=== PATIENT | female | born 1965 | race Caucasian/White ===

== ENCOUNTER 2017-01-07 07:25 | Emergency (ER) | payer MEDICAID ==
[2017-01-07] MEDS ORDERED: 0.9 % SODIUM CHLORIDE 1,000 ML BAG IV ONE (08:12)
[2017-01-07] MEDS ORDERED: ONDANSETRON HCL IV 4 MG/2 ML VIAL IV ONE (08:12)
[2017-01-07] MEDS ORDERED: HYDROMORPHONE HCL 1 MG/ML CPJ IM ONE (08:12)
--- NOTE | 2017-01-07 08:32 | Emergency Department Record ---
History of Present Illness - General Chief Complaint: Abdominal Pain Stated Complaint: LOWER RIGHT ABD PAIN Time Seen by Provider: 01/07/17 08:12 Source: Patient Mode of Arrival: Ambulatory Limitations: No limitations - History of Present Illness Initial Comments: pt is having rlq pain that is different then what she usually has w her crohns. no nvcd. pain is constant. no distention. MD Complaint: Abdominal pain Onset/Timin -: Hour(s) Location: RLQ Radiation: Suprapubic Migration to: No migration Severity: Moderate Quality: Sharp, Stabbing Consistency: Constant, Intermittent Improves With: Nothing Worsens With: Movement Associated Symptoms: Denies other symptoms - Related Data Patient : No Hx Age of Menopause: 47 Home Medications Medication Instructions Recorded Confirmed Last Taken Zolpidem Tartrate [Ambien] 10 mg PO QHS 09/18/15 01/07/17 11/05/16 22:00 Vedolizumab [Entyvio] 300 mg IV ASDIR 07/05/16 01/07/17 10/17/16 Allergies Allergy/AdvReac Type Severity Reaction Status Date / Time promethazine HCl Allergy Mild ITCHING Verified 01/07/17 07:43 [From Phenergan] adalimumab [From HUMIRA] Allergy Unknown MIGRAINES Verified 01/07/17 07:43 aspirin [ASPIRIN] Allergy Unknown NAUSEA AND Verified 01/07/17 07:43 VOMITING azathioprine [From IMURAN] Allergy Unknown VOMITING Verified 01/07/17 07:43 azathioprine sodium Allergy Unknown VOMITING Verified 01/07/17 07:43 [From IMURAN] chlordiazepoxide HCl Allergy Unknown RASH Verified 01/07/17 07:43 [From LIBRIUM] citalopram hydrobromide Allergy Unknown HYPERSENSIT Verified 01/07/17 07:43 [From CELEXA] IVITY clidinium [CLIDINIUM] Allergy Unknown RASH Verified 01/07/17 07:43 codeine Allergy Unknown ITCHING Verified 01/07/17 07:43 eicosapentaenoic acid Allergy Unknown RASH Verified 01/07/17 07:43 [From OMEGA 3] hydrocodone bitartrate Allergy Unknown ITCHING Verified 01/07/17 07:43 [From VICODIN] hydromorphone HCl Allergy Unknown ITCHING Verified 01/07/17 07:43 infliximab Allergy Unknown VOMITING Verified 01/07/17 07:43 metoclopramide Allergy Unknown ALTERED Verified 01/07/17 07:43 [METOCLOPRAMIDE] MENTAL STATUS morphine [MORPHINE] Allergy Unknown ITCHING Verified 01/07/17 07:43 omega-3 fatty acids Allergy Unknown RASH Verified 01/07/17 07:43 [From OMEGA 3] oxycodone HCl [From PERCOCET] Allergy Unknown ITCHING Verified 01/07/17 07:43 paroxetine HCl [From PAXIL] Allergy Unknown RASH Verified 01/07/17 07:43 varenicline tartrate Allergy Unknown ALTERED Verified 01/07/17 07:43 [From CHANTIX] MENTAL STATUS Travel Screening - Travel/Exposure Within Last 30 Days Have you traveled within the last 30 days?: No - Travel/Exposure Within Last Year Have you traveled outside the [place] in the last year?: No - Additonal Travel Details Have you been exposed to anyone with a communicable illness?: No - Travel Symptoms Symptom Screening: None Review of Systems Reviewed: No additional complaints except as noted below Constitutional: Reports: As per HPI. Denies: Chills, Fever, Malaise, Night sweats, Weakness, Weight change Eyes: Reports: As per HPI. Denies: Eye discharge, Eye pain, Photophobia, Vision change ENT: Reports: As per HPI. Denies: Congestion, Dental pain, Ear pain, Epistaxis , Hearing loss, Throat pain Respiratory: Reports: As per HPI. Denies: Cough, Dyspnea, Hemoptysis, Stridor, Wheezes Cardiovascular: Reports: As per HPI. Denies: Arrhythmia, Chest pain, Dyspnea on exertion, Edema, Murmurs, Orthopnea, Palpitations, Paroxysmal nocturnal dyspnea, Rheumatic Fever, Syncope Endocrine: Reports: As per HPI. Denies: Fatigue, Heat or cold intolerance, Polydipsia, Polyuria Gastrointestinal: Reports: As per HPI. Denies: Abdominal pain, Constipation, Diarrhea, Hematemesis, Hematochezia, Melena, Nausea, Vomiting Genitourinary: Reports: As per HPI. Denies: Abnormal menses, Discharge, Dyspareunia, Dysuria, Frequency, Hematuria, Incontinence, Retention, Urgency Musculoskeletal: Reports: As per HPI. Denies: Arthralgia, Back pain, Gout, Joint swelling, Myalgia, Neck pain Skin: Reports: As per HPI. Denies: Bruising, Change in color, Change in hair/ nails, Lesions, Pruritus, Rash Neurological: Reports: As per HPI. Denies: Abnormal gait, Confusion, Headache, Numbness, Paresthesias, Seizure, Tingling, Tremors, Vertigo, Weakness Psychiatric: Reports: As per HPI. Denies: Anxiety, Auditory hallucinations, Depression, Homicidal thoughts, Suicidal thoughts, Visual hallucinations Hematological/Lymphatic: Reports: As per HPI. 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 Greyson Haddad ) Hx Reflux: Yes Hx Irritable Bowel: Yes Hx Nausea/Vomiting: Yes Hx Obstructive Bowel: Yes (Admitted for Crohns, ileus and possible partial bowel obstruction) Comment:: crohns colitis - Hx Genitourinary Disorders: No Comment:: going through menopause - ENDOCRINE Hx Endocrine Disorders: No - MUSCULOSKELETAL Hx Musculoskeletal Disorders: Yes Hx Arthritis: Yes Comment:: rds in right ankle - PSYCH Hx Psych Problems: Yes Hx Anxiety: Yes Hx Depression: Yes - HEMATOLOGY/ONCOLOGY Hx Hematology/Oncology Disorders: No Family Medical History Any Significant Family History?: Yes Hx Alcohol Use: Father, Brother/Sister Hx Cancer: Brother/Sister *Cancer Comment: lung cancer Hx Diabetes: Grandparents *Diabetes Comment: grandmother Hx Heart Disease: Grandparents *Heart Comment: grandfather Hx Resp Disorders: Children *Resp Comment: daughter has asthma Hx Stroke: Mother *Stroke Comment: Mother had history of TIA x 1 Physical Exam - General General Appearance: Alert, Oriented x3, Cooperative, No acute distress, Mild distress - Head Head exam: Normal inspection - Eye Eye exam: Normal appearance, PERRL, EOMI Pupils: Normal accommodation - ENT ENT exam: Normal exam, Mucous membranes moist, Normal external ear exam, Normal orophraynx, TM's normal bilaterally Ear exam: Normal external inspection. negative: External canal tenderness Nasal Exam: Normal inspection. negative: Discharge, Sinus tenderness Mouth exam: Normal external inspection, Tongue normal Teeth exam: Normal inspection. negative: Dental caries Throat exam: Normal inspection. negative: Tonsillar erythema, Tonsillar exudate - Neck Neck exam: Normal inspection, Full ROM. negative: Tenderness - Respiratory Respiratory exam: Normal lung sounds bilaterally. negative: Respiratory distress - Cardiovascular Cardiovascular Exam: Normal rhythm, Normal heart sounds, Tachycardia - GI/Abdominal GI/Abdominal exam: Soft, Normal bowel sounds, Tenderness - Rectal Rectal exam: Deferred - exam: Deferred - Extremities Extremities exam: Normal inspection, Full ROM, Normal capillary refill. negative: Tenderness - Back Back exam: Reports: Normal inspection, Full ROM. Denies: Muscle spasm, Rash noted, Tenderness - Neurological Neurological exam: Alert, CN II-XII intact, Normal gait, Oriented X3 - Psychiatric Psychiatric exam: Normal affect, Normal mood - Skin Skin exam: Dry, Intact, Normal color, Warm Course Vital Signs 01/07/17 07:32 Temperature 97.7 F Pulse Rate 108 H Respiratory 20 Rate Blood Pressure 117/93 Pulse Ox 98 - Reevaluation(s) Reevaluation #1: 01/07/17 12:43 pt feels better. pain is gone. ct is always abnormal but is unchanged from september Medical Decision Making - Lab Data Result diagrams: 01/07/17 09:24 01/07/17 09:24 Disposition Disposition: Discharge Clinical Impression: Abdominal pain Qualifiers: Abdominal location: generalized Qualified Code(s): R10.84 - Generalized abdominal pain Disposition: Home, Self-Care Condition: (1) Good Instructions: Abdominal Pain (ED) Additional Instructions: follow up with family doctor and surgeon. return sooner if worse. Forms: Patient Portal Access
[2017-01-07 09:26] LABS: BASO % 0.4 % (0-6); EOS % 3.6 % (0-6); GRAN % 61.6 % (47-80); HEMATOCRIT 45.1 % (35.0-47.0); HEMOGLOBIN 14.4 gm/dl (11.6-16.0); LYMPH % 22.9 % (16-45); MEAN CELL VOLUME 84.1 fl (81-97); MEAN CORPUSCULAR HEMOGLOBIN 26.9 pg (27-33); MEAN CORPUSCULAR HGB CONC 31.9 g/dl (32-36); MONO % 11.5 % (0-9); PLATELET COUNT 439 K/uL (130-400); RED BLOOD COUNT 5.36 M/uL (3.80-5.40); RED CELL DISTRIBUTION WIDTH 15.1 % (11.5-14.5); WHITE BLOOD COUNT W/O DIFF 12.9 K/uL (4.2-12.2)
[2017-01-07 09:38] LABS: ALB/GLOB RATIO 1.4 (1.1-1.8); ALBUMIN 4.6 gm/dL (3.5-5.0); ALKALINE PHOSPHATASE 91 U/L (38-126); ALT/SGPT 20 U/L (9-52); ANION GAP 14.1 (7-16); AST/SGOT 27 U/L (14-36); BILIRUBIN,TOTAL 0.59 mg/dL (0.2-1.3); BLOOD UREA NITROGEN 6 mg/dL (7-17); CARBON DIOXIDE 25.9 mmol/L (22-30); CREATININE 0.5 mg/dL (0.52-1.04); EST GLOMERULAR FILTRATION RATE > 60 ml/min; GLUCOSE,RANDOM 76 mg/dL (70-110); LIPASE 95 U/L (23-300); TOTAL PROTEIN 7.8 gm/dL (6.3-8.2)
[2017-01-07] MEDS ORDERED: DIPHENHYDRAMINE HCL IV 50 MG/ML VIAL IVP ONE (10:07)
[2017-01-07 11:36] LABS: URINE APPEARANCE CLEAR; URINE BILIRUBIN NEGATIVE (NEGATIVE); URINE BLOOD NEGATIVE (NEGATIVE); URINE COLOR YELLOW; URINE GLUCOSE (UA) NEGATIVE (NEGATIVE); URINE KETONE NEGATIVE (NEGATIVE); URINE LEUKOCYTE ESTERASE NEGATIVE (NEGATIVE); URINE NITRITE NEGATIVE (NEGATIVE); URINE PROTEIN NEGATIVE (NEGATIVE); URINE UROBILINOGEN 0.2 E.U./dL (0.20 - 1.00)
== END 2017-01-07 13:20 | disposition home or self-care (01) ==
LOC: ER 07:25
DX: R10.84 Generalized abdominal pain (principal); K50.90 Crohn's disease, unspecified, without complications
CPT/HCPCS: 99284 ×2; 96374; 96372; 96375; 83690; 85025; 80053; 81003; 74176; J2405; J1170; J1200; J7030

== ENCOUNTER 2017-02-11 14:11 | Emergency (ER) | payer MEDICAID ==
[2017-02-11] MEDS ORDERED: ASPIRIN 81 MG CHEWABLE TABLET PO ONE (14:32)
[2017-02-11] MEDS ORDERED: ONDANSETRON HCL IV 4 MG/2 ML VIAL IVP ONE (14:38)
[2017-02-11] MEDS ORDERED: MORPHINE SULFATE 5 MG/ML PFS IVP ONE ×2 (14:38→15:48)
--- NOTE | 2017-02-11 14:38 | Emergency Department Record ---
History of Present Illness - General Chief Complaint: Chest Pain Stated Complaint: CHEST PAIN Time Seen by Provider: 02/11/17 14:31 Source: Patient Mode of Arrival: Ambulatory Limitations: No limitations - History of Present Illness Initial Comments: 51 yo female presents to ED with a CC of chest pain radiating from the left chest to her left scapular region associated with nausea symptoms. Patient denies previous heart or lung problems, and denies fevers, chills, or recent illness. MD Complaint: Chest pain Onset/Timin -: Minutes(s) Onset: Awoke with symptoms Pain Location: Left chest Pain Radiation: Back, Other Severity: Moderate Severity scale (1-10): 10 Consistency: Constant Improves With: Nothing Worsens With: Nothing Anginal Symptoms: Nausea - Related Data Home Medications Medication Instructions Recorded Confirmed Last Taken Zolpidem Tartrate [Ambien] 10 mg PO QHS 09/18/15 02/11/17 02/10/17 Vedolizumab [Entyvio] 300 mg IV ASDIR 07/05/16 02/11/17 10/17/16 Allergies Allergy/AdvReac Type Severity Reaction Status Date / Time promethazine HCl Allergy Mild ITCHING Unverified 02/06/17 12:51 [From Phenergan] adalimumab [From HUMIRA] Allergy Unknown MIGRAINES Unverified 02/06/17 12:51 aspirin [ASPIRIN] Allergy Unknown NAUSEA AND Unverified 02/06/17 12:51 VOMITING azathioprine [From IMURAN] Allergy Unknown VOMITING Unverified 02/06/17 12:51 azathioprine sodium Allergy Unknown VOMITING Unverified 02/06/17 12:51 [From IMURAN] chlordiazepoxide HCl Allergy Unknown RASH Unverified 02/06/17 12:51 [From LIBRIUM] citalopram hydrobromide Allergy Unknown HYPERSENSIT Unverified 02/06/17 12:51 [From CELEXA] IVITY clidinium [CLIDINIUM] Allergy Unknown RASH Unverified 02/06/17 12:51 codeine Allergy Unknown ITCHING Unverified 02/06/17 12:51 eicosapentaenoic acid Allergy Unknown RASH Unverified 02/06/17 12:51 [From OMEGA 3] hydrocodone bitartrate Allergy Unknown ITCHING Unverified 02/06/17 12:51 [From VICODIN] hydromorphone HCl Allergy Unknown ITCHING Unverified 02/06/17 12:51 infliximab Allergy Unknown VOMITING Unverified 02/06/17 12:51 metoclopramide Allergy Unknown ALTERED Unverified 02/06/17 12:51 [METOCLOPRAMIDE] MENTAL STATUS morphine [MORPHINE] Allergy Unknown ITCHING Unverified 02/06/17 12:51 omega-3 fatty acids Allergy Unknown RASH Unverified 02/06/17 12:51 [From OMEGA 3] oxycodone HCl [From PERCOCET] Allergy Unknown ITCHING Unverified 02/06/17 12:51 paroxetine HCl [From PAXIL] Allergy Unknown RASH Unverified 02/06/17 12:51 varenicline tartrate Allergy Unknown ALTERED Unverified 02/06/17 12:51 [From CHANTIX] MENTAL STATUS Travel Screening - Travel/Exposure Within Last 30 Days Have you traveled within the last 30 days?: No - Travel/Exposure Within Last Year Have you traveled outside the [place] in the last year?: No - Additonal Travel Details Have you been exposed to anyone with a communicable illness?: No - Travel Symptoms Symptom Screening: None Review of Systems Constitutional: Denies: Chills, Fever, Malaise, Night sweats Eyes: Denies: Eye discharge, Eye pain ENT: Denies: Congestion, Ear pain, Epistaxis Respiratory: Denies: Cough, Dyspnea Cardiovascular: Reports: Chest pain. Denies: Dyspnea on exertion Endocrine: Denies: Fatigue, Heat or cold intolerance Gastrointestinal: Denies: Abdominal pain, Nausea, Vomiting Genitourinary: Denies: Frequency, Hematuria, Incontinence, Retention Musculoskeletal: Denies: Arthralgia, Back pain, Gout, Joint swelling Skin: Denies: Bruising, Change in color Neurological: Denies: Abnormal gait, Confusion, Headache, Seizure Psychiatric: Denies: Anxiety Hematological/Lymphatic: Denies: Anemia, Blood Clots Past Medical History - SOCIAL HISTORY Smoking Status: Light tobacco smoker (<10/day) Alcohol Use: None Drug Use: None - RESPIRATORY Hx Respiratory Disorders: No - CARDIOVASCULAR Hx Cardio Disorders: No - NEURO Hx Neuro Disorders: Yes Hx Seizures: Yes (last seizure 12 years ago) Hx TIA: Yes (2009) - GI Hx GI Disorders: Yes Hx Abdominal Pain: Yes Hx Crohn's Disease: Yes (Diagnosed about 9 years ago; managed by Dr. Greyson Haddad ) Hx Reflux: Yes Hx Irritable Bowel: Yes Hx Nausea/Vomiting: Yes Hx Obstructive Bowel: Yes (Admitted for Crohns, ileus and possible partial bowel obstruction) Comment:: crohns colitis - Hx Genitourinary Disorders: No Comment:: going through menopause - ENDOCRINE Hx Endocrine Disorders: No - MUSCULOSKELETAL Hx Musculoskeletal Disorders: Yes Hx Arthritis: Yes Comment:: rds in right ankle - PSYCH Hx Psych Problems: Yes Hx Anxiety: Yes Hx Depression: Yes - HEMATOLOGY/ONCOLOGY Hx Hematology/Oncology Disorders: No Family Medical History Any Significant Family History?: No Hx Alcohol Use: Father, Brother/Sister Hx Cancer: Brother/Sister *Cancer Comment: lung cancer Hx Diabetes: Grandparents *Diabetes Comment: grandmother Hx Heart Disease: Grandparents *Heart Comment: grandfather Hx Resp Disorders: Children *Resp Comment: daughter has asthma Hx Stroke: Mother *Stroke Comment: Mother had history of TIA x 1 Physical Exam - General General Appearance: Alert, Oriented x3, Cooperative, Mild distress Limitations: No limitations - Head Head exam: Atraumatic, Normocephalic, Normal inspection Head exam detail: negative: Abrasion, Contusion, Moran's sign, General tenderness, Hematoma, Laceration - Eye Eye exam: Normal appearance. negative: Conjunctival injection, Periorbital swelling, Periorbital tenderness, Scleral icterus - ENT Ear exam: negative: Auricular hematoma, Auricular trauma Nasal Exam: negative: Active bleeding, Discharge, Dried blood, Foreign body Mouth exam: negative: Drooling, Laceration, Muffled voice, Tongue elevation - Neck Neck exam: Normal inspection. negative: Meningismus, Tenderness - Respiratory Respiratory exam: Normal lung sounds bilaterally. negative: Rales, Respiratory distress, Rhonchi, Stridor - Cardiovascular Cardiovascular Exam: Regular rate, Normal rhythm, Normal heart sounds - GI/Abdominal GI/Abdominal exam: Soft. negative: Rebound, Rigid, Tenderness - Rectal Rectal exam: Deferred - exam: Deferred - Extremities Extremities exam: Normal inspection. negative: Pedal edema, Tenderness - Back Back exam: Denies: CVA tenderness (R), CVA tenderness (L) - Neurological Neurological exam: Alert, Normal gait, Oriented X3 - Psychiatric Psychiatric exam: Normal affect, Normal mood - Skin Skin exam: Normal color. negative: Abrasion Type of lesion: negative: abrasion Course Vital Signs 02/11/17 14:12 Temperature 97.6 F Pulse Rate 85 Respiratory 20 Rate Blood Pressure 123/90 Pulse Ox 98 - Reevaluation(s) Reevaluation #1: 02/11/17 14:33 EKG: NSR 95 Normal axis, normal intervals ST depression V5, V6 New changes from 07/31/2016 Reevaluation #2: 02/11/17 15:14 Labs reviewed and are grossly unremarkable for an acute process. CXR: No acute process. patient was updated on all results as well as her new EKG changes, will initiate transfer for cardiology evaluation. Reevaluation #3: 02/11/17 15:39 Case was discussed with Dr. Reid, laborer demolition activated, Heparin bolus given and Nitro qttp ordered. Will initiate stat transfer. Medical Decision Making - Lab Data Result diagrams: 02/11/17 14:40 02/11/17 14:40 Disposition Disposition: Transfer Clinical Impression: ST elevation myocardial infarction (STEMI) Qualifiers: Involved coronary artery: unspecified coronary artery Qualified Code(s): I21.3 - ST elevation (STEMI) myocardial infarction of unspecified site Disposition: Acute Care Hospital Transfer Transfer To: [facility] Reason For Transfer: STEMI Accepting Physician: Jeanette Time Discussed w/Accepting Physician: 15:40 Condition: (2) Stable Forms: Patient Portal Access
[2017-02-11] MEDS ORDERED: DIPHENHYDRAMINE HCL IV 50 MG/ML VIAL IVP ONE (14:39)
[2017-02-11 14:49] LABS: BASO % 0.5 % (0-6); EOS % 5.8 % (0-6); GRAN % 53.5 % (47-80); HEMATOCRIT 45.5 % (35.0-47.0); HEMOGLOBIN 14.6 gm/dl (11.6-16.0); LYMPH % 31.3 % (16-45); MEAN CORPUSCULAR HEMOGLOBIN 26.6 pg (27-33); MEAN CORPUSCULAR HGB CONC 32.1 g/dl (32-36); MEAN PLATELET VOLUME 9.4 fl (7.4-10.4); MONO % 8.9 % (0-9); PLATELET COUNT 488 K/uL (130-400); RED BLOOD COUNT 5.48 M/uL (3.80-5.40); RED CELL DISTRIBUTION WIDTH 14.9 % (11.5-14.5); WHITE BLOOD COUNT W/O DIFF 12.8 K/uL (4.2-12.2)
[2017-02-11 14:59] LABS: ALB/GLOB RATIO 1.6 (1.1-1.8); ALBUMIN 4.7 gm/dL (3.5-5.0); ALKALINE PHOSPHATASE 100 U/L (38-126); ALT/SGPT 31 U/L (9-52); ANION GAP 9.9 (7-16); AST/SGOT 30 U/L (14-36); BILIRUBIN,TOTAL 0.41 mg/dL (0.2-1.3); BLOOD UREA NITROGEN 4 mg/dL (7-17); CARBON DIOXIDE 24.1 mmol/L (22-30); CREATININE 0.6 mg/dL (0.52-1.04); EST GLOMERULAR FILTRATION RATE > 60 ml/min; GLUCOSE,RANDOM 93 mg/dL (70-110); TOTAL PROTEIN 7.6 gm/dL (6.3-8.2)
[2017-02-11 15:11] LABS: CKMB 0.3 ug/L (0-6); TROPONIN I < 0.012 ng/mL (0.00-0.034)
[2017-02-11] MEDS ORDERED: HEPARIN SODIUM 1000 UNIT/1 ML 10ML VIAL IVP ONE (15:37)
[2017-02-11] MEDS ORDERED: NITROGLYCERIN/D5W 50 MG in DEXTROSE 5 % IN WATER 1 BAG IV SCH ×2 (15:45)
== END 2017-02-11 16:10 | disposition short-term general hospital (02) ==
LOC: ER 14:11
DX: I21.3 ST elevation (STEMI) myocardial infarction of unspecified site (principal); R11.0 Nausea; F17.210 Nicotine dependence, cigarettes, uncomplicated
CPT/HCPCS: 71020; 80053; 82553; 84484; 85025; 93005; 93010; 96365; 96375; 96376; 99285; J1200; J2405

== ENCOUNTER 2017-05-03 04:42 | Emergency (ER) | payer MEDICAID ==
--- NOTE | 2017-05-03 05:07 | Emergency Department Record ---
History of Present Illness - General Chief Complaint: Cough Stated Complaint: COUGH Time Seen by Provider: 05/03/17 04:54 Source: Patient Mode of Arrival: Ambulatory - History of Present Illness Initial Comments: The patient has had a nonproductive to clear cough which becomes so bad at night time that she is now having pain when coughing below her lower right ribs. She has been using nyquil and dayquil without much relief. She denies f,c , SOB, sore throat, nasal congestion or ear pain. MD Complaint: Cough Onset/Timin -: Days(s) - Related Data Home Medications Medication Instructions Recorded Confirmed Last Taken Vedolizumab [Entyvio] 300 mg IV ASDIR 07/05/16 05/03/17 10/17/16 Previous Rx's Medication Instructions Recorded Albuterol Sulfate [Proventil Hfa] 1 - 2 puff INH TID #1 inhaler 05/03/17 Codeine Phosphate/Guaifenesin 5 ml PO QHS #120 ml 05/03/17 [Guaifenesin-Codeine Syrup] Allergies Allergy/AdvReac Type Severity Reaction Status Date / Time promethazine HCl Allergy Mild ITCHING Unverified 04/02/17 14:12 [From Phenergan] adalimumab [From HUMIRA] Allergy Unknown MIGRAINES Unverified 04/02/17 14:12 aspirin [ASPIRIN] Allergy Unknown NAUSEA AND Unverified 04/02/17 14:12 VOMITING azathioprine [From IMURAN] Allergy Unknown VOMITING Unverified 04/02/17 14:12 azathioprine sodium Allergy Unknown VOMITING Unverified 04/02/17 14:12 [From IMURAN] chlordiazepoxide HCl Allergy Unknown RASH Unverified 04/02/17 14:12 [From LIBRIUM] citalopram hydrobromide Allergy Unknown HYPERSENSIT Unverified 04/02/17 14:12 [From CELEXA] IVITY clidinium [CLIDINIUM] Allergy Unknown RASH Unverified 04/02/17 14:12 codeine Allergy Unknown ITCHING Unverified 04/02/17 14:12 eicosapentaenoic acid Allergy Unknown RASH Unverified 04/02/17 14:12 [From OMEGA 3] hydrocodone bitartrate Allergy Unknown ITCHING Unverified 04/02/17 14:12 [From VICODIN] hydromorphone HCl Allergy Unknown ITCHING Unverified 04/02/17 14:12 infliximab Allergy Unknown VOMITING Unverified 04/02/17 14:12 metoclopramide Allergy Unknown ALTERED Unverified 04/02/17 14:12 [METOCLOPRAMIDE] MENTAL STATUS morphine [MORPHINE] Allergy Unknown ITCHING Unverified 04/02/17 14:12 omega-3 fatty acids Allergy Unknown RASH Unverified 04/02/17 14:12 [From OMEGA 3] oxycodone HCl [From PERCOCET] Allergy Unknown ITCHING Unverified 04/02/17 14:12 paroxetine HCl [From PAXIL] Allergy Unknown RASH Unverified 04/02/17 14:12 varenicline tartrate Allergy Unknown ALTERED Unverified 04/02/17 14:12 [From CHANTIX] MENTAL STATUS Travel Screening - Travel/Exposure Within Last 30 Days Have you traveled within the last 30 days?: No Review of Systems Reviewed: No additional complaints except as noted below Constitutional: Reports: As per HPI. Denies: Chills, Fever, Malaise, Night sweats, Weakness, Weight change Eyes: Reports: As per HPI. Denies: Eye discharge, Eye pain, Photophobia, Vision change ENT: Reports: As per HPI. Denies: Congestion, Dental pain, Ear pain, Epistaxis , Hearing loss, Throat pain Respiratory: Reports: As per HPI. Denies: Cough, Dyspnea, Hemoptysis, Stridor, Wheezes Cardiovascular: Reports: As per HPI. Denies: Arrhythmia, Chest pain, Dyspnea on exertion, Edema, Murmurs, Orthopnea, Palpitations, Paroxysmal nocturnal dyspnea, Rheumatic Fever, Syncope Endocrine: Reports: As per HPI. Denies: Fatigue, Heat or cold intolerance, Polydipsia, Polyuria Gastrointestinal: Reports: As per HPI. Denies: Abdominal pain, Constipation, Diarrhea, Hematemesis, Hematochezia, Melena, Nausea, Vomiting Genitourinary: Reports: As per HPI. Denies: Abnormal menses, Discharge, Dyspareunia, Dysuria, Frequency, Hematuria, Incontinence, Retention, Urgency Musculoskeletal: Reports: As per HPI. Denies: Arthralgia, Back pain, Gout, Joint swelling, Myalgia, Neck pain Skin: Reports: As per HPI. Denies: Bruising, Change in color, Change in hair/ nails, Lesions, Pruritus, Rash Neurological: Reports: As per HPI. Denies: Abnormal gait, Confusion, Headache, Numbness, Paresthesias, Seizure, Tingling, Tremors, Vertigo, Weakness Psychiatric: Reports: As per HPI. Denies: Anxiety, Auditory hallucinations, Depression, Homicidal thoughts, Suicidal thoughts, Visual hallucinations Hematological/Lymphatic: Reports: As per HPI. Denies: Anemia, Blood Clots, Easy bleeding, Easy bruising, Swollen glands Past Medical History - SOCIAL HISTORY Smoking Status: Light tobacco smoker (<10/day) Alcohol Use: None Drug Use: None - RESPIRATORY Hx Respiratory Disorders: No - CARDIOVASCULAR Hx Cardio Disorders: No - NEURO Hx Neuro Disorders: Yes Hx Seizures: Yes (last seizure 12 years ago) Hx TIA: Yes (2009) - GI Hx GI Disorders: Yes Hx Abdominal Pain: Yes Hx Crohn's Disease: Yes (Diagnosed about 9 years ago; managed by Dr. Greyson Haddad ) Hx Reflux: Yes Hx Irritable Bowel: Yes Hx Nausea/Vomiting: Yes Hx Obstructive Bowel: Yes (Admitted for Crohns, ileus and possible partial bowel obstruction) Comment:: crohns colitis - Hx Genitourinary Disorders: No Comment:: going through menopause - ENDOCRINE Hx Endocrine Disorders: No - MUSCULOSKELETAL Hx Musculoskeletal Disorders: Yes Hx Arthritis: Yes Comment:: rds in right ankle - PSYCH Hx Psych Problems: Yes Hx Anxiety: Yes Hx Depression: Yes - HEMATOLOGY/ONCOLOGY Hx Hematology/Oncology Disorders: No Family Medical History Any Significant Family History?: Yes Hx Alcohol Use: Father, Brother/Sister Hx Cancer: Brother/Sister *Cancer Comment: lung cancer Hx Diabetes: Grandparents *Diabetes Comment: grandmother Hx Heart Disease: Grandparents *Heart Comment: grandfather Hx Resp Disorders: Children *Resp Comment: daughter has asthma Hx Stroke: Mother *Stroke Comment: Mother had history of TIA x 1 Physical Exam - General General Appearance: Alert, Oriented x3, Cooperative, No acute distress, Moderate distress (when coughing she is painful over right lowest ribs/RUQ region) - Head Head exam: Normal inspection - Eye Eye exam: Normal appearance, PERRL Pupils: Normal accommodation - ENT ENT exam: Normal exam, Mucous membranes moist, Normal external ear exam, Normal orophraynx, TM's normal bilaterally Ear exam: Normal external inspection. negative: External canal tenderness Nasal Exam: Normal inspection. negative: Discharge, Sinus tenderness Mouth exam: Normal external inspection, Tongue normal Teeth exam: Normal inspection. negative: Dental caries Throat exam: Normal inspection. negative: Tonsillar erythema, Tonsillar exudate - Neck Neck exam: Normal inspection, Full ROM. negative: Lymphadenopathy, Tenderness - Respiratory Respiratory exam: Normal lung sounds bilaterally, Chest wall tenderness (tender on palpation over lowest right rib regions and onto abdominal wall of RUQ; abdomen otherwise soft, nontender and nondistended.), Other (when coughing her breathsounds are coarse with end expiratory wheeze). negative: Respiratory distress - Cardiovascular Cardiovascular Exam: Regular rate, Normal rhythm, Normal heart sounds - GI/Abdominal GI/Abdominal exam: Soft, Normal bowel sounds. negative: Tenderness - Rectal Rectal exam: Deferred - exam: Deferred - Extremities Extremities exam: Normal inspection, Full ROM, Normal capillary refill. negative: Calf tenderness, Pedal edema, Tenderness - Back Back exam: Reports: Normal inspection, Full ROM. Denies: Muscle spasm, Rash noted, Tenderness - Neurological Neurological exam: Alert, Normal gait, Oriented X3, Reflexes normal - Psychiatric Psychiatric exam: Normal affect, Normal mood - Skin Skin exam: Dry, Intact, Normal color, Warm Course Vital Signs 05/03/17 05/03/17 04:49 04:52 Temperature 97.5 F L Pulse Rate [ 102 H Pulse Ox Probe] Respiratory 24 Rate Blood Pressure 127/85 [Left Arm] Pulse Ox 97 - Reevaluation(s) Reevaluation #1: Patient states that she can take guaifenecin and codeine without allergy to it. 05/03/17 05:15 Reevaluation #2: Breathing easier after nebulizer. Ready for DC home. 05/03/17 05:28 Medical Decision Making - Management Options MDM Management: No Additional Work-up Planned Disposition Disposition: Discharge Clinical Impression: Bronchitis Abdominal muscle strain Qualifiers: Encounter type: initial encounter Qualified Code(s): S39.011A - Strain of muscle, fascia and tendon of abdomen, initial encounter Disposition: Home, Self-Care Condition: (1) Good Instructions: Cold Symptoms (ED), Acute Bronchitis (ED) Additional Instructions: Take Guaifenesin codeine syrup 1-2 tsp at night for cough suppression. During daytime use throat sprays, lozenges, frequent sips of water/ice chips Benadryl elixir 50 mg up to 4 times daily if needed. Bedside vaporizer. Splint abdomen/rib area with pillow when coughing. No lifting bending twisting. Albuterol inhaler two puffs 2-3 times daily if needed for coughing. Follow up with PCP Friday if not improving. Prescriptions: Codeine Phosphate/Guaifenesin [Guaifenesin-Codeine Syrup] 5 ml PO QHS #120 ml Albuterol Sulfate [Proventil Hfa] 1 - 2 puff INH TID #1 inhaler Forms: Patient Portal Access
[2017-05-03] MEDS ORDERED: ALBUTEROL SULFATE (0.083%) 2.5 MG/3 ML NEB INH ONE (05:10)
[2017-05-03] MEDS ORDERED: ACETAMINOPHEN W/ CODEINE 300MG/30MG TABLET PO ONE (05:16)
== END 2017-05-03 05:42 | disposition home or self-care (01) ==
LOC: ER 04:42
DX: S39.011A Strain of muscle, fascia and tendon of abdomen, initial encounter (principal); J20.9 Acute bronchitis, unspecified; X50.3XXA Overexertion from repetitive movements, initial encounter; F17.210 Nicotine dependence, cigarettes, uncomplicated
CPT/HCPCS: 94640; 99283; J7613

== ENCOUNTER 2017-07-02 09:18 | Emergency (ER) | payer MEDICAID ==
[2017-07-02] MEDS ORDERED: 0.9 % SODIUM CHLORIDE 1000ML 1,000 ML IV PRN (09:50)
[2017-07-02 11:33] LABS: BASO % 0.4 % (0-6); EOS % 4.9 % (0-6); HEMOGLOBIN 13.2 gm/dl (11.6-16.0); LYMPH % 30.7 % (16-45); MEAN CELL VOLUME 81.2 fl (81-97); MEAN CORPUSCULAR HEMOGLOBIN 25.5 pg (27-33); MEAN CORPUSCULAR HGB CONC 31.4 g/dl (32-36); MEAN PLATELET VOLUME 10.8 fl (7.4-10.4); PLATELET COUNT 235 K/uL (130-400); RED BLOOD COUNT 5.17 M/uL (3.80-5.40); RED CELL DISTRIBUTION WIDTH 17.1 % (11.5-14.5); WHITE BLOOD COUNT W/O DIFF 10.2 K/uL (4.2-12.2)
[2017-07-02 11:47] LABS: BLOOD UREA NITROGEN 6 mg/dL (7-17); CREATININE 0.6 mg/dL (0.52-1.04); EST GLOMERULAR FILTRATION RATE > 60 ml/min; GLUCOSE,RANDOM 88 mg/dL (70-110)
[2017-07-02 11:57] LABS: CKMB 0.3 ug/L (0-6)
[2017-07-02 11:59] LABS: TROPONIN I < 0.012 ng/mL (0.00-0.034)
[2017-07-02 12:03] LABS: PARTIAL THROMBOPLASTIN TIME 22.3 SECONDS (24.5-39.1)
[2017-07-02 12:04] LABS: D-DIMER 0.35 mg/L FEU (0-0.59)
[2017-07-02] MEDS: KETOROLAC 30 MG/ML VIAL IVP ONE (12:06)
[2017-07-02] MEDS: LORAZEPAM 2 MG/ML VIAL IV ONE (12:06)
--- NOTE | 2017-07-02 12:55 | Emergency Department Record ---
History of Present Illness - General Chief Complaint: Difficulty Breathing Stated Complaint: HURTS TO BREATH Time Seen by Provider: 07/02/17 09:45 Mode of Arrival: Ambulatory - History of Present Illness Initial Comments: left anterior chest wall pain and reproducible on palpation and lefting her arm and rotating her shoulders. No abdominal pain and no trauma. No diaphoresis. She is allergic to aspirin Onset/Timin -: Minutes(s) Severity: Moderate Severity scale (1-10): 10 Quality: Sharp, Stabbing Consistency: Constant Improves With: Nothing Worsens With: Inspiration Associated Symptoms: Denies other symptoms Treatments Prior to Arrival: None - Related Data Home Oxygen Therapy: No Home Medications Medication Instructions Recorded Confirmed Last Taken Vedolizumab [Entyvio] 300 mg IV ASDIR 07/05/16 07/02/17 06/11/17 Previous Rx's Medication Instructions Recorded Cyclobenzaprine HCl [Flexeril] 10 mg PO TID #30 tablet 07/02/17 Hydrocodone/Acetaminophen [[place] 1 each PO Q6HR #14 tablet 07/02/17 5-325 Tablet] Allergies Allergy/AdvReac Type Severity Reaction Status Date / Time promethazine HCl Allergy Mild ITCHING Verified 07/02/17 09:25 [From Phenergan] adalimumab [From HUMIRA] Allergy Unknown MIGRAINES Verified 07/02/17 09:25 aspirin [ASPIRIN] Allergy Unknown NAUSEA AND Verified 07/02/17 09:25 VOMITING azathioprine [From IMURAN] Allergy Unknown VOMITING Verified 07/02/17 09:25 azathioprine sodium Allergy Unknown VOMITING Verified 07/02/17 09:25 [From IMURAN] chlordiazepoxide HCl Allergy Unknown RASH Verified 07/02/17 09:25 [From LIBRIUM] citalopram hydrobromide Allergy Unknown HYPERSENSIT Verified 07/02/17 09:25 [From CELEXA] IVITY clidinium [CLIDINIUM] Allergy Unknown RASH Verified 07/02/17 09:25 codeine Allergy Unknown ITCHING Verified 07/02/17 09:25 eicosapentaenoic acid Allergy Unknown RASH Verified 07/02/17 09:25 [From OMEGA 3] hydrocodone bitartrate Allergy Unknown ITCHING Verified 07/02/17 09:25 [From VICODIN] hydromorphone HCl Allergy Unknown ITCHING Verified 07/02/17 09:25 infliximab Allergy Unknown VOMITING Verified 07/02/17 09:25 metoclopramide Allergy Unknown ALTERED Verified 07/02/17 09:25 [METOCLOPRAMIDE] MENTAL STATUS morphine [MORPHINE] Allergy Unknown ITCHING Verified 07/02/17 09:25 omega-3 fatty acids Allergy Unknown RASH Verified 07/02/17 09:25 [From OMEGA 3] oxycodone HCl [From PERCOCET] Allergy Unknown ITCHING Verified 07/02/17 09:25 paroxetine HCl [From PAXIL] Allergy Unknown RASH Verified 07/02/17 09:25 varenicline tartrate Allergy Unknown ALTERED Verified 07/02/17 09:25 [From CHANTIX] MENTAL STATUS Travel Screening - Travel/Exposure Within Last 30 Days Have you traveled within the last 30 days?: No - Travel/Exposure Within Last Year Have you traveled outside the [place] in the last year?: No - Additonal Travel Details Have you been exposed to anyone with a communicable illness?: No - Travel Symptoms Symptom Screening: None Review of Systems Reviewed: No additional complaints except as noted below Constitutional: Reports: As per HPI. Denies: Chills, Fever, Malaise, Night sweats, Weakness, Weight change Eyes: Reports: As per HPI. Denies: Eye discharge, Eye pain, Photophobia, Vision change ENT: Reports: As per HPI. Denies: Congestion, Dental pain, Ear pain, Epistaxis , Hearing loss, Throat pain Respiratory: Reports: As per HPI. Denies: Cough, Dyspnea, Hemoptysis, Stridor, Wheezes Cardiovascular: Reports: As per HPI, Chest pain. Denies: Arrhythmia, Dyspnea on exertion, Edema, Murmurs, Orthopnea, Palpitations, Paroxysmal nocturnal dyspnea, Rheumatic Fever, Syncope Endocrine: Reports: As per HPI. Denies: Fatigue, Heat or cold intolerance, Polydipsia, Polyuria Gastrointestinal: Reports: As per HPI. Denies: Abdominal pain, Constipation, Diarrhea, Hematemesis, Hematochezia, Melena, Nausea, Vomiting Genitourinary: Reports: As per HPI. Denies: Abnormal menses, Discharge, Dyspareunia, Dysuria, Frequency, Hematuria, Incontinence, Retention, Urgency Musculoskeletal: Reports: As per HPI. Denies: Arthralgia, Back pain, Gout, Joint swelling, Myalgia, Neck pain Skin: Reports: As per HPI. Denies: Bruising, Change in color, Change in hair/ nails, Lesions, Pruritus, Rash Neurological: Reports: As per HPI. Denies: Abnormal gait, Confusion, Headache, Numbness, Paresthesias, Seizure, Tingling, Tremors, Vertigo, Weakness Psychiatric: Reports: As per HPI. Denies: Anxiety, Auditory hallucinations, Depression, Homicidal thoughts, Suicidal thoughts, Visual hallucinations Hematological/Lymphatic: Reports: As per HPI. Denies: Anemia, Blood Clots, Easy bleeding, Easy bruising, Swollen glands Past Medical History - SOCIAL HISTORY Smoking Status: Light tobacco smoker (<10/day) Alcohol Use: None Drug Use: None - RESPIRATORY Hx Respiratory Disorders: No - CARDIOVASCULAR Hx Cardio Disorders: No - NEURO Hx Neuro Disorders: Yes Hx Seizures: Yes (last seizure 12 years ago) Hx TIA: Yes (2009) - GI Hx GI Disorders: Yes Hx Abdominal Pain: Yes Hx Crohn's Disease: Yes (Diagnosed about 9 years ago; managed by Dr. Greyson Haddad ) Hx Reflux: Yes Hx Irritable Bowel: Yes Hx Nausea/Vomiting: Yes Hx Obstructive Bowel: Yes (Admitted for Crohns, ileus and possible partial bowel obstruction) Comment:: crohns colitis - Hx Genitourinary Disorders: No Comment:: going through menopause - ENDOCRINE Hx Endocrine Disorders: No - MUSCULOSKELETAL Hx Musculoskeletal Disorders: Yes Hx Arthritis: Yes Comment:: rds in right ankle - PSYCH Hx Psych Problems: Yes Hx Anxiety: Yes Hx Depression: Yes - HEMATOLOGY/ONCOLOGY Hx Hematology/Oncology Disorders: No Family Medical History Any Significant Family History?: Yes Hx Alcohol Use: Father, Brother/Sister Hx Cancer: Brother/Sister *Cancer Comment: lung cancer Hx Diabetes: Grandparents *Diabetes Comment: grandmother Hx Heart Disease: Grandparents *Heart Comment: grandfather Hx Resp Disorders: Children *Resp Comment: daughter has asthma Hx Stroke: Mother *Stroke Comment: Mother had history of TIA x 1 Physical Exam - General General Appearance: Alert, Oriented x3, Cooperative, Mild distress - Head Head exam: Normal inspection - Eye Eye exam: Normal appearance, PERRL Pupils: Normal accommodation - ENT ENT exam: Normal exam, Mucous membranes moist, Normal external ear exam, Normal orophraynx, TM's normal bilaterally Ear exam: Normal external inspection. negative: External canal tenderness Nasal Exam: Normal inspection. negative: Discharge, Sinus tenderness Mouth exam: Normal external inspection, Tongue normal Teeth exam: Normal inspection. negative: Dental caries Throat exam: Normal inspection. negative: Tonsillar erythema, Tonsillar exudate - Neck Neck exam: Normal inspection, Full ROM. negative: Tenderness - Respiratory Respiratory exam: Normal lung sounds bilaterally. negative: Respiratory distress - Cardiovascular Cardiovascular Exam: Regular rate, Normal rhythm, Normal heart sounds, Other ( chest pain is reproducible on palpation and rotation of chest or movement of arm ) - GI/Abdominal GI/Abdominal exam: Soft, Normal bowel sounds. negative: Tenderness - Rectal Rectal exam: Deferred - exam: Deferred - Extremities Extremities exam: Normal inspection, Full ROM, Normal capillary refill. negative: Tenderness - Back Back exam: Reports: Normal inspection, Full ROM. Denies: Muscle spasm, Rash noted, Tenderness - Neurological Neurological exam: Alert, Normal gait, Oriented X3, Reflexes normal - Psychiatric Psychiatric exam: Normal affect, Normal mood - Skin Skin exam: Dry, Intact, Normal color, Warm Course Vital Signs 07/02/17 09:27 Temperature 97.9 F Pulse Rate 90 Respiratory 20 Rate Blood Pressure 126/73 Pulse Ox 98 Medical Decision Making - Data Complexity MDM Data: Labs Ordered and/or Reviewed, X-Ray Ordered and/or Reviewed (negative chest xray), EKG Ordered and/or Reviewed (No acute changes) - Lab Data Result diagrams: 07/02/17 10:45 07/02/17 10:45 Lab Results 07/02/17 07/02/17 07/02/17 Range/Units 10:45 10:45 11:58 WBC 10.2 (4.2-12.2) K/uL RBC 5.17 (3.80-5.40) M/uL Hgb 13.2 (11.6-16.0) gm/dl Hct 42.0 (35.0-47.0) % MCV 81.2 (81-97) fl MCH 25.5 L (27-33) pg MCHC 31.4 L (32-36) g/dl RDW 17.1 H (11.5-14.5) % Plt Count 235 (130-400) K/uL MPV 10.8 H (7.4-10.4) fl Gran % 55.0 (47-80) % Lymphocytes % 30.7 (16-45) % Monocytes % 9.0 (0-9) % Eosinophils % 4.9 (0-6) % Basophils % 0.4 (0-6) % APTT 22.30 L (24.5-39.1) SECONDS D-Dimer 0.35 (0-0.59) mg/L FEU Sodium 141 (136-145) mmol/L Potassium 4.3 (3.5-5.1) mmol/L Chloride 112 H (98-107) mmol/L Carbon Dioxide 20.0 L (22-30) mmol/L Anion Gap 9.0 (7-16) BUN 6 L (7-17) mg/dL Creatinine 0.6 (0.52-1.04) mg/dL Estimated GFR > 60 ml/min Random Glucose 88 (70-110) mg/dL Calcium 9.1 (8.5-10.1) mg/dL CK-MB (CK-2) 0.3 (0-6) ug/L Troponin I < 0.012 (0.00-0.034) ng/mL Disposition Clinical Impression: Acute chest wall pain, Costochondritis, acute Disposition: Home, Self-Care Condition: (1) Good Instructions: Costochondritis (ED) Additional Instructions: follow up with family in 2 days Prescriptions: Hydrocodone/Acetaminophen [[place] 5-325 Tablet] 1 each PO Q6HR #14 tablet Cyclobenzaprine HCl [Flexeril] 10 mg PO TID #30 tablet Forms: Patient Portal Access Time of Disposition: 13:01 Quality - Quality Measures Quality Measures: N/A - Blood Pressure Screening Does Patient Have Any of the Following: No Blood Pressure Classification: Pre-Hypertensive BP Reading Systolic Measurement: 126 Diastolic Measurement: 73 Screening for High Blood Pressure: < Pre-Hypertensive BP, F/U Documented > [ [id number]] Pre-Hypertensive Follow-up Interventions: Referral to alternative/primary care provider.
--- NOTE | 2017-07-04 08:12 | RADIOLOGY REPORT ---
EXAM: CHEST, TWO VIEWS HISTORY: SEVERE LEFT CHEST PAIN. TECHNIQUE: PA and lateral views of the chest were obtained. Comparison: Two view chest 02/11/17. FINDINGS: The heart size is normal. Mild torsion of the aorta. Mild apical pleural thickening bilaterally as before. No definite acute infiltrate is identified. No pleural effusion or pneumothorax evident. Mild thoracic curve to the right. IMPRESSION: MILD THORACIC CURVE TO THE RIGHT. NO DEFINITE ACUTE INFILTRATE IS SEEN. JOB NUMBER: [id number] MTDD
== END 2017-07-02 13:30 | disposition home or self-care (01) ==
LOC: ER 09:18
DX: M94.0 Chondrocostal junction syndrome [Tietze] (principal); R07.89 Other chest pain; R06.00 Dyspnea, unspecified; F17.210 Nicotine dependence, cigarettes, uncomplicated
CPT/HCPCS: 99284 ×2; 96374; 96375; 85025; 85730; 82553; 84484; 80048; 85379; 71020; 93005; 93010; J1885; J2060

== ENCOUNTER 2017-07-31 12:45 | Day surgery (SDC) | payer MEDICAID ==
[2017-07-31] MEDS ORDERED: PROPOFOL 10 MG/ML VIAL IV ONE (16:16)
[2017-07-31] MEDS ORDERED: LIDOCAINE 2% MDV (20MG/ML) 20ML VIAL IV ONE (16:16)
--- NOTE | 2017-08-06 09:50 | Operative Note ---
DATE OF SURGERY: 07/31/2017 OPERATION: ESOPHAGOGASTRODUODENOSCOPY with biopsy. PREOPERATIVE DIAGNOSIS: Dysphagia. POSTOPERATIVE DIAGNOSIS: Mild ring changes of the esophagus, rule out EOE. PROCEDURE: After informed consent was obtained from the patient, she was placed in the left lateral decubitus position in the endoscopy suite, sedated and monitored by the department of anesthesia. Once sedated, a well-lubricated [id number] gastroscope was placed in the posterior oropharynx and under direct visualization passed to the proximal esophagus. The endoscope was advanced through the proximal, mid, and distal esophagus. The distal esophagus and mid esophagus demonstrated some mild ring changes. No other abnormalities were noted. The gastric body, antrum, pylorus, duodenal bulb, and sweep were unremarkable. J-turn views of the proximal stomach were unremarkable. No masses were seen in the cardia or fundus region. The endoscope was then straightened. Random mid esophageal biopsies were obtained to rule out EOE. The remainder of the esophagus was unremarkable. RECOMMENDATIONS: The patient should resume her medications and diet. She should stop smoking. Further recommendations will be made once the tissue histology is available. If EOE is noted, she should be on a [id number] PPI and a repeat scope in 8 weeks. If the biopsies are negative for EOE, an esophagram with barium tablet would be reasonable. As always, thank you for allowing me to participate in the healthcare of your patients. CC: Dr. Tamiko DELONG
== END 2017-07-31 15:10 | disposition home or self-care (01) ==
LOC: HOP 12:45
PROVIDERS: ATTEND Internal Medicine Gastroenterology
DX: R13.10 Dysphagia, unspecified (principal); K20.9 Esophagitis, unspecified; K50.90 Crohn's disease, unspecified, without complications; K31.89 Other diseases of stomach and duodenum

== ENCOUNTER 2017-08-05 11:08 | Emergency (ER) | payer MEDICAID ==
--- NOTE | 2017-08-05 11:26 | Emergency Department Record ---
History of Present Illness - General Chief complaint: Dental Stated complaint: DENTAL PAIN Time Seen by Provider: 08/05/17 11:17 Source: Patient Mode of Arrival: Ambulatory Limitations: No limitations - History of Present Illness Initial comments: 51 yo female presents with jaw pain after dental extraction of 5 teeth The procedure was on Friday. She does not have any fever. She has mild swelling. No bleeding. No facial redness. No vomiting. [facility]. She was referred to the ED. No neck swelling. No chest pain. She has been taking [place] 5/325 one every 6 hours. MD complaint: Tooth pain Onset/Timin -: Days(s) Location: Tooth # Severity: Severe Severity scale (1-10): 10 Quality: Aching Consistency: Constant Improves with: None Worsens with: None Context-Epistaxis: Other - Related Data Home Medications Medication Instructions Recorded Confirmed Last Taken Ondansetron [Zofran Odt] 4 mg PO ASDIR 08/05/17 08/05/17 08/05/17 Previous Rx's Medication Instructions Recorded Hydrocodone/Acetaminophen [[place] 1 each PO Q6H #10 tablet 08/05/17 10-325 Tablet] Allergies Allergy/AdvReac Type Severity Reaction Status Date / Time promethazine HCl Allergy Mild ITCHING Verified 08/05/17 11:15 [From Phenergan] adalimumab [From HUMIRA] Allergy Unknown MIGRAINES Verified 08/05/17 11:15 aspirin [ASPIRIN] Allergy Unknown NAUSEA AND Verified 08/05/17 11:15 VOMITING azathioprine [From IMURAN] Allergy Unknown VOMITING Verified 08/05/17 11:15 azathioprine sodium Allergy Unknown VOMITING Verified 08/05/17 11:15 [From IMURAN] chlordiazepoxide HCl Allergy Unknown RASH Verified 08/05/17 11:15 [From LIBRIUM] citalopram hydrobromide Allergy Unknown HYPERSENSIT Verified 08/05/17 11:15 [From CELEXA] IVITY clidinium [CLIDINIUM] Allergy Unknown RASH Verified 08/05/17 11:15 codeine Allergy Unknown ITCHING Verified 08/05/17 11:15 eicosapentaenoic acid Allergy Unknown RASH Verified 08/05/17 11:15 [From OMEGA 3] hydrocodone bitartrate Allergy Unknown ITCHING Verified 08/05/17 11:15 [From VICODIN] hydromorphone HCl Allergy Unknown ITCHING Verified 08/05/17 11:15 infliximab Allergy Unknown VOMITING Verified 08/05/17 11:15 metoclopramide Allergy Unknown ALTERED Verified 08/05/17 11:15 [METOCLOPRAMIDE] MENTAL STATUS morphine [MORPHINE] Allergy Unknown ITCHING Verified 08/05/17 11:15 omega-3 fatty acids Allergy Unknown RASH Verified 08/05/17 11:15 [From OMEGA 3] oxycodone HCl [From PERCOCET] Allergy Unknown ITCHING Verified 08/05/17 11:15 paroxetine HCl [From PAXIL] Allergy Unknown RASH Verified 08/05/17 11:15 varenicline tartrate Allergy Unknown ALTERED Verified 08/05/17 11:15 [From CHANTIX] MENTAL STATUS Travel Screening - Travel/Exposure Within Last 30 Days Have you traveled within the last 30 days?: No Review of Systems Constitutional: Denies: Chills, Fever, Malaise, Weakness Eyes: Denies: Eye discharge ENT: Reports: As per HPI, Dental pain. Denies: Congestion, Throat pain Respiratory: Denies: Cough Cardiovascular: Denies: Chest pain, Palpitations, Syncope Endocrine: Denies: Fatigue, Polydipsia, Polyuria Gastrointestinal: Reports: Nausea. Denies: Abdominal pain, Diarrhea, Vomiting Genitourinary: Denies: Dysuria, Urgency Musculoskeletal: Denies: Arthralgia, Back pain, Joint swelling, Myalgia Skin: Denies: Bruising, Change in color, Rash Neurological: Denies: Headache, Numbness, Vertigo, Weakness Psychiatric: Denies: Anxiety Hematological/Lymphatic: Denies: Blood Clots, Easy bleeding, Easy bruising, Swollen glands Past Medical History - SOCIAL HISTORY Smoking Status: Light tobacco smoker (<10/day) Alcohol Use: None Drug Use: None - RESPIRATORY Hx Respiratory Disorders: No - CARDIOVASCULAR Hx Cardio Disorders: Yes Hx Abnormal EKG: Yes (r/t anxiety) Hx Chest Pain: Yes (r/t anxiety) - NEURO Hx Neuro Disorders: Yes Hx Seizures: Yes (last seizure 12 years ago) Hx TIA: Yes (2009) - GI Hx GI Disorders: Yes Hx Abdominal Pain: Yes Hx Crohn's Disease: Yes (Diagnosed about 9 years ago; managed by Dr. Greyson Haddad ) Hx Reflux: Yes Hx Irritable Bowel: Yes Hx Nausea/Vomiting: Yes Hx Obstructive Bowel: Yes (Admitted for Crohns, ileus and possible partial bowel obstruction) Comment:: crohns colitis - Hx Genitourinary Disorders: No Comment:: going through menopause - ENDOCRINE Hx Endocrine Disorders: No - MUSCULOSKELETAL Hx Musculoskeletal Disorders: Yes Hx Arthritis: Yes Comment:: rds in right ankle - PSYCH Hx Psych Problems: Yes Hx Anxiety: Yes Hx Depression: Yes - HEMATOLOGY/ONCOLOGY Hx Hematology/Oncology Disorders: No Family Medical History Any Significant Family History?: Yes Hx Alcohol Use: Father, Brother/Sister Hx Cancer: Brother/Sister *Cancer Comment: lung cancer Hx Diabetes: Grandparents *Diabetes Comment: grandmother Hx Heart Disease: Grandparents *Heart Comment: grandfather Hx Resp Disorders: Children *Resp Comment: daughter has asthma Hx Stroke: Mother *Stroke Comment: Mother had history of TIA x 1 Physical Exam - General General Appearance: Alert, Oriented x3, Cooperative, No acute distress Limitations: No limitations - Head Head exam: Atraumatic, Normocephalic - Eye Eye exam: Normal appearance, PERRL, Conjunctival injection Pupils: Normal accommodation - ENT ENT exam: Mucous membranes moist, Normal orophraynx. negative: Mucous membranes dry Ear exam: Normal external inspection Nasal Exam: Normal inspection Mouth exam: Normal external inspection. negative: Drooling, Laceration, Tongue normal Teeth exam: Dental tenderness #, Other (The patient has extraction sights on the left lower, right lower, and right upper. All sites are clean and without swelling, no bleeding or drainage). negative: Dental caries, Fractured tooth # , Gingival enlargement Throat exam: Normal inspection. negative: Tonsillar erythema - Neck Neck exam: Normal inspection, Full ROM. negative: Lymphadenopathy, Tenderness - Respiratory Respiratory exam: Normal lung sounds bilaterally. negative: Respiratory distress - Cardiovascular Cardiovascular Exam: Regular rate, Normal rhythm, Normal heart sounds Peripheral Pulses: 2+: Radial (R), Radial (L) - Rectal Rectal exam: Deferred - exam: Deferred - Extremities Extremities exam: Normal inspection - Back Back exam: Reports: Full ROM - Neurological Neurological exam: Alert, CN II-XII intact, Oriented X3 - Psychiatric Psychiatric exam: Normal affect, Normal mood - Skin Skin exam: Dry, Intact, Normal color, Warm. negative: Erythema Course Vital Signs 08/05/17 11:11 Temperature 98.5 F Pulse Rate 72 Respiratory 20 Rate Blood Pressure 141/92 Pulse Ox 96 - Reevaluation(s) Reevaluation #1: No signs of infection No significant swelling but she has local tenderness 08/05/17 11:30 Disposition Disposition: Discharge Clinical Impression: Pain, dental Disposition: Home, Self-Care Condition: (1) Good Instructions: Toothache (ED) Additional Instructions: Follow up with your dentist Return if fever, redness, pus or concerns Prescriptions: Hydrocodone/Acetaminophen [[place] 10-325 Tablet] 1 each PO Q6H #10 tablet Forms: Patient Portal Access Time of Disposition: 11:35 Quality - Quality Measures Quality Measures: N/A - Blood Pressure Screening Does Patient Have Any of the Following: No Blood Pressure Classification: Hypertensive Reading Systolic Measurement: 141 Diastolic Measurement: 92 Screening for High Blood Pressure: < Pre-Hypertensive BP, F/U Documented > [ G8950] Pre-Hypertensive Follow-up Interventions: Referral to alternative/primary care provider.
[2017-08-05] MEDS ORDERED: KETOROLAC 30 MG/ML VIAL IM ONE (11:27)
== END 2017-08-05 12:00 | disposition home or self-care (01) ==
LOC: ER 11:08
DX: K08.89 Other specified disorders of teeth and supporting structures (principal); K08.409 Partial loss of teeth, unspecified cause, unspecified class
CPT/HCPCS: 99283 ×2; 96372; J1885

== ENCOUNTER 2017-11-27 13:19 | Emergency (ER) | payer MEDICAID ==
--- NOTE | 2017-11-27 13:46 | Emergency Department Record ---
History of Present Illness - General Chief Complaint: Headache Migraine Stated Complaint: MIGRAINE Time Seen by Provider: 11/27/17 13:40 Source: Patient Mode of Arrival: Ambulatory Limitations: No limitations - History of Present Illness Initial Comments: The patient is here due to L sided NORMAN for 3 days. The pain onset was gradual and is an aching, throbbing pain that has slowly worsened. She denies any visual changes with it and no arm or leg numbness, weakness, or any tingling. She also denies any speech issues or swallowing issues. 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 MD Complaint: Headache Onset/Timin -: Days(s) Onset Description: Gradual Location: Left, Temporal Severity scale (1-10): 10 Quality: Full, Throbbing Consistency: Constant Improves With: Nothing Worsens With: Other Context: Recent URI Treatments Prior to Arrival: Other Treatment Prior to Arrival Comment:: Cold packs - Related Data Home Medications Medication Instructions Recorded Confirmed Last Taken Vedolizumab [Entyvio] 300 mg IV ASDIR 11/27/17 11/27/17 10/04/17 Allergies Allergy/AdvReac Type Severity Reaction Status Date / Time promethazine HCl Allergy Mild ITCHING Verified 11/27/17 13:26 [From Phenergan] adalimumab [From HUMIRA] Allergy Unknown MIGRAINES Verified 11/27/17 13:26 aspirin [ASPIRIN] Allergy Unknown NAUSEA AND Verified 11/27/17 13:26 VOMITING azathioprine [From IMURAN] Allergy Unknown VOMITING Verified 11/27/17 13:26 azathioprine sodium Allergy Unknown VOMITING Verified 11/27/17 13:26 [From IMURAN] chlordiazepoxide HCl Allergy Unknown RASH Verified 11/27/17 13:26 [From LIBRIUM] citalopram hydrobromide Allergy Unknown HYPERSENSIT Verified 11/27/17 13:26 [From CELEXA] IVITY clidinium [CLIDINIUM] Allergy Unknown RASH Verified 11/27/17 13:26 codeine Allergy Unknown ITCHING Verified 11/27/17 13:26 eicosapentaenoic acid Allergy Unknown RASH Verified 11/27/17 13:26 [From OMEGA 3] hydrocodone bitartrate Allergy Unknown ITCHING Verified 11/27/17 13:26 [From VICODIN] hydromorphone HCl Allergy Unknown ITCHING Verified 11/27/17 13:26 infliximab Allergy Unknown VOMITING Verified 11/27/17 13:26 metoclopramide Allergy Unknown ALTERED Verified 11/27/17 13:26 [METOCLOPRAMIDE] MENTAL STATUS morphine [MORPHINE] Allergy Unknown ITCHING Verified 11/27/17 13:26 omega-3 fatty acids Allergy Unknown RASH Verified 11/27/17 13:26 [From OMEGA 3] oxycodone HCl [From PERCOCET] Allergy Unknown ITCHING Verified 11/27/17 13:26 paroxetine HCl [From PAXIL] Allergy Unknown RASH Verified 11/27/17 13:26 varenicline tartrate Allergy Unknown ALTERED Verified 11/27/17 13:26 [From CHANTIX] MENTAL STATUS Travel Screening - Travel/Exposure Within Last 30 Days Have you traveled within the last 30 days?: No - Travel/Exposure Within Last Year Have you traveled outside the [place] in the last year?: No - Additonal Travel Details Have you been exposed to anyone with a communicable illness?: No - Travel Symptoms Symptom Screening: None Review of Systems Constitutional: Denies: Chills, Fever Eyes: Denies: Eye discharge ENT: Denies: Congestion Respiratory: Denies: Cough, Dyspnea Past Medical History - SOCIAL HISTORY Smoking Status: Light tobacco smoker (<10/day) Alcohol Use: None Drug Use: None - RESPIRATORY Hx Respiratory Disorders: No - CARDIOVASCULAR Hx Cardio Disorders: Yes Hx Abnormal EKG: Yes (r/t anxiety) Hx Chest Pain: Yes (r/t anxiety) - NEURO Hx Neuro Disorders: Yes Hx Seizures: Yes (last seizure 12 years ago) Hx TIA: Yes (2009) - GI Hx GI Disorders: Yes Hx Abdominal Pain: Yes Hx Crohn's Disease: Yes (Diagnosed about 9 years ago; managed by Dr. Greyson Haddad ) Hx Reflux: Yes Hx Irritable Bowel: Yes Hx Nausea/Vomiting: Yes Hx Obstructive Bowel: Yes (Admitted for Crohns, ileus and possible partial bowel obstruction) Comment:: crohns colitis - Hx Genitourinary Disorders: No Comment:: going through menopause - ENDOCRINE Hx Endocrine Disorders: No - MUSCULOSKELETAL Hx Musculoskeletal Disorders: Yes Hx Arthritis: Yes Comment:: rds in right ankle - PSYCH Hx Psych Problems: Yes Hx Anxiety: Yes Hx Depression: Yes - HEMATOLOGY/ONCOLOGY Hx Hematology/Oncology Disorders: No Family Medical History Any Significant Family History?: Yes Hx Alcohol Use: Father, Brother/Sister Hx Cancer: Brother/Sister *Cancer Comment: lung cancer Hx Diabetes: Grandparents *Diabetes Comment: grandmother Hx Heart Disease: Grandparents *Heart Comment: grandfather Hx Resp Disorders: Children *Resp Comment: daughter has asthma Hx Stroke: Mother *Stroke Comment: Mother had history of TIA x 1 Physical Exam - General General Appearance: Alert, Oriented x3, Cooperative, No acute distress - Head Head exam: Atraumatic, Normocephalic, Normal inspection - Eye Eye exam: Normal appearance, PERRL, EOMI, Other (The patient does appear to have an intermittent L eye droopy eyelid which resolves when she is asked to open the eye. There is no upper or lower facial weakness and no focal findings. ). negative: Conjunctival injection - ENT ENT exam: Normal exam, Normal orophraynx, TM's normal bilaterally Mouth exam: Tongue normal (and midline.) Throat exam: Normal inspection. negative: Tonsillar erythema, Tonsillar exudate - Neck Neck exam: Normal inspection, Full ROM. negative: Lymphadenopathy, Meningismus (The neck is very supple with no pain with ROM.), Tenderness - Respiratory Respiratory exam: Normal lung sounds bilaterally. negative: Respiratory distress - Cardiovascular Cardiovascular Exam: Regular rate, Normal rhythm, Normal heart sounds - GI/Abdominal GI/Abdominal exam: Soft, Normal bowel sounds. negative: Tenderness - Extremities Extremities exam: Normal inspection, Full ROM, Normal capillary refill. negative: Tenderness - Neurological Neurological exam: Alert, Normal gait, Oriented X3. negative: Abnormal gait, Motor sensory deficit Course Vital Signs 11/27/17 13:30 Temperature 98.3 F Pulse Rate 103 H Respiratory 20 Rate Blood Pressure 127/74 Pulse Ox 98 - Reevaluation(s) Reevaluation #1: The patient is doing much better at this time. Her NORMAN is resolving and now she is "starving". She would like to go home soon. 11/27/17 15:10 Reevaluation #2: The patient is doing much better at this time. Her NORMAN has resolved about 90% and she is up eating and smiling. On exam there is no facial drooping and no eyelid drooping. Her EOM's are intact and full. Her gait is normal and she would like to go home. She also was instructed to see her PCP to have the official CT report evaluated. 11/27/17 15:39 11/27/17 15:47 Medical Decision Making - Data Complexity MDM Data: Labs Ordered and/or Reviewed, X-Ray Ordered and/or Reviewed - Lab Data Result diagrams: 11/27/17 14:12 11/27/17 14:12 - Radiology Data Radiology results: Report reviewed (Head CT: No acute changes.) Disposition Disposition: Discharge Clinical Impression: Headache Qualifiers: Headache type: unspecified Headache chronicity pattern: acute headache Intractability: not intractable Qualified Code(s): R51 - Headache Disposition: Home, Self-Care Condition: (2) Stable Instructions: Acute Headache (ED) Additional Instructions: Please continue your home pain medicines. Please see your PCP next week if not better and return to the ER for any worsening symptoms. Please see your PCP and have the official CT report discussed with you. Forms: Patient Portal Access Time of Disposition: 15:36 Quality - Quality Measures Quality Measures: N/A - Blood Pressure Screening View Details: Yes Does Patient Have Any of the Following: No Blood Pressure Classification: Pre-Hypertensive BP Reading Systolic Measurement: 135 Diastolic Measurement: 86 Screening for High Blood Pressure: < Pre-Hypertensive BP, F/U Documented > [ G8950] Pre-Hypertensive Follow-up Interventions: Referral to alternative/primary care provider.
[2017-11-27] MEDS ORDERED: KETOROLAC 30 MG/ML VIAL IM ONE (13:52)
[2017-11-27 14:22] LABS: BASO % 0.4 % (0-6); EOS % 5.6 % (0-6); GRAN % 58.8 % (47-80); HEMATOCRIT 40.9 % (35.0-47.0); HEMOGLOBIN 12.7 gm/dl (11.6-16.0); LYMPH % 26.4 % (16-45); MEAN CORPUSCULAR HEMOGLOBIN 25.8 pg (27-33); MEAN CORPUSCULAR HGB CONC 31.1 g/dl (32-36); MONO % 8.8 % (0-9); PLATELET COUNT 489 K/uL (130-400); RED BLOOD COUNT 4.93 M/uL (3.80-5.40); RED CELL DISTRIBUTION WIDTH 15.7 % (11.5-14.5)
[2017-11-27 14:59] LABS: ERYTHROCYTE SEDIMENTATION RATE 14 mm/hr (0-30)
[2017-11-27 15:22] LABS: BLOOD UREA NITROGEN 7 mg/dL (6-20); CREATININE 0.5 mg/dL (0.5-0.9); EST GLOMERULAR FILTRATION RATE > 60 mL/min; TOTAL PROTEIN 7.4 g/dL (6.6-8.7)
[2017-11-27 15:24] LABS: GLUCOSE,RANDOM 85 mg/dL (74-109)
[2017-11-27 15:27] LABS: ALB/GLOB RATIO 1.2 (1.1-1.8); ALBUMIN 4.1 g/dL (4.0-5.0); ALKALINE PHOSPHATASE 111 U/L (35-104); ALT/SGPT 24 U/L (<33); AST/SGOT 19 U/L (10.0-35.0); C-REACTIVE PROTEIN 0.49 mg/dL (<0.5)
--- NOTE | 2017-11-28 09:22 | CT SCAN REPORT ---
EXAM: CT OF THE HEAD WITHOUT CONTRAST HISTORY: WORSENING LEFT SIDED HEADACHE WITH SORE THROAT AND LEFT EARACHE FOR THREE DAYS. TECHNIQUE: Routine noncontrast CT examination of the head was obtained. Comparison: None. FINDINGS: The subarachnoid spaces are borderline prominent, particularly in the frontal regions. The ventricles are not enlarged. Mild periventricular and subcortical white matter lucencies are scattered in each cerebral hemisphere. These are nonspecific, but are likely areas of chronic small vessel ischemia. No other area of abnormally increased or decreased attenuation is noted throughout the brain substance. No abnormal extraaxial fluid collection. No skull abnormality. There is minor mucosal thickening within the left sphenoid sinus. The paranasal sinuses and mastoid air cells are otherwise clear. IMPRESSION: 1. NO ACUTE MAJOR VESSEL INFARCT, INTRACRANIAL HEMORRHAGE,NOR MASS. 2. BORDERLINE BIFRONTAL ATROPHY. 3. MINOR WHITE MATTER LUCENCIES SCATTERED IN EACH CEREBRAL HEMISPHERE. THESE ARE NONSPECIFIC. THE MOST LIKELY ETIOLOGY IS CHRONIC SMALL VESSEL ISCHEMIA. OTHER POSSIBLE ETIOLOGIES INCLUDE; POST TRAUMATIC/INFLAMMATION GLIOSIS, THE SEQUELA OF MIGRAINE HEADACHES, THE SEQUELA OF VASCULITIS OR LESS LIKELY A DEMYELINATING PROCESS. 4. MINOR MUCOSAL THICKENING IN THE LEFT SPHENOID SINUS. JOB NUMBER: [id number] [facility]
== END 2017-11-27 15:43 | disposition home or self-care (01) ==
LOC: ER 13:19
DX: R51 Headache (principal); J02.9 Acute pharyngitis, unspecified; H92.02 Otalgia, left ear
CPT/HCPCS: 99283; 96372; 99284; 85025; 85651; 86140; 80053; 70450; J1885

== ENCOUNTER 2018-01-21 09:39 | Inpatient (IN) | payer MEDICAID ==
--- NOTE | 2018-01-21 10:23 | Emergency Department Record ---
History of Present Illness - General Chief Complaint: Abdominal Pain Stated Complaint: ABD PAIN Time Seen by Provider: 01/21/18 10:05 Source: Patient, RN notes reviewed Mode of Arrival: Ambulatory - History of Present Illness Initial Comments: patient presents to the ED with abdominal pain and diarrhea which started last night and no vomiting and she had flu 3 days ago B positive with body aches and chilles and cough and [facility] started on tamiflu and zofran because she was nauseated. PMH Crohn's disease. patient iis passing foamy diarrhea. Onset/Timin -: Days(s) Radiation: LUQ, RUQ, LLQ, RLQ Improves With: Nothing Worsens With: Eating Context: Sick contacts - Related Data Hx Age of Menopause: 47 Allergies Allergy/AdvReac Type Severity Reaction Status Date / Time promethazine HCl Allergy Mild ITCHING Verified 01/21/18 09:49 [From Phenergan] adalimumab [From HUMIRA] Allergy Unknown MIGRAINES Verified 01/21/18 09:49 aspirin [ASPIRIN] Allergy Unknown NAUSEA AND Verified 01/21/18 09:49 VOMITING azathioprine [From IMURAN] Allergy Unknown VOMITING Verified 01/21/18 09:49 azathioprine sodium Allergy Unknown VOMITING Verified 01/21/18 09:49 [From IMURAN] chlordiazepoxide HCl Allergy Unknown RASH Verified 01/21/18 09:49 [From LIBRIUM] citalopram hydrobromide Allergy Unknown HYPERSENSIT Verified 01/21/18 09:49 [From CELEXA] IVITY clidinium [CLIDINIUM] Allergy Unknown RASH Verified 01/21/18 09:49 codeine Allergy Unknown ITCHING Verified 01/21/18 09:49 eicosapentaenoic acid Allergy Unknown RASH Verified 01/21/18 09:49 [From OMEGA 3] hydrocodone bitartrate Allergy Unknown ITCHING Verified 01/21/18 09:49 [From VICODIN] hydromorphone HCl Allergy Unknown ITCHING Verified 01/21/18 09:49 infliximab Allergy Unknown VOMITING Verified 01/21/18 09:49 metoclopramide Allergy Unknown ALTERED Verified 01/21/18 09:49 [METOCLOPRAMIDE] MENTAL STATUS morphine [MORPHINE] Allergy Unknown ITCHING Verified 01/21/18 09:49 omega-3 fatty acids Allergy Unknown RASH Verified 01/21/18 09:49 [From OMEGA 3] oxycodone HCl [From PERCOCET] Allergy Unknown ITCHING Verified 01/21/18 09:49 paroxetine HCl [From PAXIL] Allergy Unknown RASH Verified 01/21/18 09:49 varenicline tartrate Allergy Unknown ALTERED Verified 01/21/18 09:49 [From CHANTIX] MENTAL STATUS Travel Screening - Travel/Exposure Within Last 30 Days Have you traveled within the last 30 days?: No - Travel/Exposure Within Last Year Have you traveled outside the [place] in the last year?: No - Additonal Travel Details Have you been exposed to anyone with a communicable illness?: No - Travel Symptoms Symptom Screening: None Review of Systems Reviewed: No additional complaints except as noted below Constitutional: Reports: As per HPI. Denies: Chills, Fever, Malaise, Night sweats, Weakness, Weight change Eyes: Reports: As per HPI. Denies: Eye discharge, Eye pain, Photophobia, Vision change ENT: Reports: As per HPI. Denies: Congestion, Dental pain, Ear pain, Epistaxis , Hearing loss, Throat pain Respiratory: Reports: As per HPI. Denies: Cough, Dyspnea, Hemoptysis, Stridor, Wheezes Cardiovascular: Reports: As per HPI. Denies: Arrhythmia, Chest pain, Dyspnea on exertion, Edema, Murmurs, Orthopnea, Palpitations, Paroxysmal nocturnal dyspnea, Rheumatic Fever, Syncope Endocrine: Reports: As per HPI. Denies: Fatigue, Heat or cold intolerance, Polydipsia, Polyuria Gastrointestinal: Reports: As per HPI, Abdominal pain, Diarrhea, Nausea. Denies : Constipation, Hematemesis, Hematochezia, Melena, Vomiting Genitourinary: Reports: As per HPI. Denies: Abnormal menses, Discharge, Dyspareunia, Dysuria, Frequency, Hematuria, Incontinence, Retention, Urgency Musculoskeletal: Reports: As per HPI. Denies: Arthralgia, Back pain, Gout, Joint swelling, Myalgia, Neck pain Skin: Reports: As per HPI. Denies: Bruising, Change in color, Change in hair/ nails, Lesions, Pruritus, Rash Neurological: Reports: As per HPI. Denies: Abnormal gait, Confusion, Headache, Numbness, Paresthesias, Seizure, Tingling, Tremors, Vertigo, Weakness Psychiatric: Reports: As per HPI. Denies: Anxiety, Auditory hallucinations, Depression, Homicidal thoughts, Suicidal thoughts, Visual hallucinations Hematological/Lymphatic: Reports: As per HPI. Denies: Anemia, Blood Clots, Easy bleeding, Easy bruising, Swollen glands Past Medical History - SOCIAL HISTORY Smoking Status: Light tobacco smoker (<10/day) Alcohol Use: None Drug Use: None - RESPIRATORY Hx Respiratory Disorders: No - CARDIOVASCULAR Hx Cardio Disorders: Yes Hx Abnormal EKG: Yes (r/t anxiety) Hx Chest Pain: Yes (r/t anxiety) - NEURO Hx Neuro Disorders: Yes Hx Seizures: Yes (last seizure 12 years ago) Hx TIA: Yes (2009) - GI Hx GI Disorders: Yes Hx Abdominal Pain: Yes Hx Crohn's Disease: Yes (Diagnosed about 9 years ago; managed by Dr. Greyson Haddad ) Hx Reflux: Yes Hx Irritable Bowel: Yes Hx Nausea/Vomiting: Yes Hx Obstructive Bowel: Yes (Admitted for Crohns, ileus and possible partial bowel obstruction) Comment:: crohns colitis - Hx Genitourinary Disorders: No Comment:: going through menopause - ENDOCRINE Hx Endocrine Disorders: No - MUSCULOSKELETAL Hx Musculoskeletal Disorders: Yes Hx Arthritis: Yes Comment:: rds in right ankle - PSYCH Hx Psych Problems: Yes Hx Anxiety: Yes Hx Depression: Yes - HEMATOLOGY/ONCOLOGY Hx Hematology/Oncology Disorders: No Family Medical History Any Significant Family History?: Yes Hx Alcohol Use: Father, Brother/Sister Hx Cancer: Brother/Sister *Cancer Comment: lung cancer Hx Diabetes: Grandparents *Diabetes Comment: grandmother Hx Heart Disease: Grandparents *Heart Comment: grandfather Hx Resp Disorders: Children *Resp Comment: daughter has asthma Hx Stroke: Mother *Stroke Comment: Mother had history of TIA x 1 Physical Exam - General General Appearance: Alert, Oriented x3, Cooperative, No acute distress - Head Head exam: Normal inspection - Eye Eye exam: Normal appearance, PERRL Pupils: Normal accommodation - ENT ENT exam: Normal exam, Mucous membranes moist, Normal external ear exam, Normal orophraynx, TM's normal bilaterally Ear exam: Normal external inspection. negative: External canal tenderness Nasal Exam: Normal inspection. negative: Discharge, Sinus tenderness Mouth exam: Normal external inspection, Tongue normal Teeth exam: Normal inspection. negative: Dental caries Throat exam: Normal inspection. negative: Tonsillar erythema, Tonsillar exudate - Neck Neck exam: Normal inspection, Full ROM. negative: Tenderness - Respiratory Respiratory exam: Normal lung sounds bilaterally. negative: Respiratory distress - Cardiovascular Cardiovascular Exam: Regular rate, Normal rhythm, Normal heart sounds - GI/Abdominal GI/Abdominal exam: Soft, Normal bowel sounds. negative: Tenderness - Rectal Rectal exam: Deferred - exam: Deferred - Extremities Extremities exam: Normal inspection, Full ROM, Normal capillary refill. negative: Tenderness - Back Back exam: Reports: Normal inspection, Full ROM. Denies: Muscle spasm, Rash noted, Tenderness - Neurological Neurological exam: Alert, Normal gait, Oriented X3, Reflexes normal - Psychiatric Psychiatric exam: Normal affect, Normal mood - Skin Skin exam: Dry, Intact, Normal color, Warm Course Vital Signs 01/21/18 09:42 Temperature 97.5 F L Pulse Rate 124 H Respiratory 18 Rate Blood Pressure 124/101 Pulse Ox 96 - Reevaluation(s) Reevaluation #1: possible adverse reaction to tamiflu 01/21/18 12:51 Reevaluation #2: discussed case with Aranza and will admit. 01/21/18 14:24 Medical Decision Making - Data Complexity MDM Data: Labs Ordered and/or Reviewed, X-Ray Ordered and/or Reviewed (CT of abd - illeus , no transition point, air fluid levels seen but less than previous) - Lab Data Result diagrams: 01/21/18 10:10 01/21/18 10:10 Disposition Clinical Impression: Crohn disease Qualifiers: Gastrointestinal tract location: unspecified location Digestive disease complication type: unspecified complication Qualified Code(s): K50.919 - Crohn' s disease, unspecified, with unspecified complications Abdominal pain Qualifiers: Abdominal location: periumbilical Qualified Code(s): R10.33 - Periumbilical pain Exacerbation of Crohn's disease Qualifiers: Digestive disease complication type: unspecified complication Qualified Code(s) : K50.919 - Crohn's disease, unspecified, with unspecified complications Decision to Admit: Admit from ER Condition: (2) Stable Forms: Patient Portal Access Time of Disposition: 14:42 Quality - Quality Measures Quality Measures: N/A - Blood Pressure Screening Does Patient Have Any of the Following: No Blood Pressure Classification: Hypertensive Reading Systolic Measurement: 124 Diastolic Measurement: 101 Screening for High Blood Pressure: < Pre-Hypertensive BP, F/U Documented > [ [id number]] Pre-Hypertensive Follow-up Interventions: Referral to alternative/primary care provider.
[2018-01-21] MEDS ORDERED: ONDANSETRON HCL IV 4 MG/2 ML VIAL IVP ONE ×2 (10:29→12:34)
[2018-01-21] MEDS ORDERED: DIPHENHYDRAMINE HCL IV 50 MG/ML VIAL IVP ONE ×2 (10:29→12:53)
[2018-01-21] MEDS ORDERED: METHYLPREDNISOLONE SOD 40MG/VIAL IVP ONE (10:29)
[2018-01-21] MEDS ORDERED: HYDROMORPHONE HCL 2 MG/ML VIAL IVP ONE ×3 (10:32→17:08)
[2018-01-21] MEDS: 0.9 % SODIUM CHLORIDE 1000ML 1,000 ML IV SCH ×2 (10:42→15:09)
[2018-01-21 10:57] LABS: HEMATOCRIT 44.4 % (35.0-47.0); HEMOGLOBIN 14.2 gm/dl (11.6-16.0); MEAN CELL VOLUME 82.4 fl (81-97); MEAN CORPUSCULAR HEMOGLOBIN 26.3 pg (27-33); MEAN PLATELET VOLUME 9.9 fl (7.4-10.4); PLATELET COUNT 457 K/uL (130-400); RED BLOOD COUNT 5.39 M/uL (3.80-5.40); RED CELL DISTRIBUTION WIDTH 15.5 % (11.5-14.5); WHITE BLOOD COUNT W/O DIFF 9.7 K/uL (4.2-12.2)
[2018-01-21 11:07] LABS: BLOOD UREA NITROGEN 7 mg/dL (6-20); CREATININE 0.6 mg/dL (0.5-0.9); EST GLOMERULAR FILTRATION RATE > 60 mL/min; TOTAL PROTEIN 7.2 g/dL (6.6-8.7)
[2018-01-21 11:09] LABS: PLATELET ESTIMATE NORMAL (NORMAL)
[2018-01-21 11:10] LABS: GLUCOSE,RANDOM 97 mg/dL (74-109)
[2018-01-21 11:12] LABS: ALBUMIN 4.4 g/dL (4.0-5.0); ALKALINE PHOSPHATASE 100 U/L (35-104); ALT/SGPT 28 U/L (<33); AST/SGOT 22 U/L (10.0-35.0); C-REACTIVE PROTEIN 0.57 mg/dL (<0.5); LIPASE 20 U/L (13-60)
[2018-01-21 11:17] LABS: BILIRUBIN,DIRECT < 0.2 mg/dL (0-0.3)
[2018-01-21] MEDS: HYDROMORPHONE HCL 2 MG/ML VIAL IV PRN ×2 (18:55→22:57)
[2018-01-21] MEDS: DIPHENHYDRAMINE HCL IV 50 MG/ML VIAL IVP PRN (20:12)
--- NOTE | 2018-01-21 21:11 | History & Physical ---
History of Present Illness - Date of Service Date of Service for History & Physical: 01/21/18 - History of Present Illness Admitting Diagnosis: ileus. exacerbation of crohn's disease. abdomen pain History of Present Illness: Mrs. Otero is a 52 year-old female who presented to the ED this afternoon with complaint of abdominal pain and diarrhea that started last night. She denies vomiting, she is experiencing foamy diarrhea. She was positive for influenza B 3 days ago in [facility] (symptoms of body aches, chills, cough) and started on tamiflu and zofran. Her history includes: Crohns disease (previous admissions for Crohns, ileus, and partial SBO), smoker, TIA in 2009, seizures ( last seizure 12 yrs ago), anxiety, depression, and currently going through menopause. In the ED, vital signs were: BP 124/101, HR 124, RR 18, T 97.5F, 96% on room air. CBC and CMP were performed. Abdominal xray was done and CT of abdomen showed ileus, no transition point, air fluid levels seen but less than previous scan. Pt. was admitted to inpatient for Crohns exacerbation (possibly caused by adverse reaction to Tamiflu) 01/21/18 1600: Pt. c/o abdominal pain and bloating. She states most of her flu symptoms have resolved, but she is still experiencing cough. Plan to continue IV fluids, NPO, dilaudid 1mg q4h prn pain, zofran 4mg IV prn nausea, solu- medrol 60mg IVP q8h. PCP: [facility] GI: Dr. Greyson Haddad Travel Screening - Travel/Exposure Within Last 30 Days Have you traveled within the last 30 days?: No - Travel/Exposure Within Last Year Have you traveled outside the [place] in the last year?: No - Additonal Travel Details Have you been exposed to anyone with a communicable illness?: Yes Exposure Details:: Influenza B dx 01/19 started Tamilflu - Travel Symptoms Symptom Screening: Fever (Subjective), Fever (GT 100.4) Review of Systems Constitutional: Reports: As per HPI. Denies: Chills, Fever, Malaise, Night sweats, Weakness, Weight change Eyes: Reports: As per HPI. Denies: Eye discharge, Eye pain, Photophobia, Vision change ENT: Reports: As per HPI. Denies: Congestion, Dental pain, Ear pain, Epistaxis , Hearing loss, Throat pain Respiratory: Reports: Cough. Denies: Dyspnea, Hemoptysis, Stridor, Wheezes Cardiovascular: Reports: As per HPI. Denies: Arrhythmia, Chest pain, Dyspnea on exertion, Edema, Murmurs, Orthopnea, Palpitations, Paroxysmal nocturnal dyspnea, Rheumatic Fever, Syncope Endocrine: Reports: Fatigue. Denies: Heat or cold intolerance, Polydipsia, Polyuria Gastrointestinal: Reports: As per HPI, Abdominal pain, Diarrhea, Nausea. Denies : Constipation, Hematemesis, Hematochezia, Melena, Vomiting Genitourinary: Reports: As per HPI. Denies: Abnormal menses, Discharge, Dyspareunia, Dysuria, Frequency, Hematuria, Incontinence, Retention, Urgency Musculoskeletal: Reports: As per HPI. Denies: Arthralgia, Back pain, Gout, Joint swelling, Myalgia, Neck pain Skin: Reports: As per HPI. Denies: Bruising, Change in color, Change in hair/ nails, Lesions, Pruritus, Rash Neurological: Reports: As per HPI. Denies: Abnormal gait, Confusion, Headache, Numbness, Paresthesias, Seizure, Tingling, Tremors, Vertigo, Weakness Psychiatric: Reports: As per HPI. Denies: Anxiety, Auditory hallucinations, Depression, Homicidal thoughts, Suicidal thoughts, Visual hallucinations Hematological/Lymphatic: Reports: As per HPI. Denies: Anemia, Blood Clots, Easy bleeding, Easy bruising, Swollen glands Past Medical History - SOCIAL HISTORY Smoking Status: Light tobacco smoker (<10/day) Alcohol Use: None Drug Use: None - RESPIRATORY Hx Respiratory Disorders: No - CARDIOVASCULAR Hx Cardio Disorders: Yes Hx Abnormal EKG: Yes (r/t anxiety) Hx Chest Pain: Yes (r/t anxiety) - NEURO Hx Neuro Disorders: Yes Hx Seizures: Yes (last seizure 12 years ago) Hx TIA: Yes (2009) - GI Hx GI Disorders: Yes Hx Abdominal Pain: Yes Hx Crohn's Disease: Yes (Diagnosed about 9 years ago; managed by Dr. Greyson Haddad ) Hx Reflux: Yes Hx Irritable Bowel: Yes Hx Nausea/Vomiting: Yes Hx Obstructive Bowel: Yes (Admitted for Crohns, ileus and possible partial bowel obstruction) Comment:: crohns colitis - Hx Genitourinary Disorders: No Comment:: going through menopause - ENDOCRINE Hx Endocrine Disorders: No - MUSCULOSKELETAL Hx Musculoskeletal Disorders: Yes Hx Arthritis: Yes Comment:: rds in right ankle - PSYCH Hx Psych Problems: Yes Hx Anxiety: Yes Hx Depression: Yes - HEMATOLOGY/ONCOLOGY Hx Hematology/Oncology Disorders: No Family Medical History Any Significant Family History?: Yes Hx Alcohol Use: Father, Brother/Sister Hx Cancer: Brother/Sister *Cancer Comment: lung cancer Hx Diabetes: Grandparents *Diabetes Comment: grandmother Hx Heart Disease: Grandparents *Heart Comment: grandfather Hx Resp Disorders: Children *Resp Comment: daughter has asthma Hx Stroke: Mother *Stroke Comment: Mother had history of TIA x 1 H&P Meds/Allergies - Allergies Allergies: Allergies Allergy/AdvReac Type Severity Reaction Status Date / Time promethazine HCl Allergy Mild ITCHING Verified 01/21/18 09:49 [From Phenergan] adalimumab [From HUMIRA] Allergy Unknown MIGRAINES Verified 01/21/18 09:49 aspirin [ASPIRIN] Allergy Unknown NAUSEA AND Verified 01/21/18 09:49 VOMITING azathioprine [From IMURAN] Allergy Unknown VOMITING Verified 01/21/18 09:49 azathioprine sodium Allergy Unknown VOMITING Verified 01/21/18 09:49 [From IMURAN] chlordiazepoxide HCl Allergy Unknown RASH Verified 01/21/18 09:49 [From LIBRIUM] citalopram hydrobromide Allergy Unknown HYPERSENSIT Verified 01/21/18 09:49 [From CELEXA] IVITY clidinium [CLIDINIUM] Allergy Unknown RASH Verified 01/21/18 09:49 codeine Allergy Unknown ITCHING Verified 01/21/18 09:49 eicosapentaenoic acid Allergy Unknown RASH Verified 01/21/18 09:49 [From OMEGA 3] hydrocodone bitartrate Allergy Unknown ITCHING Verified 01/21/18 09:49 [From VICODIN] hydromorphone HCl Allergy Unknown ITCHING Verified 01/21/18 09:49 infliximab Allergy Unknown VOMITING Verified 01/21/18 09:49 metoclopramide Allergy Unknown ALTERED Verified 01/21/18 09:49 [METOCLOPRAMIDE] MENTAL STATUS morphine [MORPHINE] Allergy Unknown ITCHING Verified 01/21/18 09:49 omega-3 fatty acids Allergy Unknown RASH Verified 01/21/18 09:49 [From OMEGA 3] oxycodone HCl [From PERCOCET] Allergy Unknown ITCHING Verified 01/21/18 09:49 paroxetine HCl [From PAXIL] Allergy Unknown RASH Verified 01/21/18 09:49 varenicline tartrate Allergy Unknown ALTERED Verified 01/21/18 09:49 [From CHANTIX] MENTAL STATUS - Active Medications Active Medications: Current Medications Diphenhydramine HCl (Benadryl Iv) 25 mg IVP Q6H PRN PRN Reason: itching Last Admin: 01/21/18 20:12 Dose: 50 mg Enoxaparin Sodium (Lovenox) 40 mg SC DAILY OSMANY Hydromorphone HCl (Dilaudid) 1 mg IV Q4H PRN PRN Reason: Pain - General Last Admin: 01/21/18 18:55 Dose: 1 mg Sodium Chloride () 1,000 mls @ 100 mls/hr IV .Q10H PRN PRN Reason: LARGE VOLUME IV Methylprednisolone Sodium Succinate (Solu-Medrol) 60 mg IVP Q8HR OSMANY Ondansetron HCl (Zofran) 4 mg IVP Q4H PRN PRN Reason: NAUSEA Physical Exam - Vital Signs Vital Signs: Vital Signs - Last 24 Hrs Temp Pulse Resp BP Pulse Ox 01/21/18 18:00 98.2 F 85 18 124/81 96 - General General Appearance: Alert, Oriented x3, Cooperative, Mild distress - Head Head exam: Normal inspection - Eye Eye exam: Normal appearance, PERRL Pupils: Normal accommodation - ENT ENT exam: Normal exam, Mucous membranes moist, Normal external ear exam, Normal orophraynx, TM's normal bilaterally Ear exam: Normal external inspection. negative: External canal tenderness Nasal Exam: Normal inspection. negative: Discharge, Sinus tenderness Mouth exam: Normal external inspection, Tongue normal Teeth exam: Normal inspection. negative: Dental caries Throat exam: Normal inspection. negative: Tonsillar erythema, Tonsillar exudate - Neck Neck exam: Normal inspection, Full ROM. negative: Tenderness - Respiratory Respiratory exam: Normal lung sounds bilaterally, Other (cough triggered by deep inhalation). negative: Respiratory distress - Cardiovascular Cardiovascular Exam: Regular rate, Normal rhythm, Normal heart sounds - GI/Abdominal GI/Abdominal exam: Distended, Hypoactive bowel sounds, Tenderness - Rectal Rectal exam: Deferred - exam: Deferred - Extremities Extremities exam: Normal inspection, Full ROM, Normal capillary refill. negative: Tenderness - Back Back exam: Reports: Normal inspection, Full ROM. Denies: Muscle spasm, Rash noted, Tenderness - Neurological Neurological exam: Alert, Normal gait, Oriented X3, Reflexes normal - Psychiatric Psychiatric exam: Normal affect, Normal mood - Skin Skin exam: Dry, Intact, Normal color, Warm Results - Labs Result Diagrams: 01/21/18 10:10 01/21/18 10:10 - Imaging and Cardiology Abdominal x-ray Status: Pending CT scan - abdomen Status: Pending (Per. Dr. Ogden- pos for ileus) VTE H&P Assessment - Risk for VTE Risk for VTE: Yes Risk Level: Low Risk Assessment Date: 01/21/18 Risk Assessment Time: 21:59 VTE Orders Placed or Will Be Placed: Yes Plan - Inpatient Certification Inpatient Certification: Admit to inpatient care: Based on my medical assessment, after consideration of patient's risk factors (age, co-morbidities and patient presenting symptoms and acuity), I expect that this patient will remain in the hospital greater than or equal to two midnights and that the services needed warrant inpatient care because: Patient Risk Factors: [Crohns Disease, Ileus, Influenza B] Estimated length of stay: [48-72 hours] The patient may reasonably be expected to be discharged or transferred to a hospital within 96 hours after admission to [facility]. Services needed: [IV fluids, gut rest, pain control] Post hospital care (if known): [] I certify that my determination is in accordance with my understanding of Medicare requirements for reasonable and necessary inpatient services. 01/21/18 21:29 - Detailed Diagnosis and Plan (1) Exacerbation of Crohn's disease Current Visit: Yes Status: Acute Qualifiers: Digestive disease complication type: unspecified complication Qualified Code(s): K50.919 - Crohn's disease, unspecified, with unspecified complications Base Code: K50.90 - CROHN'S DISEASE, UNSPECIFIED, WITHOUT COMPLICATIONS Comment: 01/21/18: Pt. history of Crohns disease, possible exacaberation triggered by tamiflu. Pt. states she normally recieves immunotherapy injections once monthy, but she has not received it recently due to illness. Abd CT consistent with Crohn's and ileus. Plan to continue NPO status, IV fluids, dilaudid 1mg q4h prn pain, zofran 4mg IV prn nausea, solu-medrol 60mg IVP q8h. (2) Influenza B Current Visit: Yes Status: Acute Base Code: J10.1 - FLU DUE TO OTH IDENT INFLUENZA VIRUS W OTH RESP MANIFEST Comment: 01/21/18: Pt. positive for influenza B in [facility] on 01/19. She was treated with tamiflu and zofran for nausea. Tamiflu discontinued now due to possible trigger for Crohns disease flare. Will continue droplet precautions, zofran for nausea, IV fluids, supportive care. (3) Ileus Current Visit: Yes Status: Acute Base Code: K56.7 - ILEUS, UNSPECIFIED Comment: 01/21/18: Abdominal CT pos. for ileus. Pt. is passing foamy diarrhea. Will continue NPO status, IV fluids, gut rest. Will plan to advance diet as tolerated tomorrow. (4) DVT prophylaxis Current Visit: No Status: Acute Base Code: [id number] - Comment: 01/21/18: Lovenox 40mg SQ QD ordered for DVT prophylaxis (5) Full code status Current Visit: No Status: Acute Base Code: Z78.9 - OTHER SPECIFIED HEALTH STATUS Comment: 01/21/18: patient is full code status
[2018-01-21] MEDS: METHYLPREDNISOLONE PF 125MG/VIAL IVP SCH (21:22)
[2018-01-22] MEDS: DIPHENHYDRAMINE HCL IV 50 MG/ML VIAL IVP PRN ×5 (01:33→21:21)
[2018-01-22] MEDS: HYDROMORPHONE HCL 2 MG/ML VIAL IV PRN ×4 (04:35→21:23)
[2018-01-22] MEDS: METHYLPREDNISOLONE PF 125MG/VIAL IVP SCH ×3 (06:03→21:15)
[2018-01-22 06:58] LABS: BASO % 0.1 % (0-6); GRAN % 68.7 % (47-80); HEMATOCRIT 37.6 % (35.0-47.0); HEMOGLOBIN 11.5 gm/dl (11.6-16.0); MEAN CELL VOLUME 83.7 fl (81-97); MEAN CORPUSCULAR HEMOGLOBIN 25.6 pg (27-33); MEAN CORPUSCULAR HGB CONC 30.6 g/dl (32-36); MEAN PLATELET VOLUME 9.3 fl (7.4-10.4); MONO % 5.2 % (0-9); PLATELET COUNT 389 K/uL (130-400); RED BLOOD COUNT 4.49 M/uL (3.80-5.40); RED CELL DISTRIBUTION WIDTH 15.1 % (11.5-14.5); WHITE BLOOD COUNT W/O DIFF 6.8 K/uL (4.2-12.2)
[2018-01-22 07:11] LABS: ALB/GLOB RATIO 1.8 (1.1-1.8); ALKALINE PHOSPHATASE 83 U/L (35-104); ALT/SGPT 20 U/L (<33); AST/SGOT 18 U/L (10.0-35.0); BLOOD UREA NITROGEN 9 mg/dL (6-20); CREATININE 0.4 mg/dL (0.5-0.9); EST GLOMERULAR FILTRATION RATE > 60 mL/min; GLUCOSE,RANDOM 123 mg/dL (74-109); TOTAL PROTEIN 6.2 g/dL (6.6-8.7)
[2018-01-22] MEDS: 0.9 % SODIUM CHLORIDE 1000ML 1,000 ML IV PRN ×2 (07:37→17:44)
--- NOTE | 2018-01-22 08:08 | RADIOLOGY REPORT ---
EXAM: ACUTE ABDOMEN SERIES HISTORY: PAIN. TECHNIQUE: An upright view of the chest and supine and erect views of the abdomen were obtained. Comparison: 11/06/16 abdomen series. FINDINGS: The heart size is normal. The lungs are clear. No pneumothorax. No free air under the hemidiaphragms. Gaseous distention of bowel in the mid abdomen as well as several dilated air filled loops of small bowel in the right mid abdomen measuring up to 4.5 cm in diameter. Air fluid levels are present centrally. No free air. IMPRESSION: 1. NO ACUTE CARDIOPULMONARY PROCESS. 2. GASEOUS DISTENTION OF BOWEL LOOPS CENTRALLY WITH AIR FLUID LEVELS ALSO PRESENT. WHILE FINDINGS COULD RELATE TO ILEUS, PARTIAL OR INCOMPLETE OBSTRUCTION IS NOT EXCLUDED. 3. NOT STATED PREVIOUSLY, THERE IS A VAGUE AREA OF NODULARITY IN THE LEFT HILAR /SUPRAHILAR REGION MEASURING 11 MM WHICH LIKELY SIMPLY RELATES TO PULMONARY VASCULATURE, HOWEVER, THIS COULD BE CONFIRMED WITH DEDICATED TWO VIEW CHEST. JOB NUMBER: [id number] MTDD
[2018-01-22] MEDS: ONDANSETRON HCL IV 4 MG/2 ML VIAL IVP PRN ×3 (08:28→21:20)
--- NOTE | 2018-01-22 08:29 | CT SCAN REPORT ---
EXAM: CT OF THE ABDOMEN AND PELVIS WITHOUT CONTRAST HISTORY: ABDOMINAL PAIN. TECHNIQUE: CT of the abdomen and pelvis was performed without oral or IV contrast. This limits evaluation of bowel and solid visceral organs. Comparison: 01/07/17 CT. FINDINGS: Limited evaluation of the lung bases is unremarkable. The osseous structures are grossly intact. Diffuse fatty infiltrative change to the liver. There is an exophytic left renal cyst superiorly, unchanged. The adrenal glands are unremarkable. The visualized pancreas is unremarkable. The kidneys are otherwise unremarkable bilaterally. Fat containing anterior abdominal wall hernia near the midline. Status post cholecystectomy. Post surgical changes in the mid abdomen with anastomotic suture material, as before. Redemonstrated is a dilated fluid filled loops of small bowel in the central mid abdomen. The degree of dilatation does not appear as pronounced as it did previously. Other nondilated to borderline dilated fluid filled loops of small bowel are present in the pelvis, with subjective wall thickening. No transition point. Colectomy changes are suggested. Correlate with surgical history. IMPRESSION: EXTENSIVE POST SURGICAL CHANGES WITH WHAT APPEARS TO BE TOTAL COLECTOMY. ANASTOMOTIC SUTURE MATERIAL IN THE MID ABDOMEN WITH A MILDLY PROMINENT AIR FILLED LOOP OF SMALL BOWEL AT THIS SITE. THE DEGREE OF DILATATION OF THIS BOWEL LOOP IS LESS PRONOUNCED THAN IT WAS ON THE PRIOR EXAM, HOWEVER. THERE ARE OTHER MILDLY DILATED FLUID FILLED LOOPS OF SMALL BOWEL IN THE PELVIS, WITHOUT A DISCREET TRANSITION POINT FAVORING ILEUS. NO FREE AIR OR FREE FLUID. JOB NUMBER: [id number] MTDD
[2018-01-22] MEDS: ENOXAPARIN 40 MG/0.4 ML SYR SC SCH (11:40)
[2018-01-22] MEDS: BENZONATATE 100 MG CAPSULE PO PRN ×2 (15:37→21:26)
--- NOTE | 2018-01-22 16:06 | Physician Progress Note ---
Subjective - Date Date of Physician Progress Note: 01/22/18 - Subjective Subjective Comment: Abdominal distention/bloating, tenderness Location: Abdomen Quality: Constant Improves with: Medication, Movement Associated symptoms: Denies other symptoms Objective - Vital Signs Vital Signs: Vital Signs - Last 24 Hrs Temp Pulse Resp BP BP Pulse Ox 01/22/18 10:48 97.1 F L 110/68 01/22/18 10:00 97.2 F L 67 16 101/61 99 01/22/18 06:00 97.1 F L 82 18 110/68 95 01/21/18 22:00 97.2 F L 87 18 104/71 95 01/21/18 21:00 18 01/21/18 18:00 98.2 F 85 18 124/81 96 - General General Appearance: Alert, Oriented x3, Cooperative, Mild distress - Head Head exam: Normal inspection - Eye Eye exam: Normal appearance, PERRL Pupils: Normal accommodation - ENT ENT exam: Normal exam, Mucous membranes moist, Normal external ear exam, Normal orophraynx, TM's normal bilaterally Ear exam: Normal external inspection. negative: External canal tenderness Nasal Exam: Normal inspection. negative: Discharge, Sinus tenderness Mouth exam: Normal external inspection, Tongue normal Teeth exam: Normal inspection. negative: Dental caries Throat exam: Normal inspection. negative: Tonsillar erythema, Tonsillar exudate - Neck Neck exam: Normal inspection, Full ROM. negative: Tenderness - Respiratory Respiratory exam: Normal lung sounds bilaterally, Other (cough triggered by deep inhalation). negative: Respiratory distress - Cardiovascular Cardiovascular Exam: Regular rate, Normal rhythm, Normal heart sounds - GI/Abdominal GI/Abdominal exam: Distended, Hypoactive bowel sounds, Tenderness - Rectal Rectal exam: Deferred - exam: Deferred - Extremities Extremities exam: Normal inspection, Full ROM, Normal capillary refill. negative: Tenderness - Back Back exam: Reports: Normal inspection, Full ROM. Denies: Muscle spasm, Rash noted, Tenderness - Neurological Neurological exam: Alert, Normal gait, Oriented X3, Reflexes normal - Psychiatric Psychiatric exam: Normal affect, Normal mood - Skin Skin exam: Dry, Intact, Normal color, Warm Assessment and Plan - Assessment and Plan (1) Exacerbation of Crohn's disease Current Visit: Yes Status: Acute Qualifiers: Digestive disease complication type: unspecified complication Qualified Code(s): K50.919 - Crohn's disease, unspecified, with unspecified complications Base Code: K50.90 - CROHN'S DISEASE, UNSPECIFIED, WITHOUT COMPLICATIONS Comment: 01/22/18: Pt. history of Crohns disease, possible exacaberation triggered by tamiflu. Pt. states she normally recieves immunotherapy injections once monthy, but she has not received it recently due to illness. Abd CT consistent with Crohn's and ileus. Plan to continue IV fluids, dilaudid 1mg q4h prn pain, zofran 4mg IV prn nausea, solu-medrol 60mg IVP q8h. Advanced diet to clear liquids. (2) Influenza B Current Visit: Yes Status: Acute Base Code: J10.1 - FLU DUE TO OTH IDENT INFLUENZA VIRUS W OTH RESP MANIFEST Comment: 01/22/18: Pt. positive for influenza B in [facility] on 01/19. She was treated with tamiflu and zofran for nausea. Tamiflu discontinued now due to possible trigger for Crohns disease flare. Will continue droplet precautions, zofran for nausea, IV fluids, supportive care. Tessalon perles ordered for cough. (3) Ileus Current Visit: Yes Status: Acute Base Code: K56.7 - ILEUS, UNSPECIFIED Comment: 01/22/18: Abdominal CT pos. for ileus. Pt. is passing foamy diarrhea. Continue IV fluids. Pt. is tolerating small amounts of clear fluids. She did pass 2 liquid stools during the night. (4) DVT prophylaxis Current Visit: No Status: Acute Base Code: [id number] - Comment: 01/22/18: Lovenox 40mg SQ QD ordered for DVT prophylaxis (5) Full code status Current Visit: No Status: Acute Base Code: Z78.9 - OTHER SPECIFIED HEALTH STATUS Comment: 01/22/18: patient is full code status Results - Labs Result Diagrams: 01/22/18 06:30 01/22/18 06:30 Labs Last 24 Hours: Laboratory Results - last 24 hr 01/22/18 01/22/18 06:30 06:30 WBC 6.8 RBC 4.49 Hgb 11.5 L Hct 37.6 MCV 83.7 MCH 25.6 L MCHC 30.6 L RDW 15.1 H Plt Count 389 MPV 9.3 Gran % 68.7 Lymphocytes % 26.0 Monocytes % 5.2 Eosinophils % 0.0 Basophils % 0.1 Sodium 141 Potassium 3.8 Chloride 106 Carbon Dioxide 21.0 L Anion Gap 14.0 BUN 9 Creatinine 0.4 L Estimated GFR > 60 Random Glucose 123 H Calcium 8.7 Total Bilirubin 0.30 AST 18 ALT 20 Alkaline Phosphatase 83 Total Protein 6.2 L Albumin 4.0 Globulin 2.2 Albumin/Globulin Ratio 1.8 DVT/PE Assessment - Risk for VTE Risk for VTE: No Risk Level: Low Risk Assessment Date: 01/21/18 Risk Assessment Time: 21:59 VTE Orders Placed or Will Be Placed: Yes - Active Medicaitons Current Medications: Current Medications Benzonatate (Tessalon) 100 mg PO TID PRN PRN Reason: COUGH Last Admin: 01/22/18 15:37 Dose: 100 mg Diphenhydramine HCl (Benadryl Iv) 25 mg IVP Q4H PRN PRN Reason: itching Last Admin: 01/22/18 13:25 Dose: 25 mg Enoxaparin Sodium (Lovenox) 40 mg SC DAILY [facility] Last Admin: 01/22/18 11:40 Dose: 40 mg Hydromorphone HCl (Dilaudid) 1 mg IV Q4H PRN PRN Reason: Pain - General Last Admin: 01/22/18 13:21 Dose: 1 mg Sodium Chloride () 1,000 mls @ 100 mls/hr IV .Q10H PRN PRN Reason: LARGE VOLUME IV Last Admin: 01/22/18 07:37 Dose: 100 mls/hr Methylprednisolone Sodium Succinate (Solu-Medrol) 60 mg IVP Q8HR [facility] Last Admin: 01/22/18 13:25 Dose: 60 mg Ondansetron HCl (Zofran) 4 mg IVP Q4H PRN PRN Reason: NAUSEA Last Admin: 01/22/18 13:21 Dose: 4 mg AMI Plan - Labs Result Diagrams: 01/22/18 06:30 01/22/18 06:30
[2018-01-23] MEDS: HYDROMORPHONE HCL 2 MG/ML VIAL IV PRN ×3 (01:20→09:18)
[2018-01-23] MEDS: DIPHENHYDRAMINE HCL IV 50 MG/ML VIAL IVP PRN ×3 (01:22→09:18)
[2018-01-23] MEDS: 0.9 % SODIUM CHLORIDE 1000ML 1,000 ML IV PRN (04:00)
[2018-01-23] MEDS: METHYLPREDNISOLONE PF 125MG/VIAL IVP SCH (05:23)
[2018-01-23] MEDS: BENZONATATE 100 MG CAPSULE PO PRN (05:26)
[2018-01-23 07:00] LABS: GRAN % 72.7 % (47-80); HEMATOCRIT 34.6 % (35.0-47.0); HEMOGLOBIN 10.6 gm/dl (11.6-16.0); LYMPH % 16.6 % (16-45); MEAN CELL VOLUME 83.6 fl (81-97); MEAN CORPUSCULAR HEMOGLOBIN 25.6 pg (27-33); MEAN CORPUSCULAR HGB CONC 30.6 g/dl (32-36); MEAN PLATELET VOLUME 9.2 fl (7.4-10.4); MONO % 10.7 % (0-9); PLATELET COUNT 423 K/uL (130-400); RED BLOOD COUNT 4.14 M/uL (3.80-5.40); RED CELL DISTRIBUTION WIDTH 15.1 % (11.5-14.5); WHITE BLOOD COUNT W/O DIFF 8.5 K/uL (4.2-12.2)
[2018-01-23 07:22] LABS: ALB/GLOB RATIO 1.4 (1.1-1.8); ALKALINE PHOSPHATASE 70 U/L (35-104); ALT/SGPT 19 U/L (<33); AST/SGOT 16 U/L (10.0-35.0); BLOOD UREA NITROGEN 10 mg/dL (6-20); CREATININE 0.5 mg/dL (0.5-0.9); EST GLOMERULAR FILTRATION RATE > 60 mL/min; GLUCOSE,RANDOM 120 mg/dL (74-109); TOTAL PROTEIN 6.8 g/dL (6.6-8.7)
[2018-01-23] MEDS: ONDANSETRON HCL IV 4 MG/2 ML VIAL IVP PRN (08:09)
[2018-01-23] MEDS: ENOXAPARIN 40 MG/0.4 ML SYR SC SCH (09:19)
[2018-01-23] MEDS ORDERED: TEMAZEPAM 15 MG CAPSULE PO PRN (10:59)
[2018-01-23] MEDS ORDERED: OXYCODONE HCL/APAP 5MG/325MG TABLET PO PRN (11:01)
--- NOTE | 2018-01-23 11:52 | Discharge Summary ---
Providers Discharge Summary Date: 01/23/18 Date of admission: 01/21/18 17:56 Expected Date of Discharge: 01/23/18 Attending physician: SUPRIYA CHEUNG Primary care physician: SUPRIYA CHEUNG Physical Exam - Vital Signs Vital Signs: Vital Signs - Last 24 Hrs Temp Pulse Resp BP BP Pulse Ox 01/23/18 10:00 98.4 F 94 H 20 124/82 95 01/23/18 07:31 16 01/23/18 04:22 97.5 F L 70 18 127/74 97 01/23/18 00:05 97.7 F 74 18 128/78 97 01/22/18 20:00 97.8 F 76 20 123/64 98 01/22/18 17:52 97.8 F 90 18 135/71 95 01/22/18 14:00 97.8 F 90 18 135/71 95 - General General Appearance: Alert, Oriented x3, Cooperative, Mild distress Limitations: No limitations - Head Head exam: Normal inspection - Eye Eye exam: Normal appearance, PERRL Pupils: Normal accommodation - ENT ENT exam: Normal exam, Mucous membranes moist, Normal external ear exam, Normal orophraynx, TM's normal bilaterally Ear exam: Normal external inspection. negative: External canal tenderness Nasal Exam: Normal inspection. negative: Discharge, Sinus tenderness Mouth exam: Normal external inspection, Tongue normal Teeth exam: Normal inspection. negative: Dental caries Throat exam: Normal inspection. negative: Tonsillar erythema, Tonsillar exudate - Neck Neck exam: Normal inspection, Full ROM. negative: Tenderness - Respiratory Respiratory exam: Normal lung sounds bilaterally, Other (cough triggered by deep inhalation). negative: Respiratory distress - Cardiovascular Cardiovascular Exam: Regular rate, Normal rhythm, Normal heart sounds - GI/Abdominal GI/Abdominal exam: Soft, Normal bowel sounds, Distended - Rectal Rectal exam: Deferred - exam: Deferred - Extremities Extremities exam: Normal inspection, Full ROM, Normal capillary refill. negative: Tenderness - Back Back exam: Reports: Normal inspection, Full ROM. Denies: Muscle spasm, Rash noted, Tenderness - Neurological Neurological exam: Alert, Normal gait, Oriented X3, Reflexes normal - Psychiatric Psychiatric exam: Normal affect, Normal mood - Skin Skin exam: Dry, Intact, Normal color, Warm Hospitalization - Hospitalization Admission Diagnosis: ileus. exacerbation of crohn's disease. abdomen pain - Problem List/Discharge Diagnosis (1) Exacerbation of Crohn's disease Status: Acute Discharge Diagnosis: Digestive disease complication type: unspecified complication Qualified Code(s): K50.919 - Crohn's disease, unspecified, with unspecified complications Base Code: K50.90 - CROHN'S DISEASE, UNSPECIFIED, WITHOUT COMPLICATIONS Comment: 01/23/18: Pt. history of Crohns disease, possible exacaberation triggered by tamiflu. Pt. states she normally recieves immunotherapy injections once monthy, but she has not received it recently due to illness. Abd CT consistent with Crohn's and ileus. Pt. is tolerating clear liquids. Plan to try PO pain management and change to PO steroids. (2) Influenza B Status: Acute Base Code: J10.1 - FLU DUE TO OTH IDENT INFLUENZA VIRUS W OTH RESP MANIFEST Comment: 01/23/18: Pt. positive for influenza B in [facility] on . She was treated with tamiflu and zofran for nausea. Tamiflu discontinued now due to possible trigger for Crohns disease flare. Will d/c home with tessalon perles ordered for cough. (3) Ileus Status: Acute Base Code: K56.7 - ILEUS, UNSPECIFIED Comment: 01/23/18: Abdominal CT pos. for ileus. Pt. is tolerating small amounts of clear fluids and she has been passing loose stools. Plan to d/c home and pt. can continue to advance diet as tolerated. (4) DVT prophylaxis Status: Acute Base Code: [id number] - Comment: 01/23/18: Lovenox 40mg SQ QD ordered for DVT prophylaxis. Will not order prophylaxis for home, mobility not impaired. (5) Full code status Status: Acute Base Code: Z78.9 - OTHER SPECIFIED HEALTH STATUS Comment: 01/23: patient remains full code status - Hospitalization Course Disposition: Home, Self-Care Hospital Course: Mrs. Otero is a 52 year-old female who presented to the ED this afternoon with complaint of abdominal pain and diarrhea that started last night. She denies vomiting, she is experiencing foamy diarrhea. She was positive for influenza B 3 days ago in [facility] (symptoms of body aches, chills, cough) and started on tamiflu and zofran. Her history includes: Crohns disease (previous admissions for Crohns, ileus, and partial SBO), smoker, TIA in 2010, seizures ( last seizure 12 yrs ago), anxiety, depression, and currently going through menopause. In the ED, vital signs were: BP 124/101, HR 124, RR 18, T 97.5F, 96% on room air. CBC and CMP were performed. Abdominal xray was done and CT of abdomen showed ileus, no transition point, air fluid levels seen but less than previous scan. Pt. was admitted to inpatient for Crohns exacerbation (possibly caused by adverse reaction to Tamiflu) 01/22/18 1600: Pt. c/o abdominal pain and bloating. She states most of her flu symptoms have resolved, but she is still experiencing cough. Plan to continue IV fluids, NPO, dilaudid 1mg q4h prn pain, zofran 4mg IV prn nausea, solu- medrol 60mg IVP q8h. 01/23/18 0930: Pt. states abdominal pain has slightly improved, still distention, abd. is soft. Discussed changing to PO pain medications, pt. is agreeable. She has been up ambulating the unit with no difficulty. Will plan to discharge home today, pt. to continue clear fluids at home and advance diet as tolerated. Will continue steroids- prednisone taper for 10 days. F/U with Dr. Thorpe for Crohns on 02/27/18. PCP: [facility] GI: Dr. Greyson Haddad Abnormal Labs: Abnormal Lab Results 01/22/18 01/22/18 01/23/18 Range/Units 06:30 06:30 06:40 Hgb 11.5 L 10.6 L (11.6-16.0) gm/dl Hct 34.6 L (35.0-47.0) % MCH 25.6 L 25.6 L (27-33) pg MCHC 30.6 L 30.6 L (32-36) g/dl RDW 15.1 H 15.1 H (11.5-14.5) % Plt Count 423 H (130-400) K/uL Monocytes % 10.7 H (0-9) % Sodium (136-145) mmol/L Carbon Dioxide 21.0 L (22-29) mmol/L Anion Gap (7-16) Creatinine 0.4 L (0.5-0.9) mg/dL Random Glucose 123 H (74-109) mg/dL Total Protein 6.2 L (6.6-8.7) g/dL 01/23/18 Range/Units 06:40 Hgb (11.6-16.0) gm/dl Hct (35.0-47.0) % MCH (27-33) pg MCHC (32-36) g/dl RDW (11.5-14.5) % Plt Count (130-400) K/uL Monocytes % (0-9) % Sodium 148 H (136-145) mmol/L Carbon Dioxide (22-29) mmol/L Anion Gap 26.0 H (7-16) Creatinine (0.5-0.9) mg/dL Random Glucose 120 H (74-109) mg/dL Total Protein (6.6-8.7) g/dL Condition at Discharge: (2) Stable Discharge Diagnosis: Crohn's exacerbation, Ileus, Influenza B VTE Discharge VTE Reason For No Overlap Therapy: Not Indicated (Mobility not impaired) Discharge Medications - Discharge Medications Prescriptions: Benzonatate [Tessalon Perles] 100 mg PO TID PRN 10 Days #30 capsule PRN Reason: Cough Oxycodone HCl/Acetaminophen [Percocet 5mg/325mg] 1 udtab PO Q6H PRN #30 tablet PRN Reason: Pain - General Prednisone [Prednisone 20Mg] 20 mg PO DAILYWM #24 tab Home Medications: Ambulatory Orders Vedolizumab [Entyvio] 300 mg IV ASDIR 11/27/17 [Last Taken 1 Day Ago ~01/20/18] Calcium Carbonate [Calcium] 500 mg PO QD tab 12/17/17 [Last Taken 1 Day Ago ~] Multivitamin [Multi-Vitamin Daily] 1 each PO QD tab 12/17/17 [Last Taken 1 Day Ago ~01/20/18] Benzonatate [Tessalon Perles] 100 mg PO TID PRN 10 Days #30 capsule 01/23/18 [ Last Taken Unknown] Oxycodone HCl/Acetaminophen [Percocet 5mg/325mg] 1 udtab PO Q6H PRN #30 tablet 01/23/18 [Last Taken Unknown] Prednisone [Prednisone 20Mg] 20 mg PO DAILYWM #24 tab 01/23/18 [Last Taken Unknown] Discharge Plan - Discharge Instructions Activity at Discharge: Increase Activity as Tolerated Diet at Discharge: Regular Diet Instructions: Crohn Disease (DC), Influenza (DC) Additional Instructions: Continue clear fluid diet at home, gradually advance diet as tolerated Start percocet 5-325 one tablet every 6 hours for pain Tessalon perles for cough, 1 perle three times daily Take prednisone as directed. Start today. Activity as tolerated Return to the ED if your abdominal pain and distention worsen Follow up with your PCP in 5-7 days Quality Measures - Quality Measures Quality Measures: Documentation of Current Medications in Medical Record, Screening for High Blood Pressure and F/U Documented - Current Medications Quality Measure: Measure #130: Documentation of Current Medications Documentation of Current Medications: <Current Medications Documented/Reviewed> [G8427] - Blood Pressure Screening Quality Measure: Screening for High Blood Pressure and Follow-Up Documented Does Patient Have Any of the Following: No Blood Pressure Classification: Normal BP Reading Systolic Measurement: 110 Diastolic Measurement: 68 Screening for High Blood Pressure: < Normal BP, F/U Not Required > [G8783] - Elder Abuse Suspicion Index EASI Reference Information: Mohit LUCIO, Maranda C, Portia D, Steven Zimmer.Development and validation of a tool to assist physicians identification of elder abuse: The Elder Abuse Suspicion Index (EASI ). Journal of Elder Abuse and Neglect, 2008; 20 (3): 276-300.
[2018-01-24] MEDS ORDERED: PREDNISONE 20 MG TAB PO SCH (08:00)
== END 2018-01-23 12:57 | disposition home or self-care (01) | DRG 387 ==
LOC: ER 09:39 → MEDSURG 17:56
PROVIDERS: ADMIT Internal Medicine; ATTEND Internal Medicine
DX: K50.00 Crohn's disease of small intestine without complications (principal); J10.1 Influenza due to other identified influenza virus with other respiratory manifestations; Z72.0 Tobacco use; M19.90 Unspecified osteoarthritis, unspecified site; K58.9 Irritable bowel syndrome, unspecified; F41.8 Other specified anxiety disorders; Z90.49 Acquired absence of other specified parts of digestive tract
CPT/HCPCS: 74022; 74176; 80048; 80053; 80076; 83690; 85025; 85027; 86140; 96361; 96374; 96375; 96376; 99223; 99233; 99239; 99285; J1200; J1650; J2405; J2920; J2930; J7030

== ENCOUNTER 2018-03-31 15:26 | Emergency (ER) | payer MEDICAID ==
[2018-03-31] MEDS ORDERED: ONDANSETRON HCL IV 4 MG/2 ML VIAL IVP ONE (16:10)
[2018-03-31] MEDS ORDERED: 0.9 % SODIUM CHLORIDE 1,000 ML BAG IV ONE (16:10)
[2018-03-31] MEDS ORDERED: HYDROMORPHONE HCL 2 MG/ML VIAL IVP ONE ×2 (16:11→18:15)
--- NOTE | 2018-03-31 16:11 | Emergency Department Record ---
History of Present Illness <Bashir Ogden - Last Filed: 04/01/18 12:21> - General Source: Patient Mode of Arrival: Ambulatory Limitations: No limitations - History of Present Illness Initial Comments: 52 yo female presents with LLQ pain, bloated feeling since this morning. She has been having loose stools that are watery and non bloody. No fever. She has a history of Crohn's disease with prior obstructions and multiple abdominal surgeries. No chest pain or shortness of breath. She has nausea with vomiting. She is not currently on her Crohn's medication. MD Complaint: Abdominal pain -: Hour(s) Location: LLQ Radiation: LLQ Migration to: LLQ Severity: Severe Severity scale (1-10): 10 Quality: Burning Consistency: Constant Improves With: Nothing Worsens With: Nothing Associated Symptoms: Diarrhea, Nausea - Related Data Hx Age of Menopause: 47 <SALLY MCCAIN - Last Filed: 04/02/18 09:32> - General Chief Complaint: Abdominal Pain Stated Complaint: ABDOMINAL PAIN Time Seen by Provider: 03/31/18 16:05 - Related Data Previous Rx's Medication Instructions Recorded Levofloxacin [Levaquin] 750 mg PO DAILY #7 tab 04/01/18 Metronidazole [Flagyl] 500 mg PO TID #21 tablet 04/01/18 Ondansetron HCl [Zofran] 4 mg PO Q6HR #30 tablet 04/01/18 Prednisone [Prednisone 20Mg] 20 mg PO BID #10 tab 04/01/18 Allergies Allergy/AdvReac Type Severity Reaction Status Date / Time promethazine HCl Allergy Mild ITCHING Verified 03/31/18 16:31 [From Phenergan] adalimumab [From HUMIRA] Allergy Unknown MIGRAINES Verified 03/31/18 16:31 aspirin [ASPIRIN] Allergy Unknown NAUSEA AND Verified 03/31/18 16:31 VOMITING azathioprine [From IMURAN] Allergy Unknown VOMITING Verified 03/31/18 16:31 azathioprine sodium Allergy Unknown VOMITING Verified 03/31/18 16:31 [From IMURAN] chlordiazepoxide HCl Allergy Unknown RASH Verified 03/31/18 16:31 [From LIBRIUM] citalopram hydrobromide Allergy Unknown HYPERSENSIT Verified 03/31/18 16:31 [From CELEXA] IVITY clidinium [CLIDINIUM] Allergy Unknown RASH Verified 03/31/18 16:31 codeine Allergy Unknown ITCHING Verified 03/31/18 16:31 eicosapentaenoic acid Allergy Unknown RASH Verified 03/31/18 16:31 [From OMEGA 3] hydrocodone bitartrate Allergy Unknown ITCHING Verified 03/31/18 16:31 [From VICODIN] hydromorphone HCl Allergy Unknown ITCHING Verified 03/31/18 16:31 infliximab Allergy Unknown VOMITING Verified 03/31/18 16:31 metoclopramide Allergy Unknown ALTERED Verified 03/31/18 16:31 [METOCLOPRAMIDE] MENTAL STATUS morphine [MORPHINE] Allergy Unknown ITCHING Verified 03/31/18 16:31 omega-3 fatty acids Allergy Unknown RASH Verified 03/31/18 16:31 [From OMEGA 3] oxycodone HCl [From PERCOCET] Allergy Unknown ITCHING Verified 03/31/18 16:31 paroxetine HCl [From PAXIL] Allergy Unknown RASH Verified 03/31/18 16:31 varenicline tartrate Allergy Unknown ALTERED Verified 03/31/18 16:31 [From CHANTIX] MENTAL STATUS Travel Screening - Travel/Exposure Within Last 30 Days Have you traveled within the last 30 days?: No <SALLY MCCAIN - Last Filed: 04/02/18 09:32> Review of Systems Constitutional: Denies: Chills, Fever, Malaise, Weakness Eyes: Denies: Eye discharge ENT: Denies: Congestion, Throat pain Respiratory: Denies: Cough, Dyspnea, Hemoptysis, Stridor, Wheezes Cardiovascular: Denies: Chest pain, Palpitations, Syncope Endocrine: Denies: Fatigue Gastrointestinal: Reports: Abdominal pain, Diarrhea, Nausea, Vomiting. Denies: Constipation, Hematemesis Genitourinary: Denies: Dysuria, Urgency Musculoskeletal: Denies: Arthralgia, Back pain, Joint swelling, Myalgia Skin: Denies: Bruising, Change in color, Rash Neurological: Denies: Headache, Numbness, Weakness Psychiatric: Denies: Anxiety Hematological/Lymphatic: Denies: Blood Clots, Easy bleeding, Easy bruising <SALLY MCCAIN - Last Filed: 04/02/18 09:32> Past Medical History - SOCIAL HISTORY Smoking Status: Light tobacco smoker (<10/day) Alcohol Use: None Drug Use: None - RESPIRATORY Hx Respiratory Disorders: No - CARDIOVASCULAR Hx Cardio Disorders: Yes Hx Abnormal EKG: Yes (r/t anxiety) Hx Chest Pain: Yes (r/t anxiety) - NEURO Hx Neuro Disorders: Yes Hx Seizures: Yes (last seizure 12 years ago) Hx TIA: Yes (2009) - GI Hx GI Disorders: Yes Hx Abdominal Pain: Yes Hx Crohn's Disease: Yes (Diagnosed about 9 years ago; managed by Dr. Greyson Haddad ) Hx Reflux: Yes Hx Irritable Bowel: Yes Hx Nausea/Vomiting: Yes Hx Obstructive Bowel: Yes (Admitted for Crohns, ileus and possible partial bowel obstruction) Comment:: crohns colitis - Hx Genitourinary Disorders: No Comment:: going through menopause - ENDOCRINE Hx Endocrine Disorders: No - MUSCULOSKELETAL Hx Musculoskeletal Disorders: Yes Hx Arthritis: Yes Comment:: rds in right ankle - PSYCH Hx Psych Problems: Yes Hx Anxiety: Yes Hx Depression: Yes - HEMATOLOGY/ONCOLOGY Hx Hematology/Oncology Disorders: No <SALLY MCCAIN - Last Filed: 04/02/18 09:32> Family Medical History Any Significant Family History?: Yes Hx Alcohol Use: Father, Brother/Sister Hx Cancer: Brother/Sister *Cancer Comment: lung cancer Hx Diabetes: Grandparents *Diabetes Comment: grandmother Hx Heart Disease: Grandparents *Heart Comment: grandfather Hx Resp Disorders: Children *Resp Comment: daughter has asthma Hx Stroke: Mother *Stroke Comment: Mother had history of TIA x 1 <SALLY MCCAIN - Last Filed: 04/02/18 09:32> Physical Exam - General General Appearance: Alert, Oriented x3, Cooperative, No acute distress Limitations: No limitations - Head Head exam: Normal inspection - Eye Eye exam: Normal appearance, PERRL. negative: Conjunctival injection, Scleral icterus - ENT ENT exam: Normal exam, Mucous membranes moist Ear exam: Normal external inspection Nasal Exam: Normal inspection Mouth exam: Normal external inspection Teeth exam: Normal inspection - Neck Neck exam: Normal inspection, Full ROM. negative: Tenderness - Respiratory Respiratory exam: Normal lung sounds bilaterally. negative: Respiratory distress - Cardiovascular Cardiovascular Exam: Regular rate, Normal rhythm, Normal heart sounds - GI/Abdominal GI/Abdominal exam: Soft, Normal bowel sounds, Distended (no distention, soft abdomen), Hernia (Midline hernia that is non tender to palpation, very soft), Tenderness (LLQ, mild. the abdomen is very soft on palpation without guarding or rebound) - Rectal Rectal exam: Deferred - exam: Deferred - Extremities Extremities exam: Normal inspection, Full ROM, Normal capillary refill. negative: Pedal edema, Tenderness - Back Back exam: Reports: Normal inspection. Denies: CVA tenderness (R), CVA tenderness (L) - Neurological Neurological exam: Alert, Normal gait, Oriented X3 - Psychiatric Psychiatric exam: Normal affect, Normal mood - Skin Skin exam: Dry, Intact, Normal color, Warm <SALLY MCCAIN - Last Filed: 04/02/18 09:32> Course Vital Signs 03/31/18 03/31/18 03/31/18 15:32 17:20 18:55 Temperature 97.7 F Pulse Rate 99 H 95 H Pulse Rate [ 92 H Pulse Ox Probe] Respiratory 18 18 18 Rate Blood Pressure 128/89 120/83 Blood Pressure 125/94 [Left Arm] Pulse Ox 99 98 96 <Bashir Ogden - Last Filed: 04/01/18 12:21> Vital Signs 03/31/18 15:32 Temperature 97.7 F Pulse Rate 99 H Respiratory 18 Rate Blood Pressure 128/89 Pulse Ox 99 - Reevaluation(s) Reevaluation #1: 03/31/18 17:31 The CBC and CMP were reviewed No acute changes The Abdominal XR was reviewed. No dilated loops of intestine. A few scattered AFL most consistent with ileus Given she is afebrile, normal vitals, normal CBC and has a history of numerous CT scans in the past I discussed not doing a CT at this time due to her accumulated radiation exposure risk. She is aware of this and agrees. 03/31/18 17:33 03/31/18 18:15 The patient is feeling better She has been recent approved to restart her Crohn's medications. She will be given Solumedrol here in the ED and call her GI for further care She has been through these symptoms numerous times. She is comfortable with DC , liquid diet and returning if worsening, fever, not tolerating well. 03/31/18 18:34 <SALLY MCCAIN - Last Filed: 04/02/18 09:32> Medical Decision Making - Lab Data Result diagrams: 03/31/18 16:50 03/31/18 16:50 Lab Results 03/31/18 03/31/18 Range/Units 16:50 16:50 WBC 10.5 (4.2-12.2) K/uL RBC 4.69 (3.80-5.40) M/uL Hgb 11.7 (11.6-16.0) gm/dl Hct 38.7 (35.0-47.0) % MCV 82.5 (81-97) fl MCH 24.9 L (27-33) pg MCHC 30.2 L (32-36) g/dl RDW 15.5 H (11.5-14.5) % Plt Count 528 H (130-400) K/uL MPV 8.9 (7.4-10.4) fl Gran % 56.6 (47-80) % Lymphocytes % 31.5 (16-45) % Monocytes % 8.4 (0-9) % Eosinophils % 3.2 (0-6) % Basophils % 0.3 (0-6) % Sodium 144 (136-145) mmol/L Potassium 4.1 (3.4-4.5) mmol/L Chloride 107 (98-107) mmol/L Carbon Dioxide 23.0 (22-29) mmol/L Anion Gap 14.0 (7-16) BUN 5 L (6-20) mg/dL Creatinine 0.5 (0.5-0.9) mg/dL Estimated GFR > 60 mL/min Random Glucose 91 (74-109) mg/dL Calcium 9.1 (8.6-10.0) mg/dL Total Bilirubin < 0.20 L (0.2-1.0) mg/dL AST 12 (10.0-35.0) U/L ALT 14 (<33) U/L Alkaline Phosphatase 83 (35-104) U/L Total Protein 6.5 L (6.6-8.7) g/dL Albumin 4.0 (4.0-5.0) g/dL Globulin 2.5 (1.4-4.8) gm/dL Albumin/Globulin Ratio 1.6 (1.1-1.8) Lipase 43 (13-60) U/L <Bashir Ogden - Last Filed: 04/01/18 12:21> - Lab Data Result diagrams: 03/31/18 16:50 03/31/18 16:50 <SALLY MCCAIN - Last Filed: 04/02/18 09:32> Disposition <Melvi,Bashir A - Last Filed: 04/01/18 12:21> Disposition: Discharge Time of Disposition: 18:34 <SALLY MCCAIN - Last Filed: 04/02/18 09:32> Clinical Impression: Ileus Abdominal pain Qualifiers: Abdominal location: left upper quadrant Qualified Code(s): R10.12 - Left upper quadrant pain Exacerbation of Crohn's disease Qualifiers: Digestive disease complication type: unspecified complication Qualified Code(s) : K50.919 - Crohn's disease, unspecified, with unspecified complications Disposition: Home, Self-Care Condition: (1) Good Instructions: Crohn Disease (ED), Ileus (ED) Additional Instructions: Liquid diet the next 2-3 days Return if you have fever, vomiting, uncontrolled pain Call your doctors for close follow up this week Forms: Patient Portal Access Quality - Blood Pressure Screening Does Patient Have Any of the Following: No Blood Pressure Classification: Pre-Hypertensive BP Reading Systolic Measurement: 120 Diastolic Measurement: 83 Screening for High Blood Pressure: < Pre-Hypertensive BP, F/U Documented > [ G8950] <Bahsir Ogden - Last Filed: 04/01/18 12:21> - Quality Measures Quality Measures: N/A - Blood Pressure Screening Does Patient Have Any of the Following: No Blood Pressure Classification: Pre-Hypertensive BP Reading Systolic Measurement: 120 Diastolic Measurement: 83 Screening for High Blood Pressure: < Pre-Hypertensive BP, F/U Documented > [ G8950] Pre-Hypertensive Follow-up Interventions: Referral to alternative/primary care provider. <SALLY MCCAIN - Last Filed: 04/02/18 09:32>
[2018-03-31] MEDS ORDERED: DIPHENHYDRAMINE HCL 50 MG/ML VIAL IVP ONE ×2 (16:13→18:15)
[2018-03-31 16:58] LABS: BASO % 0.3 % (0-6); EOS % 3.2 % (0-6); GRAN % 56.6 % (47-80); HEMATOCRIT 38.7 % (35.0-47.0); HEMOGLOBIN 11.7 gm/dl (11.6-16.0); LYMPH % 31.5 % (16-45); MEAN CELL VOLUME 82.5 fl (81-97); MEAN CORPUSCULAR HEMOGLOBIN 24.9 pg (27-33); MEAN CORPUSCULAR HGB CONC 30.2 g/dl (32-36); MEAN PLATELET VOLUME 8.9 fl (7.4-10.4); MONO % 8.4 % (0-9); PLATELET COUNT 528 K/uL (130-400); RED BLOOD COUNT 4.69 M/uL (3.80-5.40); RED CELL DISTRIBUTION WIDTH 15.5 % (11.5-14.5); WHITE BLOOD COUNT W/O DIFF 10.5 K/uL (4.2-12.2)
[2018-03-31 17:19] LABS: ALB/GLOB RATIO 1.6 (1.1-1.8); ALKALINE PHOSPHATASE 83 U/L (35-104); ALT/SGPT 14 U/L (<33); AST/SGOT 12 U/L (10.0-35.0); BILIRUBIN,TOTAL < 0.20 mg/dL (0.2-1.0); BLOOD UREA NITROGEN 5 mg/dL (6-20); CREATININE 0.5 mg/dL (0.5-0.9); EST GLOMERULAR FILTRATION RATE > 60 mL/min; GLUCOSE,RANDOM 91 mg/dL (74-109); LIPASE 43 U/L (13-60); TOTAL PROTEIN 6.5 g/dL (6.6-8.7)
[2018-03-31] MEDS ORDERED: METHYLPREDNISOLONE PF 125MG/VIAL IVP ONE (18:15)
--- NOTE | 2018-04-02 13:53 | RADIOLOGY REPORT ---
EXAM: ABDOMEN, TWO VIEWS HISTORY: PAIN. TECHNIQUE: Supine and erect views of the abdomen were obtained. Comparison: CT from 01/21/18. Abdominal series from 01/21/18. FINDINGS: No free air under the hemidiaphragms. Post surgical changes with suture material in the right lower quadrant. The gas pattern is nonspecific. Gas identified throughout the colon with a few colonic air fluid levels. Findings may reflect ileus. IMPRESSION: NONDILATED AIR FILLED LOOPS OF BOWEL WITH COLONIC AIR FLUID LEVELS MAY REFLECT MILD ILEUS. JOB NUMBER: [id number] [facility]
== END 2018-03-31 18:56 | disposition home or self-care (01) ==
LOC: ER 15:26
DX: K56.7 Ileus, unspecified (principal); K50.90 Crohn's disease, unspecified, without complications; R19.7 Diarrhea, unspecified; F17.210 Nicotine dependence, cigarettes, uncomplicated
CPT/HCPCS: 99284 ×2; 96376; 96374; 96375; 96361; 83690; 85025; 80053; 74019; J2405; J1170; J1200; J2930; J7030

== ENCOUNTER 2018-04-01 09:23 | Emergency (ER) | payer MEDICAID ==
--- NOTE | 2018-04-01 10:02 | Emergency Department Record ---
History of Present Illness - General Chief Complaint: Abdominal Pain Stated Complaint: ABD PAIN/HERE YESTERDAY Time Seen by Provider: 04/01/18 10:01 Source: Patient, RN notes reviewed - History of Present Illness Initial Comments: patient has left sided abdominal pain and she was here yesterday with a flare of her crohn's disease and she said still hurting and returned to ED and she states her crohn's infusions have not been restarted but recently approved. one loose stool this am small and no vomiting. Similiar episodes and multiple surgeries. MD Complaint: Abdominal pain - Related Data Hx Age of Menopause: 47 Previous Rx's Medication Instructions Recorded Levofloxacin [Levaquin] 750 mg PO DAILY #7 tab 04/01/18 Metronidazole [Flagyl] 500 mg PO TID #21 tablet 04/01/18 Allergies Allergy/AdvReac Type Severity Reaction Status Date / Time promethazine HCl Allergy Mild ITCHING Verified 03/31/18 16:31 [From Phenergan] adalimumab [From HUMIRA] Allergy Unknown MIGRAINES Verified 03/31/18 16:31 aspirin [ASPIRIN] Allergy Unknown NAUSEA AND Verified 03/31/18 16:31 VOMITING azathioprine [From IMURAN] Allergy Unknown VOMITING Verified 03/31/18 16:31 azathioprine sodium Allergy Unknown VOMITING Verified 03/31/18 16:31 [From IMURAN] chlordiazepoxide HCl Allergy Unknown RASH Verified 03/31/18 16:31 [From LIBRIUM] citalopram hydrobromide Allergy Unknown HYPERSENSIT Verified 03/31/18 16:31 [From CELEXA] IVITY clidinium [CLIDINIUM] Allergy Unknown RASH Verified 03/31/18 16:31 codeine Allergy Unknown ITCHING Verified 03/31/18 16:31 eicosapentaenoic acid Allergy Unknown RASH Verified 03/31/18 16:31 [From OMEGA 3] hydrocodone bitartrate Allergy Unknown ITCHING Verified 03/31/18 16:31 [From VICODIN] hydromorphone HCl Allergy Unknown ITCHING Verified 03/31/18 16:31 infliximab Allergy Unknown VOMITING Verified 03/31/18 16:31 metoclopramide Allergy Unknown ALTERED Verified 03/31/18 16:31 [METOCLOPRAMIDE] MENTAL STATUS morphine [MORPHINE] Allergy Unknown ITCHING Verified 03/31/18 16:31 omega-3 fatty acids Allergy Unknown RASH Verified 03/31/18 16:31 [From OMEGA 3] oxycodone HCl [From PERCOCET] Allergy Unknown ITCHING Verified 03/31/18 16:31 paroxetine HCl [From PAXIL] Allergy Unknown RASH Verified 03/31/18 16:31 varenicline tartrate Allergy Unknown ALTERED Verified 03/31/18 16:31 [From CHANTIX] MENTAL STATUS Review of Systems Reviewed: No additional complaints except as noted below Constitutional: Reports: As per HPI. Denies: Chills, Fever, Malaise, Night sweats, Weakness, Weight change Eyes: Reports: As per HPI. Denies: Eye discharge, Eye pain, Photophobia, Vision change ENT: Reports: As per HPI. Denies: Congestion, Dental pain, Ear pain, Epistaxis , Hearing loss, Throat pain Respiratory: Reports: As per HPI. Denies: Cough, Dyspnea, Hemoptysis, Stridor, Wheezes Cardiovascular: Reports: As per HPI. Denies: Arrhythmia, Chest pain, Dyspnea on exertion, Edema, Murmurs, Orthopnea, Palpitations, Paroxysmal nocturnal dyspnea, Rheumatic Fever, Syncope Endocrine: Reports: As per HPI. Denies: Fatigue, Heat or cold intolerance, Polydipsia, Polyuria Gastrointestinal: Reports: As per HPI, Abdominal pain, Nausea. Denies: Constipation, Diarrhea, Hematemesis, Hematochezia, Melena, Vomiting Genitourinary: Reports: As per HPI. Denies: Abnormal menses, Discharge, Dyspareunia, Dysuria, Frequency, Hematuria, Incontinence, Retention, Urgency Musculoskeletal: Reports: As per HPI. Denies: Arthralgia, Back pain, Gout, Joint swelling, Myalgia, Neck pain Skin: Reports: As per HPI. Denies: Bruising, Change in color, Change in hair/ nails, Lesions, Pruritus, Rash Neurological: Reports: As per HPI. Denies: Abnormal gait, Confusion, Headache, Numbness, Paresthesias, Seizure, Tingling, Tremors, Vertigo, Weakness Psychiatric: Reports: As per HPI. Denies: Anxiety, Auditory hallucinations, Depression, Homicidal thoughts, Suicidal thoughts, Visual hallucinations Hematological/Lymphatic: Reports: As per HPI. Denies: Anemia, Blood Clots, Easy bleeding, Easy bruising, Swollen glands Past Medical History - SOCIAL HISTORY Smoking Status: Light tobacco smoker (<10/day) Alcohol Use: None Drug Use: None - RESPIRATORY Hx Respiratory Disorders: No - CARDIOVASCULAR Hx Cardio Disorders: Yes Hx Abnormal EKG: Yes (r/t anxiety) Hx Chest Pain: Yes (r/t anxiety) - NEURO Hx Neuro Disorders: Yes Hx Seizures: Yes (last seizure 12 years ago) Hx TIA: Yes (2009) - GI Hx GI Disorders: Yes Hx Abdominal Pain: Yes Hx Crohn's Disease: Yes (Diagnosed about 9 years ago; managed by Dr. Greyson Haddad ) Hx Reflux: Yes Hx Irritable Bowel: Yes Hx Nausea/Vomiting: Yes Hx Obstructive Bowel: Yes (Admitted for Crohns, ileus and possible partial bowel obstruction) Comment:: crohns colitis - Hx Genitourinary Disorders: No Comment:: going through menopause - ENDOCRINE Hx Endocrine Disorders: No - MUSCULOSKELETAL Hx Musculoskeletal Disorders: Yes Hx Arthritis: Yes Comment:: rds in right ankle - PSYCH Hx Psych Problems: Yes Hx Anxiety: Yes Hx Depression: Yes - HEMATOLOGY/ONCOLOGY Hx Hematology/Oncology Disorders: No Family Medical History Any Significant Family History?: Yes Hx Alcohol Use: Father, Brother/Sister Hx Cancer: Brother/Sister *Cancer Comment: lung cancer Hx Diabetes: Grandparents *Diabetes Comment: grandmother Hx Heart Disease: Grandparents *Heart Comment: grandfather Hx Resp Disorders: Children *Resp Comment: daughter has asthma Hx Stroke: Mother *Stroke Comment: Mother had history of TIA x 1 Physical Exam - General General Appearance: Alert, Oriented x3, Cooperative, Mild distress - Head Head exam: Normal inspection - Eye Eye exam: Normal appearance, PERRL Pupils: Normal accommodation - ENT ENT exam: Normal exam, Mucous membranes moist, Normal external ear exam, Normal orophraynx, TM's normal bilaterally Ear exam: Normal external inspection. negative: External canal tenderness Nasal Exam: Normal inspection. negative: Discharge, Sinus tenderness Mouth exam: Normal external inspection, Tongue normal Teeth exam: Normal inspection. negative: Dental caries Throat exam: Normal inspection. negative: Tonsillar erythema, Tonsillar exudate - Neck Neck exam: Normal inspection, Full ROM. negative: Tenderness - Respiratory Respiratory exam: Normal lung sounds bilaterally. negative: Respiratory distress - Cardiovascular Cardiovascular Exam: Regular rate, Normal rhythm, Normal heart sounds - GI/Abdominal GI/Abdominal exam: Soft, Normal bowel sounds, Tenderness (left lower quad pain and left upper quad pain) - Rectal Rectal exam: Deferred - exam: Deferred - Extremities Extremities exam: Normal inspection, Full ROM, Normal capillary refill. negative: Tenderness - Back Back exam: Reports: Normal inspection, Full ROM. Denies: Muscle spasm, Rash noted, Tenderness - Neurological Neurological exam: Alert, Normal gait, Oriented X3, Reflexes normal - Psychiatric Psychiatric exam: Normal affect, Normal mood - Skin Skin exam: Dry, Intact, Normal color, Warm Course - Reevaluation(s) Reevaluation #1: discussed options of inpatient or outpatient care and she wants to try outpatient care because she thinks maybe her infusions will happen in the next couple of days for her crohn's disease and she doesn't want to miss that. Discussed the white count and will start oral antiobiotics of levaquin and flagyl, use bentyl for pain. also patient want to use her simethicone and I said that would be OK 04/01/18 14:16 Medical Decision Making - Data Complexity MDM Data: Labs Ordered and/or Reviewed (wbc 15,000), X-Ray Ordered and/or Reviewed (same as yesterday) - Lab Data Result diagrams: 04/01/18 10:46 04/01/18 10:46 Disposition Clinical Impression: Exacerbation of Crohn's disease Qualifiers: Digestive disease complication type: unspecified complication Qualified Code(s) : K50.919 - Crohn's disease, unspecified, with unspecified complications Abdominal pain Qualifiers: Abdominal location: left upper quadrant Qualified Code(s): R10.12 - Left upper quadrant pain Disposition: Home, Self-Care Condition: (1) Good Instructions: Abdominal Pain (ED), Crohn Disease (ED) Additional Instructions: folloqw up with family in 5 days Prescriptions: Levofloxacin [Levaquin] 750 mg PO DAILY #7 tab Metronidazole [Flagyl] 500 mg PO TID #21 tablet Forms: Patient Portal Access Time of Disposition: 14:23 Quality - Quality Measures Quality Measures: N/A - Blood Pressure Screening Does Patient Have Any of the Following: No Blood Pressure Classification: Pre-Hypertensive BP Reading Systolic Measurement: 114 Diastolic Measurement: 88 Screening for High Blood Pressure: < Pre-Hypertensive BP, F/U Documented > [ G8950] Pre-Hypertensive Follow-up Interventions: Referral to alternative/primary care provider.
[2018-04-01] MEDS ORDERED: HYDROMORPHONE HCL 2 MG/ML VIAL IVP ONE ×2 (10:44→12:43)
[2018-04-01] MEDS ORDERED: ONDANSETRON HCL IV 4 MG/2 ML VIAL IVP ONE ×2 (10:45→12:44)
[2018-04-01] MEDS ORDERED: METHYLPREDNISOLONE PF 125MG/VIAL IVP ONE (10:46)
[2018-04-01] MEDS ORDERED: 0.9 % SODIUM CHLORIDE 1,000 ML BAG IV ONE (10:46)
[2018-04-01] MEDS ORDERED: DIPHENHYDRAMINE HCL 50 MG/ML VIAL IVP ONE ×2 (10:54→12:43)
[2018-04-01 10:57] LABS: BASO % 0.1 % (0-6); GRAN % 78.3 % (47-80); HEMATOCRIT 38.7 % (35.0-47.0); HEMOGLOBIN 11.8 gm/dl (11.6-16.0); LYMPH % 15.1 % (16-45); MEAN CELL VOLUME 82.3 fl (81-97); MEAN CORPUSCULAR HEMOGLOBIN 25.1 pg (27-33); MEAN CORPUSCULAR HGB CONC 30.5 g/dl (32-36); MONO % 6.5 % (0-9); PLATELET COUNT 540 K/uL (130-400); RED CELL DISTRIBUTION WIDTH 15.5 % (11.5-14.5); WHITE BLOOD COUNT W/O DIFF 15.1 K/uL (4.2-12.2)
[2018-04-01 11:05] LABS: BLOOD UREA NITROGEN 4 mg/dL (6-20); CREATININE 0.4 mg/dL (0.5-0.9); EST GLOMERULAR FILTRATION RATE > 60 mL/min
[2018-04-01 11:08] LABS: GLUCOSE,RANDOM 96 mg/dL (74-109)
--- NOTE | 2018-04-01 14:44 | Emergency Department Record ---
History of Present Illness - General Chief Complaint: Abdominal Pain Stated Complaint: ABD PAIN/HERE YESTERDAY Time Seen by Provider: 04/01/18 10:01 Source: Patient, RN notes reviewed Mode of Arrival: Ambulatory - History of Present Illness MD Complaint: Abdominal pain Location: LUQ Radiation: None Severity: Moderate Severity scale (1-10): 7 Quality: Burning Consistency: Intermittent Improves With: Nothing Worsens With: Nothing Associated Symptoms: Nausea - Related Data Patient : No Hx Age of Menopause: 47 Previous Rx's Medication Instructions Recorded Levofloxacin [Levaquin] 750 mg PO DAILY #7 tab 04/01/18 Metronidazole [Flagyl] 500 mg PO TID #21 tablet 04/01/18 Ondansetron HCl [Zofran] 4 mg PO Q6HR #30 tablet 04/01/18 Prednisone [Prednisone 20Mg] 20 mg PO BID #10 tab 04/01/18 Allergies Allergy/AdvReac Type Severity Reaction Status Date / Time promethazine HCl Allergy Mild ITCHING Verified 03/31/18 16:31 [From Phenergan] adalimumab [From HUMIRA] Allergy Unknown MIGRAINES Verified 03/31/18 16:31 aspirin [ASPIRIN] Allergy Unknown NAUSEA AND Verified 03/31/18 16:31 VOMITING azathioprine [From IMURAN] Allergy Unknown VOMITING Verified 03/31/18 16:31 azathioprine sodium Allergy Unknown VOMITING Verified 03/31/18 16:31 [From IMURAN] chlordiazepoxide HCl Allergy Unknown RASH Verified 03/31/18 16:31 [From LIBRIUM] citalopram hydrobromide Allergy Unknown HYPERSENSIT Verified 03/31/18 16:31 [From CELEXA] IVITY clidinium [CLIDINIUM] Allergy Unknown RASH Verified 03/31/18 16:31 codeine Allergy Unknown ITCHING Verified 03/31/18 16:31 eicosapentaenoic acid Allergy Unknown RASH Verified 03/31/18 16:31 [From OMEGA 3] hydrocodone bitartrate Allergy Unknown ITCHING Verified 03/31/18 16:31 [From VICODIN] hydromorphone HCl Allergy Unknown ITCHING Verified 03/31/18 16:31 infliximab Allergy Unknown VOMITING Verified 03/31/18 16:31 metoclopramide Allergy Unknown ALTERED Verified 03/31/18 16:31 [METOCLOPRAMIDE] MENTAL STATUS morphine [MORPHINE] Allergy Unknown ITCHING Verified 03/31/18 16:31 omega-3 fatty acids Allergy Unknown RASH Verified 03/31/18 16:31 [From OMEGA 3] oxycodone HCl [From PERCOCET] Allergy Unknown ITCHING Verified 03/31/18 16:31 paroxetine HCl [From PAXIL] Allergy Unknown RASH Verified 03/31/18 16:31 varenicline tartrate Allergy Unknown ALTERED Verified 03/31/18 16:31 [From CHANTIX] MENTAL STATUS Travel Screening - Travel/Exposure Within Last 30 Days Have you traveled within the last 30 days?: No Review of Systems Constitutional: Reports: As per HPI. Denies: Chills, Fever, Malaise, Night sweats, Weakness, Weight change Eyes: Reports: As per HPI. Denies: Eye discharge, Eye pain, Photophobia, Vision change ENT: Reports: As per HPI. Denies: Congestion, Dental pain, Ear pain, Epistaxis , Hearing loss, Throat pain Respiratory: Reports: As per HPI. Denies: Cough, Dyspnea, Hemoptysis, Stridor, Wheezes Cardiovascular: Reports: As per HPI. Denies: Arrhythmia, Chest pain, Dyspnea on exertion, Edema, Murmurs, Orthopnea, Palpitations, Paroxysmal nocturnal dyspnea, Rheumatic Fever, Syncope Endocrine: Reports: As per HPI. Denies: Fatigue, Heat or cold intolerance, Polydipsia, Polyuria Gastrointestinal: Reports: As per HPI, Abdominal pain, Nausea. Denies: Constipation, Diarrhea, Hematemesis, Hematochezia, Melena, Vomiting Genitourinary: Reports: As per HPI. Denies: Abnormal menses, Discharge, Dyspareunia, Dysuria, Frequency, Hematuria, Incontinence, Retention, Urgency Musculoskeletal: Reports: As per HPI. Denies: Arthralgia, Back pain, Gout, Joint swelling, Myalgia, Neck pain Skin: Reports: As per HPI. Denies: Bruising, Change in color, Change in hair/ nails, Lesions, Pruritus, Rash Neurological: Reports: As per HPI. Denies: Abnormal gait, Confusion, Headache, Numbness, Paresthesias, Seizure, Tingling, Tremors, Vertigo, Weakness Psychiatric: Reports: As per HPI. Denies: Anxiety, Auditory hallucinations, Depression, Homicidal thoughts, Suicidal thoughts, Visual hallucinations Hematological/Lymphatic: Reports: As per HPI. Denies: Anemia, Blood Clots, Easy bleeding, Easy bruising, Swollen glands Past Medical History - SOCIAL HISTORY Smoking Status: Light tobacco smoker (<10/day) Alcohol Use: None Drug Use: None - RESPIRATORY Hx Respiratory Disorders: No - CARDIOVASCULAR Hx Cardio Disorders: Yes Hx Abnormal EKG: Yes (r/t anxiety) Hx Chest Pain: Yes (r/t anxiety) - NEURO Hx Neuro Disorders: Yes Hx Seizures: Yes (last seizure 12 years ago) Hx TIA: Yes (2009) - GI Hx GI Disorders: Yes Hx Abdominal Pain: Yes Hx Crohn's Disease: Yes (Diagnosed about 9 years ago; managed by Dr. Greyson Haddad ) Hx Reflux: Yes Hx Irritable Bowel: Yes Hx Nausea/Vomiting: Yes Hx Obstructive Bowel: Yes (Admitted for Crohns, ileus and possible partial bowel obstruction) Comment:: crohns colitis - Hx Genitourinary Disorders: No Comment:: going through menopause - ENDOCRINE Hx Endocrine Disorders: No - MUSCULOSKELETAL Hx Musculoskeletal Disorders: Yes Hx Arthritis: Yes Comment:: rds in right ankle - PSYCH Hx Psych Problems: Yes Hx Anxiety: Yes Hx Depression: Yes - HEMATOLOGY/ONCOLOGY Hx Hematology/Oncology Disorders: No Family Medical History Any Significant Family History?: Yes Hx Alcohol Use: Father, Brother/Sister Hx Cancer: Brother/Sister *Cancer Comment: lung cancer Hx Diabetes: Grandparents *Diabetes Comment: grandmother Hx Heart Disease: Grandparents *Heart Comment: grandfather Hx Resp Disorders: Children *Resp Comment: daughter has asthma Hx Stroke: Mother *Stroke Comment: Mother had history of TIA x 1 Course Vital Signs 04/01/18 04/01/18 09:50 11:57 Temperature 98.0 F Pulse Rate 112 H Pulse Rate [ 93 H Pulse Ox Probe] Respiratory 20 18 Rate Blood Pressure 114/88 Blood Pressure 113/61 [Left Arm] Pulse Ox 97 99 Medical Decision Making - Lab Data Result diagrams: 04/01/18 10:46 04/01/18 10:46 Lab Results 04/01/18 04/01/18 04/01/18 Range/Units 10:46 10:46 10:46 WBC 15.1 H (4.2-12.2) K/uL RBC 4.70 (3.80-5.40) M/uL Hgb 11.8 (11.6-16.0) gm/dl Hct 38.7 (35.0-47.0) % MCV 82.3 (81-97) fl MCH 25.1 L (27-33) pg MCHC 30.5 L (32-36) g/dl RDW 15.5 H (11.5-14.5) % Plt Count 540 H (130-400) K/uL MPV 9.0 (7.4-10.4) fl Gran % 78.3 (47-80) % Lymphocytes % 15.1 L (16-45) % Monocytes % 6.5 (0-9) % Eosinophils % 0.0 (0-6) % Basophils % 0.1 (0-6) % Sodium 145 (136-145) mmol/L Potassium 3.9 (3.4-4.5) mmol/L Chloride 105 (98-107) mmol/L Carbon Dioxide 21.0 L (22-29) mmol/L Anion Gap 19.0 H (7-16) BUN 4 L (6-20) mg/dL Creatinine 0.4 L (0.5-0.9) mg/dL Estimated GFR > 60 mL/min Random Glucose 96 (74-109) mg/dL Calcium 9.3 (8.6-10.0) mg/dL Lipase 24 (13-60) U/L Disposition Clinical Impression: Exacerbation of Crohn's disease Qualifiers: Digestive disease complication type: unspecified complication Qualified Code(s) : K50.919 - Crohn's disease, unspecified, with unspecified complications Abdominal pain Qualifiers: Abdominal location: left upper quadrant Qualified Code(s): R10.12 - Left upper quadrant pain Disposition: Home, Self-Care Condition: (1) Good Instructions: Crohn Disease (ED), Abdominal Pain (ED) Additional Instructions: folloqw up with family in 5 days Prescriptions: Ondansetron HCl [Zofran] 4 mg PO Q6HR #30 tablet Levofloxacin [Levaquin] 750 mg PO DAILY #7 tab Metronidazole [Flagyl] 500 mg PO TID #21 tablet Prednisone [Prednisone 20Mg] 20 mg PO BID #10 tab Forms: Patient Portal Access Quality - Quality Measures Quality Measures: N/A - Blood Pressure Screening Does Patient Have Any of the Following: No Blood Pressure Classification: Pre-Hypertensive BP Reading Systolic Measurement: 114 Diastolic Measurement: 88 Screening for High Blood Pressure: < Pre-Hypertensive BP, F/U Documented > [ G8950] Pre-Hypertensive Follow-up Interventions: Referral to alternative/primary care provider.
--- NOTE | 2018-04-03 08:00 | RADIOLOGY REPORT ---
DATE: 04/01/2018 at 12:51 p.m. EXAM: TWO-VIEW, ABDOMEN. HISTORY: Abdominal pain, worse from yesterday but in the same location, left upper quadrant. TECHNIQUE: Supine and upright views of the abdomen. COMPARISON: Two-view, abdomen, dated 03/31/2018 at 5:04 p.m. Report of the prior study not as yet available within PACs. FINDINGS: Bowel gas predominantly in the colon similar to that seen yesterday. Some persistent air fluid levels predominantly in the left side of the colon as well. No free air evident. Overall little appreciable change identified from yesterday. Some spurring in the spine. IMPRESSION: SOME PERSISTENT AIR FLUID LEVELS PREDOMINANTLY IN THE COLON WITH OVERALL LITTLE APPRECIABLE CHANGE FROM YESTERDAY. NO FREE AIR EVIDENT. JOB NUMBER: [id number] [facility]
== END 2018-04-01 14:43 | disposition home or self-care (01) ==
LOC: ER 09:23
DX: K50.919 Crohn's disease, unspecified, with unspecified complications (principal); R10.12 Left upper quadrant pain; R11.0 Nausea; F17.210 Nicotine dependence, cigarettes, uncomplicated
CPT/HCPCS: 74019; 80048; 83690; 85025; 96374; 96375; 96376; 99284; J1200; J2405; J2930; J7030

== ENCOUNTER 2018-04-05 18:55 | Observation (INO) | payer MEDICAID ==
[2018-04-05] MEDS ORDERED: ONDANSETRON HCL IV 4 MG/2 ML VIAL IVP ONE ×2 (19:10→21:24)
[2018-04-05] MEDS ORDERED: HYDROMORPHONE HCL 2 MG/ML VIAL IVP ONE ×2 (19:10→20:28)
[2018-04-05] MEDS ORDERED: DIPHENHYDRAMINE HCL 50 MG/ML VIAL IVP ONE ×3 (19:13→22:30)
[2018-04-05] MEDS ORDERED: 0.9 % SODIUM CHLORIDE 1000ML 1,000 ML IV SCH (19:15)
--- NOTE | 2018-04-05 19:16 | Emergency Department Record ---
History of Present Illness - General Chief Complaint: Abdominal Pain Stated Complaint: BLOATED STOMACH,NAUSEA Time Seen by Provider: 04/05/18 19:09 Source: Patient Mode of Arrival: Ambulatory Limitations: No limitations - History of Present Illness Initial Comments: 52 yo female returns to ED of worsening abdominal pain and distention for the past 4-5 days. Patient was recently diagnosed with ileus secondary to her crohn 's disease, elected to go home following evaluation to see if her symptoms would resolve. Patient has undergone several partial colectomys. Patient reports pain to the LUQ/LLQ, denies vomiting symptoms. Patient reports a significant history of bowel obstructions previously. MD Complaint: Abdominal pain Onset/Timin -: Days(s) Location: LUQ, LLQ Severity scale (1-10): 8 Quality: Aching, Cramping, Fullness Consistency: Constant Improves With: Nothing Worsens With: Nothing - Related Data Patient : No Hx Age of Menopause: 47 Previous Rx's Medication Instructions Recorded Levofloxacin [Levaquin] 750 mg PO DAILY #7 tab 04/01/18 Metronidazole [Flagyl] 500 mg PO TID #21 tablet 04/01/18 Ondansetron HCl [Zofran] 4 mg PO Q6HR #30 tablet 04/01/18 Prednisone [Prednisone 20Mg] 20 mg PO BID #10 tab 04/01/18 Allergies Allergy/AdvReac Type Severity Reaction Status Date / Time promethazine HCl Allergy Mild ITCHING Verified 03/31/18 16:31 [From Phenergan] adalimumab [From HUMIRA] Allergy Unknown MIGRAINES Verified 03/31/18 16:31 aspirin [ASPIRIN] Allergy Unknown NAUSEA AND Verified 03/31/18 16:31 VOMITING azathioprine [From IMURAN] Allergy Unknown VOMITING Verified 03/31/18 16:31 azathioprine sodium Allergy Unknown VOMITING Verified 03/31/18 16:31 [From IMURAN] chlordiazepoxide HCl Allergy Unknown RASH Verified 03/31/18 16:31 [From LIBRIUM] citalopram hydrobromide Allergy Unknown HYPERSENSIT Verified 03/31/18 16:31 [From CELEXA] IVITY clidinium [CLIDINIUM] Allergy Unknown RASH Verified 03/31/18 16:31 codeine Allergy Unknown ITCHING Verified 03/31/18 16:31 eicosapentaenoic acid Allergy Unknown RASH Verified 03/31/18 16:31 [From OMEGA 3] hydrocodone bitartrate Allergy Unknown ITCHING Verified 03/31/18 16:31 [From VICODIN] hydromorphone HCl Allergy Unknown ITCHING Verified 03/31/18 16:31 infliximab Allergy Unknown VOMITING Verified 03/31/18 16:31 metoclopramide Allergy Unknown ALTERED Verified 03/31/18 16:31 [METOCLOPRAMIDE] MENTAL STATUS morphine [MORPHINE] Allergy Unknown ITCHING Verified 03/31/18 16:31 omega-3 fatty acids Allergy Unknown RASH Verified 03/31/18 16:31 [From OMEGA 3] oxycodone HCl [From PERCOCET] Allergy Unknown ITCHING Verified 03/31/18 16:31 paroxetine HCl [From PAXIL] Allergy Unknown RASH Verified 03/31/18 16:31 varenicline tartrate Allergy Unknown ALTERED Verified 03/31/18 16:31 [From CHANTIX] MENTAL STATUS Travel Screening - Travel/Exposure Within Last 30 Days Have you traveled within the last 30 days?: No Review of Systems Constitutional: Denies: Chills, Fever, Malaise, Night sweats Eyes: Denies: Eye discharge, Eye pain ENT: Denies: Congestion, Ear pain, Epistaxis Respiratory: Denies: Cough, Dyspnea Cardiovascular: Denies: Chest pain, Dyspnea on exertion Endocrine: Denies: Fatigue, Heat or cold intolerance Gastrointestinal: Reports: Abdominal pain. Denies: Constipation, Nausea, Vomiting Genitourinary: Denies: Incontinence, Retention Musculoskeletal: Denies: Arthralgia, Back pain Skin: Denies: Bruising, Change in color Neurological: Denies: Abnormal gait, Confusion, Headache, Seizure Psychiatric: Denies: Anxiety Hematological/Lymphatic: Denies: Anemia, Blood Clots Past Medical History - SOCIAL HISTORY Smoking Status: Light tobacco smoker (<10/day) Alcohol Use: None Drug Use: None - RESPIRATORY Hx Respiratory Disorders: No - CARDIOVASCULAR Hx Cardio Disorders: Yes Hx Abnormal EKG: Yes (r/t anxiety) Hx Chest Pain: Yes (r/t anxiety) - NEURO Hx Neuro Disorders: Yes Hx Seizures: Yes (last seizure 12 years ago) Hx TIA: Yes (2009) - GI Hx GI Disorders: Yes Hx Abdominal Pain: Yes Hx Crohn's Disease: Yes (Diagnosed about 9 years ago; managed by Dr. Greyson Haddad ) Hx Reflux: Yes Hx Irritable Bowel: Yes Hx Nausea/Vomiting: Yes Hx Obstructive Bowel: Yes (Admitted for Crohns, ileus and possible partial bowel obstruction) Comment:: crohns colitis - Hx Genitourinary Disorders: No Comment:: going through menopause - ENDOCRINE Hx Endocrine Disorders: No - MUSCULOSKELETAL Hx Musculoskeletal Disorders: Yes Hx Arthritis: Yes Comment:: rds in right ankle - PSYCH Hx Psych Problems: Yes Hx Anxiety: Yes Hx Depression: Yes - HEMATOLOGY/ONCOLOGY Hx Hematology/Oncology Disorders: No Family Medical History Any Significant Family History?: Yes Hx Alcohol Use: Father, Brother/Sister Hx Cancer: Brother/Sister *Cancer Comment: lung cancer Hx Diabetes: Grandparents *Diabetes Comment: grandmother Hx Heart Disease: Grandparents *Heart Comment: grandfather Hx Resp Disorders: Children *Resp Comment: daughter has asthma Hx Stroke: Mother *Stroke Comment: Mother had history of TIA x 1 Physical Exam - General General Appearance: Alert, Oriented x3, Cooperative, Moderate distress Limitations: No limitations - Head Head exam: Atraumatic, Normocephalic, Normal inspection Head exam detail: negative: Abrasion, Contusion, Moran's sign, General tenderness, Hematoma, Laceration - Eye Eye exam: Normal appearance. negative: Conjunctival injection, Periorbital swelling, Periorbital tenderness, Scleral icterus - ENT Ear exam: negative: Auricular hematoma, Auricular trauma Nasal Exam: negative: Active bleeding, Discharge, Dried blood, Foreign body Mouth exam: negative: Drooling, Laceration, Muffled voice, Tongue elevation - Neck Neck exam: Normal inspection. negative: Meningismus, Tenderness - Respiratory Respiratory exam: Normal lung sounds bilaterally. negative: Rales, Respiratory distress, Rhonchi, Stridor - Cardiovascular Cardiovascular Exam: Regular rate, Normal rhythm, Normal heart sounds - GI/Abdominal GI/Abdominal exam: Soft, Distended, Tenderness, Other (High-[itched bowerl sounds are present on examination). negative: Rebound, Rigid - Rectal Rectal exam: Deferred - exam: Deferred - Extremities Extremities exam: Normal inspection. negative: Calf tenderness, Pedal edema, Tenderness - Back Back exam: Denies: CVA tenderness (R), CVA tenderness (L) - Neurological Neurological exam: Alert, Normal gait, Oriented X3 - Psychiatric Psychiatric exam: Normal affect, Normal mood - Skin Skin exam: Normal color. negative: Abrasion Type of lesion: negative: abrasion Course Vital Signs 04/05/18 19:01 Temperature 97.6 F Pulse Rate 118 H Respiratory 20 Rate Blood Pressure 101/54 Pulse Ox 97 - Reevaluation(s) Reevaluation #1: 04/05/18 19:44 Labs reviewed, WBC 12.8, labs are otherwise grossly unremarkable for an acute process. Reevaluation #2: 04/05/18 20:01 AAS: Post-surgical changes mid-abdomen Gasesous distention at the anastamosis site No obstruction Patient was updated on result, due to no laura obstruction, will CT to further evaluate the patient's anastomotic site. Reevaluation #3: 04/05/18 21:32 CT Abdomen and pelvis: Partial right hemicolectomy Bowel-wall thickening and borderline dilation of the distal small bowel just proximal to the anastamosis Patient was updated on her result, will initiate treatment for crohn's flare and admit for further evaluation. Medical Decision Making - Lab Data Result diagrams: 04/05/18 19:15 04/05/18 19:15 Disposition Disposition: Admit Clinical Impression: Exacerbation of Crohn's disease Qualifiers: Digestive disease complication type: unspecified complication Qualified Code(s) : K50.919 - Crohn's disease, unspecified, with unspecified complications Disposition: Still a Patient at [facility] Decision to Admit: Admit from ER Decision to Admit Date: 04/05/18 Decision to Admit Time: 21:34 Condition: (2) Stable Forms: Patient Portal Access Time of Disposition: 21:34 Quality - Quality Measures Quality Measures: N/A - Blood Pressure Screening Does Patient Have Any of the Following: No Blood Pressure Classification: Normal BP Reading Systolic Measurement: 101 Diastolic Measurement: 54 Screening for High Blood Pressure: < Normal BP, F/U Not Required > [G8783]
[2018-04-05 19:23] LABS: BASO % 0.3 % (0-6); EOS % 5.6 % (0-6); GRAN % 49.1 % (47-80); HEMATOCRIT 43.4 % (35.0-47.0); HEMOGLOBIN 13.4 gm/dl (11.6-16.0); LYMPH % 37.7 % (16-45); MEAN CELL VOLUME 81.4 fl (81-97); MEAN CORPUSCULAR HEMOGLOBIN 25.1 pg (27-33); MEAN CORPUSCULAR HGB CONC 30.9 g/dl (32-36); MEAN PLATELET VOLUME 8.9 fl (7.4-10.4); MONO % 7.3 % (0-9); PLATELET COUNT 693 K/uL (130-400); RED BLOOD COUNT 5.33 M/uL (3.80-5.40); RED CELL DISTRIBUTION WIDTH 15.6 % (11.5-14.5); WHITE BLOOD COUNT W/O DIFF 12.8 K/uL (4.2-12.2)
[2018-04-05 19:33] LABS: BLOOD UREA NITROGEN 6 mg/dL (6-20); CREATININE 0.5 mg/dL (0.5-0.9); EST GLOMERULAR FILTRATION RATE > 60 mL/min
[2018-04-05 19:34] LABS: BILIRUBIN,TOTAL < 0.20 mg/dL (0.2-1.0); TOTAL PROTEIN 7.4 g/dL (6.6-8.7)
[2018-04-05 19:36] LABS: GLUCOSE,RANDOM 125 mg/dL (74-109)
[2018-04-05 19:39] LABS: ALB/GLOB RATIO 1.6 (1.1-1.8); ALBUMIN 4.5 g/dL (4.0-5.0); ALKALINE PHOSPHATASE 92 U/L (35-104); ALT/SGPT 18 U/L (<33); AST/SGOT 15 U/L (10.0-35.0)
[2018-04-05] MEDS ORDERED: METHYLPREDNISOLONE PF 125MG/VIAL IVP ONE ×2 (22:17→22:30)
[2018-04-05] MEDS ORDERED: KETOROLAC 30 MG/ML VIAL IVP ONE ×2 (22:17→22:30)
[2018-04-05] MEDS: 0.9 % SODIUM CHLORIDE 1000ML 1,000 ML IV PRN (23:15)
[2018-04-06] MEDS: DIPHENHYDRAMINE HCL 50 MG/ML VIAL IVP PRN ×3 (00:36→09:12)
[2018-04-06] MEDS: HYDROMORPHONE HCL 2 MG/ML VIAL IV PRN ×2 (03:45→08:05)
--- NOTE | 2018-04-06 07:25 | RADIOLOGY REPORT ---
EXAM: ACUTE ABDOMEN SERIES HISTORY: ABDOMINAL DISTENTION AND WEAKNESS. TECHNIQUE: AP supine and upright views of the abdomen were obtained as well as an upright AP view of the chest. Comparison: Two views of the abdomen dated 04/01/18, acute abdominal series dated 01/21/18. FINDINGS: Surgical chain suture is again noted in the mid abdomen. Contiguous with this is a patulous gas distended segment of bowel. On prior CT examination this was noted to be a patulous enterocolic anastomosis post right hemicolectomy. No suspicious small bowel dilatation nor worrisome air fluid level. There is a moderate amount of stool within the distal colon. No new mass, organomegaly, suspicious calcification, or free intraperitoneal air. The heart is not enlarged and the pulmonary vasculature is nondilated. The lungs and pleural spaces are clear. IMPRESSION: 1. POST SURGICAL CHANGES IN THE MID ABDOMEN REDEMONSTRATED. THERE IS A CONTIGUOUS GAS DISTENDED SEGMENT OF BOWEL LIKELY RELATING TO A PATULOUS ENTEROCOLIC ANASTOMOSIS. NO CONVINCING EVIDENCE OF MECHANICAL BOWEL OBSTRUCTION OR FREE INTRAPERITONEAL AIR. 2. CHEST NEGATIVE FOR ACUTE CARDIOPULMONARY DISEASE. JOB NUMBER: [id number] [facility]
--- NOTE | 2018-04-06 07:44 | CT SCAN REPORT ---
EXAM: CT OF THE ABDOMEN AND PELVIS WITHOUT CONTRAST HISTORY: ABDOMINAL DISTENTION. CROHN'S DISEASE WITH MULTIPLE BOWEL RESECTIONS. TECHNIQUE: Routine helical CT examination of the abdomen and pelvis was performed without oral or intravenous contrast administration. Lack of oral and IV contrast utilization limits evaluation of the bowel and solid viscera respectively. Comparison: CT of the abdomen and pelvis without contrast dated 01/21/18. FINDINGS: Mild dependent atelectasis is present in each lung base. Minimal linear scarring versus atelectasis is scattered within the left base, grossly stable. No pleural or pericardial effusion. No focal abnormality is demonstrated within the liver, spleen, pancreas, nor adrenal glands. The gallbladder is surgically absent and no gross biliary ductal dilatation is seen. The kidneys are normal in size, position, and are smoothly marginated. There is a small hyperdense mass again noted arising exophytically from the upper pole of the left kidney measuring 1.3 cm in diameter. This has fluid density. It is unchanged and is likely a cyst. The kidneys are otherwise normal in appearance. No new intraabdominal nor retroperitoneal lymphadenopathy. There is minimal atherosclerosis of the abdominal aorta without aneurysmal dilatation. No new pelvic mass, lymphadenopathy, or free pelvic fluid is seen. The uterus is somewhat retroverted. It is otherwise normal in appearance. No intrinsic urinary bladder abnormality is demonstrated though evaluation is limited by lack of distention. Lack of oral contrast utilization limits evaluation of bowel. There are again noted changes of right hemicolectomy with redemonstration of a patulous enterocolic anastomosis at the mid abdominal level centered slightly right of midline. Proximal to the anastomosis, the distal small bowel is at the upper limits of normal in caliber and there is mild wall thickening. There is solid stool within this distal small bowel segment. These findings are suspicious for mild active inflammation. It appears slightly more pronounced in the interval. There is, however, no pneumatosis intestinalis nor evidence of abscess. A few reactive lymph nodes are noted in the right lower quadrant mesentery. The bowel is otherwise unremarkable. There is redemonstration of a fat filled ventral wall hernia approximately 4 cm superior to the level of the umbilicus. This measures 2.6 cm craniocaudad x 5 cm transverse x 2.7 cm AP. This is stable. No new ventral wall hernia is seen. There is a moderate amount of stool within the distal colon. IMPRESSION: 1. STATUS POST RIGHT HEMICOLECTOMY WITH A PATULOUS ENTEROCOLIC ANASTOMOSIS REDEMONSTRATED AT THE MID ABDOMINAL LEVEL, RIGHT OF MIDLINE. JUST PROXIMAL TO THE ANASTOMOSIS, THERE IS BORDERLINE DILATATION AND MILD WALL THICKENING OF A RELATIVELY LONG SEGMENT OF DISTAL SMALL BOWEL WITH SOLID STOOL PRESENT SUSPICIOUS FOR MILD ACTIVE INFLAMMATION AND STASIS. THERE IS NO MECHANICAL OBSTRUCTION, ABSCESS, NOR PNEUMATOSIS INTESTINALIS. 2. MODERATE AMOUNT OF STOOL IN THE DISTAL COLON. 3. SMALL LEFT RENAL CYST, STABLE. 4. FAT FILLED MIDLINE VENTRAL WALL HERNIA IN THE UPPER ABDOMEN, STABLE. [facility]BER: [id number] [facility]
[2018-04-06] MEDS: ONDANSETRON HCL IV 4 MG/2 ML VIAL IVP PRN ×2 (08:10→14:41)
[2018-04-06] MEDS: 0.9 % SODIUM CHLORIDE 1000ML 1,000 ML IV PRN (09:17)
--- NOTE | 2018-04-06 09:23 | History & Physical ---
History of Present Illness - Date of Service Date of Service for History & Physical: 04/06/18 - History of Present Illness Admitting Diagnosis: Colitis-Crohn's History of Present Illness: Mrs. Otero is a 52 year-old female who presented to the ED the evening of 04/05 with complaint of worsening abdominal pain and distention for the past 4-5 days. Patient was recently diagnosed with ileus secondary to her Crohn's disease, elected to go home following evaluation to see if her symptoms would resolve. Patient has undergone several partial colectomys. Patient reports pain to the LUQ/LLQ, denies vomiting symptoms. Patient reports a significant history of bowel obstructions previously. She did get her Entyvio infusion this past Friday morning, it was her first infusion since November. Her history includes: Crohn's disease (daignosed 9 years ago), smoker- less than 10 cigarettes/day, depression, anxiety, TIA in 2009, seizures (last seizure was 12 years ago), and she is currently going through menopause. In the ED, her vital signs were stable. Her labs were reviewed and her WBC ws 12.8, otherwise unremarkable for acute process. Abdominal xray showed post- surgical changes in the mid-abdomen, gaseous distention at the anastomosis site , no obstruction. CT revealed partial right hemicolectomy, bowel-wall thickening and borderline dilation of the distal small bowel just proximal to the anastamosis. She was admitted for Chron's flare observation, treating with IV steroids and pain management. 04/06/18: Pt. is resting comfortably in bed. She states that she just had a large bowel movement (mostly liquid, but small amt. of formed stool) and she is feeling some relief. She did require 0.5mg dilaudid at 0800. Plan to continue IV steroids, advance diet to clear liquids and recheck labs this afternoon. If pt. continues to improve, will consider d/c home this evening. PCP: GI: Dr. Greyson Haddad General surgery: Dr. Linda Travel Screening - Travel/Exposure Within Last 30 Days Have you traveled within the last 30 days?: No - Travel/Exposure Within Last Year Have you traveled outside the [place] in the last year?: No - Additonal Travel Details Have you been exposed to anyone with a communicable illness?: No - Travel Symptoms Symptom Screening: None Review of Systems Constitutional: Denies: Chills, Fever, Malaise, Night sweats Eyes: Denies: Eye discharge, Eye pain ENT: Denies: Congestion, Ear pain, Epistaxis Respiratory: Denies: Cough, Dyspnea Cardiovascular: Denies: Chest pain, Dyspnea on exertion Endocrine: Denies: Fatigue, Heat or cold intolerance Gastrointestinal: Reports: Abdominal pain, Nausea. Denies: Constipation, Vomiting Genitourinary: Denies: Incontinence, Retention Musculoskeletal: Denies: Arthralgia, Back pain Skin: Denies: Bruising, Change in color Neurological: Denies: Abnormal gait, Confusion, Headache, Seizure Psychiatric: Reports: Anxiety Hematological/Lymphatic: Denies: Anemia, Blood Clots Past Medical History - SOCIAL HISTORY Smoking Status: Light tobacco smoker (<10/day) Alcohol Use: None Drug Use: None - RESPIRATORY Hx Respiratory Disorders: No - CARDIOVASCULAR Hx Cardio Disorders: Yes Hx Abnormal EKG: Yes (r/t anxiety) Hx Chest Pain: Yes (r/t anxiety) - NEURO Hx Neuro Disorders: Yes Hx Seizures: Yes (last seizure 12 years ago) Hx TIA: Yes (2009) - GI Hx GI Disorders: Yes Hx Abdominal Pain: Yes Hx Crohn's Disease: Yes (Diagnosed about 9 years ago; managed by Dr. Greyson Haddad ) Hx Reflux: Yes Hx Irritable Bowel: Yes Hx Nausea/Vomiting: Yes Hx Obstructive Bowel: Yes (Admitted for Crohns, ileus and possible partial bowel obstruction) Comment:: crohns colitis - Hx Genitourinary Disorders: No Comment:: going through menopause - ENDOCRINE Hx Endocrine Disorders: No - MUSCULOSKELETAL Hx Musculoskeletal Disorders: Yes Hx Arthritis: Yes Comment:: rds in right ankle - PSYCH Hx Psych Problems: Yes Hx Anxiety: Yes Hx Depression: Yes - HEMATOLOGY/ONCOLOGY Hx Hematology/Oncology Disorders: No Family Medical History Any Significant Family History?: Yes Hx Alcohol Use: Father, Brother/Sister Hx Cancer: Brother/Sister *Cancer Comment: lung cancer Hx Diabetes: Grandparents *Diabetes Comment: grandmother Hx Heart Disease: Grandparents *Heart Comment: grandfather Hx Resp Disorders: Children *Resp Comment: daughter has asthma Hx Stroke: Mother *Stroke Comment: Mother had history of TIA x 1 H&P Meds/Allergies - Allergies Allergies: Allergies Allergy/AdvReac Type Severity Reaction Status Date / Time promethazine HCl Allergy Mild ITCHING Verified 03/31/18 16:31 [From Phenergan] adalimumab [From HUMIRA] Allergy Unknown MIGRAINES Verified 03/31/18 16:31 aspirin [ASPIRIN] Allergy Unknown NAUSEA AND Verified 03/31/18 16:31 VOMITING azathioprine [From IMURAN] Allergy Unknown VOMITING Verified 03/31/18 16:31 azathioprine sodium Allergy Unknown VOMITING Verified 03/31/18 16:31 [From IMURAN] chlordiazepoxide HCl Allergy Unknown RASH Verified 03/31/18 16:31 [From LIBRIUM] citalopram hydrobromide Allergy Unknown HYPERSENSIT Verified 03/31/18 16:31 [From CELEXA] IVITY clidinium [CLIDINIUM] Allergy Unknown RASH Verified 03/31/18 16:31 codeine Allergy Unknown ITCHING Verified 03/31/18 16:31 eicosapentaenoic acid Allergy Unknown RASH Verified 03/31/18 16:31 [From OMEGA 3] hydrocodone bitartrate Allergy Unknown ITCHING Verified 03/31/18 16:31 [From VICODIN] hydromorphone HCl Allergy Unknown ITCHING Verified 03/31/18 16:31 infliximab Allergy Unknown VOMITING Verified 03/31/18 16:31 metoclopramide Allergy Unknown ALTERED Verified 03/31/18 16:31 [METOCLOPRAMIDE] MENTAL STATUS morphine [MORPHINE] Allergy Unknown ITCHING Verified 03/31/18 16:31 omega-3 fatty acids Allergy Unknown RASH Verified 03/31/18 16:31 [From OMEGA 3] oxycodone HCl [From PERCOCET] Allergy Unknown ITCHING Verified 03/31/18 16:31 paroxetine HCl [From PAXIL] Allergy Unknown RASH Verified 03/31/18 16:31 varenicline tartrate Allergy Unknown ALTERED Verified 03/31/18 16:31 [From CHANTIX] MENTAL STATUS - Home Medications Previous Rx's Medication Instructions Recorded Levofloxacin [Levaquin] 750 mg PO DAILY #7 tab 04/01/18 Metronidazole [Flagyl] 500 mg PO TID #21 tablet 04/01/18 Ondansetron HCl [Zofran] 4 mg PO Q6HR #30 tablet 04/01/18 Prednisone [Prednisone 20Mg] 20 mg PO BID #10 tab 04/01/18 - Active Medications Active Medications: Current Medications Diphenhydramine HCl (Benadryl) 50 mg IVP Q4H PRN PRN Reason: ITCHING Last Admin: 04/06/18 04:33 Dose: 50 mg Hydromorphone HCl (Dilaudid) 0.5 mg IV Q2H PRN PRN Reason: Pain - General Last Admin: 04/06/18 08:05 Dose: 0.5 mg Sodium Chloride () 1,000 mls @ 100 mls/hr IV .Q10H PRN PRN Reason: LARGE VOLUME IV Last Admin: 04/05/18 23:15 Dose: 100 mls/hr Ondansetron HCl (Zofran) 4 mg IVP Q4H PRN PRN Reason: NAUSEA Last Admin: 04/06/18 08:10 Dose: 4 mg Physical Exam - Vital Signs Vital Signs: Vital Signs - Last 24 Hrs Temp Pulse Pulse Resp BP BP BP 04/06/18 08:30 97.9 F 81 16 108/71 04/06/18 06:00 97.9 F 78 18 106/64 04/05/18 22:35 97.6 F 73 18 123/80 04/05/18 22:30 97.6 F 71 16 107/54 04/05/18 21:13 98.0 F 91 H 20 126/52 04/05/18 19:01 97.6 F 118 H 20 101/54 Pulse Ox 04/06/18 08:30 96 04/06/18 06:00 95 04/05/18 22:35 97 04/05/18 22:30 97 04/05/18 21:13 98 04/05/18 19:01 97 - General General Appearance: Alert, Oriented x3, Cooperative, Moderate distress Limitations: No limitations - Head Head exam: Atraumatic, Normocephalic, Normal inspection Head exam detail: negative: Abrasion, Contusion, Moran's sign, General tenderness, Hematoma, Laceration - Eye Eye exam: Normal appearance. negative: Conjunctival injection, Periorbital swelling, Periorbital tenderness, Scleral icterus - ENT Ear exam: negative: Auricular hematoma, Auricular trauma Nasal Exam: negative: Active bleeding, Discharge, Dried blood, Foreign body Mouth exam: negative: Drooling, Laceration, Muffled voice, Tongue elevation - Neck Neck exam: Normal inspection. negative: Meningismus, Tenderness - Respiratory Respiratory exam: Normal lung sounds bilaterally. negative: Rales, Respiratory distress, Rhonchi, Stridor - Cardiovascular Cardiovascular Exam: Regular rate, Normal rhythm, Normal heart sounds - GI/Abdominal GI/Abdominal exam: Soft, Distended, Hypoactive bowel sounds, Tenderness ( tenderness only on left abdomin- likely descending colon), Other (High-[itched bowerl sounds are present on examination). negative: Rebound, Rigid - Rectal Rectal exam: Deferred - exam: Deferred - Extremities Extremities exam: Normal inspection. negative: Calf tenderness, Pedal edema, Tenderness - Back Back exam: Denies: CVA tenderness (R), CVA tenderness (L) - Neurological Neurological exam: Alert, Normal gait, Oriented X3 - Psychiatric Psychiatric exam: Normal affect, Normal mood - Skin Skin exam: Normal color. negative: Abrasion Type of lesion: negative: abrasion Results - Labs Result Diagrams: 04/05/18 19:15 04/05/18 19:15 Labs Last 24 Hours: Laboratory Results - last 24 hr 04/05/18 04/05/18 19:15 19:15 WBC 12.8 H RBC 5.33 Hgb 13.4 Hct 43.4 MCV 81.4 MCH 25.1 L MCHC 30.9 L RDW 15.6 H Plt Count 693 H MPV 8.9 Gran % 49.1 Lymphocytes % 37.7 Monocytes % 7.3 Eosinophils % 5.6 Basophils % 0.3 Sodium 145 Potassium 4.2 Chloride 103 Carbon Dioxide 23.0 Anion Gap 19.0 H BUN 6 Creatinine 0.5 Estimated GFR > 60 Random Glucose 125 H Calcium 9.3 Total Bilirubin < 0.20 L AST 15 ALT 18 Alkaline Phosphatase 92 Total Protein 7.4 Albumin 4.5 Globulin 2.9 Albumin/Globulin Ratio 1.6 - Imaging and Cardiology CT scan - abdomen Status: Report reviewed VTE H&P Assessment - Risk for VTE Risk for VTE: Yes Risk Level: Low Risk Assessment Date: 04/06/18 Risk Assessment Time: 09:47 VTE Orders Placed or Will Be Placed: Yes Plan - Detailed Diagnosis and Plan (1) Exacerbation of Crohn's disease Current Visit: Yes Status: Acute Qualifiers: Digestive disease complication type: unspecified complication Qualified Code(s): K50.919 - Crohn's disease, unspecified, with unspecified complications Base Code: K50.90 - CROHN'S DISEASE, UNSPECIFIED, WITHOUT COMPLICATIONS Comment: 04/06/18: Pt. history of Crohns disease, pt. recieved immunotherapy injection (Entyvio) last Friday (first inj. since November), she normally recieves inj monthy, but they were delayed due to illness. Abd CT consistent with Crohn's and bowel wall thickening and borderline dilation of the distal small bowel just proximal to anastomosis. No obstruction. Pt. had large BM this morning- planning to advance diet to clear liquids and continue IV steroids. Will recheck labs this afternoon and if pt. continues to improve, will consider d/c home this evening. (2) DVT prophylaxis Current Visit: No Status: Acute Base Code: [id number] - Comment: 04/06/18: Will order Lovenox 40mg SQ QD ordered for DVT prophylaxis if hospitalization > 24 hours. Will not order prophylaxis for home, mobility not impaired. (3) Full code status Current Visit: No Status: Acute Base Code: Z78.9 - OTHER SPECIFIED HEALTH STATUS Comment: 04/06/18: patient remains full code status
[2018-04-06] MEDS ORDERED: KETOROLAC 30 MG/ML VIAL IVP ONE (09:24)
[2018-04-06] MEDS ORDERED: FLU VAC QS 2017-18 (INPT, 6MO+) 60MCG/0.5ML IM ONE (10:00)
[2018-04-06] MEDS ORDERED: METHYLPREDNISOLONE PF 125MG/VIAL IVP SCH (10:00)
[2018-04-06] MEDS ORDERED: MELATONIN 5 MG TABLET PO PRN (10:28)
[2018-04-06] MEDS ORDERED: VENLAFAXINE ER 37.5 MG CAPSULE PO SCH (10:30)
--- NOTE | 2018-04-06 10:42 | Discharge Summary ---
Providers Discharge Summary Date: 04/06/18 Date of admission: 04/05/18 22:21 Expected Date of Discharge: 04/06/18 Attending physician: SUPRIYA RODRIGUEZ Primary care physician: SUPRIYA RODRIGUEZ Physical Exam - Vital Signs Vital Signs: Vital Signs - Last 24 Hrs Temp Pulse Pulse Resp BP BP BP 04/06/18 09:16 97.9 F 108/71 04/06/18 08:30 97.9 F 81 16 108/71 04/06/18 06:00 97.9 F 78 18 106/64 04/05/18 22:35 97.6 F 73 18 123/80 04/05/18 22:30 97.6 F 71 16 107/54 04/05/18 21:13 98.0 F 91 H 20 126/52 04/05/18 19:01 97.6 F 118 H 20 101/54 Pulse Ox 04/06/18 09:16 04/06/18 08:30 96 04/06/18 06:00 95 04/05/18 22:35 97 04/05/18 22:30 97 04/05/18 21:13 98 04/05/18 19:01 97 - General General Appearance: Alert, Oriented x3, Cooperative, Moderate distress Limitations: No limitations - Head Head exam: Atraumatic, Normocephalic, Normal inspection Head exam detail: negative: Abrasion, Contusion, Moran's sign, General tenderness, Hematoma, Laceration - Eye Eye exam: Normal appearance. negative: Conjunctival injection, Periorbital swelling, Periorbital tenderness, Scleral icterus - ENT Ear exam: negative: Auricular hematoma, Auricular trauma Nasal Exam: negative: Active bleeding, Discharge, Dried blood, Foreign body Mouth exam: negative: Drooling, Laceration, Muffled voice, Tongue elevation - Neck Neck exam: Normal inspection. negative: Meningismus, Tenderness - Respiratory Respiratory exam: Normal lung sounds bilaterally. negative: Rales, Respiratory distress, Rhonchi, Stridor - Cardiovascular Cardiovascular Exam: Regular rate, Normal rhythm, Normal heart sounds - GI/Abdominal GI/Abdominal exam: Soft, Distended, Hypoactive bowel sounds, Tenderness ( tenderness only on left abdomin- likely descending colon), Other (High-[itched bowerl sounds are present on examination). negative: Rebound, Rigid - Rectal Rectal exam: Deferred - exam: Deferred - Extremities Extremities exam: Normal inspection. negative: Calf tenderness, Pedal edema, Tenderness - Back Back exam: Denies: CVA tenderness (R), CVA tenderness (L) - Neurological Neurological exam: Alert, Normal gait, Oriented X3 - Psychiatric Psychiatric exam: Normal affect, Normal mood - Skin Skin exam: Normal color. negative: Abrasion Type of lesion: negative: abrasion Hospitalization - Hospitalization Admission Diagnosis: Colitis-Crohn's - Problem List/Discharge Diagnosis (1) Exacerbation of Crohn's disease Status: Acute Discharge Diagnosis: Digestive disease complication type: unspecified complication Qualified Code(s): K50.919 - Crohn's disease, unspecified, with unspecified complications Base Code: K50.90 - CROHN'S DISEASE, UNSPECIFIED, WITHOUT COMPLICATIONS Comment: 04/06/18: Pt. history of Crohns disease, pt. recieved immunotherapy injection (Entyvio) last Friday (first inj. since November), she normally recieves inj monthy, but they were delayed due to illness. Abd CT consistent with Crohn's and bowel wall thickening and borderline dilation of the distal small bowel just proximal to anastomosis. No obstruction. -Repeat labs unchanged, slightly elevated WBC, likely secondary to steroids. Pt. has had 2 large bowel movements. She is tolerating advancing diet well and she has been up ambulating. She reports symptoms much improved. Will d/c home this evening. (2) DVT prophylaxis Status: Acute Base Code: [id number] - Comment: 04/06/18: Pt. to return to normal level of activity for discharge. (3) Full code status Status: Acute Base Code: Z78.9 - OTHER SPECIFIED HEALTH STATUS Comment: 04/06: patient remains full code status - Disposition Discharge home, self-care f/u on 04/[address] Rodriguez - Hospitalization Course Disposition: Home, Self-Care Hospital Course: Mrs. Otero is a 52 year-old female who presented to the ED the evening of 04/05 with complaint of worsening abdominal pain and distention for the past 4-5 days. Patient was recently diagnosed with ileus secondary to her Crohn's disease, elected to go home following evaluation to see if her symptoms would resolve. Patient has undergone several partial colectomys. Patient reports pain to the LUQ/LLQ, denies vomiting symptoms. Patient reports a significant history of bowel obstructions previously. She did get her Entyvio infusion this past Friday morning, it was her first infusion since November. Her history includes: Crohn's disease (daignosed 9 years ago), smoker- less than 10 cigarettes/day, depression, anxiety, TIA in 2009, seizures (last seizure was 12 years ago), and she is currently going through menopause. In the ED, her vital signs were stable. Her labs were reviewed and her WBC ws 12.8, otherwise unremarkable for acute process. Abdominal xray showed post- surgical changes in the mid-abdomen, gaseous distention at the anastomosis site , no obstruction. CT revealed partial right hemicolectomy, bowel-wall thickening and borderline dilation of the distal small bowel just proximal to the anastamosis. She was admitted for Chron's flare observation, treating with IV steroids and pain management. 04/06/18: Pt. is resting comfortably in bed. She states that she just had a large bowel movement (mostly liquid, but small amt. of formed stool) and she is feeling some relief. She did require 0.5mg dilaudid at 0800. Plan to continue IV steroids, advance diet to clear liquids and recheck labs this afternoon. If pt. continues to improve, will consider d/c home this evening. 04/06/18: Dr. Linda saw pt. and states she is stable, her symptoms have returned to her baseline. Plan to d/c home this evening with zofran for nausea and continue prednisone 40mg daily. Will prescribe short-term supply of norco for pain control. Pt. has tolerated advancing diet with little discomfort and she has had 2 large bowel movements. She has been up ambulating the halls this afternoon. PCP: GI: Dr. Thorpe General surgery: Dr. Linda Procedures: Imaging and X-Rays 04/05/18 19:10 ABDOMEN, ACUTE SERIES [RAD] Stat 04/05/18 20:00 ABDOMEN/PELVIS WO CONTRAST [CT] Stat Abnormal Labs: Abnormal Lab Results 04/05/18 04/05/18 Range/Units 19:15 19:15 WBC 12.8 H (4.2-12.2) K/uL MCH 25.1 L (27-33) pg MCHC 30.9 L (32-36) g/dl RDW 15.6 H (11.5-14.5) % Plt Count 693 H (130-400) K/uL Anion Gap 19.0 H (7-16) Random Glucose 125 H (74-109) mg/dL Total Bilirubin < 0.20 L (0.2-1.0) mg/dL Condition at Discharge: (2) Stable Discharge Diagnosis: Exacerbation of Crohn's disease VTE Discharge VTE Reason For No Overlap Therapy: Not Indicated (Pt's level of activity will return to baseline ) Discharge Medications - Discharge Medications Prescriptions: Ondansetron HCl [Zofran] 4 mg PO Q6HR #30 tablet Hydrocodone/APAP 7.5/325Mg [[place] 7.5MG/325Mg] 1 each PO Q8H PRN #15 tab PRN Reason: Pain - General Vit W/ Iron 1 each PO DAILY 30 Days #30 tab Home Medications: Ambulatory Orders Calcium Carbonate [Calcium] 500 mg PO QD tab 12/17/17 [Last Taken 1 Day Ago ~] Levofloxacin [Levaquin] 750 mg PO DAILY #7 tab 04/01/18 [Last Taken Unknown] Metronidazole [Flagyl] 500 mg PO TID #21 tablet 04/01/18 [Last Taken Unknown] Prednisone [Prednisone 20Mg] 20 mg PO BID #10 tab 04/01/18 [Last Taken Unknown] Hydrocodone/APAP 7.5/325Mg [[place] 7.5MG/325Mg] 1 each PO Q8H PRN #15 tab [Last Taken Unknown] Ondansetron HCl [Zofran] 4 mg PO Q6HR #30 tablet 04/06/18 [Last Taken Unknown] Vit W/ Iron 1 each PO DAILY 30 Days #30 tab 04/06/18 [Last Taken Unknown] Discharge Plan - Discharge Instructions Activity at Discharge: Increase Activity as Tolerated Diet at Discharge: Advance to Usual Diet Instructions: Ileus (DC) Additional Instructions: Follow up with Dr. Rodriguez on 04/10 for hospitalization Follow up with Dr. Thorpe on 04/10 for Crohn's disease Continue to advance diet as tolerated Return to the ED if you experience any worsening symptoms, or if you experience any chest pain/tightness or shortness of breath Quality Measures - Quality Measures Quality Measures: Documentation of Current Medications in Medical Record, Screening for High Blood Pressure and F/U Documented - Current Medications Quality Measure: Measure #130: Documentation of Current Medications Documentation of Current Medications: <Current Medications Documented/Reviewed> [G8427] - Blood Pressure Screening Quality Measure: Screening for High Blood Pressure and Follow-Up Documented Does Patient Have Any of the Following: No Blood Pressure Classification: Normal BP Reading Systolic Measurement: 108 Diastolic Measurement: 71 Screening for High Blood Pressure: < Normal BP, F/U Not Required > [G8783] - Elder Abuse Suspicion Index EASI Reference Information: Mohit LUCIO, Maranda C, Portia D, Steven Zimmer.Development and validation of a tool to assist physicians identification of elder abuse: The Elder Abuse Suspicion Index (EASI ). Journal of Elder Abuse and Neglect, 2008; 20 (3): 276-300.
[2018-04-06 15:03] LABS: BASO % 0.1 % (0-6); HEMATOCRIT 41.4 % (35.0-47.0); HEMOGLOBIN 13.1 gm/dl (11.6-16.0); LYMPH % 10.8 % (16-45); MEAN CELL VOLUME 80.5 fl (81-97); MEAN CORPUSCULAR HEMOGLOBIN 25.5 pg (27-33); MEAN CORPUSCULAR HGB CONC 31.6 g/dl (32-36); MEAN PLATELET VOLUME 9.2 fl (7.4-10.4); MONO % 2.7 % (0-9); PLATELET COUNT 495 K/uL (130-400); RED BLOOD COUNT 5.14 M/uL (3.80-5.40); RED CELL DISTRIBUTION WIDTH 15.7 % (11.5-14.5); WHITE BLOOD COUNT W/O DIFF 15.1 K/uL (4.2-12.2)
[2018-04-06 15:18] LABS: ALB/GLOB RATIO 1.5 (1.1-1.8); ALBUMIN 3.8 g/dL (4.0-5.0); ALKALINE PHOSPHATASE 76 U/L (35-104); ALT/SGPT 15 U/L (<33); AST/SGOT 14 U/L (10.0-35.0); BLOOD UREA NITROGEN 11 mg/dL (6-20); CREATININE 0.5 mg/dL (0.5-0.9); EST GLOMERULAR FILTRATION RATE > 60 mL/min; GLUCOSE,RANDOM 116 mg/dL (74-109); TOTAL PROTEIN 6.4 g/dL (6.6-8.7)
[2018-04-06] MEDS ORDERED: HYDROCODONE/APAP 7.5/325MG TABLET PO PRN (16:18)
[2018-04-06] MEDS ORDERED: ONDANSETRON 4 MG ODT TABLET SL PRN (16:20)
--- NOTE | 2018-04-07 07:21 | Medical Records Consult ---
DATE OF CONSULTATION: 04/06/2018 REASON FOR CONSULTATION: Abdominal pain. HISTORY OF PRESENT ILLNESS: The patient is a 62-year-old female who is well known to me. I have seen her for many, many years for chronic abdominal pain secondary to Crohn's flares. She states that in the last 4-5 days she is having worsening abdominal pain. She stated she developed some abdominal distention and had lack of bowel movements. She was admitted to the hospital yesterday. She had a large bowel movement this morning and feels much, much better. She states that she has not had her Entyvio infusions for the last 6 months with the exception of last Friday due to the fact that she has been feeling well. She has been seeing a fretted instruments inspector the entire time as well. PAST MEDICAL HISTORY: Significant for Crohn disease, chronic abdominal pain. PAST SURGICAL HISTORY: Multiple laparotomies with segmental small bowel resections. She also had a right colectomy. CURRENT MEDICATIONS: 1. Steroids. 2. Entyvio. ALLERGIES: PHENERGAN, HUMIRA, ASPIRIN, IMURAN, LIBRIUM, CELEXA, VICODIN, REGLAN, MORPHINE, PERCOCET, PAXIL, CHANTIX. SOCIAL HISTORY: She still smokes despite consultation. PHYSICAL EXAMINATION: VITAL SIGNS: Stable. She is afebrile. HEART: Regular rhythm. LUNGS: Clear. ABDOMEN: Soft. There is a well-healed midline laparotomy scar noted. There appears to be a supraumbilical reducible hernia as well. There is no guarding or rebound. EXTREMITIES: No trace of edema. LABORATORY DATA: I did review her laboratory values which show a white count of 12.8, hemoglobin 13.4, hematocrit 43.4. Chemistries normal. RADIOGRAPHIC DATA: She had a CT scan done which did reveal no findings of a small bowel obstruction. There was an area proximal to her anastomosis which was somewhat dilated and thickened consistent with possible Crohn's flare. There were no gross abnormalities. IMPRESSION: Abdominal pain, resolving. PLAN: At this point, she needs no surgical intervention. I would recommend to treat her medically for her Crohn disease, get her back on consistent Entyvio infusions, and follow up with Gastroenterology as needed. Thank you for this referral. CC: MD BALJEET Xiong
[2018-04-07] MEDS ORDERED: MULTIVITAMINS/MINERALS TABLET PO SCH (10:00)
== END 2018-04-06 18:13 | disposition home or self-care (01) ==
LOC: ER 18:55 → MEDSURG 22:21
PROVIDERS: ADMIT Internal Medicine; ATTEND Internal Medicine
DX: K50.919 Crohn's disease, unspecified, with unspecified complications (principal); R11.0 Nausea; R14.0 Abdominal distension (gaseous); M19.90 Unspecified osteoarthritis, unspecified site; Z86.73 Personal history of transient ischemic attack (TIA), and cerebral infarction without residual deficits; F17.210 Nicotine dependence, cigarettes, uncomplicated
CPT/HCPCS: 74022; 74176; 74177; 80053; 85025; 85027; 96361; 96374; 96375; 96376; 99220; 99285; J1200; J1885; J2405; J2930; J7030

== ENCOUNTER 2018-04-18 10:50 | Emergency (ER) | payer MEDICAID ==
--- NOTE | 2018-04-18 12:14 | Emergency Department Record ---
History of Present Illness - General Chief complaint: Jaw Swelling Stated complaint: JAW PAIN/HEADACHE Time Seen by Provider: 04/18/18 12:02 Source: Patient Mode of Arrival: Ambulatory Limitations: No limitations - History of Present Illness Initial comments: pt has sinus and ear pain on r. she has pressure in her face and congestion. she has a productive cough MD complaint: Ear pain Onset/Timin -: Days(s) Location: R ear Severity: Moderate Severity scale (1-10): 7 Quality: Aching Consistency: Constant Improves with: None, Pressure Worsens with: Swallowing - Related Data Home Medications Medication Instructions Recorded Confirmed Last Taken Cetirizine HCl [Zyrtec] 10 mg PO DAILY 04/18/18 04/18/18 1 Day Ago ~04/17/18 Prednisone [Prednisone 20Mg] 20 mg PO BID 04/18/18 04/18/18 1 Day Ago ~04/17/18 Previous Rx's Medication Instructions Recorded Prednisone [Prednisone 20Mg] 20 mg PO BID #10 tab 04/01/18 Hydrocodone/APAP 7.5/325Mg [[place] 1 each PO Q8H PRN #15 tab 04/06/18 7.5MG/325Mg] Ondansetron HCl [Zofran] 4 mg PO Q6HR #30 tablet 04/06/18 Vit W/ Iron 1 each PO DAILY 30 Days #30 tab 04/06/18 Amoxicillin/Potassium Clav 1 tab PO BID #10 tab 04/18/18 [Augmentin 875-125 Tablet] Allergies Allergy/AdvReac Type Severity Reaction Status Date / Time promethazine HCl Allergy Mild ITCHING Verified 04/18/18 11:09 [From Phenergan] adalimumab [From HUMIRA] Allergy Unknown MIGRAINES Verified 04/18/18 11:09 aspirin [ASPIRIN] Allergy Unknown NAUSEA AND Verified 04/18/18 11:09 VOMITING azathioprine [From IMURAN] Allergy Unknown VOMITING Verified 04/18/18 11:09 azathioprine sodium Allergy Unknown VOMITING Verified 04/18/18 11:09 [From IMURAN] chlordiazepoxide HCl Allergy Unknown RASH Verified 04/18/18 11:09 [From LIBRIUM] citalopram hydrobromide Allergy Unknown HYPERSENSIT Verified 04/18/18 11:09 [From CELEXA] IVITY clidinium [CLIDINIUM] Allergy Unknown RASH Verified 04/18/18 11:09 codeine Allergy Unknown ITCHING Verified 04/18/18 11:09 eicosapentaenoic acid Allergy Unknown RASH Verified 04/18/18 11:09 [From OMEGA 3] hydrocodone bitartrate Allergy Unknown ITCHING Verified 04/18/18 11:09 [From VICODIN] hydromorphone HCl Allergy Unknown ITCHING Verified 04/18/18 11:09 infliximab Allergy Unknown VOMITING Verified 04/18/18 11:09 metoclopramide Allergy Unknown ALTERED Verified 04/18/18 11:09 [METOCLOPRAMIDE] MENTAL STATUS morphine [MORPHINE] Allergy Unknown ITCHING Verified 04/18/18 11:09 omega-3 fatty acids Allergy Unknown RASH Verified 04/18/18 11:09 [From OMEGA 3] oxycodone HCl [From PERCOCET] Allergy Unknown ITCHING Verified 04/18/18 11:09 paroxetine HCl [From PAXIL] Allergy Unknown RASH Verified 04/18/18 11:09 varenicline tartrate Allergy Unknown ALTERED Verified 04/18/18 11:09 [From CHANTIX] MENTAL STATUS Travel Screening - Travel/Exposure Within Last 30 Days Have you traveled within the last 30 days?: No - Travel/Exposure Within Last Year Have you traveled outside the [place] in the last year?: No - Additonal Travel Details Have you been exposed to anyone with a communicable illness?: No - Travel Symptoms Symptom Screening: None Review of Systems Reviewed: No additional complaints except as noted below Constitutional: Reports: As per HPI. Denies: Chills, Fever, Malaise, Night sweats, Weakness, Weight change Eyes: Reports: As per HPI. Denies: Eye discharge, Eye pain, Photophobia, Vision change ENT: Reports: As per HPI. Denies: Congestion, Dental pain, Ear pain, Epistaxis , Hearing loss, Throat pain Respiratory: Reports: As per HPI. Denies: Cough, Dyspnea, Hemoptysis, Stridor, Wheezes Cardiovascular: Reports: As per HPI. Denies: Arrhythmia, Chest pain, Dyspnea on exertion, Edema, Murmurs, Orthopnea, Palpitations, Paroxysmal nocturnal dyspnea, Rheumatic Fever, Syncope Endocrine: Reports: As per HPI. Denies: Fatigue, Heat or cold intolerance, Polydipsia, Polyuria Gastrointestinal: Reports: As per HPI. Denies: Abdominal pain, Constipation, Diarrhea, Hematemesis, Hematochezia, Melena, Nausea, Vomiting Genitourinary: Reports: As per HPI. Denies: Abnormal menses, Discharge, Dyspareunia, Dysuria, Frequency, Hematuria, Incontinence, Retention, Urgency Musculoskeletal: Reports: As per HPI. Denies: Arthralgia, Back pain, Gout, Joint swelling, Myalgia, Neck pain Skin: Reports: As per HPI. Denies: Bruising, Change in color, Change in hair/ nails, Lesions, Pruritus, Rash Neurological: Reports: As per HPI. Denies: Abnormal gait, Confusion, Headache, Numbness, Paresthesias, Seizure, Tingling, Tremors, Vertigo, Weakness Psychiatric: Reports: As per HPI. Denies: Anxiety, Auditory hallucinations, Depression, Homicidal thoughts, Suicidal thoughts, Visual hallucinations Hematological/Lymphatic: Reports: As per HPI. Denies: Anemia, Blood Clots, Easy bleeding, Easy bruising, Swollen glands Past Medical History - SOCIAL HISTORY Smoking Status: Light tobacco smoker (<10/day) Alcohol Use: None Drug Use: None - RESPIRATORY Hx Respiratory Disorders: No - CARDIOVASCULAR Hx Cardio Disorders: Yes Hx Abnormal EKG: Yes (r/t anxiety) Hx Chest Pain: Yes (r/t anxiety) - NEURO Hx Neuro Disorders: Yes Hx Seizures: Yes (last seizure 12 years ago) Hx TIA: Yes (2009) - GI Hx GI Disorders: Yes Hx Abdominal Pain: Yes Hx Crohn's Disease: Yes (Diagnosed about 9 years ago; managed by Dr. Greyson Haddad ) Hx Reflux: Yes Hx Irritable Bowel: Yes Hx Nausea/Vomiting: Yes Hx Obstructive Bowel: Yes (Admitted for Crohns, ileus and possible partial bowel obstruction) Comment:: crohns colitis - Hx Genitourinary Disorders: No Comment:: going through menopause - ENDOCRINE Hx Endocrine Disorders: No Hx Diabetes: No Hx Thyroid Disease: No - MUSCULOSKELETAL Hx Musculoskeletal Disorders: Yes Hx Arthritis: Yes Comment:: rds in right ankle - PSYCH Hx Psych Problems: Yes Hx Anxiety: Yes Hx Depression: Yes - HEMATOLOGY/ONCOLOGY Hx Hematology/Oncology Disorders: No Hx Anemia: No Hx Blood Disorders: No Hx Bruising: No Hx Cancer: No Hx Clotting Problems: No Hx Sickle Cell Disease: No Hx Unexplained Bleeding: No Hx Blood Transfusions: No Hx Blood Transfusion Reaction: No Family Medical History Any Significant Family History?: Yes Hx Alcohol Use: Father, Brother/Sister Hx Cancer: Brother/Sister *Cancer Comment: lung cancer Hx Diabetes: Grandparents *Diabetes Comment: grandmother Hx Heart Disease: Grandparents *Heart Comment: grandfather Hx Resp Disorders: Children *Resp Comment: daughter has asthma Hx Stroke: Mother *Stroke Comment: Mother had history of TIA x 1 Physical Exam - General General Appearance: Alert, Oriented x3, Cooperative, Mild distress - Head Head exam: Normal inspection - Eye Eye exam: Normal appearance, PERRL, EOMI Pupils: Normal accommodation - ENT ENT exam: Normal exam, Mucous membranes moist, Normal external ear exam, Normal orophraynx, TM's normal bilaterally Ear exam: Normal external inspection. negative: External canal tenderness Nasal Exam: Sinus tenderness. negative: Discharge Mouth exam: Normal external inspection, Tongue normal Teeth exam: Normal inspection. negative: Dental caries Throat exam: Tonsillar erythema. negative: Tonsillar exudate - Neck Neck exam: Normal inspection, Full ROM. negative: Tenderness - Respiratory Respiratory exam: Normal lung sounds bilaterally. negative: Respiratory distress - Cardiovascular Cardiovascular Exam: Regular rate, Normal rhythm, Normal heart sounds - GI/Abdominal GI/Abdominal exam: Soft, Normal bowel sounds. negative: Tenderness - Rectal Rectal exam: Deferred - exam: Deferred - Extremities Extremities exam: Normal inspection, Full ROM, Normal capillary refill. negative: Tenderness - Back Back exam: Reports: Normal inspection, Full ROM. Denies: Muscle spasm, Rash noted, Tenderness - Neurological Neurological exam: Alert, CN II-XII intact, Normal gait, Oriented X3 - Psychiatric Psychiatric exam: Normal affect, Normal mood - Skin Skin exam: Dry, Intact, Normal color, Warm Course Vital Signs 04/18/18 11:03 Temperature 98.6 F Pulse Rate 92 H Respiratory 16 Rate Blood Pressure 141/83 Pulse Ox 99 Disposition Disposition: Discharge Clinical Impression: Bronchitis Sinusitis Qualifiers: Sinusitis location: unspecified location Chronicity: acute Recurrence: non- recurrent Qualified Code(s): J01.90 - Acute sinusitis, unspecified Disposition: Home, Self-Care Condition: (1) Good Instructions: Acute Bronchitis (ED), Sinusitis (ED), Warm Compress or Soak (ED) Additional Instructions: follow up with family doctor .rest, return sooner if worse Prescriptions: Amoxicillin/Potassium Clav [Augmentin 875-125 Tablet] 1 tab PO BID #10 tab Quality - Quality Measures Quality Measures: Adult Sinusitis (>18yr) - Adult Sinusitis: Abx Overuse Quality Measure: Measure #331: Adult Sinusitis Abx Overuse ICD10 Codes Entered: No Onset of symptoms over 10 days: No Presumed Bacterial: Yes Antibiotic Prescribed: Yes Adult Sinusitis: Antibiotic Within 10 Days of Symptoms: Medical Reason for Rx Within 10 Days [G9505] Reason for Prescription: Presumed Bacterial - Adult Sinusitis: Bacterial w/Abx Quality Measure: Measure #332: Adult Bacterial Sinusitis Correct Abx Use Adult Sinusitis: Appropriate Antibiotic: Exclusion, Not Bacterial - Adult Sinusitis: CT Use Quality Measure: Measure #333: Adult Sinusitis Adult Sinusitis: CT for Acute Sinusitis: < CT NOT ordered or received within 28 Days > [G9350] - Blood Pressure Screening Does Patient Have Any of the Following: No Blood Pressure Classification: Pre-Hypertensive BP Reading Systolic Measurement: 141 Diastolic Measurement: 83 Screening for High Blood Pressure: < Pre-Hypertensive BP, F/U Documented > [ G8950] Pre-Hypertensive Follow-up Interventions: Follow-up with rescreen every year.
== END 2018-04-18 12:32 | disposition home or self-care (01) ==
LOC: ER 10:50
DX: J20.9 Acute bronchitis, unspecified (principal); J01.90 Acute sinusitis, unspecified; F17.210 Nicotine dependence, cigarettes, uncomplicated
CPT/HCPCS: 99282

== ENCOUNTER 2018-04-27 19:36 | Observation (INO) | payer MEDICAID ==
[2018-04-27] MEDS ORDERED: ONDANSETRON HCL IV 4 MG/2 ML VIAL IVP ONE (19:57)
[2018-04-27] MEDS ORDERED: MORPHINE SULFATE 4MG/ML PREFILLED SYRINGE IVP ONE ×2 (19:57→23:28)
[2018-04-27] MEDS ORDERED: DIPHENHYDRAMINE HCL 50 MG/ML VIAL IVP ONE (19:58)
[2018-04-27] MEDS ORDERED: 0.9 % SODIUM CHLORIDE 1000ML 1,000 ML IV SCH (20:00)
--- NOTE | 2018-04-27 20:03 | Emergency Department Record ---
History of Present Illness - General Chief Complaint: Abdominal Pain Stated Complaint: BLOATING,NAUSEA,RECTAL SPASMS,ABDOMINAL PAIN Time Seen by Provider: 04/27/18 19:56 Source: Patient Mode of Arrival: Ambulatory Limitations: No limitations - History of Present Illness Initial Comments: 52 yo female presents to ED for evaluation of abdominal pain, bloating, and loose stools for the past several days. Patient denies fevers, chills, or vomiting symptoms. Patient reports a history of crohn's s/p bowel resection. Patient reports a "pressure sensation" with bowel movements. MD Complaint: Abdominal pain Onset/Timin -: Days(s) Location: LUQ, LLQ Migration to: No migration Severity: Moderate Severity scale (1-10): 7 Quality: Burning, Sharp Consistency: Intermittent Improves With: Nothing Worsens With: Nothing Context: Other Associated Symptoms: Diarrhea, Other - Related Data Patient : No Hx Age of Menopause: 47 Previous Rx's Medication Instructions Recorded Prednisone [Prednisone 20Mg] 20 mg PO BID #10 tab 04/01/18 Ondansetron HCl [Zofran] 4 mg PO Q6HR #30 tablet 04/06/18 Vit W/ Iron 1 each PO DAILY 30 Days #30 tab 04/06/18 Amoxicillin/Potassium Clav 1 tab PO BID #10 tab 04/18/18 [Augmentin 875-125 Tablet] Allergies Allergy/AdvReac Type Severity Reaction Status Date / Time promethazine HCl Allergy Mild ITCHING Verified 04/18/18 11:09 [From Phenergan] adalimumab [From HUMIRA] Allergy Unknown MIGRAINES Verified 04/18/18 11:09 aspirin [ASPIRIN] Allergy Unknown NAUSEA AND Verified 04/18/18 11:09 VOMITING azathioprine [From IMURAN] Allergy Unknown VOMITING Verified 04/18/18 11:09 azathioprine sodium Allergy Unknown VOMITING Verified 04/18/18 11:09 [From IMURAN] chlordiazepoxide HCl Allergy Unknown RASH Verified 04/18/18 11:09 [From LIBRIUM] citalopram hydrobromide Allergy Unknown HYPERSENSIT Verified 04/18/18 11:09 [From CELEXA] IVITY clidinium [CLIDINIUM] Allergy Unknown RASH Verified 04/18/18 11:09 codeine Allergy Unknown ITCHING Verified 04/18/18 11:09 eicosapentaenoic acid Allergy Unknown RASH Verified 04/18/18 11:09 [From OMEGA 3] hydrocodone bitartrate Allergy Unknown ITCHING Verified 04/18/18 11:09 [From VICODIN] hydromorphone HCl Allergy Unknown ITCHING Verified 04/18/18 11:09 infliximab Allergy Unknown VOMITING Verified 04/18/18 11:09 metoclopramide Allergy Unknown ALTERED Verified 04/18/18 11:09 [METOCLOPRAMIDE] MENTAL STATUS morphine [MORPHINE] Allergy Unknown ITCHING Verified 04/18/18 11:09 omega-3 fatty acids Allergy Unknown RASH Verified 04/18/18 11:09 [From OMEGA 3] oxycodone HCl [From PERCOCET] Allergy Unknown ITCHING Verified 04/18/18 11:09 paroxetine HCl [From PAXIL] Allergy Unknown RASH Verified 04/18/18 11:09 varenicline tartrate Allergy Unknown ALTERED Verified 04/18/18 11:09 [From CHANTIX] MENTAL STATUS Travel Screening - Travel/Exposure Within Last 30 Days Have you traveled within the last 30 days?: No - Travel Symptoms Symptom Screening: Diarrhea, Stomach Pain Review of Systems Constitutional: Denies: Chills, Fever, Malaise, Night sweats Eyes: Denies: Eye discharge, Eye pain ENT: Denies: Congestion, Ear pain, Epistaxis Respiratory: Denies: Cough, Dyspnea Cardiovascular: Denies: Chest pain, Dyspnea on exertion Endocrine: Denies: Fatigue, Heat or cold intolerance Gastrointestinal: Reports: Abdominal pain, Diarrhea. Denies: Nausea, Vomiting Genitourinary: Denies: Incontinence, Retention Musculoskeletal: Denies: Arthralgia, Back pain, Gout, Joint swelling Skin: Denies: Bruising, Change in color Neurological: Denies: Abnormal gait, Confusion, Headache, Seizure Psychiatric: Denies: Anxiety Hematological/Lymphatic: Denies: Anemia, Blood Clots Past Medical History - SOCIAL HISTORY Smoking Status: Light tobacco smoker (<10/day) Alcohol Use: None Drug Use: None - RESPIRATORY Hx Respiratory Disorders: No - CARDIOVASCULAR Hx Cardio Disorders: Yes Hx Abnormal EKG: Yes (r/t anxiety) Hx Chest Pain: Yes (r/t anxiety) - NEURO Hx Neuro Disorders: Yes Hx Seizures: Yes (last seizure 12 years ago) Hx TIA: Yes (2009) - GI Hx GI Disorders: Yes Hx Abdominal Pain: Yes Hx Crohn's Disease: Yes (Diagnosed about 9 years ago; managed by Dr. Greyson Haddad ) Hx Reflux: Yes Hx Irritable Bowel: Yes Hx Nausea/Vomiting: Yes Hx Obstructive Bowel: Yes (Admitted for Crohns, ileus and possible partial bowel obstruction) Comment:: crohns colitis - Hx Genitourinary Disorders: No Comment:: going through menopause - ENDOCRINE Hx Endocrine Disorders: No Hx Diabetes: No Hx Thyroid Disease: No - MUSCULOSKELETAL Hx Musculoskeletal Disorders: Yes Hx Arthritis: Yes Comment:: rds in right ankle - PSYCH Hx Psych Problems: Yes Hx Anxiety: Yes Hx Depression: Yes - HEMATOLOGY/ONCOLOGY Hx Hematology/Oncology Disorders: No Hx Anemia: No Hx Blood Disorders: No Hx Bruising: No Hx Cancer: No Hx Clotting Problems: No Hx Sickle Cell Disease: No Hx Unexplained Bleeding: No Hx Blood Transfusions: No Hx Blood Transfusion Reaction: No Family Medical History Any Significant Family History?: Yes Hx Alcohol Use: Father, Brother/Sister Hx Cancer: Brother/Sister *Cancer Comment: lung cancer Hx Diabetes: Grandparents *Diabetes Comment: grandmother Hx Heart Disease: Grandparents *Heart Comment: grandfather Hx Resp Disorders: Children *Resp Comment: daughter has asthma Hx Stroke: Mother *Stroke Comment: Mother had history of TIA x 1 Physical Exam - General General Appearance: Alert, Oriented x3, Cooperative, Moderate distress Limitations: No limitations - Head Head exam: Atraumatic, Normocephalic, Normal inspection Head exam detail: negative: Abrasion, Contusion, Moran's sign, General tenderness, Hematoma, Laceration - Eye Eye exam: Normal appearance. negative: Conjunctival injection, Periorbital swelling, Periorbital tenderness, Scleral icterus - ENT Ear exam: negative: Auricular hematoma, Auricular trauma Nasal Exam: negative: Active bleeding, Discharge, Dried blood, Foreign body Mouth exam: negative: Drooling, Laceration, Muffled voice, Tongue elevation - Neck Neck exam: Normal inspection. negative: Meningismus, Tenderness - Respiratory Respiratory exam: Normal lung sounds bilaterally. negative: Rales, Respiratory distress, Rhonchi, Stridor - Cardiovascular Cardiovascular Exam: Regular rate, Normal rhythm, Normal heart sounds - GI/Abdominal GI/Abdominal exam: Soft, Distended, Tenderness (TTP over the LLQ, RLQ, no rebound or guarding present.). negative: Rebound, Rigid - Rectal Rectal exam: Deferred - exam: Deferred - Extremities Extremities exam: Normal inspection. negative: Calf tenderness, Pedal edema, Tenderness - Back Back exam: Denies: CVA tenderness (R), CVA tenderness (L) - Neurological Neurological exam: Alert, Normal gait, Oriented X3 - Psychiatric Psychiatric exam: Normal affect, Normal mood - Skin Skin exam: Normal color. negative: Abrasion Type of lesion: negative: abrasion Course Vital Signs 04/27/18 19:40 Temperature 98.1 F Pulse Rate 101 H Respiratory 20 Rate Blood Pressure 126/78 Pulse Ox 97 - Reevaluation(s) Reevaluation #1: 04/27/18 20:50 Labs reviewed and are grossly unremarkable for an acute process. Reevaluation #2: 04/27/18 21:15 AAS: Dilated loops of small bowel, cannot exclude early or partial SBO Reevaluation #3: 04/27/18 21:20 Patient was updated on her AAS result, symptoms appear c/w possible crohn's flare. Patient reports that she weaned her predniosne 3-4 days ago, symptoms appear c/ w possible crohn's flare. Will administer Solumedrol 125 mg and admit for observation. Medical Decision Making - Lab Data Result diagrams: 04/27/18 20:20 04/27/18 20:20 Disposition Disposition: Admit Clinical Impression: Exacerbation of Crohn's disease Qualifiers: Digestive disease complication type: unspecified complication Qualified Code(s) : K50.919 - Crohn's disease, unspecified, with unspecified complications Bowel obstruction Qualifiers: Intestinal obstruction type: unspecified Intestinal obstruction extent: partial Qualified Code(s): K56.600 - Partial intestinal obstruction, unspecified as to cause Disposition: Still a Patient at [facility] Decision to Admit: Admit from ER Decision to Admit Date: 04/27/18 Decision to Admit Time: 21:22 Condition: (2) Stable Forms: Patient Portal Access Time of Disposition: 21:22 Quality - Quality Measures Quality Measures: N/A - Blood Pressure Screening Does Patient Have Any of the Following: No Blood Pressure Classification: Pre-Hypertensive BP Reading Systolic Measurement: 126 Diastolic Measurement: 78 Screening for High Blood Pressure: < Pre-Hypertensive BP, F/U Documented > [ G8950] Pre-Hypertensive Follow-up Interventions: Referral to alternative/primary care provider.
[2018-04-27 20:31] LABS: BASO % 0.3 % (0-6); EOS % 5.5 % (0-6); GRAN % 52.6 % (47-80); HEMATOCRIT 37.8 % (35.0-47.0); HEMOGLOBIN 11.8 gm/dl (11.6-16.0); LYMPH % 32.2 % (16-45); MEAN CELL VOLUME 82.4 fl (81-97); MEAN CORPUSCULAR HEMOGLOBIN 25.7 pg (27-33); MEAN CORPUSCULAR HGB CONC 31.2 g/dl (32-36); MEAN PLATELET VOLUME 9.1 fl (7.4-10.4); MONO % 9.4 % (0-9); PLATELET COUNT 516 K/uL (130-400); RED BLOOD COUNT 4.59 M/uL (3.80-5.40); RED CELL DISTRIBUTION WIDTH 16.9 % (11.5-14.5); WHITE BLOOD COUNT W/O DIFF 12.1 K/uL (4.2-12.2)
[2018-04-27 20:39] LABS: BILIRUBIN,TOTAL < 0.20 mg/dL (0.2-1.0); BLOOD UREA NITROGEN 5 mg/dL (6-20); CREATININE 0.6 mg/dL (0.5-0.9); EST GLOMERULAR FILTRATION RATE > 60 mL/min; TOTAL PROTEIN 6.1 g/dL (6.6-8.7)
[2018-04-27 20:41] LABS: GLUCOSE,RANDOM 99 mg/dL (74-109)
[2018-04-27 20:44] LABS: ALB/GLOB RATIO 1.7 (1.1-1.8); ALBUMIN 3.8 g/dL (4.0-5.0); ALKALINE PHOSPHATASE 89 U/L (35-104); ALT/SGPT 25 U/L (<33); AST/SGOT 12 U/L (10.0-35.0); LIPASE 37 U/L (13-60)
[2018-04-27] MEDS ORDERED: METHYLPREDNISOLONE PF 125MG/VIAL IVP ONE (21:19)
[2018-04-27] MEDS ORDERED: HYOSCYAMINE SULFATE ODT 0.125 MG TAB.SUBL SL ONE (21:36)
[2018-04-28] MEDS: DIPHENHYDRAMINE HCL 50 MG/ML VIAL IVP PRN ×3 (02:51→16:22)
[2018-04-28] MEDS: ONDANSETRON HCL IV 4 MG/2 ML VIAL IVP PRN ×3 (03:38→13:27)
[2018-04-28] MEDS: MORPHINE SULFATE 4MG/ML PREFILLED SYRINGE IVP PRN ×2 (03:38→08:47)
[2018-04-28] MEDS: 0.9 % SODIUM CHLORIDE 1000ML 1,000 ML IV PRN ×2 (06:16→14:22)
[2018-04-28] MEDS ORDERED: SIMETHICONE 80 MG TAB.CHEW PO PRN (07:39)
--- NOTE | 2018-04-28 07:55 | History & Physical ---
History of Present Illness - Date of Service Date of Service for History & Physical: 04/28/18 - History of Present Illness Admitting Diagnosis: Crohn's flare. Partial SBO History of Present Illness: Mrs. Otero is a 52 year-old female who presented to the ED the evening of 04/27/18 with complaint of worsening abdominal pain and distention for the past 2-3 days. She states that she just weaned off of her prednisone about 3-4 days ago. She also reports recently finishing a course of augmentin for a sinus infection that has resolved. Patient has undergone several partial colectomys. Patient reports pain to the LUQ/LLQ, denies vomiting symptoms. Patient reports a significant history of bowel obstructions previously. She did get her Entyvio infusion on 04/03/18, it was her first infusion since November. Her history includes: Crohn's disease (diagnosed 9 years ago), smoker - less than 10 cigarettes/day, depression, anxiety, TIA in 2009, seizures (last seizure was 12 years ago), and she is currently going through menopause. In the ED, her vital signs were stable. Her labs were reviewed and unremarkable for acute process. Abdominal xray showed post-surgical changes in the mid-abdomen, gaseous distention at the anastomosis site, no obstruction. She had a previous CT on 04/05/18 that revealed partial right hemicolectomy, bowel-wall thickening and borderline dilation of the distal small bowel just proximal to the anastamosis site. She was admitted for partial SBO and Crohn's flare observation, treating with IV steroids and pain management. 04/28/18 0800: Pt. is resting in bed. She states she feels similar to when she presented to the ED, however, she is passing large amounts of gas. Her last bowel movement was yesterday morning. She has gotten up to the bathroom with no difficulty, however, she has not tried ambulating further because her IV is placed in her foot at this time. She states that she has an appointment with Dr. Thorpe tomorrow and a scheduled PICC line placement after. Her next Entyvio infusion is scheduled for early May. Plan to advance diet to clear fluids and if tolerated, will try norco for pain management, d/c morphine, and change steroids to PO. Travel Screening - Travel/Exposure Within Last 30 Days Have you traveled within the last 30 days?: No - Travel/Exposure Within Last Year Have you traveled outside the [place] in the last year?: No - Additonal Travel Details Have you been exposed to anyone with a communicable illness?: No - Travel Symptoms Symptom Screening: Diarrhea, Stomach Pain Review of Systems Constitutional: Denies: Chills, Fever, Malaise, Night sweats Eyes: Denies: Eye discharge, Eye pain ENT: Denies: Congestion, Ear pain, Epistaxis Respiratory: Denies: Cough, Dyspnea Cardiovascular: Denies: Chest pain, Dyspnea on exertion Endocrine: Denies: Fatigue, Heat or cold intolerance Gastrointestinal: Reports: Abdominal pain. Denies: Nausea, Vomiting Genitourinary: Denies: Incontinence, Retention Musculoskeletal: Denies: Arthralgia, Back pain, Gout, Joint swelling Skin: Denies: Bruising, Change in color Neurological: Denies: Abnormal gait, Confusion, Headache, Seizure Psychiatric: Denies: Anxiety Hematological/Lymphatic: Denies: Anemia, Blood Clots Past Medical History - SOCIAL HISTORY Smoking Status: Light tobacco smoker (<10/day) Alcohol Use: None Drug Use: None - RESPIRATORY Hx Respiratory Disorders: No - CARDIOVASCULAR Hx Cardio Disorders: Yes Hx Abnormal EKG: Yes (r/t anxiety) Hx Chest Pain: Yes (r/t anxiety) - NEURO Hx Neuro Disorders: Yes Hx Seizures: Yes (last seizure 12 years ago) Hx TIA: Yes (2009) - GI Hx GI Disorders: Yes Hx Abdominal Pain: Yes Hx Crohn's Disease: Yes (Diagnosed about 9 years ago; managed by Dr. Greyson Haddad ) Hx Reflux: Yes Hx Irritable Bowel: Yes Hx Nausea/Vomiting: Yes Hx Obstructive Bowel: Yes (Admitted for Crohns, ileus and possible partial bowel obstruction) Comment:: crohns colitis - Hx Genitourinary Disorders: No Comment:: going through menopause - ENDOCRINE Hx Endocrine Disorders: No Hx Diabetes: No Hx Thyroid Disease: No - MUSCULOSKELETAL Hx Musculoskeletal Disorders: Yes Hx Arthritis: Yes Comment:: rds in right ankle - PSYCH Hx Psych Problems: Yes Hx Anxiety: Yes Hx Depression: Yes - HEMATOLOGY/ONCOLOGY Hx Hematology/Oncology Disorders: No Hx Anemia: No Hx Blood Disorders: No Hx Bruising: No Hx Cancer: No Hx Clotting Problems: No Hx Sickle Cell Disease: No Hx Unexplained Bleeding: No Hx Blood Transfusions: No Hx Blood Transfusion Reaction: No Family Medical History Any Significant Family History?: Yes Hx Alcohol Use: Father, Brother/Sister Hx Cancer: Brother/Sister *Cancer Comment: lung cancer Hx Diabetes: Grandparents *Diabetes Comment: grandmother Hx Heart Disease: Grandparents *Heart Comment: grandfather Hx Resp Disorders: Children *Resp Comment: daughter has asthma Hx Stroke: Mother *Stroke Comment: Mother had history of TIA x 1 H&P Meds/Allergies - Allergies Allergies: Allergies Allergy/AdvReac Type Severity Reaction Status Date / Time promethazine HCl Allergy Mild ITCHING Verified 04/18/18 11:09 [From Phenergan] adalimumab [From HUMIRA] Allergy Unknown MIGRAINES Verified 04/18/18 11:09 aspirin [ASPIRIN] Allergy Unknown NAUSEA AND Verified 04/18/18 11:09 VOMITING azathioprine [From IMURAN] Allergy Unknown VOMITING Verified 04/18/18 11:09 azathioprine sodium Allergy Unknown VOMITING Verified 04/18/18 11:09 [From IMURAN] chlordiazepoxide HCl Allergy Unknown RASH Verified 04/18/18 11:09 [From LIBRIUM] citalopram hydrobromide Allergy Unknown HYPERSENSIT Verified 04/18/18 11:09 [From CELEXA] IVITY clidinium [CLIDINIUM] Allergy Unknown RASH Verified 04/18/18 11:09 codeine Allergy Unknown ITCHING Verified 04/18/18 11:09 eicosapentaenoic acid Allergy Unknown RASH Verified 04/18/18 11:09 [From OMEGA 3] hydrocodone bitartrate Allergy Unknown ITCHING Verified 04/18/18 11:09 [From VICODIN] hydromorphone HCl Allergy Unknown ITCHING Verified 04/18/18 11:09 infliximab Allergy Unknown VOMITING Verified 04/18/18 11:09 metoclopramide Allergy Unknown ALTERED Verified 04/18/18 11:09 [METOCLOPRAMIDE] MENTAL STATUS morphine [MORPHINE] Allergy Unknown ITCHING Verified 04/18/18 11:09 omega-3 fatty acids Allergy Unknown RASH Verified 04/18/18 11:09 [From OMEGA 3] oxycodone HCl [From PERCOCET] Allergy Unknown ITCHING Verified 04/18/18 11:09 paroxetine HCl [From PAXIL] Allergy Unknown RASH Verified 04/18/18 11:09 varenicline tartrate Allergy Unknown ALTERED Verified 04/18/18 11:09 [From CHANTIX] MENTAL STATUS - Home Medications Previous Rx's Medication Instructions Recorded Prednisone [Prednisone 20Mg] 20 mg PO BID #10 tab 04/01/18 Ondansetron HCl [Zofran] 4 mg PO Q6HR #30 tablet 04/06/18 Vit W/ Iron 1 each PO DAILY 30 Days #30 tab 04/06/18 Amoxicillin/Potassium Clav 1 tab PO BID #10 tab 04/18/18 [Augmentin 875-125 Tablet] - Active Medications Active Medications: Current Medications Diphenhydramine HCl (Benadryl) 12.5 mg IVP Q6H PRN PRN Reason: ITCHING Last Admin: 04/28/18 02:51 Dose: 12.5 mg Fluticasone Propionate (Flonase) 1 spray NA BID [facility] Sodium Chloride () 1,000 mls @ 125 mls/hr IV .Q8H PRN PRN Reason: LARGE VOLUME IV Last Admin: 04/28/18 06:16 Dose: 125 mls/hr Loratadine (Claritin) 10 mg PO DAILY [facility] Methylprednisolone Sodium Succinate (Solu-Medrol) 125 mg IVP DAILY [facility] Morphine Sulfate (Morphine Sulfate) 4 mg IVP Q4H PRN PRN Reason: Abdominal Pain Last Admin: 04/28/18 03:38 Dose: 4 mg Ondansetron HCl (Zofran) 4 mg IVP Q4H PRN PRN Reason: NAUSEA Last Admin: 04/28/18 03:38 Dose: 4 mg Prenat Multivit/[place]/Iron/Folic Ac () 1 each PO DAILY [facility] Simethicone (Mylicon) 80 mg PO TID PRN PRN Reason: Gas Venlafaxine HCl (Effexor Xr) 37.5 mg PO DAILY [facility] Physical Exam - Vital Signs Vital Signs: Vital Signs - Last 24 Hrs Temp Pulse Pulse Resp BP BP Pulse Ox 04/27/18 22:00 97.9 F 87 20 113/56 99 04/27/18 21:54 90 04/27/18 21:53 16 115/63 96 04/27/18 19:40 98.1 F 101 H 20 126/78 97 - General General Appearance: Alert, Oriented x3, Cooperative, Mild distress Limitations: No limitations - Head Head exam: Atraumatic, Normocephalic, Normal inspection Head exam detail: negative: Abrasion, Contusion, Moran's sign, General tenderness, Hematoma, Laceration - Eye Eye exam: Normal appearance. negative: Conjunctival injection, Periorbital swelling, Periorbital tenderness, Scleral icterus - ENT Ear exam: negative: Auricular hematoma, Auricular trauma Nasal Exam: negative: Active bleeding, Discharge, Dried blood, Foreign body Mouth exam: negative: Drooling, Laceration, Muffled voice, Tongue elevation - Neck Neck exam: Normal inspection. negative: Meningismus, Tenderness - Respiratory Respiratory exam: Normal lung sounds bilaterally. negative: Rales, Respiratory distress, Rhonchi, Stridor - Cardiovascular Cardiovascular Exam: Regular rate, Normal rhythm, Normal heart sounds - GI/Abdominal GI/Abdominal exam: Soft, Normal bowel sounds, Distended, Tenderness (TTP over the LLQ, RLQ, no rebound or guarding present.). negative: Rebound, Rigid - Rectal Rectal exam: Deferred - exam: Deferred - Extremities Extremities exam: Normal inspection. negative: Calf tenderness, Pedal edema, Tenderness - Back Back exam: Denies: CVA tenderness (R), CVA tenderness (L) - Neurological Neurological exam: Alert, Normal gait, Oriented X3 - Psychiatric Psychiatric exam: Normal affect, Normal mood - Skin Skin exam: Normal color. negative: Abrasion Type of lesion: negative: abrasion Results - Labs Result Diagrams: 04/27/18 20:20 04/27/18 20:20 Labs Last 24 Hours: Laboratory Results - last 24 hr 04/27/18 04/27/18 20:20 20:20 WBC 12.1 RBC 4.59 Hgb 11.8 Hct 37.8 MCV 82.4 MCH 25.7 L MCHC 31.2 L RDW 16.9 H Plt Count 516 H MPV 9.1 Gran % 52.6 Lymphocytes % 32.2 Monocytes % 9.4 H Eosinophils % 5.5 Basophils % 0.3 Sodium 146 H Potassium 4.1 Chloride 105 Carbon Dioxide 25.0 Anion Gap 16.0 BUN 5 L Creatinine 0.6 Estimated GFR > 60 Random Glucose 99 Calcium 9.0 Total Bilirubin < 0.20 L AST 12 ALT 25 Alkaline Phosphatase 89 Total Protein 6.1 L Albumin 3.8 L Globulin 2.3 Albumin/Globulin Ratio 1.7 Lipase 37 - Imaging and Cardiology Abdominal x-ray Status: Pending VTE H&P Assessment - Risk for VTE Risk for VTE: Yes Risk Level: Low Risk Assessment Date: 04/28/18 Risk Assessment Time: 08:18 VTE Orders Placed or Will Be Placed: Yes Plan - Detailed Diagnosis and Plan (1) Exacerbation of Crohn's disease Current Visit: Yes Status: Acute Qualifiers: Digestive disease complication type: unspecified complication Qualified Code(s): K50.919 - Crohn's disease, unspecified, with unspecified complications Base Code: K50.90 - CROHN'S DISEASE, UNSPECIFIED, WITHOUT COMPLICATIONS Comment: 04/28/18: -Pt. history of Crohns disease, pt. received immunotherapy injection (Entyvio) (first inj. since November), she normally receives inj monthy, but they were delayed due to illness. -Pt. was weaned off of prednisone 3-4 days ago, restarted solumedrol here- 125mg IVP daily -Pt. has previously scheduled appt. with GI (Dr. Thorpe) tomorrow: 04/29/18 -Plan to advance diet to clear liquids and if tolerated, try norco for pain relief -Simethicone ordered for gas/gas pain relief (2) Partial small bowel obstruction Current Visit: Yes Status: Acute Base Code: K56.600 - PARTIAL INTESTINAL OBSTRUCTION, UNSPECIFIED TO CAUSE Comment: 04/28/18: -Partial SBO, abdominal xray report still pending -Pt. is passing gas, last BM was 04/27/18, bowel sounds normoactive -Will advance diet to clear liquids' -Pt. has scheduled f/u with Dr. Thorpe on 04/29/18 (3) DVT prophylaxis Current Visit: No Status: Acute Base Code: [id number] - Comment: 04/28/18: -Lovenox 40mg SQ ordered for DVT prophylaxis (4) Full code status Current Visit: No Status: Acute Base Code: Z78.9 - OTHER SPECIFIED HEALTH STATUS Comment: 04/28/18: -Pt. is a full code
[2018-04-28] MEDS ORDERED: FLUTICASONE PROPIONATE 50MCG NASAL 16 GM BTL SCH (10:00)
[2018-04-28] MEDS ORDERED: VENLAFAXINE ER 37.5 MG CAPSULE PO SCH (10:00)
[2018-04-28] MEDS ORDERED: LORATADINE 10 MG TABLET PO SCH (10:00)
[2018-04-28] MEDS ORDERED: MULTIVITAMINS/MINERALS TABLET PO SCH (10:00)
[2018-04-28] MEDS ORDERED: METHYLPREDNISOLONE PF 125MG/VIAL IVP SCH (10:00)
--- NOTE | 2018-04-28 10:24 | RADIOLOGY REPORT ---
EXAM: ACUTE ABDOMEN SERIES HISTORY: LEFT UPPER QUADRANT PAIN. TECHNIQUE: A single PA view of the chest and supine and upright views of the abdomen were performed. Comparison: 04/05/18. FINDINGS: The heart size is normal. The lungs are hyperinflated. No infiltrate or pleural effusion. There are distended loops of bowel in the central and right mitchell-abdomen. There is, however, air present within the colon. Early or partial small bowel obstruction cannot be entirely excluded. No evidence of free air. No pneumatosis. IMPRESSION: MINIMALLY DISTENDED LOOPS OF SMALL BOWEL IN THE CENTRAL ABDOMEN AND RIGHT MITCHELL- ABDOMEN. THESE MEASURE UP TO 4.7 CM. THERE IS, HOWEVER, AIR PRESENT WITHIN THE COLON AND RECTUM. AN EARLY OR PARTIAL SMALL BOWEL OBSTRUCTION CANNOT BE ENTIRELY EXCLUDED. JOB NUMBER: [id number] [facility]
[2018-04-28] MEDS: HYDROCODONE/APAP 7.5/325MG TABLET PO PRN ×2 (12:54→16:24)
[2018-04-28 14:20] LABS: HEMATOCRIT 38.6 % (35.0-47.0); HEMOGLOBIN 11.7 gm/dl (11.6-16.0); MEAN CELL VOLUME 82.5 fl (81-97); MEAN CORPUSCULAR HGB CONC 30.3 g/dl (32-36); MEAN PLATELET VOLUME 9.2 fl (7.4-10.4); PLATELET COUNT 519 K/uL (130-400); RED BLOOD COUNT 4.68 M/uL (3.80-5.40); RED CELL DISTRIBUTION WIDTH 16.6 % (11.5-14.5); WHITE BLOOD COUNT W/O DIFF 13.5 K/uL (4.2-12.2)
[2018-04-28 14:35] LABS: PLATELET ESTIMATE INCREASED (NORMAL)
[2018-04-28 14:36] LABS: ALB/GLOB RATIO 1.3 (1.1-1.8); ALBUMIN 3.8 g/dL (4.0-5.0); ALKALINE PHOSPHATASE 93 U/L (35-104); ALT/SGPT 24 U/L (<33); AST/SGOT 12 U/L (10.0-35.0); BLOOD UREA NITROGEN 6 mg/dL (6-20); CREATININE 0.5 mg/dL (0.5-0.9); EST GLOMERULAR FILTRATION RATE > 60 mL/min; GLUCOSE,RANDOM 140 mg/dL (74-109); TOTAL PROTEIN 6.7 g/dL (6.6-8.7)
--- NOTE | 2018-04-28 16:29 | Discharge Summary ---
Providers Discharge Summary Date: 04/28/18 Date of admission: 04/27/18 21:55 Expected Date of Discharge: 04/28/18 Attending physician: SUPRIYA RODRIGUEZ Primary care physician: SUPRIYA RODRIGUEZ Physical Exam - Vital Signs Vital Signs: Vital Signs - Last 24 Hrs Temp Pulse Pulse Resp BP BP Pulse Ox 04/28/18 08:00 97.2 F L 83 18 91/70 98 04/27/18 22:00 97.9 F 87 20 113/56 99 04/27/18 21:54 90 04/27/18 21:53 16 115/63 96 04/27/18 19:40 98.1 F 101 H 20 126/78 97 - General General Appearance: Alert, Oriented x3, Cooperative, No acute distress Limitations: No limitations - Head Head exam: Atraumatic, Normocephalic, Normal inspection Head exam detail: negative: Abrasion, Contusion, Moran's sign, General tenderness, Hematoma, Laceration - Eye Eye exam: Normal appearance. negative: Conjunctival injection, Periorbital swelling, Periorbital tenderness, Scleral icterus - ENT Ear exam: negative: Auricular hematoma, Auricular trauma Nasal Exam: negative: Active bleeding, Discharge, Dried blood, Foreign body Mouth exam: negative: Drooling, Laceration, Muffled voice, Tongue elevation - Neck Neck exam: Normal inspection. negative: Meningismus, Tenderness - Respiratory Respiratory exam: Normal lung sounds bilaterally. negative: Rales, Respiratory distress, Rhonchi, Stridor - Cardiovascular Cardiovascular Exam: Regular rate, Normal rhythm, Normal heart sounds - GI/Abdominal GI/Abdominal exam: Soft, Normal bowel sounds, Distended (Improved). negative: Rebound, Rigid - Rectal Rectal exam: Deferred - exam: Deferred - Extremities Extremities exam: Normal inspection. negative: Calf tenderness, Pedal edema, Tenderness - Back Back exam: Denies: CVA tenderness (R), CVA tenderness (L) - Neurological Neurological exam: Alert, Normal gait, Oriented X3 - Psychiatric Psychiatric exam: Normal affect, Normal mood - Skin Skin exam: Normal color. negative: Abrasion Type of lesion: negative: abrasion Hospitalization - Hospitalization Admission Diagnosis: Crohn's flare. Partial SBO - Problem List/Discharge Diagnosis (1) Exacerbation of Crohn's disease Status: Acute Discharge Diagnosis: Digestive disease complication type: unspecified complication Qualified Code(s): K50.919 - Crohn's disease, unspecified, with unspecified complications Base Code: K50.90 - CROHN'S DISEASE, UNSPECIFIED, WITHOUT COMPLICATIONS Comment: 04/28/18: -Pt. history of Crohns disease, pt. received immunotherapy injection (Entyvio) (first inj. since November), she normally receives inj monthy, but they were delayed due to illness. -Pt. was weaned off of prednisone 3-4 days ago, restarted solumedrol here- 125mg IVP daily -Pt. has previously scheduled appt. with GI (Dr. Thorpe) tomorrow: 04/29/18 -Plan to advance diet to clear liquids and if tolerated, try norco for pain relief -Simethicone ordered for gas/gas pain relief (2) Partial small bowel obstruction Status: Acute Base Code: K56.600 - PARTIAL INTESTINAL OBSTRUCTION, UNSPECIFIED TO CAUSE Comment: 04/28/18: -Partial SBO on abdominal xray -Pt. is passing gas, last BM was 04/27/18, bowel sounds normoactive -Pt. is tolerating clear liquid diet -Pt. has scheduled f/u with Dr. Thorpe on 04/29/18 (3) DVT prophylaxis Status: Acute Base Code: [id number] - Comment: 04/28/18: -Will not d/c home with antithrombolic because pt. will return to normal level of activity (4) Full code status Status: Acute Base Code: Z78.9 - OTHER SPECIFIED HEALTH STATUS Comment: 04/28: -Pt. is a full code - Hospitalization Course Disposition: Home, Self-Care Hospital Course: Mrs. Otero is a 52 year-old female who presented to the ED the evening of 04/27/18 with complaint of worsening abdominal pain and distention for the past 2-3 days. She states that she just weaned off of her prednisone about 3-4 days ago. She also reports recently finishing a course of augmentin for a sinus infection that has resolved. Patient has undergone several partial colectomys. Patient reports pain to the LUQ/LLQ, denies vomiting symptoms. Patient reports a significant history of bowel obstructions previously. She did get her Entyvio infusion on 04/03/18, it was her first infusion since November. Her history includes: Crohn's disease (diagnosed 9 years ago), smoker - less than 10 cigarettes/day, depression, anxiety, TIA in 2009, seizures (last seizure was 12 years ago), and she is currently going through menopause. In the ED, her vital signs were stable. Her labs were reviewed and unremarkable for acute process. Abdominal xray showed post-surgical changes in the mid-abdomen, gaseous distention at the anastomosis site, no obstruction. She had a previous CT on 04/05/18 that revealed partial right hemicolectomy, bowel-wall thickening and borderline dilation of the distal small bowel just proximal to the anastamosis site. She was admitted for partial SBO and Crohn's flare observation, treating with IV steroids and pain management. 04/28/18 0800: Pt. is resting in bed. She states she feels similar to when she presented to the ED, however, she is passing large amounts of gas. Her last bowel movement was yesterday morning. She has gotten up to the bathroom with no difficulty, however, she has not tried ambulating further because her IV is placed in her foot at this time. She states that she has an appointment with Dr. Thorpe tomorrow and a scheduled PICC line placement after. Her next Entyvio infusion is scheduled for early May. Plan to advance diet to clear fluids and if tolerated, will try norco for pain management, d/c morphine, and change steroids to PO. 04/28/18 1600: Pt. is sitting up in bed. She reports feeling much improved. She is tolerating her clear liquids and has also tolerated some crackers. She continues to pass gas and she reports feeling less distended. Plan to d/c home this evening and pt. to f/u with Dr. Thorpe tomorrow morning. Will d/c home with short-term script of norco for pain relief and diflucan 150mg tablet for reported yeast infection secondary to augmentin use. PCP: Dr. Rodriguez GI: Dr. Thorpe Procedures: Imaging and X-Rays 04/27/18 19:57 ABDOMEN, ACUTE SERIES [RAD] Stat Abnormal Labs: Abnormal Lab Results 04/27/18 04/27/18 04/28/18 Range/Units 20:20 20:20 14:14 WBC 13.5 H (4.2-12.2) K/uL MCH 25.7 L 25.0 L (27-33) pg MCHC 31.2 L 30.3 L (32-36) g/dl RDW 16.9 H 16.6 H (11.5-14.5) % Plt Count 516 H 519 H (130-400) K/uL Neutrophils % 90.0 H (47-80) % Monocytes % 9.4 H (0-9) % Lymphocytes 9.0 L (16-45) % Sodium 146 H (136-145) mmol/L Carbon Dioxide (22-29) mmol/L BUN 5 L (6-20) mg/dL Random Glucose (74-109) mg/dL Total Bilirubin < 0.20 L (0.2-1.0) mg/dL Total Protein 6.1 L (6.6-8.7) g/dL Albumin 3.8 L (4.0-5.0) g/dL 04/28/18 Range/Units 14:14 WBC (4.2-12.2) K/uL MCH (27-33) pg MCHC (32-36) g/dl RDW (11.5-14.5) % Plt Count (130-400) K/uL Neutrophils % (47-80) % Monocytes % (0-9) % Lymphocytes (16-45) % Sodium (136-145) mmol/L Carbon Dioxide 20.0 L (22-29) mmol/L BUN (6-20) mg/dL Random Glucose 140 H (74-109) mg/dL Total Bilirubin (0.2-1.0) mg/dL Total Protein (6.6-8.7) g/dL Albumin 3.8 L (4.0-5.0) g/dL Condition at Discharge: (2) Stable VTE Discharge VTE Reason For No Overlap Therapy: Not Indicated Discharge Medications - Discharge Medications Prescriptions: Ondansetron HCl [Zofran] 4 mg PO Q6HR #30 tablet Fluconazole [Diflucan] 150 mg PO ONCE 1 Days #1 tab Hydrocodone/APAP 7.5/325Mg [Gregory 7.5MG/325Mg] 1 each PO Q6H PRN #18 tab PRN Reason: Abdominal Pain Home Medications: Ambulatory Orders Calcium Carbonate [Calcium] 500 mg PO QD tab 12/17/17 [Last Taken 04/27/18] Prednisone [Prednisone 20Mg] 20 mg PO BID #10 tab 04/01/18 [Last Taken 04/27/18] Vit W/ Iron 1 each PO DAILY 30 Days #30 tab 04/06/18 [Last Taken ] Fluticasone Propionate [Flonase Allergy Relief] 15.8 ml NS BID 90 Days #30 bottle 04/22/18 [Last Taken 04/27/18] Fluconazole [Diflucan] 150 mg PO ONCE 1 Days #1 tab 04/28/18 [Last Taken Unknown ] Hydrocodone/APAP 7.5/325Mg [Gregory 7.5MG/325Mg] 1 each PO Q6H PRN #18 tab [Last Taken Unknown] Ondansetron HCl [Zofran] 4 mg PO Q6HR #30 tablet 04/28/18 [Last Taken Unknown] Discharge Plan - Discharge Instructions Activity at Discharge: Increase Activity as Tolerated Diet at Discharge: Advance to Usual Diet Instructions: Crohn Disease (DC) Additional Instructions: Follow up with Dr. Thorpe tomorrow morning Scheduled PICC line placement with Dr. Linda tomorrow Follow up with Dr. Rodriguez within 3-5 days for hospitalization follow up Advance diet gradually as tolerated Return to the ED if your symptoms worsen, or for any chest pain Quality Measures - Quality Measures Quality Measures: Documentation of Current Medications in Medical Record, Screening for High Blood Pressure and F/U Documented - Current Medications Quality Measure: Measure #130: Documentation of Current Medications Documentation of Current Medications: <Current Medications Documented/Reviewed> [G8427] - Blood Pressure Screening Quality Measure: Screening for High Blood Pressure and Follow-Up Documented Does Patient Have Any of the Following: No Blood Pressure Classification: Pre-Hypertensive BP Reading Systolic Measurement: 126 Diastolic Measurement: 78 Screening for High Blood Pressure: < Pre-Hypertensive BP, F/U Documented > [ G8950] Pre-Hypertensive Follow-up Interventions: Follow-up with rescreen every year. - Elder Abuse Suspicion Index EASI Reference Information: Mohit LUCIO, Maranda C, Portia D, Steven Zimmer.Development and validation of a tool to assist physicians identification of elder abuse: The Elder Abuse Suspicion Index (EASI ). Journal of Elder Abuse and Neglect, 2008; 20 (3): 276-300.
[2018-04-28] MEDS ORDERED: FLUCONAZOLE 100 MG TABLET PO ONE (18:00)
[2018-04-28] MEDS ORDERED: ENOXAPARIN 40 MG/0.4 ML SYR SQ SCH (22:00)
== END 2018-04-28 17:55 | disposition home or self-care (01) ==
LOC: ER 19:36 → MEDSURG 21:55
PROVIDERS: ADMIT Internal Medicine; ATTEND Internal Medicine
DX: K50.919 Crohn's disease, unspecified, with unspecified complications (principal); K56.600 Partial intestinal obstruction, unspecified as to cause; K21.9 Gastro-esophageal reflux disease without esophagitis; R14.0 Abdominal distension (gaseous); R11.0 Nausea; K58.9 Irritable bowel syndrome, unspecified; F17.210 Nicotine dependence, cigarettes, uncomplicated; Z87.19 Personal history of other diseases of the digestive system; Z86.73 Personal history of transient ischemic attack (TIA), and cerebral infarction without residual deficits; Z78.0 Asymptomatic menopausal state
CPT/HCPCS: 99285 ×2; 96374; 96375; 96361; 83690; 85025; 80053 ×2; 85027; 74022; G0378 ×2; J1980; J2405 ×2; J2274 ×2; 99220; J1200; J2930; J7030

== ENCOUNTER 2018-04-29 20:40 | Emergency (ER) | payer MEDICAID ==
--- NOTE | 2018-04-29 21:16 | Emergency Department Record ---
History of Present Illness - General Chief Complaint: Wound, check Stated Complaint: PIC LINE BLOOD BACKING UP Time Seen by Provider: 04/29/18 20:55 Source: Patient Mode of arrival: Ambulatory Limitations: No limitations - History of Present Illness Initial Comments: pt had pic line placed today and was concerned because it was bleeding. she states she had not been educated as to what to expect and that the visiting nurse never showed up. it was placed at [facility]. Complaint: Other Onset/Timin -: Hour(s) Initial Visit For: Other Returns Today for: Other - Related Data Previous Rx's Medication Instructions Recorded Prednisone [Prednisone 20Mg] 20 mg PO BID #10 tab 04/01/18 Vit W/ Iron 1 each PO DAILY 30 Days #30 tab 04/06/18 Fluconazole [Diflucan] 150 mg PO ONCE 1 Days #1 tab 04/28/18 Hydrocodone/APAP 7.5/325Mg [[place] 1 each PO Q6H PRN #18 tab 04/28/18 7.5MG/325Mg] Ondansetron HCl [Zofran] 4 mg PO Q6HR #30 tablet 04/28/18 Allergies Allergy/AdvReac Type Severity Reaction Status Date / Time promethazine HCl Allergy Mild ITCHING Verified 04/18/18 11:09 [From Phenergan] adalimumab [From HUMIRA] Allergy Unknown MIGRAINES Verified 04/18/18 11:09 aspirin [ASPIRIN] Allergy Unknown NAUSEA AND Verified 04/18/18 11:09 VOMITING azathioprine [From IMURAN] Allergy Unknown VOMITING Verified 04/18/18 11:09 azathioprine sodium Allergy Unknown VOMITING Verified 04/18/18 11:09 [From IMURAN] chlordiazepoxide HCl Allergy Unknown RASH Verified 04/18/18 11:09 [From LIBRIUM] citalopram hydrobromide Allergy Unknown HYPERSENSIT Verified 04/18/18 11:09 [From CELEXA] IVITY clidinium [CLIDINIUM] Allergy Unknown RASH Verified 04/18/18 11:09 codeine Allergy Unknown ITCHING Verified 04/18/18 11:09 eicosapentaenoic acid Allergy Unknown RASH Verified 04/18/18 11:09 [From OMEGA 3] hydrocodone bitartrate Allergy Unknown ITCHING Verified 04/18/18 11:09 [From VICODIN] hydromorphone HCl Allergy Unknown ITCHING Verified 04/18/18 11:09 infliximab Allergy Unknown VOMITING Verified 04/18/18 11:09 metoclopramide Allergy Unknown ALTERED Verified 04/18/18 11:09 [METOCLOPRAMIDE] MENTAL STATUS morphine [MORPHINE] Allergy Unknown ITCHING Verified 04/18/18 11:09 omega-3 fatty acids Allergy Unknown RASH Verified 04/18/18 11:09 [From OMEGA 3] oxycodone HCl [From PERCOCET] Allergy Unknown ITCHING Verified 04/18/18 11:09 paroxetine HCl [From PAXIL] Allergy Unknown RASH Verified 04/18/18 11:09 varenicline tartrate Allergy Unknown ALTERED Verified 04/18/18 11:09 [From CHANTIX] MENTAL STATUS Travel Screening - Travel/Exposure Within Last 30 Days Have you traveled within the last 30 days?: No - Travel Symptoms Symptom Screening: None Review of Systems Reviewed: No additional complaints except as noted below Constitutional: Reports: As per HPI. Denies: Chills, Fever, Malaise, Night sweats, Weakness, Weight change Eyes: Reports: As per HPI. Denies: Eye discharge, Eye pain, Photophobia, Vision change ENT: Reports: As per HPI. Denies: Congestion, Dental pain, Ear pain, Epistaxis , Hearing loss, Throat pain Respiratory: Reports: As per HPI. Denies: Cough, Dyspnea, Hemoptysis, Stridor, Wheezes Cardiovascular: Reports: As per HPI. Denies: Arrhythmia, Chest pain, Dyspnea on exertion, Edema, Murmurs, Orthopnea, Palpitations, Paroxysmal nocturnal dyspnea, Rheumatic Fever, Syncope Endocrine: Reports: As per HPI. Denies: Fatigue, Heat or cold intolerance, Polydipsia, Polyuria Gastrointestinal: Reports: As per HPI. Denies: Abdominal pain, Constipation, Diarrhea, Hematemesis, Hematochezia, Melena, Nausea, Vomiting Genitourinary: Reports: As per HPI. Denies: Abnormal menses, Discharge, Dyspareunia, Dysuria, Frequency, Hematuria, Incontinence, Retention, Urgency Musculoskeletal: Reports: As per HPI. Denies: Arthralgia, Back pain, Gout, Joint swelling, Myalgia, Neck pain Skin: Reports: As per HPI. Denies: Bruising, Change in color, Change in hair/ nails, Lesions, Pruritus, Rash Neurological: Reports: As per HPI. Denies: Abnormal gait, Confusion, Headache, Numbness, Paresthesias, Seizure, Tingling, Tremors, Vertigo, Weakness Psychiatric: Reports: As per HPI. Denies: Anxiety, Auditory hallucinations, Depression, Homicidal thoughts, Suicidal thoughts, Visual hallucinations Hematological/Lymphatic: Reports: As per HPI. Denies: Anemia, Blood Clots, Easy bleeding, Easy bruising, Swollen glands Past Medical History - SOCIAL HISTORY Smoking Status: Light tobacco smoker (<10/day) Alcohol Use: None Drug Use: None - RESPIRATORY Hx Respiratory Disorders: No - CARDIOVASCULAR Hx Cardio Disorders: Yes Hx Abnormal EKG: Yes (r/t anxiety) Hx Chest Pain: Yes (r/t anxiety) - NEURO Hx Neuro Disorders: Yes Hx Seizures: Yes (last seizure 12 years ago) Hx TIA: Yes (2009) - GI Hx GI Disorders: Yes Hx Abdominal Pain: Yes Hx Crohn's Disease: Yes (Diagnosed about 9 years ago; managed by Dr. Greyson Haddad ) Hx Reflux: Yes Hx Irritable Bowel: Yes Hx Nausea/Vomiting: Yes Hx Obstructive Bowel: Yes (Admitted for Crohns, ileus and possible partial bowel obstruction) Comment:: crohns colitis - Hx Genitourinary Disorders: No Comment:: going through menopause - ENDOCRINE Hx Endocrine Disorders: No Hx Diabetes: No Hx Thyroid Disease: No - MUSCULOSKELETAL Hx Musculoskeletal Disorders: Yes Hx Arthritis: Yes Comment:: rds in right ankle - PSYCH Hx Psych Problems: Yes Hx Anxiety: Yes Hx Depression: Yes - HEMATOLOGY/ONCOLOGY Hx Hematology/Oncology Disorders: No Hx Anemia: No Hx Blood Disorders: No Hx Bruising: No Hx Cancer: No Hx Clotting Problems: No Hx Sickle Cell Disease: No Hx Unexplained Bleeding: No Hx Blood Transfusions: No Hx Blood Transfusion Reaction: No Family Medical History Any Significant Family History?: Yes Hx Alcohol Use: Father, Brother/Sister Hx Cancer: Brother/Sister *Cancer Comment: lung cancer Hx Diabetes: Grandparents *Diabetes Comment: grandmother Hx Heart Disease: Grandparents *Heart Comment: grandfather Hx Resp Disorders: Children *Resp Comment: daughter has asthma Hx Stroke: Mother *Stroke Comment: Mother had history of TIA x 1 Physical Exam - General General Appearance: Alert, Oriented x3, Cooperative, Mild distress - Head Head exam: Normal inspection - Eye Eye exam: Normal appearance, PERRL, EOMI Pupils: Normal accommodation - ENT ENT exam: Normal exam, Mucous membranes moist, Normal external ear exam, Normal orophraynx Ear exam: Normal external inspection. negative: External canal tenderness Nasal Exam: Normal inspection. negative: Discharge, Sinus tenderness Mouth exam: Normal external inspection, Tongue normal Teeth exam: Normal inspection. negative: Dental caries Throat exam: Normal inspection. negative: Tonsillar erythema, Tonsillar exudate - Neck Neck exam: Normal inspection, Full ROM. negative: Tenderness - Respiratory Respiratory exam: Normal lung sounds bilaterally. negative: Respiratory distress - Cardiovascular Cardiovascular Exam: Normal rhythm, Normal heart sounds, Tachycardia - GI/Abdominal GI/Abdominal exam: Soft, Normal bowel sounds. negative: Tenderness - Rectal Rectal exam: Deferred - exam: Deferred - Extremities Extremities exam: Normal inspection, Full ROM, Normal capillary refill, Other ( pic line in place w slight bleeding). negative: Tenderness - Back Back exam: Reports: Normal inspection, Full ROM. Denies: Muscle spasm, Rash noted, Tenderness - Neurological Neurological exam: Alert, Normal gait, Oriented X3, Reflexes normal - Psychiatric Psychiatric exam: Normal affect, Normal mood - Skin Skin exam: Dry, Intact, Normal color, Warm Course Vital Signs 04/29/18 20:47 Temperature 98.2 F Pulse Rate [ 102 H Pulse Ox Probe] Respiratory 16 Rate Blood Pressure 123/92 [Left Arm] Pulse Ox 96 Disposition Disposition: Discharge Clinical Impression: PICC line infiltration Qualifiers: Encounter type: initial encounter Qualified Code(s): T82.898A - Other specified complication of vascular prosthetic devices, implants and grafts, initial encounter Disposition: Home, Self-Care Condition: (1) Good Instructions: Peripherally Inserted Central Catheters and Midline Catheters (ED ) Additional Instructions: follow up tomorrow with visiting nurse Quality - Quality Measures Quality Measures: N/A - Blood Pressure Screening Does Patient Have Any of the Following: No Blood Pressure Classification: Hypertensive Reading Systolic Measurement: 123 Diastolic Measurement: 92 Screening for High Blood Pressure: < Pre-Hypertensive BP, F/U Documented > [ G8950] Pre-Hypertensive Follow-up Interventions: Follow-up with rescreen every year.
[2018-04-29] MEDS ORDERED: HEPARIN SODIUM FLUSH 100 UNITS/ML SYR 5ML IVP ONE (21:28)
== END 2018-04-29 21:41 | disposition home or self-care (01) ==
LOC: ER 20:40
DX: T82.898A Other specified complication of vascular prosthetic devices, implants and grafts, initial encounter (principal); F17.210 Nicotine dependence, cigarettes, uncomplicated; D50.9 Iron deficiency anemia, unspecified; K50.018 Crohn's disease of small intestine with other complication
CPT/HCPCS: 99282 ×2; 83550; 85025; 82306; 82728; 82607; J1642

== ENCOUNTER 2018-04-30 20:02 | Emergency (ER) | payer MEDICAID ==
[2018-04-30] MEDS ORDERED: ONDANSETRON HCL IV 4 MG/2 ML VIAL IV ONE (20:31)
[2018-04-30] MEDS ORDERED: 0.9 % SODIUM CHLORIDE 1,000 ML BAG IV ONE ×2 (20:31→22:33)
[2018-04-30] MEDS ORDERED: HYDROMORPHONE HCL 2 MG/ML VIAL IVP ONE ×2 (20:45→22:30)
--- NOTE | 2018-04-30 20:48 | Emergency Department Record ---
History of Present Illness - General Chief Complaint: Abdominal Pain Stated Complaint: BLOATING,ABDOMINAL PAIN Time Seen by Provider: 04/30/18 20:06 Source: Patient Mode of Arrival: Ambulatory Limitations: No limitations - History of Present Illness Initial Comments: pt is having severe abd pain and was sent here by visiting nurse for likely sbo MD Complaint: Abdominal pain Onset/Timin -: Hour(s) Location: Periumbilical, LUQ Severity scale (1-10): 7 Quality: Burning Consistency: Constant, Getting worse Improves With: Nothing Associated Symptoms: Diarrhea - Related Data Patient : No Hx Age of Menopause: 47 Previous Rx's Medication Instructions Recorded Prednisone [Prednisone 20Mg] 20 mg PO BID #10 tab 04/01/18 Vit W/ Iron 1 each PO DAILY 30 Days #30 tab 04/06/18 Fluconazole [Diflucan] 150 mg PO ONCE 1 Days #1 tab 04/28/18 Hydrocodone/APAP 7.5/325Mg [[place] 1 each PO Q6H PRN #18 tab 04/28/18 7.5MG/325Mg] Ondansetron HCl [Zofran] 4 mg PO Q6HR #30 tablet 04/28/18 Allergies Allergy/AdvReac Type Severity Reaction Status Date / Time promethazine HCl Allergy Mild ITCHING Verified 04/18/18 11:09 [From Phenergan] adalimumab [From HUMIRA] Allergy Unknown MIGRAINES Verified 04/18/18 11:09 aspirin [ASPIRIN] Allergy Unknown NAUSEA AND Verified 04/18/18 11:09 VOMITING azathioprine [From IMURAN] Allergy Unknown VOMITING Verified 04/18/18 11:09 azathioprine sodium Allergy Unknown VOMITING Verified 04/18/18 11:09 [From IMURAN] chlordiazepoxide HCl Allergy Unknown RASH Verified 04/18/18 11:09 [From LIBRIUM] citalopram hydrobromide Allergy Unknown HYPERSENSIT Verified 04/18/18 11:09 [From CELEXA] IVITY clidinium [CLIDINIUM] Allergy Unknown RASH Verified 04/18/18 11:09 codeine Allergy Unknown ITCHING Verified 04/18/18 11:09 eicosapentaenoic acid Allergy Unknown RASH Verified 04/18/18 11:09 [From OMEGA 3] hydrocodone bitartrate Allergy Unknown ITCHING Verified 04/18/18 11:09 [From VICODIN] hydromorphone HCl Allergy Unknown ITCHING Verified 04/18/18 11:09 infliximab Allergy Unknown VOMITING Verified 04/18/18 11:09 metoclopramide Allergy Unknown ALTERED Verified 04/18/18 11:09 [METOCLOPRAMIDE] MENTAL STATUS morphine [MORPHINE] Allergy Unknown ITCHING Verified 04/18/18 11:09 omega-3 fatty acids Allergy Unknown RASH Verified 04/18/18 11:09 [From OMEGA 3] oxycodone HCl [From PERCOCET] Allergy Unknown ITCHING Verified 04/18/18 11:09 paroxetine HCl [From PAXIL] Allergy Unknown RASH Verified 04/18/18 11:09 varenicline tartrate Allergy Unknown ALTERED Verified 04/18/18 11:09 [From CHANTIX] MENTAL STATUS Travel Screening - Travel/Exposure Within Last 30 Days Have you traveled within the last 30 days?: No - Travel Symptoms Symptom Screening: None Review of Systems Reviewed: No additional complaints except as noted below Constitutional: Reports: As per HPI. Denies: Chills, Fever, Malaise, Night sweats, Weakness, Weight change Eyes: Reports: As per HPI. Denies: Eye discharge, Eye pain, Photophobia, Vision change ENT: Reports: As per HPI. Denies: Congestion, Dental pain, Ear pain, Epistaxis , Hearing loss, Throat pain Respiratory: Reports: As per HPI. Denies: Cough, Dyspnea, Hemoptysis, Stridor, Wheezes Cardiovascular: Reports: As per HPI. Denies: Arrhythmia, Chest pain, Dyspnea on exertion, Edema, Murmurs, Orthopnea, Palpitations, Paroxysmal nocturnal dyspnea, Rheumatic Fever, Syncope Endocrine: Reports: As per HPI. Denies: Fatigue, Heat or cold intolerance, Polydipsia, Polyuria Gastrointestinal: Reports: As per HPI. Denies: Abdominal pain, Constipation, Diarrhea, Hematemesis, Hematochezia, Melena, Nausea, Vomiting Genitourinary: Reports: As per HPI. Denies: Abnormal menses, Discharge, Dyspareunia, Dysuria, Frequency, Hematuria, Incontinence, Retention, Urgency Musculoskeletal: Reports: As per HPI. Denies: Arthralgia, Back pain, Gout, Joint swelling, Myalgia, Neck pain Skin: Reports: As per HPI. Denies: Bruising, Change in color, Change in hair/ nails, Lesions, Pruritus, Rash Neurological: Reports: As per HPI. Denies: Abnormal gait, Confusion, Headache, Numbness, Paresthesias, Seizure, Tingling, Tremors, Vertigo, Weakness Psychiatric: Reports: As per HPI. Denies: Anxiety, Auditory hallucinations, Depression, Homicidal thoughts, Suicidal thoughts, Visual hallucinations Hematological/Lymphatic: Reports: As per HPI. Denies: Anemia, Blood Clots, Easy bleeding, Easy bruising, Swollen glands Past Medical History - SOCIAL HISTORY Smoking Status: Light tobacco smoker (<10/day) - RESPIRATORY Hx Respiratory Disorders: No - CARDIOVASCULAR Hx Cardio Disorders: Yes Hx Abnormal EKG: Yes (r/t anxiety) Hx Chest Pain: Yes (r/t anxiety) - NEURO Hx Neuro Disorders: Yes Hx Seizures: Yes (last seizure 12 years ago) Hx TIA: Yes (2009) - GI Hx GI Disorders: Yes Hx Abdominal Pain: Yes Hx Crohn's Disease: Yes (Diagnosed about 9 years ago; managed by Dr. Greyson Haddad ) Hx Reflux: Yes Hx Irritable Bowel: Yes Hx Nausea/Vomiting: Yes Hx Obstructive Bowel: Yes (Admitted for Crohns, ileus and possible partial bowel obstruction) Comment:: crohns colitis - Hx Genitourinary Disorders: No Comment:: going through menopause - ENDOCRINE Hx Endocrine Disorders: No Hx Diabetes: No Hx Thyroid Disease: No - MUSCULOSKELETAL Hx Musculoskeletal Disorders: Yes Hx Arthritis: Yes Comment:: rds in right ankle - PSYCH Hx Psych Problems: Yes Hx Anxiety: Yes Hx Depression: Yes - HEMATOLOGY/ONCOLOGY Hx Hematology/Oncology Disorders: No Hx Anemia: No Hx Blood Disorders: No Hx Bruising: No Hx Cancer: No Hx Clotting Problems: No Hx Sickle Cell Disease: No Hx Unexplained Bleeding: No Hx Blood Transfusions: No Hx Blood Transfusion Reaction: No Family Medical History Any Significant Family History?: Yes Hx Alcohol Use: Father, Brother/Sister Hx Cancer: Brother/Sister *Cancer Comment: lung cancer Hx Diabetes: Grandparents *Diabetes Comment: grandmother Hx Heart Disease: Grandparents *Heart Comment: grandfather Hx Resp Disorders: Children *Resp Comment: daughter has asthma Hx Stroke: Mother *Stroke Comment: Mother had history of TIA x 1 Physical Exam - General General Appearance: Alert, Oriented x3, Cooperative, Mild distress - Head Head exam: Normal inspection - Eye Eye exam: Normal appearance, PERRL, EOMI Pupils: Normal accommodation - ENT ENT exam: Normal exam, Mucous membranes moist, Normal external ear exam, Normal orophraynx Ear exam: Normal external inspection. negative: External canal tenderness Nasal Exam: Normal inspection. negative: Discharge, Sinus tenderness Mouth exam: Normal external inspection, Tongue normal Teeth exam: Normal inspection. negative: Dental caries Throat exam: Normal inspection. negative: Tonsillar erythema, Tonsillar exudate - Neck Neck exam: Normal inspection, Full ROM. negative: Tenderness - Respiratory Respiratory exam: Normal lung sounds bilaterally. negative: Respiratory distress - Cardiovascular Cardiovascular Exam: Regular rate, Normal rhythm, Normal heart sounds - GI/Abdominal GI/Abdominal exam: Normal bowel sounds, Distended, Guarding, Hypoactive bowel sounds, Tenderness - Rectal Rectal exam: Deferred - exam: Deferred - Extremities Extremities exam: Normal inspection, Full ROM, Normal capillary refill. negative: Tenderness - Back Back exam: Reports: Normal inspection, Full ROM. Denies: Muscle spasm, Rash noted, Tenderness - Neurological Neurological exam: Alert, CN II-XII intact, Normal gait, Oriented X3 - Psychiatric Psychiatric exam: Normal affect, Normal mood - Skin Skin exam: Dry, Intact, Normal color, Warm Course Vital Signs 04/30/18 20:09 Temperature 98.2 F Respiratory 22 Rate Blood Pressure 137/88 [Left Arm] Pulse Ox 97 - Reevaluation(s) Reevaluation #1: 05/01/18 02:35 pt feels better Reevaluation #2: 05/01/18 02:37 pt offered admission, she chooses to go home since her ct is unchanged Medical Decision Making - Lab Data Result diagrams: 04/30/18 20:53 04/30/18 20:53 Disposition Disposition: Discharge Clinical Impression: Partial small bowel obstruction Crohn disease Qualifiers: Gastrointestinal tract location: unspecified location Digestive disease complication type: unspecified complication Qualified Code(s): K50.919 - Crohn' s disease, unspecified, with unspecified complications Disposition: Home, Self-Care Condition: (1) Good Instructions: Abdominal Pain (ED) Additional Instructions: follow up with doctors. return sooner if worse. push fluids Forms: Patient Portal Access Quality - Quality Measures Quality Measures: N/A - Blood Pressure Screening Does Patient Have Any of the Following: No Blood Pressure Classification: Pre-Hypertensive BP Reading Systolic Measurement: 126 Diastolic Measurement: 82 Screening for High Blood Pressure: < Pre-Hypertensive BP, F/U Documented > [ G8950] Pre-Hypertensive Follow-up Interventions: Follow-up with rescreen every year.
[2018-04-30] MEDS ORDERED: DIPHENHYDRAMINE HCL 50 MG/ML VIAL IVP ONE ×2 (20:54→22:56)
[2018-04-30 21:02] LABS: BASO % 0.1 % (0-6); EOS % 0.2 % (0-6); GRAN % 65.3 % (47-80); HEMATOCRIT 36.1 % (35.0-47.0); HEMOGLOBIN 10.7 gm/dl (11.6-16.0); LYMPH % 24.7 % (16-45); MEAN CELL VOLUME 83.6 fl (81-97); MEAN CORPUSCULAR HGB CONC 29.6 g/dl (32-36); MEAN PLATELET VOLUME 8.7 fl (7.4-10.4); MONO % 9.7 % (0-9); PLATELET COUNT 514 K/uL (130-400); RED BLOOD COUNT 4.32 M/uL (3.80-5.40); RED CELL DISTRIBUTION WIDTH 16.8 % (11.5-14.5); WHITE BLOOD COUNT W/O DIFF 10.8 K/uL (4.2-12.2)
[2018-04-30 21:06] LABS: MEAN CORPUSCULAR HEMOGLOBIN 24.7 pg (27-33)
[2018-04-30 21:15] LABS: BILIRUBIN,TOTAL < 0.20 mg/dL (0.2-1.0); BLOOD UREA NITROGEN 6 mg/dL (6-20); CREATININE 0.7 mg/dL (0.5-0.9); EST GLOMERULAR FILTRATION RATE > 60 mL/min
[2018-04-30 21:16] LABS: TOTAL PROTEIN 6.1 g/dL (6.6-8.7)
[2018-04-30 21:18] LABS: GLUCOSE,RANDOM 141 mg/dL (74-109)
[2018-04-30 21:20] LABS: ALT/SGPT 15 U/L (<33); AST/SGOT 9 U/L (10.0-35.0)
[2018-04-30 21:21] LABS: ALB/GLOB RATIO 1.8 (1.1-1.8); ALBUMIN 3.9 g/dL (4.0-5.0); ALKALINE PHOSPHATASE 73 U/L (35-104); LIPASE 25 U/L (13-60)
[2018-04-30 21:41] LABS: URINE APPEARANCE CLEAR; URINE BILIRUBIN NEGATIVE (NEGATIVE); URINE BLOOD NEGATIVE (NEGATIVE); URINE COLOR YELLOW; URINE GLUCOSE (UA) NEGATIVE (NEGATIVE); URINE KETONE NEGATIVE (NEGATIVE); URINE LEUKOCYTE ESTERASE NEGATIVE (NEGATIVE); URINE NITRITE NEGATIVE (NEGATIVE); URINE PROTEIN NEGATIVE (NEGATIVE); URINE UROBILINOGEN 0.2 E.U./dL (0.20 - 1.00)
[2018-05-01] MEDS ORDERED: DIPHENHYDRAMINE HCL 50 MG/ML VIAL IVP ONE (02:24)
[2018-05-01] MEDS ORDERED: HYDROMORPHONE HCL 2 MG/ML VIAL IVP ONE (02:36)
[2018-05-01] MEDS ORDERED: HEPARIN SODIUM FLUSH 100 UNITS/ML SYR 5ML IVP ONE (02:43)
--- NOTE | 2018-05-02 13:22 | CT SCAN REPORT ---
DATE: 03/30/2018. EXAM: CT OF THE ABDOMEN AND PELVIS WITHOUT CONTRAST. HISTORY: Abdominal pain and bloating. TECHNIQUE: CT of the abdomen and pelvis was performed without intravenous contrast. This limits evaluation of solid visceral organs. Oral contrast was utilized. COMPARISON: Prior CT from 04/05/2018. FINDINGS: Limited evaluation of the lung bases is unremarkable. Osseous structures are grossly intact. Limited evaluation of the liver, spleen, and right adrenal gland is unremarkable. There is a stable left adrenal nodule versus exophytic left renal cyst. The kidneys are otherwise unremarkable. The patient is status post right hemicolectomy. No free air or free fluid. Patulous appearance to the bowel at the level of the anastomosis. However, similar findings were present previously. No convincing evidence for obstruction. A mildly dilated, thick-walled loop of small bowel near the anastomotic site is also present. However, this may in part relate to incomplete distension of bowel. Small, fat-containing anterior abdominal wall hernia. Gas and stool throughout the colon IMPRESSION: 1. POSTSURGICAL CHANGES CONSISTENT WITH RIGHT HEMICOLECTOMY. GAS AND STOOL THROUGHOUT THE COLON. THE APPEARANCE IS SIMILAR WHEN COMPARED TO THE PRIOR EXAMINATION. MILDLY PROMINENT, THICK-WALLED LOOP OF SMALL BOWEL DISTAL TO THE ANASTOMOTIC SITE. HOWEVER, THIS IS ALSO STABLE IN APPEARANCE. 2. MULTIPLE OTHER CHRONIC FINDINGS ABOVE. JOB NUMBER: [id number] [facility]
== END 2018-05-01 03:00 | disposition home or self-care (01) ==
LOC: ER 20:02
DX: K50.012 Crohn's disease of small intestine with intestinal obstruction (principal); R19.7 Diarrhea, unspecified; F17.210 Nicotine dependence, cigarettes, uncomplicated
CPT/HCPCS: 74176; 80053; 81003; 83605; 83690; 85025; 96361; 96374; 96375; 96376; 99284; J1200; J2405; J7030

== ENCOUNTER 2018-05-10 18:13 | Observation (INO) | payer MEDICAID ==
[2018-05-10] MEDS ORDERED: HYDROMORPHONE HCL 2 MG/ML VIAL IVP ONE (18:36)
[2018-05-10] MEDS ORDERED: ONDANSETRON HCL IV 4 MG/2 ML VIAL IVP ONE ×2 (18:36→20:36)
[2018-05-10] MEDS ORDERED: DIPHENHYDRAMINE HCL 50 MG/ML VIAL IVP ONE (18:36)
--- NOTE | 2018-05-10 18:41 | Emergency Department Record ---
History of Present Illness - General Chief Complaint: Abdominal Pain Stated Complaint: ABDOMINAL PAIN/NAUSEA Time Seen by Provider: 05/10/18 18:23 Source: Patient Mode of Arrival: Ambulatory Limitations: No limitations - History of Present Illness Initial Comments: 52 yo female presents to ED for worsening abdominal pain symptoms today following recent admission for ileus at [facility] 6 days ago (released 4 days ago). Patient has a long standing history of crohn's, denies fevers, chills, vomiting , or change in stools. Patient has recently seen her GI specialist (Dr. De Leon) earlier this month as well. Patient reports that her pain and bloating symptoms are similar to previous ileus episodes. MD Complaint: Abdominal pain Onset/Timin -: Hour(s) Location: Diffuse Radiation: None Migration to: No migration Severity: Moderate Severity scale (1-10): 8 Consistency: Constant Improves With: Nothing Worsens With: Nothing Associated Symptoms: Denies other symptoms - Related Data Patient : No Hx Age of Menopause: 47 Previous Rx's Medication Instructions Recorded Prednisone [Prednisone 20Mg] 20 mg PO BID #10 tab 04/01/18 Vit W/ Iron 1 each PO DAILY 30 Days #30 tab 04/06/18 Fluconazole [Diflucan] 150 mg PO ONCE 1 Days #1 tab 04/28/18 Hydrocodone/APAP 7.5/325Mg [[place] 1 each PO Q6H PRN #18 tab 04/28/18 7.5MG/325Mg] Ondansetron HCl [Zofran] 4 mg PO Q6HR #30 tablet 04/28/18 Allergies Allergy/AdvReac Type Severity Reaction Status Date / Time promethazine HCl Allergy Mild ITCHING Verified 04/18/18 11:09 [From Phenergan] adalimumab [From HUMIRA] Allergy Unknown MIGRAINES Verified 04/18/18 11:09 aspirin [ASPIRIN] Allergy Unknown NAUSEA AND Verified 04/18/18 11:09 VOMITING azathioprine [From IMURAN] Allergy Unknown VOMITING Verified 04/18/18 11:09 azathioprine sodium Allergy Unknown VOMITING Verified 04/18/18 11:09 [From IMURAN] chlordiazepoxide HCl Allergy Unknown RASH Verified 04/18/18 11:09 [From LIBRIUM] citalopram hydrobromide Allergy Unknown HYPERSENSIT Verified 04/18/18 11:09 [From CELEXA] IVITY clidinium [CLIDINIUM] Allergy Unknown RASH Verified 04/18/18 11:09 codeine Allergy Unknown ITCHING Verified 04/18/18 11:09 eicosapentaenoic acid Allergy Unknown RASH Verified 04/18/18 11:09 [From OMEGA 3] hydrocodone bitartrate Allergy Unknown ITCHING Verified 04/18/18 11:09 [From VICODIN] hydromorphone HCl Allergy Unknown ITCHING Verified 04/18/18 11:09 infliximab Allergy Unknown VOMITING Verified 04/18/18 11:09 metoclopramide Allergy Unknown ALTERED Verified 04/18/18 11:09 [METOCLOPRAMIDE] MENTAL STATUS morphine [MORPHINE] Allergy Unknown ITCHING Verified 04/18/18 11:09 omega-3 fatty acids Allergy Unknown RASH Verified 04/18/18 11:09 [From OMEGA 3] oxycodone HCl [From PERCOCET] Allergy Unknown ITCHING Verified 04/18/18 11:09 paroxetine HCl [From PAXIL] Allergy Unknown RASH Verified 04/18/18 11:09 varenicline tartrate Allergy Unknown ALTERED Verified 04/18/18 11:09 [From CHANTIX] MENTAL STATUS Travel Screening - Travel/Exposure Within Last 30 Days Have you traveled within the last 30 days?: No - Travel/Exposure Within Last Year Have you traveled outside the [place] in the last year?: No - Additonal Travel Details Have you been exposed to anyone with a communicable illness?: No - Travel Symptoms Symptom Screening: None Review of Systems Constitutional: Denies: Chills, Fever, Malaise, Night sweats Eyes: Denies: Eye discharge, Eye pain ENT: Denies: Congestion, Ear pain, Epistaxis Respiratory: Denies: Cough, Dyspnea Cardiovascular: Denies: Chest pain, Dyspnea on exertion Endocrine: Denies: Fatigue, Heat or cold intolerance Gastrointestinal: Reports: Abdominal pain, Nausea. Denies: Vomiting Genitourinary: Denies: Incontinence, Retention Musculoskeletal: Denies: Arthralgia, Back pain Skin: Denies: Bruising, Change in color Neurological: Denies: Abnormal gait, Confusion, Headache Psychiatric: Denies: Anxiety Hematological/Lymphatic: Denies: Anemia, Blood Clots Past Medical History - SOCIAL HISTORY Smoking Status: Light tobacco smoker (<10/day) Alcohol Use: None Drug Use: None - RESPIRATORY Hx Respiratory Disorders: No - CARDIOVASCULAR Hx Cardio Disorders: Yes Hx Abnormal EKG: Yes (r/t anxiety) Hx Chest Pain: Yes (r/t anxiety) - NEURO Hx Neuro Disorders: Yes Hx Seizures: Yes (last seizure 12 years ago) Hx TIA: Yes (2009) - GI Hx GI Disorders: Yes Hx Abdominal Pain: Yes Hx Crohn's Disease: Yes (Diagnosed about 9 years ago; managed by Dr. Greyson Haddad ) Hx Reflux: Yes Hx Irritable Bowel: Yes Hx Nausea/Vomiting: Yes Hx Obstructive Bowel: Yes (Admitted for Crohns, ileus and possible partial bowel obstruction) Comment:: crohns colitis - Hx Genitourinary Disorders: No Comment:: going through menopause - ENDOCRINE Hx Endocrine Disorders: No Hx Diabetes: No Hx Thyroid Disease: No - MUSCULOSKELETAL Hx Musculoskeletal Disorders: Yes Hx Arthritis: Yes Comment:: rds in right ankle - PSYCH Hx Psych Problems: Yes Hx Anxiety: Yes Hx Depression: Yes - HEMATOLOGY/ONCOLOGY Hx Hematology/Oncology Disorders: No Hx Anemia: No Hx Blood Disorders: No Hx Bruising: No Hx Cancer: No Hx Clotting Problems: No Hx Sickle Cell Disease: No Hx Unexplained Bleeding: No Hx Blood Transfusions: No Hx Blood Transfusion Reaction: No Family Medical History Any Significant Family History?: No Hx Alcohol Use: Father, Brother/Sister Hx Cancer: Brother/Sister *Cancer Comment: lung cancer Hx Diabetes: Grandparents *Diabetes Comment: grandmother Hx Heart Disease: Grandparents *Heart Comment: grandfather Hx Resp Disorders: Children *Resp Comment: daughter has asthma Hx Stroke: Mother *Stroke Comment: Mother had history of TIA x 1 Physical Exam - General General Appearance: Alert, Oriented x3, Cooperative, Moderate distress Limitations: No limitations - Head Head exam: Atraumatic, Normocephalic, Normal inspection Head exam detail: negative: Abrasion, Contusion, Morna's sign, General tenderness, Hematoma, Laceration - Eye Eye exam: Normal appearance. negative: Conjunctival injection, Periorbital swelling, Periorbital tenderness, Scleral icterus - ENT Ear exam: negative: Auricular hematoma, Auricular trauma Nasal Exam: negative: Active bleeding, Discharge, Dried blood, Foreign body Mouth exam: negative: Drooling, Laceration, Tongue elevation - Neck Neck exam: Normal inspection. negative: Meningismus, Tenderness - Respiratory Respiratory exam: Normal lung sounds bilaterally. negative: Respiratory distress, Rhonchi, Stridor, Wheezes - Cardiovascular Cardiovascular Exam: Regular rate, Normal rhythm, Normal heart sounds - GI/Abdominal GI/Abdominal exam: Soft, Distended, Hyperactive bowel sounds, Tenderness ( Diffuse distention and TTP, no rebound or guarding are present, no peritoneal signs are present on examin ation.). negative: Rebound, Rigid - Rectal Rectal exam: Deferred - exam: Deferred - Extremities Extremities exam: Normal inspection. negative: Calf tenderness, Pedal edema, Tenderness - Back Back exam: Denies: CVA tenderness (R), CVA tenderness (L) - Neurological Neurological exam: Alert, Normal gait, Oriented X3 - Psychiatric Psychiatric exam: Normal affect, Normal mood - Skin Skin exam: Normal color. negative: Abrasion Type of lesion: negative: abrasion Course Vital Signs 05/10/18 18:24 Temperature 98.8 F Pulse Rate 116 H Respiratory 20 Rate Blood Pressure 112/41 Pulse Ox 98 - Reevaluation(s) Reevaluation #1: 05/10/18 18:41 Patient was seen and examined, reports recent admission to [facility] 6 days ago. Will initiate evaluation with [facility] and laboratory studies and reassess, recent admission records requested as well. IVFs and analgesia ordered as well. Reevaluation #2: 05/10/18 19:35 Labs reviewed, WBC 16.3, labs are otherwise grossly unremarkable for an acute process. Patient is currently going to radiology for imaging. Reevaluation #3: 05/10/18 20:32 Abdomen Series: Gaseous distention of the abdomen with diffuse air fluids levels present favoring ileus Reevaluation #4: 05/10/18 20:48 Case was discussed with Dr. Rodriguez, will accept admission at this time. Medical Decision Making - Lab Data Result diagrams: 05/10/18 19:05 05/10/18 19:05 Disposition Disposition: Admit Clinical Impression: Ileus Disposition: Still a Patient at [facility] Decision to Admit: Admit from ER Decision to Admit Date: 05/10/18 Decision to Admit Time: 20:34 Condition: (2) Stable Forms: Patient Portal Access Time of Disposition: 20:34 Quality - Quality Measures Quality Measures: N/A - Blood Pressure Screening Does Patient Have Any of the Following: No Blood Pressure Classification: Normal BP Reading Systolic Measurement: 112 Diastolic Measurement: 41 Screening for High Blood Pressure: < Normal BP, F/U Not Required > [[id number]]
[2018-05-10] MEDS ORDERED: 0.9 % SODIUM CHLORIDE 1000ML 1,000 ML IV SCH (18:45)
[2018-05-10 19:12] LABS: BASO % 0.2 % (0-6); EOS % 2.6 % (0-6); GRAN % 61.8 % (47-80); HEMATOCRIT 41.7 % (35.0-47.0); HEMOGLOBIN 12.5 gm/dl (11.6-16.0); LYMPH % 24.9 % (16-45); MEAN CELL VOLUME 84.4 fl (81-97); MEAN CORPUSCULAR HEMOGLOBIN 25.3 pg (27-33); MEAN PLATELET VOLUME 9.1 fl (7.4-10.4); MONO % 10.5 % (0-9); PLATELET COUNT 517 K/uL (130-400); RED BLOOD COUNT 4.94 M/uL (3.80-5.40); RED CELL DISTRIBUTION WIDTH 17.6 % (11.5-14.5); WHITE BLOOD COUNT W/O DIFF 16.3 K/uL (4.2-12.2)
[2018-05-10 19:25] LABS: BILIRUBIN,TOTAL < 0.20 mg/dL (0.2-1.0); BLOOD UREA NITROGEN 7 mg/dL (6-20); CREATININE 0.7 mg/dL (0.5-0.9); EST GLOMERULAR FILTRATION RATE > 60 mL/min
[2018-05-10 19:26] LABS: TOTAL PROTEIN 6.3 g/dL (6.6-8.7)
[2018-05-10 19:28] LABS: GLUCOSE,RANDOM 111 mg/dL (74-109)
[2018-05-10 19:30] LABS: ALT/SGPT 16 U/L (<33)
[2018-05-10 19:31] LABS: ALB/GLOB RATIO 1.6 (1.1-1.8); ALBUMIN 3.9 g/dL (4.0-5.0); ALKALINE PHOSPHATASE 69 U/L (35-104); AST/SGOT 8 U/L (10.0-35.0); LIPASE 39 U/L (13-60)
[2018-05-10] MEDS ORDERED: VENLAFAXINE ER 37.5 MG CAPSULE PO SCH (21:43)
[2018-05-10] MEDS ORDERED: METHYLPREDNISOLONE PF 125MG/VIAL IVP ONE (21:43)
[2018-05-10] MEDS: 0.9 % SODIUM CHLORIDE 1000ML 1,000 ML IV PRN (22:16)
[2018-05-10] MEDS ORDERED: DIPHENHYDRAMINE HCL 25 MG CAPSULE PO PRN (23:06)
[2018-05-10] MEDS: HYDROMORPHONE HCL 2 MG/ML VIAL IV PRN (23:15)
--- NOTE | 2018-05-10 23:58 | RADIOLOGY REPORT ---
EXAM: ABDOMEN, ACUTE SERIES HISTORY: LOWER ABDOMINAL PAIN AND BLOATING FOR ONE DAY. HISTORY OF CROHN'S DISEASE. COMPARISON: 04/27/18. TECHNIQUE: Acute abdominal series with chest radiograph. FINDINGS: Within the chest, a right PIC is present with tip in the SVC. Cardiomediastinal silhouette is stable. Lungs and pleural spaces are clear. Within the abdomen, there is mild gaseous distention of bowel loops. No focally dilated air-filled loop of bowel. Scattered nonspecific air fluid levels suggesting ileus. Previous surgical changes are noted. No suspicious calcifications. IMPRESSION: GASEOUS PROMINENCE OF BOWEL LOOPS THROUGHOUT THE ABDOMEN AND PELVIS, OVERALL SIMILAR TO PREVIOUS 04/27/18 EXAM. FINDINGS FAVOR ILEUS. JOB NUMBER: [id number] MTDD
[2018-05-11] MEDS ORDERED: DIPHENHYDRAMINE HCL 25 MG CAPSULE PO ONE (00:57)
[2018-05-11] MEDS: HYDROMORPHONE HCL 2 MG/ML VIAL IV PRN ×4 (02:55→12:10)
[2018-05-11] MEDS: ONDANSETRON HCL IV 4 MG/2 ML VIAL IVP PRN ×3 (03:12→12:16)
[2018-05-11] MEDS: DIPHENHYDRAMINE HCL 50 MG/ML VIAL IVP PRN ×2 (05:15→13:05)
[2018-05-11] MEDS: 0.9 % SODIUM CHLORIDE 1000ML 1,000 ML IV PRN (05:40)
--- NOTE | 2018-05-11 08:54 | History & Physical ---
History of Present Illness - Date of Service Date of Service for History & Physical: 05/11/18 - History of Present Illness Admitting Diagnosis: Ileus. Crohn's flare History of Present Illness: Ms. Otero is a 52 y/o female with Crohn's disease with frequent flares who presents with complaint of acute abdominal pain and distension yesterday. The patient reports that her pain was sharp, 10/10 in severity and isolated to the upper abdomen. She denies any changes in bowel movements, blood in stool or loss of weight. She was most recently seen at [facility] with similar complaint and small bowel series which showed findings of small bowel loop distension but normal gas distribution. The patient has also been to [facility] twice with the same complaint. She is being seen by GI and the recommendation has been for the patient to resume Entyvio therapy as planned but she has missed treatment since November for numerous reasons. She has now had a right PICC line placed to resume infusions, the next one is scheduled for June 01 at [facility]. On admission, the patient had abdominal xray which similar to previous imaging showing bowel distension with mild ileus. Her white count is elevated at 16K which is consistent with her recent use of oral steroids. She is admitted for IV fluids, steroids and pain management. One examination this morning the patient is tearful and has some abdominal pain which she rates 6/10 right now. Travel Screening - Travel/Exposure Within Last 30 Days Have you traveled within the last 30 days?: No - Travel/Exposure Within Last Year Have you traveled outside the [place] in the last year?: No - Additonal Travel Details Have you been exposed to anyone with a communicable illness?: No - Travel Symptoms Symptom Screening: Headache, Fatigue, Diarrhea, Stomach Pain, Lack of Appetite Review of Systems Constitutional: Denies: Chills, Fever, Malaise, Night sweats Eyes: Denies: Eye discharge, Eye pain ENT: Denies: Congestion, Ear pain, Epistaxis Respiratory: Denies: Cough, Dyspnea Cardiovascular: Denies: Chest pain, Dyspnea on exertion Endocrine: Denies: Fatigue, Heat or cold intolerance Gastrointestinal: Reports: Abdominal pain, Nausea. Denies: Vomiting Genitourinary: Denies: Incontinence, Retention Musculoskeletal: Denies: Arthralgia, Back pain Skin: Denies: Bruising, Change in color Neurological: Denies: Abnormal gait, Confusion, Headache Psychiatric: Denies: Anxiety Hematological/Lymphatic: Denies: Anemia, Blood Clots Past Medical History - SOCIAL HISTORY Smoking Status: Light tobacco smoker (<10/day) Alcohol Use: None Drug Use: None - RESPIRATORY Hx Respiratory Disorders: No - CARDIOVASCULAR Hx Cardio Disorders: Yes Hx Abnormal EKG: Yes (r/t anxiety) Hx Chest Pain: Yes (r/t anxiety) - NEURO Hx Neuro Disorders: Yes Hx Seizures: Yes (last seizure 12 years ago) Hx TIA: Yes (2009) - GI Hx GI Disorders: Yes Hx Abdominal Pain: Yes Hx Crohn's Disease: Yes (Diagnosed about 9 years ago; managed by Dr. Greyson Haddad ) Hx Reflux: Yes Hx Irritable Bowel: Yes Hx Nausea/Vomiting: Yes Hx Obstructive Bowel: Yes (Admitted for Crohns, ileus and possible partial bowel obstruction) Comment:: crohns colitis - Hx Genitourinary Disorders: No Comment:: going through menopause - ENDOCRINE Hx Endocrine Disorders: No Hx Diabetes: No Hx Thyroid Disease: No - MUSCULOSKELETAL Hx Musculoskeletal Disorders: Yes Hx Arthritis: Yes Comment:: rds in right ankle - PSYCH Hx Psych Problems: Yes Hx Anxiety: Yes Hx Depression: Yes - HEMATOLOGY/ONCOLOGY Hx Hematology/Oncology Disorders: No Hx Anemia: No Hx Blood Disorders: No Hx Bruising: No Hx Cancer: No Hx Clotting Problems: No Hx Sickle Cell Disease: No Hx Unexplained Bleeding: No Hx Blood Transfusions: No Hx Blood Transfusion Reaction: No Family Medical History Any Significant Family History?: No Hx Alcohol Use: Father, Brother/Sister Hx Cancer: Brother/Sister *Cancer Comment: lung cancer Hx Diabetes: Grandparents *Diabetes Comment: grandmother Hx Heart Disease: Grandparents *Heart Comment: grandfather Hx Resp Disorders: Children *Resp Comment: daughter has asthma Hx Stroke: Mother *Stroke Comment: Mother had history of TIA x 1 H&P Meds/Allergies - Allergies Allergies: Allergies Allergy/AdvReac Type Severity Reaction Status Date / Time promethazine HCl Allergy Mild ITCHING Verified 04/18/18 11:09 [From Phenergan] adalimumab [From HUMIRA] Allergy Unknown MIGRAINES Verified 04/18/18 11:09 aspirin [ASPIRIN] Allergy Unknown NAUSEA AND Verified 04/18/18 11:09 VOMITING azathioprine [From IMURAN] Allergy Unknown VOMITING Verified 04/18/18 11:09 azathioprine sodium Allergy Unknown VOMITING Verified 04/18/18 11:09 [From IMURAN] chlordiazepoxide HCl Allergy Unknown RASH Verified 04/18/18 11:09 [From LIBRIUM] citalopram hydrobromide Allergy Unknown HYPERSENSIT Verified 04/18/18 11:09 [From CELEXA] IVITY clidinium [CLIDINIUM] Allergy Unknown RASH Verified 04/18/18 11:09 codeine Allergy Unknown ITCHING Verified 04/18/18 11:09 eicosapentaenoic acid Allergy Unknown RASH Verified 04/18/18 11:09 [From OMEGA 3] hydrocodone bitartrate Allergy Unknown ITCHING Verified 04/18/18 11:09 [From VICODIN] hydromorphone HCl Allergy Unknown ITCHING Verified 04/18/18 11:09 infliximab Allergy Unknown VOMITING Verified 04/18/18 11:09 metoclopramide Allergy Unknown ALTERED Verified 04/18/18 11:09 [METOCLOPRAMIDE] MENTAL STATUS morphine [MORPHINE] Allergy Unknown ITCHING Verified 04/18/18 11:09 omega-3 fatty acids Allergy Unknown RASH Verified 04/18/18 11:09 [From OMEGA 3] oxycodone HCl [From PERCOCET] Allergy Unknown ITCHING Verified 04/18/18 11:09 paroxetine HCl [From PAXIL] Allergy Unknown RASH Verified 04/18/18 11:09 varenicline tartrate Allergy Unknown ALTERED Verified 04/18/18 11:09 [From CHANTIX] MENTAL STATUS - Home Medications Previous Rx's Medication Instructions Recorded Prednisone [Prednisone 20Mg] 20 mg PO BID #10 tab 04/01/18 Vit W/ Iron 1 each PO DAILY 30 Days #30 tab 04/06/18 Fluconazole [Diflucan] 150 mg PO ONCE 1 Days #1 tab 04/28/18 Hydrocodone/APAP 7.5/325Mg [[place] 1 each PO Q6H PRN #18 tab 04/28/18 7.5MG/325Mg] Ondansetron HCl [Zofran] 4 mg PO Q6HR #30 tablet 04/28/18 - Active Medications Active Medications: Current Medications Diphenhydramine HCl (Benadryl) 25 mg IVP Q6H PRN PRN Reason: ITCHING Last Admin: 05/11/18 05:15 Dose: 25 mg Hydromorphone HCl (Dilaudid) 1 mg IV Q2H PRN PRN Reason: ABDOMINAL PAIN Last Admin: 05/11/18 07:34 Dose: 1 mg Sodium Chloride () 1,000 mls @ 125 mls/hr IV .Q8H PRN PRN Reason: LARGE VOLUME IV Last Admin: 05/11/18 05:40 Dose: 125 mls/hr Ondansetron HCl (Zofran) 4 mg IVP Q4H PRN PRN Reason: NAUSEA Last Admin: 05/11/18 07:37 Dose: 4 mg Venlafaxine HCl (Effexor Xr) 37.5 mg PO QD OSMANY Last Admin: 05/10/18 22:07 Dose: Not Given Physical Exam - Vital Signs Vital Signs: Vital Signs - Last 24 Hrs Temp Pulse Pulse Resp BP BP BP 05/11/18 06:00 97.8 F 79 18 92/58 05/10/18 21:43 98.1 F 88 18 129/93 05/10/18 21:15 92 H 24 95/59 05/10/18 18:24 98.8 F 116 H 20 112/41 Pulse Ox 05/11/18 06:00 99 05/10/18 21:43 05/10/18 21:15 97 05/10/18 18:24 98 - General General Appearance: Alert, Oriented x3, Cooperative, Moderate distress Limitations: No limitations - Head Head exam: Atraumatic, Normocephalic, Normal inspection Head exam detail: negative: Abrasion, Contusion, Mroan's sign, General tenderness, Hematoma, Laceration - Eye Eye exam: Normal appearance. negative: Conjunctival injection, Periorbital swelling, Periorbital tenderness, Scleral icterus - ENT Ear exam: negative: Auricular hematoma, Auricular trauma Nasal Exam: negative: Active bleeding, Discharge, Dried blood, Foreign body Mouth exam: negative: Drooling, Laceration, Tongue elevation - Neck Neck exam: Normal inspection. negative: Meningismus, Tenderness - Respiratory Respiratory exam: Normal lung sounds bilaterally. negative: Respiratory distress, Rhonchi, Stridor, Wheezes - Cardiovascular Cardiovascular Exam: Regular rate, Normal rhythm, Normal heart sounds - GI/Abdominal GI/Abdominal exam: Soft, Distended, Hyperactive bowel sounds, Tenderness ( Diffuse distention and TTP, no rebound or guarding are present, no peritoneal signs are present on examin ation.). negative: Rebound, Rigid - Rectal Rectal exam: Deferred - exam: Deferred - Extremities Extremities exam: Normal inspection. negative: Calf tenderness, Pedal edema, Tenderness - Back Back exam: Denies: CVA tenderness (R), CVA tenderness (L) - Neurological Neurological exam: Alert, Normal gait, Oriented X3 - Psychiatric Psychiatric exam: Normal affect, Normal mood - Skin Skin exam: Normal color. negative: Abrasion Type of lesion: negative: abrasion Results - Labs Result Diagrams: 05/10/18 19:05 05/10/18 19:05 Labs Last 24 Hours: Laboratory Results - last 24 hr 05/10/18 05/10/18 19:05 19:05 WBC 16.3 H RBC 4.94 Hgb 12.5 Hct 41.7 MCV 84.4 MCH 25.3 L MCHC 30.0 L RDW 17.6 H Plt Count 517 H MPV 9.1 Gran % 61.8 Lymphocytes % 24.9 Monocytes % 10.5 H Eosinophils % 2.6 Basophils % 0.2 Sodium 146 H Potassium 3.9 Chloride 103 Carbon Dioxide 23.0 Anion Gap 20.0 H BUN 7 Creatinine 0.7 Estimated GFR > 60 Random Glucose 111 H Calcium 8.8 Total Bilirubin < 0.20 L AST 8 L ALT 16 Alkaline Phosphatase 69 Total Protein 6.3 L Albumin 3.9 L Globulin 2.4 Albumin/Globulin Ratio 1.6 Lipase 39 VTE H&P Assessment - Risk for VTE Risk for VTE: Yes Risk Level: High Risk Assessment Date: 05/11/18 Risk Assessment Time: 09:14 VTE Orders Placed or Will Be Placed: Yes Plan - Detailed Diagnosis and Plan (1) Ileus Current Visit: Yes Status: Acute Base Code: K56.7 - ILEUS, UNSPECIFIED Comment: 05/11/18: - Abdominal xray showing distended bowel loops suggestive of ileus. 01/23/18: CT abdomen : + for ileus. - Marked abdominal pain 6/10, prominent distension on exam. - IV Nacl 0.9% @ 125mL/hr, Dilaudid 1mg Q2H PRN, Zofran 4mg Q4H PRN. - Advance diet as tolerated, currently NPO. - Surgery consulted: no acute intervention needed at this time. Follow up with GI for infusions. (2) Crohn disease Current Visit: No Status: Acute Qualifiers: Gastrointestinal tract location: unspecified location Digestive disease complication type: unspecified complication Qualified Code(s): K50.919 - Crohn 's disease, unspecified, with unspecified complications Base Code: K50.90 - CROHN'S DISEASE, UNSPECIFIED, WITHOUT COMPLICATIONS Comment: 05/11/18: - Hx of Chrons' with freqient flares. - IV steroids, NPO, IVF fluids @ 125mL/hr - Entyvio IV via right upper ext PICC on May 31. - Follows with Dr. Thorpe and [facility] for care. (3) Depression Current Visit: Yes Status: Acute Base Code: F32.9 - MAJOR DEPRESSIVE DISORDER, SINGLE EPISODE, UNSPECIFIED Comment: 05/11/18: - pt is emotional/tearful this morning about her condition. - cont home dose of Effexor. (4) DVT prophylaxis Current Visit: No Status: Acute Base Code: [id number] - Comment: 05/11/18: - will order Lovenox 40mg daily. (5) Full code status Current Visit: No Status: Acute Base Code: Z78.9 - OTHER SPECIFIED HEALTH STATUS Comment: 05/11/18: - FULL CODE - Disposition D/C home today if diet advanced.
[2018-05-11] MEDS ORDERED: VENLAFAXINE ER 37.5 MG CAPSULE PO SCH (10:30)
--- NOTE | 2018-05-11 14:55 | Discharge Summary ---
Providers Discharge Summary Date: 05/11/18 Date of admission: 05/10/18 21:25 Attending physician: SUPRIYA CHEUNG Primary care physician: SUPRIYA CHEUNG Consults: Consult Orders 05/11/18 08:09 Consult NOW Consulting Provider: Braulio Linda Physician Instructions: Pt had apt today at 8:00 am, pt is now in room 22 Reason For Exam: Ileus, crohn's Physical Exam - Vital Signs Vital Signs: Vital Signs - Last 24 Hrs Temp Pulse Pulse Resp BP BP BP 05/11/18 06:00 97.8 F 79 18 92/58 05/10/18 21:43 98.1 F 88 18 129/93 05/10/18 21:15 92 H 24 95/59 05/10/18 18:24 98.8 F 116 H 20 112/41 Pulse Ox 05/11/18 06:00 99 05/10/18 21:43 05/10/18 21:15 97 05/10/18 18:24 98 - General General Appearance: Alert, Oriented x3, Cooperative, Moderate distress Limitations: No limitations - Head Head exam: Atraumatic, Normocephalic, Normal inspection Head exam detail: negative: Abrasion, Contusion, Moran's sign, General tenderness, Hematoma, Laceration - Eye Eye exam: Normal appearance. negative: Conjunctival injection, Periorbital swelling, Periorbital tenderness, Scleral icterus - ENT Ear exam: negative: Auricular hematoma, Auricular trauma Nasal Exam: negative: Active bleeding, Discharge, Dried blood, Foreign body Mouth exam: negative: Drooling, Laceration, Tongue elevation - Neck Neck exam: Normal inspection. negative: Meningismus, Tenderness - Respiratory Respiratory exam: Normal lung sounds bilaterally. negative: Respiratory distress, Rhonchi, Stridor, Wheezes - Cardiovascular Cardiovascular Exam: Regular rate, Normal rhythm, Normal heart sounds - GI/Abdominal GI/Abdominal exam: Soft, Distended, Hyperactive bowel sounds, Tenderness ( Diffuse distention and TTP, no rebound or guarding are present, no peritoneal signs are present on examin ation.). negative: Rebound, Rigid - Rectal Rectal exam: Deferred - exam: Deferred - Extremities Extremities exam: Normal inspection. negative: Calf tenderness, Pedal edema, Tenderness - Back Back exam: Denies: CVA tenderness (R), CVA tenderness (L) - Neurological Neurological exam: Alert, Normal gait, Oriented X3 - Psychiatric Psychiatric exam: Normal affect, Normal mood - Skin Skin exam: Normal color. negative: Abrasion Type of lesion: negative: abrasion Hospitalization - Hospitalization Admission Diagnosis: Ileus. Crohn's flare - Problem List/Discharge Diagnosis (1) Ileus Current Visit: Yes Status: Acute Base Code: K56.7 - ILEUS, UNSPECIFIED Comment: 05/11/18: - Abdominal xray showing distended bowel loops suggestive of ileus. 01/23/18: CT abdomen : + for ileus. - Marked abdominal pain 04/26, prominent distension on exam. - IV Nacl 0.9% @ 125mL/hr, Dilaudid 1mg Q2H PRN, Zofran 4mg Q4H PRN. - Advance diet as tolerated, currently NPO. - Surgery consulted: no acute intervention needed at this time. Follow up with GI for infusions. (2) Crohn disease Current Visit: No Status: Acute Discharge Diagnosis: Gastrointestinal tract location: unspecified location Digestive disease complication type: unspecified complication Qualified Code(s): K50.919 - Crohn 's disease, unspecified, with unspecified complications Base Code: K50.90 - CROHN'S DISEASE, UNSPECIFIED, WITHOUT COMPLICATIONS Comment: 05/11/18: - Hx of Chrons' with freqient flares. - IV steroids, NPO, IVF fluids @ 125mL/hr - Entyvio IV via right upper ext PICC on May 31. - Follows with Dr. Thorpe and [facility] for care. (3) Depression Current Visit: Yes Status: Acute Base Code: F32.9 - MAJOR DEPRESSIVE DISORDER, SINGLE EPISODE, UNSPECIFIED Comment: 05/11/18: - pt is emotional/tearful this morning about her condition. - cont home dose of Effexor. (4) DVT prophylaxis Current Visit: No Status: Acute Base Code: [id number] - Comment: 05/11/18: - will order Lovenox 40mg daily. (5) Full code status Current Visit: No Status: Acute Base Code: Z78.9 - OTHER SPECIFIED HEALTH STATUS Comment: 05/11/18: - FULL CODE - Disposition D/C home today if diet advanced. - Hospitalization Course Hospital Course: Ms. Otero is a 52 y/o female with Crohn's disease with frequent flares who presents with complaint of acute abdominal pain and distension yesterday. The patient reports that her pain was sharp, 10/10 in severity and isolated to the upper abdomen. She denies any changes in bowel movements, blood in stool or loss of weight. She was most recently seen at [facility] with similar complaint and small bowel series which showed findings of small bowel loop distension but normal gas distribution. The patient has also been to [facility] twice with the same complaint. She is being seen by GI and the recommendation has been for the patient to resume Entyvio therapy as planned but she has missed treatment since November for numerous reasons. She has now had a right PICC line placed to resume infusions, the next one is scheduled for June 01 at [facility]. On admission, the patient had abdominal xray which similar to previous imaging showing bowel distension with mild ileus. Her white count is elevated at 16K which is consistent with her recent use of oral steroids. She is admitted for IV fluids, steroids and pain management. One examination this morning the patient is tearful and has some abdominal pain which she rates 6/10 right now. The patient was seen General surgery this morning and there was no recommendation of intervention. She has tolerated clear liquids and has advanced her diet this afternoon without issue. She says that her pain has improved and she feels better than when she came in yesterday. Procedures: Imaging and X-Rays 05/10/18 18:36 ABDOMEN, ACUTE SERIES [RAD] Stat Abnormal Labs: Abnormal Lab Results 05/10/18 05/10/18 Range/Units 19:05 19:05 WBC 16.3 H (4.2-12.2) K/uL MCH 25.3 L (27-33) pg MCHC 30.0 L (32-36) g/dl RDW 17.6 H (11.5-14.5) % Plt Count 517 H (130-400) K/uL Monocytes % 10.5 H (0-9) % Sodium 146 H (136-145) mmol/L Anion Gap 20.0 H (7-16) Random Glucose 111 H (74-109) mg/dL Total Bilirubin < 0.20 L (0.2-1.0) mg/dL AST 8 L (10.0-35.0) U/L Total Protein 6.3 L (6.6-8.7) g/dL Albumin 3.9 L (4.0-5.0) g/dL Condition at Discharge: (2) Stable Discharge Medications - Discharge Medications Prescriptions: Hydrocodone/Acetaminophen [Freeport 7.5-325 Tablet] 1 each PO Q6HR PRN #15 tablet PRN Reason: Abdominal Pain Pantoprazole Sodium [Protonix] 40 mg PO DAILY #14 tablet. Home Medications: Ambulatory Orders Calcium Carbonate [Calcium] 500 mg PO QD tab 12/17/17 [Last Taken 04/27/18] Prednisone [Prednisone 20Mg] 20 mg PO BID #10 tab 04/01/18 [Last Taken 04/27/18] Vit W/ Iron 1 each PO DAILY 30 Days #30 tab 04/06/18 [Last Taken ] Fluticasone Propionate [Flonase Allergy Relief] 15.8 ml NS BID 90 Days #30 bottle 04/22/18 [Last Taken 04/27/18] Fluconazole [Diflucan] 150 mg PO ONCE 1 Days #1 tab 04/28/18 [Last Taken Unknown ] Ondansetron HCl [Zofran] 4 mg PO Q6HR #30 tablet 04/28/18 [Last Taken Unknown] Hydrocodone/Acetaminophen [Freeport 7.5-325 Tablet] 1 each PO Q6HR PRN #15 tablet 05/11/18 [Last Taken Unknown] Pantoprazole Sodium [Protonix] 40 mg PO DAILY #14 tablet. 05/11/18 [Last Taken Unknown] Discharge Plan - Discharge Instructions Activity at Discharge: Resume Usual Activities As Tolerated Diet at Discharge: Advance to Usual Diet Additional Instructions: Please follow up with Zoe Caal NP tomorrow at [facility] tomorrow as scheduled. Follow up with Dr. Thorpe for Entyvio infusions next month. Keep your PICC line clean and dressed to avoid infection. You have been prescribed medication to take at home: These include: 1. Freeport 7.5mg/325mg to be taken every 6 hours, when needed. 2. Protonix 40mg daily 3. Complete the course of oral steroids prescribed to you last week while at [facility]. Return to your nearest ED if worsening abdominal pain or new symptoms. Quality Measures - Quality Measures Quality Measures: Documentation of Current Medications in Medical Record, Screening for High Blood Pressure and F/U Documented - Current Medications Quality Measure: Measure #130: Documentation of Current Medications Documentation of Current Medications: <Current Medications Documented/Reviewed> [G8427] - Blood Pressure Screening Quality Measure: Screening for High Blood Pressure and Follow-Up Documented Does Patient Have Any of the Following: No Blood Pressure Classification: Normal BP Reading Systolic Measurement: 112 Diastolic Measurement: 41 Screening for High Blood Pressure: < Normal BP, F/U Not Required > [G8783] - Elder Abuse Suspicion Index EASI Reference Information: Mohit LUCIO, Maranda C, Portia D, Steven Zimmer.Development and validation of a tool to assist physicians identification of elder abuse: The Elder Abuse Suspicion Index (EASI ). Journal of Elder Abuse and Neglect, 2008; 20 (3): 276-300.
[2018-05-11] MEDS ORDERED: PANTOPRAZOLE SODIUM IV 40 MG VIAL IVP ONE (14:59)
[2018-05-11] MEDS ORDERED: PANTOPRAZOLE SODIUM 40 MG TABLET PO ONE (15:01)
== END 2018-05-11 16:25 | disposition home or self-care (01) ==
LOC: ER 18:13 → MEDSURG 21:25
PROVIDERS: ADMIT Internal Medicine; ATTEND Internal Medicine
DX: K56.7 Ileus, unspecified (principal); K50.90 Crohn's disease, unspecified, without complications; K21.9 Gastro-esophageal reflux disease without esophagitis; K58.9 Irritable bowel syndrome, unspecified; M19.90 Unspecified osteoarthritis, unspecified site; Z78.0 Asymptomatic menopausal state; F17.210 Nicotine dependence, cigarettes, uncomplicated; Z86.73 Personal history of transient ischemic attack (TIA), and cerebral infarction without residual deficits; K56.609 Unspecified intestinal obstruction, unspecified as to partial versus complete obstruction; F32.9 Major depressive disorder, single episode, unspecified
CPT/HCPCS: 83690; 85025; 80053; 74022; G0378 ×2; J2405 ×2; J1170 ×2; 96374; 96375; 96376; 99220; 99285; C9113; J1200; J2930; J7030

== ENCOUNTER 2018-05-20 22:32 | Emergency (ER) | payer MEDICAID ==
--- NOTE | 2018-05-20 23:03 | Emergency Department Record ---
History of Present Illness - General Chief Complaint: Recheck - Other Stated Complaint: RT ARM PAIN Time Seen by Provider: 05/20/18 22:51 Source: Patient Mode of arrival: Ambulatory Limitations: No limitations - History of Present Illness Initial Comments: pt has pain the entire length of her arm that has a picc line in it. she has no cp or sob MD Complaint: Other Onset/Timin -: Days(s) Initial Visit For: Other Returns Today for: Other Symptoms Since Prior Visit: Worsening pain, Worsening redness Treatments Prior to Arrival: Other - Related Data Previous Rx's Medication Instructions Recorded Prednisone [Prednisone 20Mg] 20 mg PO BID #10 tab 04/01/18 Vit W/ Iron 1 each PO DAILY 30 Days #30 tab 04/06/18 Fluconazole [Diflucan] 150 mg PO ONCE 1 Days #1 tab 04/28/18 Ondansetron HCl [Zofran] 4 mg PO Q6HR #30 tablet 04/28/18 Hydrocodone/Acetaminophen [Spencer 1 each PO Q6HR PRN #15 tablet 05/11/18 7.5-325 Tablet] Pantoprazole Sodium [Protonix] 40 mg PO DAILY #14 tablet. 05/11/18 Allergies Allergy/AdvReac Type Severity Reaction Status Date / Time promethazine HCl Allergy Mild ITCHING Unverified 05/12/18 08:26 [From Phenergan] adalimumab [From HUMIRA] Allergy Unknown MIGRAINES Unverified 05/12/18 08:26 aspirin [ASPIRIN] Allergy Unknown NAUSEA AND Unverified 05/12/18 08:26 VOMITING azathioprine [From IMURAN] Allergy Unknown VOMITING Unverified 05/12/18 08:26 azathioprine sodium Allergy Unknown VOMITING Unverified 05/12/18 08:26 [From IMURAN] chlordiazepoxide HCl Allergy Unknown RASH Unverified 05/12/18 08:26 [From LIBRIUM] citalopram hydrobromide Allergy Unknown HYPERSENSIT Unverified 05/12/18 08:26 [From CELEXA] IVITY clidinium [CLIDINIUM] Allergy Unknown RASH Unverified 05/12/18 08:26 codeine Allergy Unknown ITCHING Unverified 05/12/18 08:26 eicosapentaenoic acid Allergy Unknown RASH Unverified 05/12/18 08:26 [From OMEGA 3] hydrocodone bitartrate Allergy Unknown ITCHING Unverified 05/12/18 08:26 [From VICODIN] hydromorphone HCl Allergy Unknown ITCHING Unverified 05/12/18 08:26 infliximab Allergy Unknown VOMITING Unverified 05/12/18 08:26 metoclopramide Allergy Unknown ALTERED Unverified 05/12/18 08:26 [METOCLOPRAMIDE] MENTAL STATUS morphine [MORPHINE] Allergy Unknown ITCHING Unverified 05/12/18 08:26 omega-3 fatty acids Allergy Unknown RASH Unverified 05/12/18 08:26 [From OMEGA 3] oxycodone HCl [From PERCOCET] Allergy Unknown ITCHING Unverified 05/12/18 08:26 paroxetine HCl [From PAXIL] Allergy Unknown RASH Unverified 05/12/18 08:26 varenicline tartrate Allergy Unknown ALTERED Unverified 05/12/18 08:26 [From CHANTIX] MENTAL STATUS Travel Screening - Travel/Exposure Within Last 30 Days Have you traveled within the last 30 days?: No - Travel/Exposure Within Last Year Have you traveled outside the [place] in the last year?: No - Additonal Travel Details Have you been exposed to anyone with a communicable illness?: No - Travel Symptoms Symptom Screening: None Review of Systems Reviewed: No additional complaints except as noted below Constitutional: Reports: As per HPI. Denies: Chills, Fever, Malaise, Night sweats, Weakness, Weight change Eyes: Reports: As per HPI. Denies: Eye discharge, Eye pain, Photophobia, Vision change ENT: Reports: As per HPI. Denies: Congestion, Dental pain, Ear pain, Epistaxis , Hearing loss, Throat pain Respiratory: Reports: As per HPI. Denies: Cough, Dyspnea, Hemoptysis, Stridor, Wheezes Cardiovascular: Reports: As per HPI. Denies: Arrhythmia, Chest pain, Dyspnea on exertion, Edema, Murmurs, Orthopnea, Palpitations, Paroxysmal nocturnal dyspnea, Rheumatic Fever, Syncope Endocrine: Reports: As per HPI. Denies: Fatigue, Heat or cold intolerance, Polydipsia, Polyuria Gastrointestinal: Reports: As per HPI. Denies: Abdominal pain, Constipation, Diarrhea, Hematemesis, Hematochezia, Melena, Nausea, Vomiting Genitourinary: Reports: As per HPI. Denies: Abnormal menses, Discharge, Dyspareunia, Dysuria, Frequency, Hematuria, Incontinence, Retention, Urgency Musculoskeletal: Reports: As per HPI. Denies: Arthralgia, Back pain, Gout, Joint swelling, Myalgia, Neck pain Skin: Reports: As per HPI. Denies: Bruising, Change in color, Change in hair/ nails, Lesions, Pruritus, Rash Neurological: Reports: As per HPI. Denies: Abnormal gait, Confusion, Headache, Numbness, Paresthesias, Seizure, Tingling, Tremors, Vertigo, Weakness Psychiatric: Reports: As per HPI. Denies: Anxiety, Auditory hallucinations, Depression, Homicidal thoughts, Suicidal thoughts, Visual hallucinations Hematological/Lymphatic: Reports: As per HPI. Denies: Anemia, Blood Clots, Easy bleeding, Easy bruising, Swollen glands Past Medical History - SOCIAL HISTORY Smoking Status: Light tobacco smoker (<10/day) Alcohol Use: None Drug Use: None - RESPIRATORY Hx Respiratory Disorders: No - CARDIOVASCULAR Hx Cardio Disorders: Yes Hx Abnormal EKG: Yes (r/t anxiety) Hx Chest Pain: Yes (r/t anxiety) - NEURO Hx Neuro Disorders: Yes Hx Seizures: Yes (last seizure 12 years ago) Hx TIA: Yes (2009) - GI Hx GI Disorders: Yes Hx Abdominal Pain: Yes Hx Crohn's Disease: Yes (Diagnosed about 9 years ago; managed by Dr. Greyson Haddad ) Hx Reflux: Yes Hx Irritable Bowel: Yes Hx Nausea/Vomiting: Yes Hx Obstructive Bowel: Yes (Admitted for Crohns, ileus and possible partial bowel obstruction) Comment:: crohns colitis - Hx Genitourinary Disorders: No Comment:: going through menopause - ENDOCRINE Hx Endocrine Disorders: No Hx Diabetes: No Hx Thyroid Disease: No - MUSCULOSKELETAL Hx Musculoskeletal Disorders: Yes Hx Arthritis: Yes Comment:: rds in right ankle - PSYCH Hx Psych Problems: Yes Hx Anxiety: Yes Hx Depression: Yes - HEMATOLOGY/ONCOLOGY Hx Hematology/Oncology Disorders: No Hx Anemia: No Hx Blood Disorders: No Hx Bruising: No Hx Cancer: No Hx Clotting Problems: No Hx Sickle Cell Disease: No Hx Unexplained Bleeding: No Hx Blood Transfusions: No Hx Blood Transfusion Reaction: No Family Medical History Any Significant Family History?: No Hx Alcohol Use: Father, Brother/Sister Hx Cancer: Brother/Sister *Cancer Comment: lung cancer Hx Diabetes: Grandparents *Diabetes Comment: grandmother Hx Heart Disease: Grandparents *Heart Comment: grandfather Hx Resp Disorders: Children *Resp Comment: daughter has asthma Hx Stroke: Mother *Stroke Comment: Mother had history of TIA x 1 Physical Exam - General General Appearance: Alert, Oriented x3, Cooperative, Mild distress - Head Head exam: Normal inspection - Eye Eye exam: Normal appearance, PERRL, EOMI Pupils: Normal accommodation - ENT ENT exam: Normal exam, Mucous membranes moist, Normal external ear exam, Normal orophraynx, TM's normal bilaterally Ear exam: Normal external inspection. negative: External canal tenderness Nasal Exam: Normal inspection. negative: Discharge, Sinus tenderness Mouth exam: Normal external inspection, Tongue normal Teeth exam: Normal inspection. negative: Dental caries Throat exam: Normal inspection. negative: Tonsillar erythema, Tonsillar exudate - Neck Neck exam: Normal inspection, Full ROM. negative: Tenderness - Respiratory Respiratory exam: Normal lung sounds bilaterally. negative: Respiratory distress - Cardiovascular Cardiovascular Exam: Regular rate, Normal rhythm, Normal heart sounds - GI/Abdominal GI/Abdominal exam: Soft, Normal bowel sounds. negative: Tenderness - Rectal Rectal exam: Deferred - exam: Deferred - Extremities Extremities exam: Normal inspection, Full ROM, Normal capillary refill, Tenderness Image of Full Body: 1 - tenderness - Back Back exam: Reports: Normal inspection, Full ROM. Denies: Muscle spasm, Rash noted, Tenderness - Neurological Neurological exam: Alert, CN II-XII intact, Normal gait, Oriented X3 - Psychiatric Psychiatric exam: Normal affect, Normal mood - Skin Skin exam: Dry, Intact, Normal color, Warm Course Vital Signs 05/20/18 22:36 Temperature 98.0 F Pulse Rate 104 H Respiratory 20 Rate Blood Pressure 141/88 Pulse Ox 96 Disposition Disposition: Transfer Clinical Impression: Arm pain Qualifiers: Laterality: right Qualified Code(s): M79.601 - Pain in right arm Disposition: Acute Care Hospital Transfer Transfer To: [facility] Reason For Transfer: needs doppler Accepting Physician: dr hernandez Time Discussed w/Accepting Physician: 23:05 Condition: (1) Good Instructions: Arm Pain (ED) Quality - Quality Measures Quality Measures: N/A - Blood Pressure Screening Does Patient Have Any of the Following: No Blood Pressure Classification: Pre-Hypertensive BP Reading Systolic Measurement: 141 Diastolic Measurement: 88 Screening for High Blood Pressure: < Pre-Hypertensive BP, F/U Documented > [ G8950] Pre-Hypertensive Follow-up Interventions: Follow-up with rescreen every year.
== END 2018-05-20 23:18 | disposition short-term general hospital (02) ==
LOC: ER 22:32
DX: M79.601 Pain in right arm (principal); F17.210 Nicotine dependence, cigarettes, uncomplicated
CPT/HCPCS: 99283

== ENCOUNTER 2018-05-21 15:57 | Emergency (ER) | payer MEDICAID ==
--- NOTE | 2018-05-21 16:10 | Emergency Department Record ---
History of Present Illness - General Chief complaint: Extremity Problem Stated complaint: INFECTION Time Seen by Provider: 05/21/18 16:05 Source: Patient Mode of Arrival: Ambulatory Limitations: No limitations - History of Present Illness Initial comments: 52 yo female presents with concerns about her PICC line. She has developed some discomfort at the site and the forearm the last few days. There is a small amount of redness at the insertion site. She was seen in the [facility] ED last night. She was sent to [facility] for an upper extremity doppler. She reports no fevers, chills, shakes. She is flushing the PICC without problems. No symptoms with flushing. She went to the specialty clinic today and was directed to the ED by Dr Linda's office. The PICC was placed about 3 weeks ago for access. There have been no issues with its use or function. The patient expresses anxiety as well. Complaint: Extremity pain -: Days(s) Location: Right -: Yes Myalgia Radiation: Proximal, Distal Quality: Aching Consistency: Constant Improves with: Nothing Worsens with: Nothing - Related Data Home Medications Medication Instructions Recorded Confirmed Last Taken Prednisone [Prednisone 20Mg] 10 mg PO BID 05/21/18 05/21/18 05/21/18 08:00 Previous Rx's Medication Instructions Recorded Vit W/ Iron 1 each PO DAILY 30 Days #30 tab 04/06/18 Ondansetron HCl [Zofran] 4 mg PO Q6HR #30 tablet 04/28/18 Hydrocodone/Acetaminophen [Marland 1 each PO Q6HR PRN #15 tablet 05/11/18 7.5-325 Tablet] Pantoprazole Sodium [Protonix] 40 mg PO DAILY #14 tablet. 05/11/18 Cephalexin [Keflex] 500 mg PO TID #21 cap 05/21/18 Allergies Allergy/AdvReac Type Severity Reaction Status Date / Time promethazine HCl Allergy Mild ITCHING Verified 05/21/18 16:12 [From Phenergan] adalimumab [From HUMIRA] Allergy Unknown MIGRAINES Verified 05/21/18 16:12 aspirin [ASPIRIN] Allergy Unknown NAUSEA AND Verified 05/21/18 16:12 VOMITING azathioprine [From IMURAN] Allergy Unknown VOMITING Verified 05/21/18 16:12 azathioprine sodium Allergy Unknown VOMITING Verified 05/21/18 16:12 [From IMURAN] chlordiazepoxide HCl Allergy Unknown RASH Verified 05/21/18 16:12 [From LIBRIUM] citalopram hydrobromide Allergy Unknown HYPERSENSIT Verified 05/21/18 16:12 [From CELEXA] IVITY clidinium [CLIDINIUM] Allergy Unknown RASH Verified 05/21/18 16:12 codeine Allergy Unknown ITCHING Verified 05/21/18 16:12 eicosapentaenoic acid Allergy Unknown RASH Verified 05/21/18 16:12 [From OMEGA 3] hydrocodone bitartrate Allergy Unknown ITCHING Verified 05/21/18 16:12 [From VICODIN] hydromorphone HCl Allergy Unknown ITCHING Verified 05/21/18 16:12 infliximab Allergy Unknown VOMITING Verified 05/21/18 16:12 metoclopramide Allergy Unknown ALTERED Verified 05/21/18 16:12 [METOCLOPRAMIDE] MENTAL STATUS morphine [MORPHINE] Allergy Unknown ITCHING Verified 05/21/18 16:12 omega-3 fatty acids Allergy Unknown RASH Verified 05/21/18 16:12 [From OMEGA 3] oxycodone HCl [From PERCOCET] Allergy Unknown ITCHING Verified 05/21/18 16:12 paroxetine HCl [From PAXIL] Allergy Unknown RASH Verified 05/21/18 16:12 varenicline tartrate Allergy Unknown ALTERED Verified 05/21/18 16:12 [From CHANTIX] MENTAL STATUS Review of Systems Constitutional: Denies: Chills, Fever, Malaise, Weakness Eyes: Denies: Eye discharge ENT: Denies: Congestion, Throat pain Respiratory: Denies: Cough, Dyspnea Cardiovascular: Denies: Chest pain, Syncope Endocrine: Denies: Fatigue Gastrointestinal: Denies: Abdominal pain, Diarrhea, Nausea, Vomiting Genitourinary: Denies: Dysuria, Urgency Musculoskeletal: Denies: Arthralgia, Back pain, Myalgia Skin: Reports: Change in color. Denies: Bruising Neurological: Denies: Confusion, Headache, Numbness, Weakness Psychiatric: Denies: Anxiety Hematological/Lymphatic: Denies: Blood Clots, Easy bleeding, Easy bruising Past Medical History - SOCIAL HISTORY Smoking Status: Light tobacco smoker (<10/day) Drug Use: None - RESPIRATORY Hx Respiratory Disorders: No - CARDIOVASCULAR Hx Cardio Disorders: Yes Hx Abnormal EKG: Yes (r/t anxiety) Hx Chest Pain: Yes (r/t anxiety) - NEURO Hx Neuro Disorders: Yes Hx Seizures: Yes (last seizure 12 years ago) Hx TIA: Yes (2009) - GI Hx GI Disorders: Yes Hx Abdominal Pain: Yes Hx Crohn's Disease: Yes (Diagnosed about 9 years ago; managed by Dr. Greyson Haddad ) Hx Reflux: Yes Hx Irritable Bowel: Yes Hx Nausea/Vomiting: Yes Hx Obstructive Bowel: Yes (Admitted for Crohns, ileus and possible partial bowel obstruction) Comment:: crohns colitis - Hx Genitourinary Disorders: No Comment:: going through menopause - ENDOCRINE Hx Endocrine Disorders: No Hx Diabetes: No Hx Thyroid Disease: No - MUSCULOSKELETAL Hx Musculoskeletal Disorders: Yes Hx Arthritis: Yes Comment:: rds in right ankle - PSYCH Hx Psych Problems: Yes Hx Anxiety: Yes Hx Depression: Yes - HEMATOLOGY/ONCOLOGY Hx Hematology/Oncology Disorders: No Hx Anemia: No Hx Blood Disorders: No Hx Bruising: No Hx Cancer: No Hx Clotting Problems: No Hx Sickle Cell Disease: No Hx Unexplained Bleeding: No Hx Blood Transfusions: No Hx Blood Transfusion Reaction: No Family Medical History Hx Alcohol Use: Father, Brother/Sister Hx Cancer: Brother/Sister *Cancer Comment: lung cancer Hx Diabetes: Grandparents *Diabetes Comment: grandmother Hx Heart Disease: Grandparents *Heart Comment: grandfather Hx Resp Disorders: Children *Resp Comment: daughter has asthma Hx Stroke: Mother *Stroke Comment: Mother had history of TIA x 1 Physical Exam - General General Appearance: Alert, Oriented x3, Cooperative, No acute distress Limitations: No limitations - Head Head exam: Atraumatic, Normal inspection - Eye Eye exam: Normal appearance. negative: Conjunctival injection, Scleral icterus - ENT ENT exam: Normal exam Ear exam: Normal external inspection Nasal Exam: Normal inspection Mouth exam: Normal external inspection - Neck Neck exam: Normal inspection - Respiratory Respiratory exam: Normal lung sounds bilaterally. negative: Respiratory distress - Cardiovascular Cardiovascular Exam: Regular rate, Normal rhythm, Normal heart sounds - Extremities Extremities exam: Full ROM, Normal capillary refill, Tenderness Image of Full Body: 1 - PICC site appears well cared for and clean. 1cm of erythema at the insertion site. No signs of expanding cellulits. No swellling. Full ROM of the shoulder and elbow without limitations - Neurological Neurological exam: Alert, Oriented X3 - Psychiatric Psychiatric exam: Normal affect, Normal mood - Skin Skin exam: Erythema Course - Reevaluation(s) Reevaluation #1: 05/21/18 16:11 The patient is afebrile in the ED The physical findings are very minimal/mild Dr Linda will be paged to discuss his patients history and current concerns. 05/21/18 16:11 05/21/18 16:15 The available [facility] records were reviewed The venous doppler was negative The CRP was normal The Sed Rate was normal The Blood culture is negative to date The test were preform today on 05/21/18 between 0200 and 0300 05/21/18 17:15 I LIZETT Linda We reviewed the labs from [facility] from her 05/21/18 visit He will follow her up to evaluate for residential access in the office He agrees with Keflex at this time. Disposition Disposition: Discharge Clinical Impression: Arm pain Qualifiers: Laterality: right Qualified Code(s): M79.601 - Pain in right arm Cellulitis Qualifiers: Site of cellulitis: extremity Site of cellulitis of extremity: axilla Laterality: right Qualified Code(s): L03.111 - Cellulitis of right axilla Disposition: Home, Self-Care Condition: (1) Good Instructions: Peripherally Inserted Central Catheters and Midline Catheters (ED ) Additional Instructions: If you have fever, swelling or pain go to the [facility] where you have the PICC line placed You have been referred to Dr Linda for 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
[2018-05-21] MEDS ORDERED: CEPHALEXIN 500 MG CAPSULE PO STA (17:14)
== END 2018-05-21 17:49 | disposition home or self-care (01) ==
LOC: ER 15:57
DX: T82.7XXA Infection and inflammatory reaction due to other cardiac and vascular devices, implants and grafts, initial encounter (principal); L03.111 Cellulitis of right axilla; M79.601 Pain in right arm; F17.210 Nicotine dependence, cigarettes, uncomplicated
CPT/HCPCS: 99283

== ENCOUNTER 2018-06-08 08:04 | Day surgery (SDC) | payer MEDICAID ==
[~2018-06-08 08:04] MED LIST: ACETAMINOPHEN 1,000 MG/100 ML BTL IV ONE; CEFAZOLIN 1 Gram 1 GM/50 ML BAG IVPB ONE
[2018-06-08] MEDS ORDERED: PROPOFOL 10 MG/ML VIAL IV ONE (08:05)
[2018-06-08] MEDS ORDERED: MIDAZOLAM HCL 2MG/2ML VIAL IV ONE (08:05)
[2018-06-08] MEDS ORDERED: FENTANYL PF 100MCG/2ML VIAL IV ONE (08:05)
[2018-06-08] MEDS ORDERED: BUPIVACAINE 0.25% W/EPI MPF 30ML VIAL IVP ONE (08:05)
[2018-06-08] MEDS ORDERED: LIDOCAINE 1% MDV (10MG/ML) 20ML VIAL SQ ONE (08:05)
[2018-06-08] MEDS ORDERED: HYDROCODONE/APAP 5/325MG TABLET PO ONE (08:05)
[2018-06-08] MEDS ORDERED: HEPARIN SODIUM FLUSH 100 UNITS/ML SYR 5ML IVP ONE (08:05)
--- NOTE | 2018-06-08 12:50 | Operative Note ---
DATE OF SURGERY: 06/08/2018 Surgeon: Braulio Linda DO PREOPERATIVE DIAGNOSIS: Poor vascular access. POSTOPERATIVE DIAGNOSIS: Poor vascular access. OPERATION: Infusaport with fluoroscopy. Indication: The patient is a 52-year-old female whom I have known for quite some time. She comes in for multiple hospitalizations about every 3-4 days. She has had so many IVs placed that she has extremely poor vascular access. She currently has a PICC line in the right which they are using. We did discuss Infusaport placement. Risks, benefits, and alternatives were discussed. Risks include bleeding, infection, malfunctioning port, and pneumothorax. She understood this fully. Thereafter, consent was signed and questions answered. PROCEDURE: The patient was taken to the operating room and placed in a supine position. Local IV sedation was given per the department of anesthesia. The patient's arms were tucked to the side. Her chest was prepped and draped in the usual fashion. A roll was placed between her shoulder blades. At this time, adequate timeout was performed. She did receive preoperative antibiotic. At this time, the left subclavian region was anesthetized with a total of 10 mL of 0.25% Sensorcaine with epinephrine. An 18 gauge [employer] finder needle used to enter the subclavian vein on the first attempt. Through this, a guidewire was inserted under direct fluoroscopic guidance. At first, this was noted to be going up in her neck. This was then readjusted and it was going down the vena cava. At this time, a pocket was created inferior to this, and a 9.6 Jordanian single lumen port was assembled. This was trimmed to size. This was placed in the pocket under direct fluoroscopic guidance. Dilator and Peel-Away sheath were placed over the wire. The dilator and Peel-Away sheath were removed as the catheter was fed down the hollow lumen of the Peel-Away sheath. This was noted to be in adequate position. This did aspirate and flush well with a Trinh needle. At this time, this was sutured to the pectoralis fascia with 0 Vicryl. The wound was then closed with 3-0 and 4-0 Vicryl. She was taken to the recovery room in satisfactory condition. Final chest x-ray pending. We will remove the PICC line upon completion. CC: Russell Rodriguez MD [facility]Daily
--- NOTE | 2018-06-09 08:30 | RADIOLOGY REPORT ---
EXAM: PORTABLE CHEST HISTORY: POST [id number] INSERTION AND PICC LINE REMOVAL. TECHNIQUE: AP upright portable view of the chest was obtained. Comparison: Two view chest 01/29/18. FINDINGS: Since the prior exam there has been placement of a left sided venous access port with the catheter tip in the region of the mid SVC. A right sided PICC line is also in place currently, also new from the prior study and with the tip also in the region of the mid SVC. Clearing of previously seen infiltrate in the left lower lobe. No definite new infiltrate identified. No pleural effusion or pneumothorax evident. Stable heart size, within normal limits. Mild torsion of the aorta. Questionable faint nodule right mid lung laterally. This was not seen on the prior study. If clinically warranted, follow-up chest CT could be performed for further evaluation. IMPRESSION: 1. LEFT SIDED VENOUS ACCESS PORT PLACED AND RIGHT SIDED PICC LINE PLACED WITH NO PNEUMOTHORAX ON EITHER SIDE. 2. CLEARING OF PREVIOUSLY SEEN LEFT LOWER LOBE INFILTRATE. 3. QUESTIONABLE SMALL NODULE APPROXIMATELY 8 MM IN SIZE WITHIN THE RIGHT MID LUNG LATERALLY. IF CLINICALLY WARRANTED, FOLLOW-UP CHEST CT WOULD BE SUGGESTED. JOB NUMBER: [id number] [facility]
== END 2018-06-08 11:25 | disposition home or self-care (01) ==
LOC: SUR 08:04
PROVIDERS: ATTEND Surgery
DX: I99.8 Other disorder of circulatory system (principal); K50.90 Crohn's disease, unspecified, without complications
CPT/HCPCS: 36561; 77001; 71045; 76000; 00532; J3010; J0690; J1642

== ENCOUNTER 2018-06-16 09:05 | Emergency (ER) | payer MEDICAID ==
--- NOTE | 2018-06-16 09:41 | Emergency Department Record ---
History of Present Illness - General Chief Complaint: Abdominal Pain Stated Complaint: ABDOMINAL PAIN Time Seen by Provider: 06/16/18 09:10 Source: Patient Mode of Arrival: Ambulatory Limitations: No limitations - History of Present Illness Initial Comments: pt c/o abd pain diffuse but worse in llq. she is also having loose black stools. she has a hx of obstructions MD Complaint: Abdominal pain Onset/Timin -: Hour(s) Location: Diffuse, LUQ, RUQ Radiation: None Severity: Moderate Severity scale (1-10): 8 Quality: Sharp Consistency: Constant Improves With: Nothing Worsens With: Nothing Associated Symptoms: Denies other symptoms - Related Data Patient : No Hx Age of Menopause: 47 Previous Rx's Medication Instructions Recorded Ondansetron HCl [Zofran] 4 mg PO Q6HR #30 tablet 04/28/18 Ondansetron [Zofran Odt] 4 mg PO Q8H #10 tab.rapdis 06/16/18 Allergies Allergy/AdvReac Type Severity Reaction Status Date / Time promethazine HCl Allergy Mild ITCHING Unverified 06/09/18 08:48 [From Phenergan] adalimumab [From HUMIRA] Allergy Unknown MIGRAINES Unverified 06/09/18 08:48 aspirin [ASPIRIN] Allergy Unknown NAUSEA AND Unverified 06/09/18 08:48 VOMITING azathioprine [From IMURAN] Allergy Unknown VOMITING Unverified 06/09/18 08:48 azathioprine sodium Allergy Unknown VOMITING Unverified 06/09/18 08:48 [From IMURAN] chlordiazepoxide HCl Allergy Unknown RASH Unverified 06/09/18 08:48 [From LIBRIUM] citalopram hydrobromide Allergy Unknown HYPERSENSIT Unverified 06/09/18 08:48 [From CELEXA] IVITY clidinium [CLIDINIUM] Allergy Unknown RASH Unverified 06/09/18 08:48 codeine Allergy Unknown ITCHING Unverified 06/09/18 08:48 eicosapentaenoic acid Allergy Unknown RASH Unverified 06/09/18 08:48 [From OMEGA 3] hydrocodone bitartrate Allergy Unknown ITCHING Unverified 06/09/18 08:48 [From VICODIN] hydromorphone HCl Allergy Unknown ITCHING Unverified 06/09/18 08:48 infliximab Allergy Unknown VOMITING Unverified 06/09/18 08:48 metoclopramide Allergy Unknown ALTERED Unverified 06/09/18 08:48 [METOCLOPRAMIDE] MENTAL STATUS morphine [MORPHINE] Allergy Unknown ITCHING Unverified 06/09/18 08:48 omega-3 fatty acids Allergy Unknown RASH Unverified 06/09/18 08:48 [From OMEGA 3] oxycodone HCl [From PERCOCET] Allergy Unknown ITCHING Unverified 06/09/18 08:48 paroxetine HCl [From PAXIL] Allergy Unknown RASH Unverified 06/09/18 08:48 varenicline tartrate Allergy Unknown ALTERED Unverified 06/09/18 08:48 [From CHANTIX] MENTAL STATUS Travel Screening - Travel/Exposure Within Last 30 Days Have you traveled within the last 30 days?: No Review of Systems Reviewed: No additional complaints except as noted below Constitutional: Reports: As per HPI. Denies: Chills, Fever, Malaise, Night sweats, Weakness, Weight change Eyes: Reports: As per HPI. Denies: Eye discharge, Eye pain, Photophobia, Vision change ENT: Reports: As per HPI. Denies: Congestion, Dental pain, Ear pain, Epistaxis , Hearing loss, Throat pain Respiratory: Reports: As per HPI. Denies: Cough, Dyspnea, Hemoptysis, Stridor, Wheezes Cardiovascular: Reports: As per HPI. Denies: Arrhythmia, Chest pain, Dyspnea on exertion, Edema, Murmurs, Orthopnea, Palpitations, Paroxysmal nocturnal dyspnea, Rheumatic Fever, Syncope Endocrine: Reports: As per HPI. Denies: Fatigue, Heat or cold intolerance, Polydipsia, Polyuria Gastrointestinal: Reports: As per HPI, Abdominal pain, Diarrhea. Denies: Constipation, Hematemesis, Hematochezia, Melena, Nausea, Vomiting Genitourinary: Reports: As per HPI. Denies: Abnormal menses, Discharge, Dyspareunia, Dysuria, Frequency, Hematuria, Incontinence, Retention, Urgency Musculoskeletal: Reports: As per HPI. Denies: Arthralgia, Back pain, Gout, Joint swelling, Myalgia, Neck pain Skin: Reports: As per HPI. Denies: Bruising, Change in color, Change in hair/ nails, Lesions, Pruritus, Rash Neurological: Reports: As per HPI. Denies: Abnormal gait, Confusion, Headache, Numbness, Paresthesias, Seizure, Tingling, Tremors, Vertigo, Weakness Psychiatric: Reports: As per HPI. Denies: Anxiety, Auditory hallucinations, Depression, Homicidal thoughts, Suicidal thoughts, Visual hallucinations Hematological/Lymphatic: Reports: As per HPI. Denies: Anemia, Blood Clots, Easy bleeding, Easy bruising, Swollen glands Past Medical History - SOCIAL HISTORY Smoking Status: Light tobacco smoker (<10/day) - RESPIRATORY Hx Respiratory Disorders: No Comment:: allergies - CARDIOVASCULAR Hx Cardio Disorders: Yes Hx Abnormal EKG: Yes (r/t anxiety) Hx Chest Pain: Yes (r/t anxiety) - NEURO Hx Neuro Disorders: Yes Hx Headaches: No Hx Seizures: Yes (last seizure 12 years ago) - GI Hx GI Disorders: Yes Hx Obstructive Bowel: Yes (Admitted for Crohns, ileus and possible partial bowel obstruction) - Hx Genitourinary Disorders: No Comment:: going through menopause - ENDOCRINE Hx Endocrine Disorders: No - MUSCULOSKELETAL Hx Musculoskeletal Disorders: Yes Comment:: rds in right ankle - PSYCH Hx Psych Problems: Yes Hx Suicide Attempt: No - HEMATOLOGY/ONCOLOGY Hx Hematology/Oncology Disorders: No Hx Anemia: No Hx Blood Disorders: No Hx Bruising: No Hx Cancer: No Hx Clotting Problems: No Hx Sickle Cell Disease: No Hx Unexplained Bleeding: No Hx Blood Transfusions: No Hx Blood Transfusion Reaction: No Family Medical History Any Significant Family History?: Yes Hx Alcohol Use: Father, Brother/Sister Hx Cancer: Brother/Sister *Cancer Comment: lung cancer Hx Diabetes: Grandparents *Diabetes Comment: grandmother Hx Heart Disease: Grandparents *Heart Comment: grandfather Hx Resp Disorders: Children *Resp Comment: daughter has asthma Hx Stroke: Mother *Stroke Comment: Mother had history of TIA x 1 Physical Exam - General General Appearance: Alert, Oriented x3, Cooperative, Mild distress - Head Head exam: Normal inspection - Eye Eye exam: Normal appearance, PERRL, EOMI Pupils: Normal accommodation - ENT ENT exam: Normal exam, Mucous membranes moist, Normal external ear exam, Normal orophraynx Ear exam: Normal external inspection. negative: External canal tenderness Nasal Exam: Normal inspection. negative: Discharge, Sinus tenderness Mouth exam: Normal external inspection, Tongue normal Teeth exam: Normal inspection. negative: Dental caries Throat exam: Normal inspection. negative: Tonsillar erythema, Tonsillar exudate - Neck Neck exam: Normal inspection, Full ROM. negative: Tenderness - Respiratory Respiratory exam: Normal lung sounds bilaterally. negative: Respiratory distress - Cardiovascular Cardiovascular Exam: Normal rhythm, Normal heart sounds, Tachycardia - GI/Abdominal GI/Abdominal exam: Soft, Diminished bowel sounds, Distended, Tenderness - Rectal Rectal exam: Heme (-) stool, Normal inspection, Normal rectal tone, Tenderness - exam: Deferred - Extremities Extremities exam: Normal inspection, Full ROM, Normal capillary refill. negative: Tenderness - Back Back exam: Reports: Normal inspection, Full ROM. Denies: Muscle spasm, Rash noted, Tenderness - Neurological Neurological exam: Alert, CN II-XII intact, Normal gait, Oriented X3 - Psychiatric Psychiatric exam: Normal affect, Normal mood - Skin Skin exam: Dry, Intact, Normal color, Warm Course Vital Signs 06/16/18 09:11 Temperature 98.1 F Pulse Rate 116 H Respiratory 20 Rate Blood Pressure 126/94 Pulse Ox 98 - Reevaluation(s) Reevaluation #1: 06/16/18 13:19 pt feels better Medical Decision Making - Lab Data Result diagrams: 06/16/18 09:40 06/16/18 09:40 Disposition Disposition: Discharge Clinical Impression: Colitis Abdominal pain Qualifiers: Abdominal location: generalized Qualified Code(s): R10.84 - Generalized abdominal pain Disposition: Home, Self-Care Condition: (1) Good Instructions: Abdominal Pain (ED) Additional Instructions: follow up with family doctor. return sooner if worse. Prescriptions: Ondansetron [Zofran Odt] 4 mg PO Q8H #10 tab.rapdis Forms: Patient Portal Access Quality - Quality Measures Quality Measures: N/A - Blood Pressure Screening Does Patient Have Any of the Following: No Blood Pressure Classification: Hypertensive Reading Systolic Measurement: 126 Diastolic Measurement: 94 Screening for High Blood Pressure: < Pre-Hypertensive BP, F/U Documented > [ G8950] Pre-Hypertensive Follow-up Interventions: Follow-up with rescreen every year.
[2018-06-16 09:49] LABS: HEMOGLOBIN 12.3 gm/dl (11.6-16.0); MEAN CELL VOLUME 81.7 fl (81-97); MEAN CORPUSCULAR HEMOGLOBIN 24.5 pg (27-33); MEAN PLATELET VOLUME 9.4 fl (7.4-10.4); PLATELET COUNT 298 K/uL (130-400); RED BLOOD COUNT 5.02 M/uL (3.80-5.40); RED CELL DISTRIBUTION WIDTH 16.6 % (11.5-14.5); WHITE BLOOD COUNT W/O DIFF 13.1 K/uL (4.2-12.2)
[2018-06-16] MEDS: HYDROMORPHONE HCL 2 MG/ML VIAL IVP ONE (09:50)
[2018-06-16] MEDS: DIPHENHYDRAMINE HCL 50 MG/ML VIAL IVP ONE ×2 (09:50→11:55)
[2018-06-16] MEDS: ONDANSETRON HCL IV 4 MG/2 ML VIAL IVP ONE (09:51)
[2018-06-16 10:02] LABS: BLOOD UREA NITROGEN 4 mg/dL (6-20); CREATININE 0.4 mg/dL (0.5-0.9); EST GLOMERULAR FILTRATION RATE > 60 mL/min; PLATELET ESTIMATE NORMAL (NORMAL)
[2018-06-16 10:05] LABS: GLUCOSE,RANDOM 86 mg/dL (74-109)
--- NOTE | 2018-06-18 08:55 | CT SCAN REPORT ---
EXAM: CT OF THE ABDOMEN AND PELVIS WITH CONTRAST HISTORY: ABDOMINAL PAIN AND DISTENTION FOR TWO DAYS. PRIOR COLON RESECTION. INCARCERATED HERNIA REPAIR. TECHNIQUE: Following oral and intravenous contrast administration, helical CT examination of the abdomen and pelvis was performed including delayed images through the kidneys with 80 ml of Omnipaque 300 utilized. Comparison: CT of the abdomen and pelvis without contrast dated 04/30/18. FINDINGS: There is redemonstration of a well circumscribed fluid density mass arising exophytically from the upper pole of the left kidney measuring 1.3 x 1.3 cm consistent with a benign cyst. This is stable. There are a couple too small to characterize hypodense lesions within the anterior mid to lower right kidney. These are not well seen on prior examinations. They are nonspecific, but likely cysts. The gallbladder is surgically absent. No gross biliary ductal dilatation is seen. No intraabdominal nor retroperitoneal lymphadenopathy is identified. There are a few nonenlarged lymph nodes in the mesenteric root. Minimal atherosclerosis of the abdominal aorta is identified without evidence of aneurysmal dilatation nor dissection. The vasculature is otherwise unremarkable with the portal vein patent. No new pelvic mass, lymphadenopathy, or free pelvic fluid is seen. The uterus is not enlarged. The ovaries are normal in size. There is redemonstration of right colectomy with enterocolic anastomosis demonstrated at the mid level. The small bowel segment just proximal to the anastomosis remains mildly prominent in caliber without worrisome air fluid levels nor wall thickening. The previously demonstrated wall thickening within this segment has cleared. No thickening at the anastomotic site. There is apparent borderline to mild wall thickening of the distal colon and rectum with mild adjacent fat stranding, new in the interval. This may relate to mild colitis/proctitis. No other bowel dilatation nor wall thickening. There is redemonstration of a fat filled lobulated ventral wall hernia in the midline centered approximately 3 cm above the umbilicus. This measures 2.2 x 5.6 x 3.1 cm. It appears uncomplicated and stable in size. No extraluminal air. No new lytic or blastic bone lesion. IMPRESSION: 1. POST RIGHT COLECTOMY CHANGES REDEMONSTRATED WITH ENTEROCOLIC ANASTOMOSIS IN THE MIDLINE MID ABDOMEN. THE SMALL BOWEL SEGMENT PROXIMAL TO THE ANASTOMOSIS IS AGAIN MILDLY PROMINENT IN CALIBER WITHOUT WORRISOME AIR FLUID LEVEL. THIS MAY JUST RELATE TO ATONY POST SURGERY. ANASTOMOTIC NARROWING IS LESS LIKELY. PREVIOUSLY DEMONSTRATED WALL THICKENING OF THIS SEGMENT APPEARS TO HAVE CLEARED. 2. APPARENT NEW MILD WALL THICKENING OF THE DISTAL COLON AND RECTUM WITH MILD ADJACENT FAT STRANDING CONSISTENT WITH COLITIS/PROCTITIS. 3. SMALL EXOPHYTIC CYST ARISING FROM THE UPPER POLE OF THE LEFT KIDNEY, STABLE. TOO SMALL TO CHARACTERIZE HYPODENSE LESIONS IN THE ANTERIOR MID RIGHT KIDNEY ARE NONSPECIFIC, BUT ALSO LIKELY CYSTS. 4. STATUS POST CHOLECYSTECTOMY. J[facility]: [id number] [facility]
== END 2018-06-16 13:42 | disposition home or self-care (01) ==
LOC: ER 09:05
DX: R10.84 Generalized abdominal pain (principal); F17.210 Nicotine dependence, cigarettes, uncomplicated
CPT/HCPCS: 99283 ×2; 96374; 96375; 83605; 80048; 85027; 74177; Q9967; J2405; J1170; J1200

== ENCOUNTER 2018-06-20 21:04 | Emergency (ER) | payer MEDICAID ==
[2018-06-20] MEDS ORDERED: CLINDAMYCIN 150 MG CAP PO ONE (21:28)
--- NOTE | 2018-06-20 21:29 | Emergency Department Record ---
History of Present Illness - General Chief complaint: Bite Insect/other Stated complaint: BITE ON LEG Time Seen by Provider: 06/20/18 21:26 Source: Patient Mode of Arrival: Ambulatory Limitations: No limitations - History of Present Illness Initial comments: 52 yo female presents to ED for evaluation of redness and mild swelling to the left foot. Patient reports a small raised lesion that began 3 weeks ago (? insect bite), did see her PCP whe recommended continued observation of the lesion. Patient reports that the redness spread inferiorly over the past 24 hours, was concerned about possible abscess vs. insect bite. Patient denies fevers, chills, or recent illness. MD complaint: Insect bite/sting, Rash Onset/Timin -: Week(s) Hx Tetanus Toxoid Vaccination: Yes Year of Tetanus Vaccination: unsure Patient Tetanus UTD (within 5 yrs): Yes Location: L foot Severity: Mild Severity scale (1-10): 6 Quality: Burning Consistency: Constant Improves with: None Worsens with: None Context: None Associated symptoms: Denies other symptoms Treatments Prior to Arrival: Other Treatment Prior to Arrival Comment:: ice - Related Data Previous Rx's Medication Instructions Recorded Ondansetron HCl [Zofran] 4 mg PO Q6HR #30 tablet 04/28/18 Ondansetron [Zofran Odt] 4 mg PO Q8H #10 tab.rapdis 06/16/18 Clindamycin HCl 300 mg PO QID #27 capsule 06/20/18 Allergies Allergy/AdvReac Type Severity Reaction Status Date / Time promethazine HCl Allergy Mild ITCHING Verified 06/20/18 21:19 [From Phenergan] adalimumab [From HUMIRA] Allergy Unknown MIGRAINES Verified 06/20/18 21:19 aspirin [ASPIRIN] Allergy Unknown NAUSEA AND Verified 06/20/18 21:19 VOMITING azathioprine [From IMURAN] Allergy Unknown VOMITING Verified 06/20/18 21:19 azathioprine sodium Allergy Unknown VOMITING Verified 06/20/18 21:19 [From IMURAN] chlordiazepoxide HCl Allergy Unknown RASH Verified 06/20/18 21:19 [From LIBRIUM] citalopram hydrobromide Allergy Unknown HYPERSENSIT Verified 06/20/18 21:19 [From CELEXA] IVITY clidinium [CLIDINIUM] Allergy Unknown RASH Verified 06/20/18 21:19 codeine Allergy Unknown ITCHING Verified 06/20/18 21:19 eicosapentaenoic acid Allergy Unknown RASH Verified 06/20/18 21:19 [From OMEGA 3] hydrocodone bitartrate Allergy Unknown ITCHING Verified 06/20/18 21:19 [From VICODIN] hydromorphone HCl Allergy Unknown ITCHING Verified 06/20/18 21:19 infliximab Allergy Unknown VOMITING Verified 06/20/18 21:19 metoclopramide Allergy Unknown ALTERED Verified 06/20/18 21:19 [METOCLOPRAMIDE] MENTAL STATUS morphine [MORPHINE] Allergy Unknown ITCHING Verified 06/20/18 21:19 omega-3 fatty acids Allergy Unknown RASH Verified 06/20/18 21:19 [From OMEGA 3] oxycodone HCl [From PERCOCET] Allergy Unknown ITCHING Verified 06/20/18 21:19 paroxetine HCl [From PAXIL] Allergy Unknown RASH Verified 06/20/18 21:19 varenicline tartrate Allergy Unknown ALTERED Verified 06/20/18 21:19 [From CHANTIX] MENTAL STATUS Travel Screening - Travel/Exposure Within Last 30 Days Have you traveled within the last 30 days?: No - Travel/Exposure Within Last Year Have you traveled outside the [place] in the last year?: No - Additonal Travel Details Have you been exposed to anyone with a communicable illness?: No - Travel Symptoms Symptom Screening: None Review of Systems Constitutional: Denies: Chills, Fever, Malaise, Night sweats Eyes: Denies: Eye discharge, Eye pain ENT: Denies: Congestion, Ear pain, Epistaxis Respiratory: Denies: Cough, Dyspnea Cardiovascular: Denies: Chest pain, Dyspnea on exertion Endocrine: Denies: Fatigue, Heat or cold intolerance Gastrointestinal: Denies: Abdominal pain, Nausea, Vomiting Genitourinary: Denies: Incontinence, Retention Musculoskeletal: Denies: Arthralgia, Back pain, Gout, Joint swelling Skin: Reports: Rash (Left foot). Denies: Bruising, Change in color Neurological: Denies: Abnormal gait, Confusion, Headache, Seizure Psychiatric: Denies: Anxiety Hematological/Lymphatic: Denies: Anemia, Blood Clots Past Medical History - SOCIAL HISTORY Smoking Status: Light tobacco smoker (<10/day) Alcohol Use: None Drug Use: None - RESPIRATORY Hx Respiratory Disorders: No Comment:: allergies - CARDIOVASCULAR Hx Cardio Disorders: Yes Hx Abnormal EKG: Yes (r/t anxiety) Hx Chest Pain: Yes (r/t anxiety) - NEURO Hx Neuro Disorders: Yes Hx Headaches: No Hx Seizures: Yes (last seizure 12 years ago) - GI Hx GI Disorders: Yes Hx Obstructive Bowel: Yes (Admitted for Crohns, ileus and possible partial bowel obstruction) - Hx Genitourinary Disorders: No Comment:: going through menopause - ENDOCRINE Hx Endocrine Disorders: No - MUSCULOSKELETAL Hx Musculoskeletal Disorders: Yes 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 - PSYCH Hx Psych Problems: Yes Hx Depression: Yes Hx Suicide Attempt: No Major Depressive Episode: Yes - HEMATOLOGY/ONCOLOGY Hx Hematology/Oncology Disorders: No Hx Anemia: No Hx Blood Disorders: No Hx Bruising: No Hx Cancer: No Hx Clotting Problems: No Hx Sickle Cell Disease: No Hx Unexplained Bleeding: No Hx Blood Transfusions: No Hx Blood Transfusion Reaction: No Family Medical History Any Significant Family History?: No Hx Alcohol Use: Father, Brother/Sister Hx Cancer: Brother/Sister *Cancer Comment: lung cancer Hx Diabetes: Grandparents *Diabetes Comment: grandmother Hx Heart Disease: Grandparents *Heart Comment: grandfather Hx Resp Disorders: Children *Resp Comment: daughter has asthma Hx Stroke: Mother *Stroke Comment: Mother had history of TIA x 1 Physical Exam - General General Appearance: Alert, Oriented x3, Cooperative, No acute distress, Other ( smiling, well appearing on examination) Limitations: No limitations - Head Head exam: Atraumatic, Normocephalic, Normal inspection Head exam detail: negative: Abrasion, Contusion, Moran's sign, General tenderness, Hematoma, Laceration - Eye Eye exam: Normal appearance. negative: Conjunctival injection, Periorbital swelling, Periorbital tenderness, Scleral icterus - ENT Ear exam: negative: Auricular hematoma, Auricular trauma Nasal Exam: negative: Active bleeding, Discharge, Dried blood, Foreign body Mouth exam: negative: Drooling, Laceration, Muffled voice, Tongue elevation - Neck Neck exam: Normal inspection. negative: Meningismus, Tenderness - Respiratory Respiratory exam: Normal lung sounds bilaterally. negative: Rales, Respiratory distress, Rhonchi, Stridor - Cardiovascular Cardiovascular Exam: Regular rate, Normal rhythm, Normal heart sounds Peripheral Pulses: 3+: Dorsalis Pedis (L) - GI/Abdominal GI/Abdominal exam: Soft. negative: Rebound, Rigid, Tenderness - Rectal Rectal exam: Deferred - exam: Deferred - Extremities Extremities exam: Tenderness, Other (Raised papular lesion to the proximal ankle without fluctuance present, mild surrounding erythema without induration is present over the dorsum of the left proximal foot c/w mild cellulitis.). negative: Calf tenderness, Pedal edema - Back Back exam: Denies: CVA tenderness (R), CVA tenderness (L) - Neurological Neurological exam: Alert, Normal gait, Oriented X3 - Psychiatric Psychiatric exam: Normal affect, Normal mood - Skin Skin exam: Erythema Distribution of rash: LLE Description of rash: Erythematous Course Vital Signs 06/20/18 21:14 Temperature 98.5 F Respiratory 18 Rate Blood Pressure 146/53 [Left Arm] Pulse Ox 97 - Reevaluation(s) Reevaluation #1: 06/20/18 21:35 Examination appears c/w small papule and mild distal erythema from the lesion c/ w small area of cellulitis. Will initiate treatment with Clindamycin as directed. Patient agrees with the plan of care as discussed, appears stable for discharge at this time. Disposition Disposition: Discharge Clinical Impression: Cellulitis of left foot Disposition: Home, Self-Care Condition: (2) Stable Instructions: Cellulitis (ED) Additional Instructions: Return to ED if your symptoms worsen or if you have any concerns. Clindamycin as directed. Follow-up with your family doctor in 3-5 days as directed. Prescriptions: Clindamycin HCl 300 mg PO QID #27 capsule Forms: Patient Portal Access Time of Disposition: 21:28 Quality - Quality Measures Quality Measures: N/A - Blood Pressure Screening Does Patient Have Any of the Following: No Blood Pressure Classification: Hypertensive Reading Systolic Measurement: 146 Diastolic Measurement: 53 Screening for High Blood Pressure: < First Hypertensive BP, F/U Documented > [ G8950] First Hypertensive Follow-up Interventions: Referral to alternative/primary care provider.
== END 2018-06-20 21:41 | disposition home or self-care (01) ==
LOC: ER 21:04
DX: L03.116 Cellulitis of left lower limb (principal); F17.210 Nicotine dependence, cigarettes, uncomplicated
CPT/HCPCS: 99282

== ENCOUNTER 2018-06-27 20:39 | Emergency (ER) | payer MEDICAID ==
[2018-06-27] MEDS ORDERED: ONDANSETRON HCL IV 4 MG/2 ML VIAL IVP ONE (21:01)
[2018-06-27] MEDS ORDERED: 0.9 % SODIUM CHLORIDE 1,000 ML BAG IV ONE (21:01)
[2018-06-27] MEDS ORDERED: HYDROMORPHONE HCL 2 MG/ML VIAL IVP ONE (21:05)
--- NOTE | 2018-06-27 21:05 | Emergency Department Record ---
History of Present Illness - General Chief Complaint: Abdominal Pain Stated Complaint: ABDOMINAL PAIN Time Seen by Provider: 06/27/18 20:54 Source: Patient Mode of Arrival: Ambulatory Limitations: No limitations - History of Present Illness Initial Comments: 52 yo female presents with nausea and abdominal pain. No vomiting. She had a bowel movement this morning. No blood. Throughout the day she has had a decrease in appetite, nausea and LLQ pain. She has a long history of Crohn's. This is similar location and character of her pain. No fever. No rash. She can feel bowel movement. Passing gas. MD Complaint: Abdominal pain -: Hour(s) Location: Diffuse, LLQ Radiation: LLQ Migration to: LLQ Severity: Moderate Quality: Cramping Consistency: Intermittent Improves With: Nothing Worsens With: Eating Context: Other (History of Crohn's) Associated Symptoms: Anorexia - Related Data Patient : No Hx Age of Menopause: 47 Previous Rx's Medication Instructions Recorded Ondansetron HCl [Zofran] 4 mg PO Q6HR #30 tablet 04/28/18 Ondansetron [Zofran Odt] 4 mg PO Q8H #10 tab.rapdis 06/16/18 Clindamycin HCl 300 mg PO QID #27 capsule 06/20/18 Allergies Allergy/AdvReac Type Severity Reaction Status Date / Time promethazine HCl Allergy Mild ITCHING Verified 06/20/18 21:19 [From Phenergan] adalimumab [From HUMIRA] Allergy Unknown MIGRAINES Verified 06/20/18 21:19 aspirin [ASPIRIN] Allergy Unknown NAUSEA AND Verified 06/20/18 21:19 VOMITING azathioprine [From IMURAN] Allergy Unknown VOMITING Verified 06/20/18 21:19 azathioprine sodium Allergy Unknown VOMITING Verified 06/20/18 21:19 [From IMURAN] chlordiazepoxide HCl Allergy Unknown RASH Verified 06/20/18 21:19 [From LIBRIUM] citalopram hydrobromide Allergy Unknown HYPERSENSIT Verified 06/20/18 21:19 [From CELEXA] IVITY clidinium [CLIDINIUM] Allergy Unknown RASH Verified 06/20/18 21:19 codeine Allergy Unknown ITCHING Verified 06/20/18 21:19 eicosapentaenoic acid Allergy Unknown RASH Verified 06/20/18 21:19 [From OMEGA 3] hydrocodone bitartrate Allergy Unknown ITCHING Verified 06/20/18 21:19 [From VICODIN] hydromorphone HCl Allergy Unknown ITCHING Verified 06/20/18 21:19 infliximab Allergy Unknown VOMITING Verified 06/20/18 21:19 metoclopramide Allergy Unknown ALTERED Verified 06/20/18 21:19 [METOCLOPRAMIDE] MENTAL STATUS morphine [MORPHINE] Allergy Unknown ITCHING Verified 06/20/18 21:19 omega-3 fatty acids Allergy Unknown RASH Verified 06/20/18 21:19 [From OMEGA 3] oxycodone HCl [From PERCOCET] Allergy Unknown ITCHING Verified 06/20/18 21:19 paroxetine HCl [From PAXIL] Allergy Unknown RASH Verified 06/20/18 21:19 varenicline tartrate Allergy Unknown ALTERED Verified 06/20/18 21:19 [From CHANTIX] MENTAL STATUS Review of Systems Constitutional: Denies: Chills, Fever, Malaise, Weakness Eyes: Denies: Eye discharge ENT: Denies: Congestion, Throat pain Respiratory: Denies: Cough, Dyspnea, Hemoptysis, Stridor, Wheezes Cardiovascular: Denies: Chest pain, Palpitations, Syncope Endocrine: Denies: Fatigue Gastrointestinal: Reports: As per HPI, Abdominal pain, Nausea. Denies: Diarrhea , Vomiting Genitourinary: Denies: Dysuria, Urgency Musculoskeletal: Denies: Arthralgia, Back pain, Joint swelling, Myalgia Skin: Denies: Bruising, Change in color, Rash Neurological: Denies: Headache, Numbness, Weakness Psychiatric: Denies: Anxiety Hematological/Lymphatic: Denies: Easy bleeding, Easy bruising, Swollen glands Past Medical History - SOCIAL HISTORY Smoking Status: Light tobacco smoker (<10/day) Drug Use: None - RESPIRATORY Hx Respiratory Disorders: No Comment:: allergies - CARDIOVASCULAR Hx Cardio Disorders: Yes Hx Abnormal EKG: Yes (r/t anxiety) Hx Chest Pain: Yes (r/t anxiety) - NEURO Hx Neuro Disorders: Yes Hx Headaches: No Hx Seizures: Yes (last seizure 12 years ago) - GI Hx GI Disorders: Yes Hx Obstructive Bowel: Yes (Admitted for Crohns, ileus and possible partial bowel obstruction) - Hx Genitourinary Disorders: No Comment:: going through menopause - ENDOCRINE Hx Endocrine Disorders: No - MUSCULOSKELETAL Hx Musculoskeletal Disorders: Yes 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 - PSYCH Hx Psych Problems: Yes Hx Depression: Yes Hx Suicide Attempt: No - HEMATOLOGY/ONCOLOGY Hx Hematology/Oncology Disorders: No Hx Anemia: No Hx Blood Disorders: No Hx Bruising: No Hx Cancer: No Hx Clotting Problems: No Hx Sickle Cell Disease: No Hx Unexplained Bleeding: No Hx Blood Transfusions: No Hx Blood Transfusion Reaction: No Family Medical History Hx Alcohol Use: Father, Brother/Sister Hx Cancer: Brother/Sister *Cancer Comment: lung cancer Hx Diabetes: Grandparents *Diabetes Comment: grandmother Hx Heart Disease: Grandparents *Heart Comment: grandfather Hx Resp Disorders: Children *Resp Comment: daughter has asthma Hx Stroke: Mother *Stroke Comment: Mother had history of TIA x 1 Physical Exam - General General Appearance: Alert, Oriented x3, Cooperative, No acute distress Limitations: No limitations - Head Head exam: Atraumatic, Normal inspection - Eye Eye exam: Normal appearance. negative: Conjunctival injection, Scleral icterus - ENT ENT exam: Normal exam Ear exam: Normal external inspection Nasal Exam: Normal inspection Mouth exam: Normal external inspection Teeth exam: Normal inspection Throat exam: Normal inspection - Neck Neck exam: Normal inspection - Respiratory Respiratory exam: Normal lung sounds bilaterally. negative: Respiratory distress - Cardiovascular Cardiovascular Exam: Regular rate, Normal rhythm, Normal heart sounds - GI/Abdominal GI/Abdominal exam: Soft, Normal bowel sounds, Tenderness (tender mildly Left lower, soft abdomen, bowel sounds intact). negative: Diminished bowel sounds, Distended, Rebound - Rectal Rectal exam: Deferred - exam: Deferred - Extremities Extremities exam: Normal inspection. negative: Pedal edema, Tenderness - Back Back exam: Denies: CVA tenderness (R), CVA tenderness (L) - Neurological Neurological exam: Alert, Oriented X3 - Psychiatric Psychiatric exam: Normal affect, Normal mood. negative: Agitated, Anxious - Skin Skin exam: Dry, Intact, Normal color, Warm Course - Reevaluation(s) Reevaluation #1: 06/27/18 22:08 No acute changes on the CBC. Chronic anemia. Stable 06/27/18 22:31 The K is 3.1 The remaining CMP and Lipase is normal 06/27/18 22:49 The AAS was reviewed. Non specific bowel gas pattern. Very few if any AFL. No FA. New venous access port. 06/27/18 22:56 The patient still has some itching. Solumedrol and Bendryl given We discussed home care with rest, liquid diet, and reasons to return to the ED Medical Decision Making - Lab Data Result diagrams: 06/27/18 21:40 06/27/18 21:40 Disposition Disposition: Discharge Clinical Impression: Abdominal pain, Crohn disease Disposition: Home, Self-Care Condition: (1) Good Instructions: Abdominal Pain (ED) Additional Instructions: Liquid diet the next 2 days Return to the ED if worse, fever, vomiting, or any concerns Call your doctor first of the week for close follow up of the ED visit Forms: Patient Portal Access Time of Disposition: 22:50 Quality - Quality Measures Quality Measures: N/A - Blood Pressure Screening Does Patient Have Any of the Following: No Blood Pressure Classification: Pre-Hypertensive BP Reading Systolic Measurement: 128 Diastolic Measurement: 83 Screening for High Blood Pressure: < Pre-Hypertensive BP, F/U Documented > [ G8950] Pre-Hypertensive Follow-up Interventions: Referral to alternative/primary care provider.
[2018-06-27 21:53] LABS: BASO % 0.2 % (0-6); HEMATOCRIT 36.7 % (35.0-47.0); HEMOGLOBIN 11.1 gm/dl (11.6-16.0); LYMPH % 33.4 % (16-45); MEAN CELL VOLUME 81.4 fl (81-97); MEAN CORPUSCULAR HEMOGLOBIN 24.6 pg (27-33); MEAN CORPUSCULAR HGB CONC 30.2 g/dl (32-36); MONO % 9.4 % (0-9); PLATELET COUNT 555 K/uL (130-400); RED BLOOD COUNT 4.51 M/uL (3.80-5.40); RED CELL DISTRIBUTION WIDTH 16.2 % (11.5-14.5); WHITE BLOOD COUNT W/O DIFF 9.9 K/uL (4.2-12.2)
[2018-06-27] MEDS ORDERED: DIPHENHYDRAMINE HCL 50 MG/ML VIAL IVP ONE ×2 (22:00→22:55)
[2018-06-27 22:09] LABS: BILIRUBIN,TOTAL < 0.20 mg/dL (0.2-1.0); BLOOD UREA NITROGEN 9 mg/dL (6-20); CREATININE 0.5 mg/dL (0.5-0.9); EST GLOMERULAR FILTRATION RATE > 60 mL/min
[2018-06-27 22:10] LABS: INR 0.9; PARTIAL THROMBOPLASTIN TIME 25.4 SECONDS (24.5-39.1); PROTHROMBIN TIME (PATIENT) 10.1 SECONDS (9.5-12.1); TOTAL PROTEIN 6.8 g/dL (6.6-8.7)
[2018-06-27 22:12] LABS: GLUCOSE,RANDOM 89 mg/dL (74-109)
[2018-06-27 22:14] LABS: ALT/SGPT 38 U/L (<33)
[2018-06-27 22:15] LABS: ALB/GLOB RATIO 1.7 (1.1-1.8); ALBUMIN 4.3 g/dL (4.0-5.0); ALKALINE PHOSPHATASE 102 U/L (35-104); AST/SGOT 26 U/L (10.0-35.0); LIPASE 28 U/L (13-60)
[2018-06-27] MEDS ORDERED: POTASSIUM CHLORIDE 20 MEQ TABLET PO ONE (22:31)
[2018-06-27] MEDS ORDERED: METHYLPREDNISOLONE PF 125MG/VIAL IVP ONE (22:55)
[2018-06-27] MEDS ORDERED: HYDROCODONE/APAP 5/325MG TABLET PO ONE (22:55)
[2018-06-27] MEDS ORDERED: HEPARIN SODIUM FLUSH 100 UNITS/ML SYR 5ML IVP ONE (23:43)
--- NOTE | 2018-06-29 11:21 | RADIOLOGY REPORT ---
DATE: 06/27/2018 at 10:16 p.m. EXAM: ACUTE ABDOMEN SERIES WHICH INCLUDES A PA CHEST. HISTORY: Abdominal pain. TECHNIQUE: PA chest and supine and upright abdomen. COMPARISON: Abdomen series which a chest dated 05/29/2018. FINDINGS: PA Chest: The previously seen right-sided PIC line has been removed. New venous access port, left anterior chest with the associated catheter extending into the region of the upper superior vena cava. No pneumothorax evident. No definite acute infiltrate seen, and no pleural effusion evident. Mild thoracic curve to the right. Abdomen Images: Bowel gas pattern is nonspecific with bowel gas seen scattered throughout colon and small bowel. Very few, if any, air fluid levels seen in the upright view, and no free air evident. IMPRESSION: 1. NEW VENOUS ACCESS PORT ON THE LEFT. NO PNEUMOTHORAX EVIDENT. 2. NONSPECIFIC BOWEL GAS PATTERN WITH NO FREE AIR EVIDENT. JOB NUMBER: [id number] MTDD
== END 2018-06-27 23:46 | disposition home or self-care (01) ==
LOC: ER 20:39
DX: K50.90 Crohn's disease, unspecified, without complications (principal); R10.32 Left lower quadrant pain; R11.0 Nausea; F17.210 Nicotine dependence, cigarettes, uncomplicated
CPT/HCPCS: 74022; 80053; 83690; 85025; 85610; 85730; 96374; 96375; 96376; 99284; J1200; J2405; J2930; J7030

== ENCOUNTER 2018-07-29 18:55 | Emergency (ER) | payer MEDICAID ==
[2018-07-29] MEDS ORDERED: METHYLPREDNISOLONE PF 125MG/VIAL IM ONE (19:38)
[2018-07-29] MEDS ORDERED: DIPHENHYDRAMINE HCL 50 MG/ML VIAL IM ONE (19:38)
--- NOTE | 2018-07-29 19:43 | Emergency Department Record ---
History of Present Illness - General Chief complaint: Edema Stated complaint: SWOLLEN L HAND Time Seen by Provider: 07/29/18 19:13 Source: Patient Mode of Arrival: Ambulatory Limitations: No limitations - History of Present Illness Initial comments: pt awakened with swelling and erythema of 2nd and 3rd finger w tenderness. unknown injuryor if stung. MD Complaint: Extremity pain, Extremity swelling Onset/Timin -: Hour(s) Location: Left, Hand Radiation: Proximal Severity scale (1-10): 7 Quality: Burning, Sharp Consistency: Constant, Getting worse Improves with: Nothing Worsens with: Palpation Associated Symptoms: Other - Related Data Previous Rx's Medication Instructions Recorded Ondansetron HCl [Zofran] 4 mg PO Q6HR #30 tablet 04/28/18 Ondansetron [Zofran Odt] 4 mg PO Q8H #10 tab.rapdis 06/16/18 Cephalexin [Keflex] 500 mg PO TID #20 cap 07/29/18 Allergies Allergy/AdvReac Type Severity Reaction Status Date / Time promethazine HCl Allergy Mild ITCHING Verified 07/29/18 18:56 [From Phenergan] adalimumab [From HUMIRA] Allergy Unknown MIGRAINES Verified 07/29/18 18:56 aspirin [ASPIRIN] Allergy Unknown NAUSEA AND Verified 07/29/18 18:56 VOMITING azathioprine [From IMURAN] Allergy Unknown VOMITING Verified 07/29/18 18:56 azathioprine sodium Allergy Unknown VOMITING Verified 07/29/18 18:56 [From IMURAN] chlordiazepoxide HCl Allergy Unknown RASH Verified 07/29/18 18:56 [From LIBRIUM] citalopram hydrobromide Allergy Unknown HYPERSENSIT Verified 07/29/18 18:56 [From CELEXA] IVITY clidinium [CLIDINIUM] Allergy Unknown RASH Verified 07/29/18 18:56 codeine Allergy Unknown ITCHING Verified 07/29/18 18:56 eicosapentaenoic acid Allergy Unknown RASH Verified 07/29/18 18:56 [From OMEGA 3] hydrocodone bitartrate Allergy Unknown ITCHING Verified 07/29/18 18:56 [From VICODIN] hydromorphone HCl Allergy Unknown ITCHING Verified 07/29/18 18:56 infliximab Allergy Unknown VOMITING Verified 07/29/18 18:56 metoclopramide Allergy Unknown ALTERED Verified 09/12/18 18:56 [METOCLOPRAMIDE] MENTAL STATUS morphine [MORPHINE] Allergy Unknown ITCHING Verified 07/29/18 18:56 omega-3 fatty acids Allergy Unknown RASH Verified 07/29/18 18:56 [From OMEGA 3] oxycodone HCl [From PERCOCET] Allergy Unknown ITCHING Verified 07/29/18 18:56 paroxetine HCl [From PAXIL] Allergy Unknown RASH Verified 07/29/18 18:56 varenicline tartrate Allergy Unknown ALTERED Verified 07/29/18 18:56 [From CHANTIX] MENTAL STATUS Travel Screening - Travel/Exposure Within Last 30 Days Have you traveled within the last 30 days?: No - Travel Symptoms Symptom Screening: None Review of Systems Reviewed: No additional complaints except as noted below Constitutional: Reports: As per HPI. Denies: Chills, Fever, Malaise, Night sweats, Weakness, Weight change Eyes: Reports: As per HPI. Denies: Eye discharge, Eye pain, Photophobia, Vision change ENT: Reports: As per HPI. Denies: Congestion, Dental pain, Ear pain, Epistaxis , Hearing loss, Throat pain Respiratory: Reports: As per HPI. Denies: Cough, Dyspnea, Hemoptysis, Stridor, Wheezes Cardiovascular: Reports: As per HPI. Denies: Arrhythmia, Chest pain, Dyspnea on exertion, Edema, Murmurs, Orthopnea, Palpitations, Paroxysmal nocturnal dyspnea, Rheumatic Fever, Syncope Endocrine: Reports: As per HPI. Denies: Fatigue, Heat or cold intolerance, Polydipsia, Polyuria Gastrointestinal: Reports: As per HPI. Denies: Abdominal pain, Constipation, Diarrhea, Hematemesis, Hematochezia, Melena, Nausea, Vomiting Genitourinary: Reports: As per HPI. Denies: Abnormal menses, Discharge, Dyspareunia, Dysuria, Frequency, Hematuria, Incontinence, Retention, Urgency Musculoskeletal: Reports: As per HPI. Denies: Arthralgia, Back pain, Gout, Joint swelling, Myalgia, Neck pain Skin: Reports: As per HPI. Denies: Bruising, Change in color, Change in hair/ nails, Lesions, Pruritus, Rash Neurological: Reports: As per HPI. Denies: Abnormal gait, Confusion, Headache, Numbness, Paresthesias, Seizure, Tingling, Tremors, Vertigo, Weakness Psychiatric: Reports: As per HPI. Denies: Anxiety, Auditory hallucinations, Depression, Homicidal thoughts, Suicidal thoughts, Visual hallucinations Hematological/Lymphatic: Reports: As per HPI. Denies: Anemia, Blood Clots, Easy bleeding, Easy bruising, Swollen glands Past Medical History - SOCIAL HISTORY Smoking Status: Light tobacco smoker (<10/day) Alcohol Use: None Drug Use: None - RESPIRATORY Hx Respiratory Disorders: No Comment:: allergies - CARDIOVASCULAR Hx Cardio Disorders: Yes Hx Abnormal EKG: Yes (r/t anxiety) Hx Chest Pain: Yes (r/t anxiety) - NEURO Hx Neuro Disorders: Yes Hx Headaches: No Hx Seizures: Yes (last seizure 12 years ago) - GI Hx GI Disorders: Yes Hx Obstructive Bowel: Yes (Admitted for Crohns, ileus and possible partial bowel obstruction) - Hx Genitourinary Disorders: No Comment:: going through menopause - ENDOCRINE Hx Endocrine Disorders: No - MUSCULOSKELETAL Hx Musculoskeletal Disorders: Yes 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 - PSYCH Hx Psych Problems: Yes Hx Depression: Yes Hx Suicide Attempt: No Comment:: dx with bi-polar - HEMATOLOGY/ONCOLOGY Hx Hematology/Oncology Disorders: No Hx Anemia: No Hx Blood Disorders: No Hx Bruising: No Hx Cancer: No Hx Clotting Problems: No Hx Sickle Cell Disease: No Hx Unexplained Bleeding: No Hx Blood Transfusions: No Hx Blood Transfusion Reaction: No Family Medical History Any Significant Family History?: Yes Hx Alcohol Use: Father, Brother/Sister Hx Cancer: Brother/Sister *Cancer Comment: lung cancer Hx Diabetes: Grandparents *Diabetes Comment: grandmother Hx Heart Disease: Grandparents *Heart Comment: grandfather Hx Resp Disorders: Children *Resp Comment: daughter has asthma Hx Stroke: Mother *Stroke Comment: Mother had history of TIA x 1 Physical Exam - General General Appearance: Alert, Oriented x3, Cooperative, No acute distress - Head Head exam: Normal inspection - Eye Eye exam: Normal appearance, PERRL, EOMI Pupils: Normal accommodation - ENT ENT exam: Normal exam, Mucous membranes moist, Normal external ear exam, Normal orophraynx Ear exam: Normal external inspection. negative: External canal tenderness Nasal Exam: Normal inspection. negative: Discharge, Sinus tenderness Mouth exam: Normal external inspection, Tongue normal Teeth exam: Normal inspection. negative: Dental caries Throat exam: Normal inspection. negative: Tonsillar erythema, Tonsillar exudate - Neck Neck exam: Normal inspection, Full ROM. negative: Tenderness - Respiratory Respiratory exam: Normal lung sounds bilaterally. negative: Respiratory distress - Cardiovascular Cardiovascular Exam: Regular rate, Normal rhythm, Normal heart sounds - GI/Abdominal GI/Abdominal exam: Soft, Normal bowel sounds. negative: Tenderness - Rectal Rectal exam: Deferred - exam: Deferred - Extremities Extremities exam: Full ROM, Normal capillary refill, Tenderness Image of Hand: 1 - swelling, erythema tender - Back Back exam: Reports: Normal inspection, Full ROM. Denies: Muscle spasm, Rash noted, Tenderness - Neurological Neurological exam: Alert, CN II-XII intact, Normal gait, Oriented X3 - Psychiatric Psychiatric exam: Normal affect, Normal mood - Skin Skin exam: Dry, Intact, Normal color, Warm Course Vital Signs 07/29/18 19:00 Temperature 98.5 F Pulse Rate [ 110 H Pulse Ox Probe] Respiratory 16 Rate Blood Pressure 110/75 [Right Arm] Pulse Ox 98 Medical Decision Making - Lab Data Result diagrams: 07/29/18 19:41 Disposition Disposition: Discharge Clinical Impression: Insect bite Qualifiers: Encounter type: initial encounter Qualified Code(s): W57.XXXA - Bitten or stung by nonvenomous insect and other nonvenomous arthropods, initial encounter Cellulitis Qualifiers: Site of cellulitis: extremity Site of cellulitis of extremity: finger Laterality: left Qualified Code(s): L03.012 - Cellulitis of left finger Disposition: Home, Self-Care Condition: (1) Good Instructions: Leg Edema (ED), Insect Bite or Sting (ED), Cellulitis (ED) Additional Instructions: follow up with family doctor. return sooner if worse. Prescriptions: Cephalexin [Keflex] 500 mg PO TID #20 cap Forms: Patient Portal Access Quality - Quality Measures Quality Measures: N/A - Blood Pressure Screening Does Patient Have Any of the Following: No Blood Pressure Classification: Pre-Hypertensive BP Reading Systolic Measurement: 128 Diastolic Measurement: 82 Screening for High Blood Pressure: < Pre-Hypertensive BP, F/U Documented > [ G8950] Pre-Hypertensive Follow-up Interventions: Follow-up with rescreen every year.
[2018-07-29 19:49] LABS: BASO % 0.3 % (0-6); EOS % 4.8 % (0-6); GRAN % 49.9 % (47-80); HEMATOCRIT 38.5 % (35.0-47.0); LYMPH % 35.2 % (16-45); MEAN CELL VOLUME 80.5 fl (81-97); MEAN CORPUSCULAR HEMOGLOBIN 25.1 pg (27-33); MEAN CORPUSCULAR HGB CONC 31.2 g/dl (32-36); MONO % 9.8 % (0-9); PLATELET COUNT 482 K/uL (130-400); RED BLOOD COUNT 4.78 M/uL (3.80-5.40); RED CELL DISTRIBUTION WIDTH 15.4 % (11.5-14.5); WHITE BLOOD COUNT W/O DIFF 10.6 K/uL (4.2-12.2)
[2018-07-29] MEDS ORDERED: CEPHALEXIN 500 MG CAPSULE PO STA (20:26)
--- NOTE | 2018-08-02 15:04 | RADIOLOGY REPORT ---
EXAM: HAND, LEFT 3 VIEWS HISTORY: SWELLING. TECHNIQUE: Three views of the left hand were performed. COMPARISON: 11/06/2017. FINDINGS: No evidence of fracture or dislocation. Mild soft tissue swelling. No lytic or blastic lesion. IMPRESSION: MILD SOFT TISSUE SWELLING. NO LYTIC OR BLASTIC LESION. JOB NUMBER: [id number] MTDD
== END 2018-07-29 20:38 | disposition home or self-care (01) ==
LOC: ER 18:55
DX: S60.562A Insect bite (nonvenomous) of left hand, initial encounter (principal); L03.114 Cellulitis of left upper limb; W57.XXXA Bitten or stung by nonvenomous insect and other nonvenomous arthropods, initial encounter; F17.210 Nicotine dependence, cigarettes, uncomplicated
CPT/HCPCS: 85025; 96372; 99283; J1200; J2930

== ENCOUNTER 2018-08-03 16:28 | Emergency (ER) | payer MEDICAID ==
[2018-08-03] MEDS ORDERED: ONDANSETRON HCL IV 4 MG/2 ML VIAL IVP ONE (16:41)
[2018-08-03] MEDS ORDERED: 0.9 % SODIUM CHLORIDE 1,000 ML BAG IV ONE ×2 (16:41→18:21)
--- NOTE | 2018-08-03 16:41 | Emergency Department Record ---
History of Present Illness - General Chief Complaint: Abdominal Pain Stated Complaint: ABDOMINAL PAIN,NAUSEA,LIGHTHEADED Time Seen by Provider: 08/03/18 16:33 Source: Patient Mode of Arrival: Ambulatory Limitations: No limitations - History of Present Illness Initial Comments: 52 yo female presents with abdominal pain. She has history of Crohn's. She states the pain developed today. She has nausea. She had one BM this morning. She will often have 4-5. She did see her PCP today. No fevers. She is scheduled in about 2 weeks to meet again with GI. She has associated nausea. No current blood in the stools. She was admitted to [facility] about 3 weeks ago. MD Complaint: Abdominal pain -: Days(s) Location: LLQ Radiation: LLQ Migration to: Periumbilical, LLQ Severity: Moderate Quality: Aching, Cramping Consistency: Intermittent Improves With: Nothing Worsens With: Movement Context: Other (History of Crohn's with recurrent pain) Associated Symptoms: Anorexia - Related Data Hx Age of Menopause: 47 Previous Rx's Medication Instructions Recorded Cephalexin [Keflex] 500 mg PO TID #20 cap 07/29/18 Allergies Allergy/AdvReac Type Severity Reaction Status Date / Time promethazine HCl Allergy Mild ITCHING Unverified 08/03/18 12:06 [From Phenergan] adalimumab [From HUMIRA] Allergy Unknown MIGRAINES Unverified 08/03/18 12:06 aspirin [ASPIRIN] Allergy Unknown NAUSEA AND Unverified 08/03/18 12:06 VOMITING azathioprine [From IMURAN] Allergy Unknown VOMITING Unverified 08/03/18 12:06 azathioprine sodium Allergy Unknown VOMITING Unverified 08/03/18 12:06 [From IMURAN] chlordiazepoxide HCl Allergy Unknown RASH Unverified 08/03/18 12:06 [From LIBRIUM] citalopram hydrobromide Allergy Unknown HYPERSENSIT Unverified 08/03/18 12:06 [From CELEXA] IVITY clidinium [CLIDINIUM] Allergy Unknown RASH Unverified 08/03/18 12:06 codeine Allergy Unknown ITCHING Unverified 08/03/18 12:06 eicosapentaenoic acid Allergy Unknown RASH Unverified 08/03/18 12:06 [From OMEGA 3] hydrocodone bitartrate Allergy Unknown ITCHING Unverified 08/03/18 12:06 [From VICODIN] hydromorphone HCl Allergy Unknown ITCHING Unverified 08/03/18 12:06 infliximab Allergy Unknown VOMITING Unverified 08/03/18 12:06 metoclopramide Allergy Unknown ALTERED Unverified 08/03/18 12:06 [METOCLOPRAMIDE] MENTAL STATUS morphine [MORPHINE] Allergy Unknown ITCHING Unverified 08/03/18 12:06 omega-3 fatty acids Allergy Unknown RASH Unverified 08/03/18 12:06 [From OMEGA 3] oxycodone HCl [From PERCOCET] Allergy Unknown ITCHING Unverified 08/03/18 12:06 paroxetine HCl [From PAXIL] Allergy Unknown RASH Unverified 08/03/18 12:06 varenicline tartrate Allergy Unknown ALTERED Unverified 08/03/18 12:06 [From CHANTIX] MENTAL STATUS Review of Systems Constitutional: Denies: Chills, Fever, Malaise, Weakness Eyes: Denies: Eye discharge ENT: Denies: Congestion, Throat pain Respiratory: Denies: Cough, Dyspnea Cardiovascular: Denies: Chest pain, Syncope Endocrine: Denies: Fatigue Gastrointestinal: Reports: As per HPI, Abdominal pain, Constipation (one stool today), Nausea. Denies: Hematemesis, Hematochezia, Vomiting Genitourinary: Denies: Dysuria, Urgency Musculoskeletal: Denies: Arthralgia, Back pain, Myalgia Skin: Denies: Bruising Neurological: Denies: Numbness, Weakness Psychiatric: Denies: Anxiety Hematological/Lymphatic: Denies: Easy bruising Past Medical History - SOCIAL HISTORY Smoking Status: Light tobacco smoker (<10/day) Drug Use: None - RESPIRATORY Hx Respiratory Disorders: No Comment:: allergies - CARDIOVASCULAR Hx Cardio Disorders: Yes Hx Abnormal EKG: Yes (r/t anxiety) Hx Chest Pain: Yes (r/t anxiety) - NEURO Hx Neuro Disorders: Yes Hx Headaches: No Hx Seizures: Yes (last seizure 12 years ago) - GI Hx GI Disorders: Yes Hx Obstructive Bowel: Yes (Admitted for Crohns, ileus and possible partial bowel obstruction) - Hx Genitourinary Disorders: No Comment:: going through menopause - ENDOCRINE Hx Endocrine Disorders: No - MUSCULOSKELETAL Hx Musculoskeletal Disorders: Yes 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 - PSYCH Hx Psych Problems: Yes Hx Depression: Yes Hx Suicide Attempt: No Comment:: dx with bi-polar - HEMATOLOGY/ONCOLOGY Hx Hematology/Oncology Disorders: No Hx Anemia: No Hx Blood Disorders: No Hx Bruising: No Hx Cancer: No Hx Clotting Problems: No Hx Sickle Cell Disease: No Hx Unexplained Bleeding: No Hx Blood Transfusions: No Hx Blood Transfusion Reaction: No Family Medical History Hx Alcohol Use: Father, Brother/Sister Hx Cancer: Brother/Sister *Cancer Comment: lung cancer Hx Diabetes: Grandparents *Diabetes Comment: grandmother Hx Heart Disease: Grandparents *Heart Comment: grandfather Hx Resp Disorders: Children *Resp Comment: daughter has asthma Hx Stroke: Mother *Stroke Comment: Mother had history of TIA x 1 Physical Exam - General General Appearance: Alert, Oriented x3, Cooperative, No acute distress Limitations: No limitations - Head Head exam: Atraumatic, Normal inspection - Eye Eye exam: Normal appearance. negative: Conjunctival injection - ENT ENT exam: Normal exam Ear exam: Normal external inspection Nasal Exam: Normal inspection Mouth exam: Normal external inspection - Neck Neck exam: Normal inspection - Respiratory Respiratory exam: Normal lung sounds bilaterally. negative: Respiratory distress - Cardiovascular Cardiovascular Exam: Regular rate, Normal rhythm, Normal heart sounds - GI/Abdominal GI/Abdominal exam: Soft, Distended (SOFTLY distended, BS present in all 4 quadrants. Tender mostly on the left mid to upper.), Tenderness. negative: Guarding - Rectal Rectal exam: Deferred - exam: Deferred - Extremities Extremities exam: Normal inspection - Back Back exam: Denies: CVA tenderness (R), CVA tenderness (L) - Neurological Neurological exam: Alert, Oriented X3 - Psychiatric Psychiatric exam: Normal affect, Normal mood - Skin Skin exam: Dry, Intact, Normal color, Warm Course - Reevaluation(s) Reevaluation #1: CT 06/16/18: New mild wall thickening distal colon and rectum with adjacent fat stranding. colitis vs proctitis. 08/03/18 16:51 08/03/18 18:15 The labs were reviewed No acute changes on the CBC or CMP. The anemia is chronic and stable at 11. 08/03/18 18:18 Non specific bowel gas pattern. No free air. No air fluid levels to suggest obstruction. 08/03/18 18:22 The patient is doing much better. Pain and nausea or controlled. 08/03/18 19:47 The patient has controlled pain and nausea. She is well aware of the symptoms to return and the importance of follow up. Medical Decision Making - Lab Data Result diagrams: 08/03/18 17:20 08/03/18 17:20 Disposition Disposition: Discharge Clinical Impression: Crohn disease, Abdominal pain Disposition: Home, Self-Care Condition: (1) Good Instructions: Abdominal Pain (ED) Additional Instructions: Liquid diet for the next 1-2 days Return if you have pain, fever, vomiting or any new concerns Follow up with your doctors as scheduled for follow up of your Crohn's Forms: Patient Portal Access Time of Disposition: 19:47 Quality - Quality Measures Quality Measures: N/A - Blood Pressure Screening Does Patient Have Any of the Following: No Blood Pressure Classification: Pre-Hypertensive BP Reading Systolic Measurement: 139 Diastolic Measurement: 89 Screening for High Blood Pressure: < Pre-Hypertensive BP, F/U Documented > [ G8950] Pre-Hypertensive Follow-up Interventions: Referral to alternative/primary care provider.
[2018-08-03] MEDS ORDERED: HYDROMORPHONE HCL 2 MG/ML VIAL IVP ONE ×2 (16:47→19:22)
[2018-08-03] MEDS ORDERED: DIPHENHYDRAMINE HCL 50 MG/ML VIAL IVP ONE ×2 (16:47→18:21)
[2018-08-03 17:25] LABS: BASO % 0.2 % (0-6); GRAN % 62.6 % (47-80); HEMOGLOBIN 11.4 gm/dl (11.6-16.0); LYMPH % 24.9 % (16-45); MEAN CELL VOLUME 81.4 fl (81-97); MEAN CORPUSCULAR HEMOGLOBIN 24.4 pg (27-33); MONO % 8.3 % (0-9); PLATELET COUNT 377 K/uL (130-400); RED BLOOD COUNT 4.67 M/uL (3.80-5.40); RED CELL DISTRIBUTION WIDTH 15.5 % (11.5-14.5); WHITE BLOOD COUNT W/O DIFF 11.9 K/uL (4.2-12.2)
[2018-08-03 17:37] LABS: INR 0.9; PARTIAL THROMBOPLASTIN TIME 24.7 SECONDS (24.5-39.1); PROTHROMBIN TIME (PATIENT) 9.4 SECONDS (9.5-12.1)
[2018-08-03 17:38] LABS: BILIRUBIN,TOTAL < 0.20 mg/dL (0.2-1.0); BLOOD UREA NITROGEN 6 mg/dL (6-20); CREATININE 0.5 mg/dL (0.5-0.9); EST GLOMERULAR FILTRATION RATE > 60 mL/min
[2018-08-03 17:39] LABS: TOTAL PROTEIN 6.2 g/dL (6.6-8.7)
[2018-08-03 17:41] LABS: GLUCOSE,RANDOM 90 mg/dL (74-109)
[2018-08-03 17:43] LABS: ALT/SGPT 13 U/L (<33)
[2018-08-03 17:44] LABS: ALB/GLOB RATIO 1.5 (1.1-1.8); ALBUMIN 3.7 g/dL (4.0-5.0); ALKALINE PHOSPHATASE 95 U/L (35-104); AST/SGOT 10 U/L (10.0-35.0); LIPASE 29 U/L (13-60)
[2018-08-03] MEDS ORDERED: METHYLPREDNISOLONE PF 125MG/VIAL IVP ONE (18:21)
[2018-08-03] MEDS ORDERED: HEPARIN SODIUM FLUSH 100 UNITS/ML SYR 5ML IVP ONE (19:46)
== END 2018-08-03 19:57 | disposition home or self-care (01) ==
LOC: ER 16:28
DX: K50.90 Crohn's disease, unspecified, without complications (principal); R10.32 Left lower quadrant pain; R11.0 Nausea; D64.9 Anemia, unspecified; F17.210 Nicotine dependence, cigarettes, uncomplicated
CPT/HCPCS: 99284 ×2; 96376; 96374; 96375; 83690; 85025; 85730; 85610; 80053; 74019; J2405; J1642; J1170; J1200; J2930; J7030

== ENCOUNTER 2018-08-16 07:30 | Emergency (ER) | payer MEDICAID ==
--- NOTE | 2018-08-16 07:56 | Emergency Department Record ---
History of Present Illness - General Chief complaint: Extremity Problem Stated complaint: HAND RED AND SWOLLEN Time Seen by Provider: 08/16/18 07:45 Source: Patient, RN notes reviewed Mode of Arrival: Ambulatory - History of Present Illness Initial comments: painting yesterday and her left middle finger started to swell and now it is swelling into her hand. recently treated for cellulitis of the same spot about 3 weeks ago and just finished keflex 2 days ago. Her brother has gout. she denies every having gout. No punctures admitted by the patient but she may have bumped it painting yesterday. Onset/Timin -: Days(s) Location: Left, Hand History of Same: Yes Severity scale (1-10): 6 Quality: Burning Consistency: Constant Improves with: Elevation, Immobilization Worsens with: Exertion Associated Symptoms: Denies other symptoms - Related Data Previous Rx's Medication Instructions Recorded Cephalexin [Keflex] 500 mg PO QID #40 cap 08/16/18 Hydrocodone/Acetaminophen [[place] 1 each PO Q6HR #12 tablet 08/16/18 5-325 Tablet] Prednisone [Prednisone 10Mg] 10 mg PO ASDIR #30 tab 08/16/18 Sulfamethoxazole/Trimethoprim 1 each PO BID #20 tablet 08/16/18 [Bactrim Ds Tablet] Allergies Allergy/AdvReac Type Severity Reaction Status Date / Time promethazine HCl Allergy Mild ITCHING Verified 08/16/18 07:38 [From Phenergan] adalimumab [From HUMIRA] Allergy Unknown MIGRAINES Verified 08/16/18 07:38 aspirin [ASPIRIN] Allergy Unknown NAUSEA AND Verified 08/16/18 07:38 VOMITING azathioprine [From IMURAN] Allergy Unknown VOMITING Verified 08/16/18 07:38 azathioprine sodium Allergy Unknown VOMITING Verified 08/16/18 07:38 [From IMURAN] chlordiazepoxide HCl Allergy Unknown RASH Verified 08/16/18 07:38 [From LIBRIUM] citalopram hydrobromide Allergy Unknown HYPERSENSIT Verified 08/16/18 07:38 [From CELEXA] IVITY clidinium [CLIDINIUM] Allergy Unknown RASH Verified 08/16/18 07:38 codeine Allergy Unknown ITCHING Verified 08/16/18 07:38 eicosapentaenoic acid Allergy Unknown RASH Verified 08/16/18 07:38 [From OMEGA 3] hydrocodone bitartrate Allergy Unknown ITCHING Verified 08/16/18 07:38 [From VICODIN] hydromorphone HCl Allergy Unknown ITCHING Verified 08/16/18 07:38 infliximab Allergy Unknown VOMITING Verified 08/16/18 07:38 metoclopramide Allergy Unknown ALTERED Verified 08/16/18 07:38 [METOCLOPRAMIDE] MENTAL STATUS morphine [MORPHINE] Allergy Unknown ITCHING Verified 08/16/18 07:38 omega-3 fatty acids Allergy Unknown RASH Verified 08/16/18 07:38 [From OMEGA 3] oxycodone HCl [From PERCOCET] Allergy Unknown ITCHING Verified 08/16/18 07:38 paroxetine HCl [From PAXIL] Allergy Unknown RASH Verified 08/16/18 07:38 varenicline tartrate Allergy Unknown ALTERED Verified 08/16/18 07:38 [From CHANTIX] MENTAL STATUS Travel Screening - Travel/Exposure Within Last 30 Days Have you traveled within the last 30 days?: No - Travel/Exposure Within Last Year Have you traveled outside the [place] in the last year?: No - Additonal Travel Details Have you been exposed to anyone with a communicable illness?: No - Travel Symptoms Symptom Screening: None Review of Systems Reviewed: No additional complaints except as noted below Constitutional: Reports: As per HPI. Denies: Chills, Fever, Malaise, Night sweats, Weakness, Weight change Eyes: Reports: As per HPI. Denies: Eye discharge, Eye pain, Photophobia, Vision change ENT: Reports: As per HPI. Denies: Congestion, Dental pain, Ear pain, Epistaxis , Hearing loss, Throat pain Respiratory: Reports: As per HPI. Denies: Cough, Dyspnea, Hemoptysis, Stridor, Wheezes Cardiovascular: Reports: As per HPI. Denies: Arrhythmia, Chest pain, Dyspnea on exertion, Edema, Murmurs, Orthopnea, Palpitations, Paroxysmal nocturnal dyspnea, Rheumatic Fever, Syncope Endocrine: Reports: As per HPI. Denies: Fatigue, Heat or cold intolerance, Polydipsia, Polyuria Gastrointestinal: Reports: As per HPI. Denies: Abdominal pain, Constipation, Diarrhea, Hematemesis, Hematochezia, Melena, Nausea, Vomiting Genitourinary: Reports: As per HPI. Denies: Abnormal menses, Discharge, Dyspareunia, Dysuria, Frequency, Hematuria, Incontinence, Retention, Urgency Musculoskeletal: Reports: As per HPI, Other (pain and swelling of the 3rd PIP joint and between the PIP and MP joint with radiation into the hand and wrist. slight redness). Denies: Arthralgia, Back pain, Gout, Joint swelling, Myalgia, Neck pain Skin: Reports: As per HPI. Denies: Bruising, Change in color, Change in hair/ nails, Lesions, Pruritus, Rash Neurological: Reports: As per HPI. Denies: Abnormal gait, Confusion, Headache, Numbness, Paresthesias, Seizure, Tingling, Tremors, Vertigo, Weakness Psychiatric: Reports: As per HPI. Denies: Anxiety, Auditory hallucinations, Depression, Homicidal thoughts, Suicidal thoughts, Visual hallucinations Hematological/Lymphatic: Reports: As per HPI. Denies: Anemia, Blood Clots, Easy bleeding, Easy bruising, Swollen glands Past Medical History - SOCIAL HISTORY Smoking Status: Light tobacco smoker (<10/day) Alcohol Use: None Drug Use: None - RESPIRATORY Hx Respiratory Disorders: No Comment:: allergies - CARDIOVASCULAR Hx Cardio Disorders: Yes Hx Abnormal EKG: Yes (r/t anxiety) Hx Chest Pain: Yes (r/t anxiety) - NEURO Hx Neuro Disorders: Yes Hx Headaches: No Hx Seizures: Yes (last seizure 12 years ago) - GI Hx GI Disorders: Yes Hx Obstructive Bowel: Yes (Admitted for Crohns, ileus and possible partial bowel obstruction) - Hx Genitourinary Disorders: No Comment:: going through menopause - ENDOCRINE Hx Endocrine Disorders: No - MUSCULOSKELETAL Hx Musculoskeletal Disorders: Yes 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 - PSYCH Hx Psych Problems: Yes Hx Depression: Yes Hx Suicide Attempt: No Comment:: dx with bi-polar - HEMATOLOGY/ONCOLOGY Hx Hematology/Oncology Disorders: No Hx Anemia: No Hx Blood Disorders: No Hx Bruising: No Hx Cancer: No Hx Clotting Problems: No Hx Sickle Cell Disease: No Hx Unexplained Bleeding: No Hx Blood Transfusions: No Hx Blood Transfusion Reaction: No Family Medical History Any Significant Family History?: Yes Hx Alcohol Use: Father, Brother/Sister Hx Cancer: Brother/Sister *Cancer Comment: lung cancer Hx Diabetes: Grandparents *Diabetes Comment: grandmother Hx Heart Disease: Grandparents *Heart Comment: grandfather Hx Resp Disorders: Children *Resp Comment: daughter has asthma Hx Stroke: Mother *Stroke Comment: Mother had history of TIA x 1 Physical Exam - General General Appearance: Alert, Oriented x3, Cooperative, No acute distress - Head Head exam: Normal inspection - Eye Eye exam: Normal appearance, PERRL Pupils: Normal accommodation - ENT ENT exam: Normal exam, Mucous membranes moist, Normal external ear exam, Normal orophraynx, TM's normal bilaterally Ear exam: Normal external inspection. negative: External canal tenderness Nasal Exam: Normal inspection. negative: Discharge, Sinus tenderness Mouth exam: Normal external inspection, Tongue normal Teeth exam: Normal inspection. negative: Dental caries Throat exam: Normal inspection. negative: Tonsillar erythema, Tonsillar exudate - Neck Neck exam: Normal inspection, Full ROM. negative: Tenderness - Respiratory Respiratory exam: Normal lung sounds bilaterally. negative: Respiratory distress - Cardiovascular Cardiovascular Exam: Regular rate, Normal rhythm, Normal heart sounds - GI/Abdominal GI/Abdominal exam: Soft, Normal bowel sounds. negative: Tenderness - Rectal Rectal exam: Deferred - exam: Deferred - Extremities Extremities exam: Normal inspection, Full ROM, Normal capillary refill, Tenderness (swellin and redness of the left 3rd digit and hand) - Back Back exam: Reports: Normal inspection, Full ROM. Denies: Muscle spasm, Rash noted, Tenderness - Neurological Neurological exam: Alert, Normal gait, Oriented X3, Reflexes normal - Psychiatric Psychiatric exam: Normal affect, Normal mood - Skin Skin exam: Dry, Intact, Normal color, Warm Course Vital Signs 08/16/18 07:42 Temperature 98.6 F Pulse Rate 100 H Respiratory 20 Rate Blood Pressure 124/68 Pulse Ox 100 Medical Decision Making - Data Complexity MDM Data: Labs Ordered and/or Reviewed (wbc 11,400 uric acid normal), X-Ray Ordered and/or Reviewed (reviewed her hand xray done on 07/29/[address] Castellanos neg xray.) - Lab Data Result diagrams: 08/16/18 08:25 08/16/18 08:25 Disposition Clinical Impression: Cellulitis Qualifiers: Site of cellulitis: extremity Site of cellulitis of extremity: finger Laterality: left Qualified Code(s): L03.012 - Cellulitis of left finger Disposition: Home, Self-Care Condition: (1) Good Instructions: Cellulitis (ED) Additional Instructions: follow up with family in 3 days keflex four times a day and bactrim ds twice a day Prescriptions: Hydrocodone/Acetaminophen [[place] 5-325 Tablet] 1 each PO Q6HR #12 tablet Cephalexin [Keflex] 500 mg PO QID #40 cap Prednisone [Prednisone 10Mg] 10 mg PO ASDIR #30 tab Sulfamethoxazole/Trimethoprim [Bactrim Ds Tablet] 1 each PO BID #20 tablet Forms: Patient Portal Access Time of Disposition: 08:52 Quality - Quality Measures Quality Measures: N/A - Blood Pressure Screening Does Patient Have Any of the Following: No Blood Pressure Classification: Pre-Hypertensive BP Reading Systolic Measurement: 124 Diastolic Measurement: 68 Screening for High Blood Pressure: < Pre-Hypertensive BP, F/U Documented > [ G8950] Pre-Hypertensive Follow-up Interventions: Referral to alternative/primary care provider.
[2018-08-16] MEDS ORDERED: METHYLPREDNISOLONE 80MG/VIAL IM ONE (08:11)
[2018-08-16 08:28] LABS: BASO % 0.4 % (0-6); EOS % 3.9 % (0-6); GRAN % 61.7 % (47-80); HEMATOCRIT 39.3 % (35.0-47.0); HEMOGLOBIN 11.8 gm/dl (11.6-16.0); MEAN CELL VOLUME 80.4 fl (81-97); MEAN CORPUSCULAR HEMOGLOBIN 24.1 pg (27-33); MEAN PLATELET VOLUME 8.8 fl (7.4-10.4); PLATELET COUNT 492 K/uL (130-400); RED BLOOD COUNT 4.89 M/uL (3.80-5.40); RED CELL DISTRIBUTION WIDTH 15.7 % (11.5-14.5); WHITE BLOOD COUNT W/O DIFF 11.4 K/uL (4.2-12.2)
[2018-08-16 08:38] LABS: BLOOD UREA NITROGEN 6 mg/dL (6-20); CREATININE 0.5 mg/dL (0.5-0.9); EST GLOMERULAR FILTRATION RATE > 60 mL/min
[2018-08-16 08:41] LABS: GLUCOSE,RANDOM 86 mg/dL (74-109)
[2018-08-16 08:43] LABS: C-REACTIVE PROTEIN 1.38 mg/dL (<0.5)
[2018-08-16] MEDS ORDERED: CEFTRIAXONE 1 GRAM VIAL IM ONE (08:46)
== END 2018-08-16 09:22 | disposition home or self-care (01) ==
LOC: ER 07:30
DX: L03.012 Cellulitis of left finger (principal); F17.210 Nicotine dependence, cigarettes, uncomplicated
CPT/HCPCS: 80048; 84550; 85025; 86140; 96372; 99283; 99284; J1040

== ENCOUNTER 2018-08-22 11:01 | Emergency (ER) | payer MEDICAID ==
--- NOTE | 2018-08-22 11:19 | Emergency Department Record ---
Anxiety - General Chief Complaint: Anxiety Stated Complaint: EMOTIONAL ISSUES Time Seen by Provider: 08/22/18 11:13 Source: Patient Mode of Arrival: Ambulatory - History of Present Illness Initial Comments: patient stated she upset about not seeing her grandchildren and her daughter is not allowing her to see the grandchildren and she said she thought about killing herself but she said she won't do that and she came her because she was upset and not sure what to do. This started this morning but the family problem and been going on for months and possibly years. She sees a human resources leader here at the hospital. Ayaka is her human resources leader . Carolyn her daughter lives with her. Onset/Timin -: Minutes(s) - Related Data Home Medications: Previous Rx's Medication Instructions Recorded Cephalexin [Keflex] 500 mg PO QID #40 cap 08/16/18 Hydrocodone/Acetaminophen [[place] 1 each PO Q6HR #12 tablet 08/16/18 5-325 Tablet] Prednisone [Prednisone 10Mg] 10 mg PO ASDIR #30 tab 08/16/18 Sulfamethoxazole/Trimethoprim 1 each PO BID #20 tablet 08/16/18 [Bactrim Ds Tablet] Fluconazole [Diflucan] 150 mg PO ONCE #1 tab 08/22/18 Hydroxyzine Pamoate [Vistaril] 25 mg PO Q6H #10 capsule 08/22/18 Allergies/Adverse Reactions: Allergies Allergy/AdvReac Type Severity Reaction Status Date / Time promethazine HCl Allergy Mild ITCHING Unverified 08/22/18 12:37 [From Phenergan] adalimumab [From HUMIRA] Allergy Unknown MIGRAINES Unverified 08/22/18 12:37 aspirin [ASPIRIN] Allergy Unknown NAUSEA AND Unverified 08/22/18 12:37 VOMITING azathioprine [From IMURAN] Allergy Unknown VOMITING Unverified 08/22/18 12:37 azathioprine sodium Allergy Unknown VOMITING Unverified 08/22/18 12:37 [From IMURAN] chlordiazepoxide HCl Allergy Unknown RASH Unverified 08/22/18 12:37 [From LIBRIUM] citalopram hydrobromide Allergy Unknown HYPERSENSIT Unverified 08/22/18 12:37 [From CELEXA] IVITY clidinium [CLIDINIUM] Allergy Unknown RASH Unverified 08/22/18 12:37 codeine Allergy Unknown ITCHING Unverified 08/22/18 12:37 eicosapentaenoic acid Allergy Unknown RASH Unverified 08/22/18 12:37 [From OMEGA 3] hydrocodone bitartrate Allergy Unknown ITCHING Unverified 08/22/18 12:37 [From VICODIN] hydromorphone HCl Allergy Unknown ITCHING Unverified 08/22/18 12:37 infliximab Allergy Unknown VOMITING Unverified 08/22/18 12:37 metoclopramide Allergy Unknown ALTERED Unverified 08/22/18 12:37 [METOCLOPRAMIDE] MENTAL STATUS morphine [MORPHINE] Allergy Unknown ITCHING Unverified 08/22/18 12:37 omega-3 fatty acids Allergy Unknown RASH Unverified 08/22/18 12:37 [From OMEGA 3] oxycodone HCl [From PERCOCET] Allergy Unknown ITCHING Unverified 08/22/18 12:37 paroxetine HCl [From PAXIL] Allergy Unknown RASH Unverified 08/22/18 12:37 varenicline tartrate Allergy Unknown ALTERED Unverified 08/22/18 12:37 [From CHANTIX] MENTAL STATUS metoclopramide HCl Allergy PT UNSURE Unverified 08/22/18 12:37 [From Reglan] OF REACTION Travel Screening - Travel/Exposure Within Last 30 Days Have you traveled within the last 30 days?: No - Travel/Exposure Within Last Year Have you traveled outside the [place] in the last year?: No - Additonal Travel Details Have you been exposed to anyone with a communicable illness?: No - Travel Symptoms Symptom Screening: None Review of Systems Reviewed: No additional complaints except as noted below Constitutional: Reports: As per HPI. Denies: Chills, Fever, Malaise, Night sweats, Weakness, Weight change Eyes: Reports: As per HPI. Denies: Eye discharge, Eye pain, Photophobia, Vision change ENT: Reports: As per HPI. Denies: Congestion, Dental pain, Ear pain, Epistaxis , Hearing loss, Throat pain Respiratory: Reports: As per HPI. Denies: Cough, Dyspnea, Hemoptysis, Stridor, Wheezes Cardiovascular: Reports: As per HPI. Denies: Arrhythmia, Chest pain, Dyspnea on exertion, Edema, Murmurs, Orthopnea, Palpitations, Paroxysmal nocturnal dyspnea, Rheumatic Fever, Syncope Endocrine: Reports: As per HPI. Denies: Fatigue, Heat or cold intolerance, Polydipsia, Polyuria Gastrointestinal: Reports: As per HPI. Denies: Abdominal pain, Constipation, Diarrhea, Hematemesis, Hematochezia, Melena, Nausea, Vomiting Genitourinary: Reports: As per HPI. Denies: Abnormal menses, Discharge, Dyspareunia, Dysuria, Frequency, Hematuria, Incontinence, Retention, Urgency Musculoskeletal: Reports: As per HPI. Denies: Arthralgia, Back pain, Gout, Joint swelling, Myalgia, Neck pain Skin: Reports: As per HPI. Denies: Bruising, Change in color, Change in hair/ nails, Lesions, Pruritus, Rash Neurological: Reports: As per HPI. Denies: Abnormal gait, Confusion, Headache, Numbness, Paresthesias, Seizure, Tingling, Tremors, Vertigo, Weakness Psychiatric: Reports: As per HPI, Depression, Suicidal thoughts, Other (upset with her family situation). Denies: Anxiety, Auditory hallucinations, Homicidal thoughts, Visual hallucinations Hematological/Lymphatic: Reports: As per HPI. Denies: Anemia, Blood Clots, Easy bleeding, Easy bruising, Swollen glands Past Medical History - SOCIAL HISTORY Smoking Status: Light tobacco smoker (<10/day) Alcohol Use: None Drug Use: None - RESPIRATORY Hx Respiratory Disorders: No Comment:: allergies - CARDIOVASCULAR Hx Cardio Disorders: Yes Hx Abnormal EKG: Yes (r/t anxiety) Hx Chest Pain: Yes (r/t anxiety) - NEURO Hx Neuro Disorders: Yes Hx Headaches: No Hx Seizures: Yes (last seizure 12 years ago) - GI Hx GI Disorders: Yes Hx Obstructive Bowel: Yes (Admitted for Crohns, ileus and possible partial bowel obstruction) - Hx Genitourinary Disorders: No Comment:: going through menopause - ENDOCRINE Hx Endocrine Disorders: No - MUSCULOSKELETAL Hx Musculoskeletal Disorders: Yes 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 - PSYCH Hx Psych Problems: Yes Hx Depression: Yes Hx Suicide Attempt: No Comment:: dx with bi-polar - HEMATOLOGY/ONCOLOGY Hx Hematology/Oncology Disorders: No Hx Anemia: No Hx Blood Disorders: No Hx Bruising: No Hx Cancer: No Hx Clotting Problems: No Hx Sickle Cell Disease: No Hx Unexplained Bleeding: No Hx Blood Transfusions: No Hx Blood Transfusion Reaction: No Family Medical History Any Significant Family History?: Yes Hx Alcohol Use: Father, Brother/Sister Hx Cancer: Brother/Sister *Cancer Comment: lung cancer Hx Diabetes: Grandparents *Diabetes Comment: grandmother Hx Heart Disease: Grandparents *Heart Comment: grandfather Hx Resp Disorders: Children *Resp Comment: daughter has asthma Hx Stroke: Mother *Stroke Comment: Mother had history of TIA x 1 Physical Exam - General General Appearance: Alert, Oriented x3, Cooperative, No acute distress - Head Head exam: Normal inspection - Eye Eye exam: Normal appearance, PERRL Pupils: Normal accommodation - ENT ENT exam: Normal exam, Mucous membranes moist, Normal external ear exam, Normal orophraynx, TM's normal bilaterally Ear exam: Normal external inspection. negative: External canal tenderness Nasal Exam: Normal inspection. negative: Discharge, Sinus tenderness Mouth exam: Normal external inspection, Tongue normal Teeth exam: Normal inspection. negative: Dental caries Throat exam: Normal inspection. negative: Tonsillar erythema, Tonsillar exudate - Neck Neck exam: Normal inspection, Full ROM. negative: Tenderness - Respiratory Respiratory exam: Normal lung sounds bilaterally. negative: Respiratory distress - Cardiovascular Cardiovascular Exam: Regular rate, Normal rhythm, Normal heart sounds - GI/Abdominal GI/Abdominal exam: Soft, Normal bowel sounds. negative: Tenderness - Rectal Rectal exam: Deferred - exam: Deferred - Extremities Extremities exam: Normal inspection, Full ROM, Normal capillary refill. negative: Tenderness - Back Back exam: Reports: Normal inspection, Full ROM. Denies: Muscle spasm, Rash noted, Tenderness - Neurological Neurological exam: Alert, Normal gait, Oriented X3, Reflexes normal - Psychiatric Psychiatric exam: Normal affect, Normal mood - Skin Skin exam: Dry, Intact, Normal color, Warm Course Vital Signs 08/22/18 11:15 Temperature 98.1 F Pulse Rate 112 H Respiratory 38 H Rate Blood Pressure 132/108 Pulse Ox 97 - Reevaluation(s) Reevaluation #1: Patient said she didn't have a method to kill herself she is sad because she cannot see her grandchildren. She is feeling better and current denies being suicidal. Her mom is here and a daughter and she is feeling much better. Patient wants to follow up with her human resources leader Ayaka. 08/22/18 12:48 Medical Decision Making - Lab Data Result diagrams: 08/22/18 11:25 08/22/18 11:25 Disposition Clinical Impression: Situational mixed anxiety and depressive disorder Disposition: Home, Self-Care Condition: (1) Good Additional Instructions: follow up with human resources leader Ayaka next week and return to ED if she feels suicidal. Prescriptions: Fluconazole [Diflucan] 150 mg PO ONCE #1 tab Hydroxyzine Pamoate [Vistaril] 25 mg PO Q6H #10 capsule Forms: Patient Portal Access Time of Disposition: 13:12 Quality - Quality Measures Quality Measures: N/A - Blood Pressure Screening Does Patient Have Any of the Following: No Blood Pressure Classification: Hypertensive Reading Systolic Measurement: 132 Diastolic Measurement: 108 Screening for High Blood Pressure: < First Hypertensive BP, F/U Documented > [ G8950] First Hypertensive Follow-up Interventions: Referral to alternative/primary care provider.
[2018-08-22] MEDS: 0.9 % SODIUM CHLORIDE 1000ML 1,000 ML IV ONE (11:20)
[2018-08-22] MEDS: LORAZEPAM 2 MG/ML VIAL IV ONE (11:20)
[2018-08-22 11:30] LABS: BASO % 0.2 % (0-6); EOS % 3.9 % (0-6); GRAN % 55.2 % (47-80); HEMATOCRIT 40.7 % (35.0-47.0); HEMOGLOBIN 12.4 gm/dl (11.6-16.0); LYMPH % 30.5 % (16-45); MEAN CELL VOLUME 80.3 fl (81-97); MEAN CORPUSCULAR HEMOGLOBIN 24.5 pg (27-33); MEAN CORPUSCULAR HGB CONC 30.5 g/dl (32-36); MEAN PLATELET VOLUME 8.8 fl (7.4-10.4); MONO % 10.2 % (0-9); PLATELET COUNT 681 K/uL (130-400); RED BLOOD COUNT 5.07 M/uL (3.80-5.40); RED CELL DISTRIBUTION WIDTH 16.3 % (11.5-14.5); WHITE BLOOD COUNT W/O DIFF 12.7 K/uL (4.2-12.2)
[2018-08-22 11:41] LABS: BLOOD UREA NITROGEN 6 mg/dL (6-20); CREATININE 0.5 mg/dL (0.5-0.9); EST GLOMERULAR FILTRATION RATE > 60 mL/min; TOTAL PROTEIN 7.1 g/dL (6.6-8.7)
[2018-08-22 11:43] LABS: GLUCOSE,RANDOM 95 mg/dL (74-109)
[2018-08-22 11:46] LABS: ALB/GLOB RATIO 1.6 (1.1-1.8); ALBUMIN 4.4 g/dL (4.0-5.0); ALKALINE PHOSPHATASE 100 U/L (35-104); ALT/SGPT 20 U/L (<33); AST/SGOT 20 U/L (10.0-35.0)
[2018-08-22 11:47] LABS: ACETAMINOPHEN < 5.0 ug/mL (10.0-30.0); SALICYLATE < 0.3 mg/dL (2.8-20)
[2018-08-22] MEDS: ONDANSETRON HCL IV 4 MG/2 ML VIAL IVP ONE (12:03)
[2018-08-22] MEDS: ACETAMINOPHEN 325 MG TAB PO ONE (12:03)
[2018-08-22 13:01] LABS: URINE APPEARANCE CLEAR; URINE BILIRUBIN NEGATIVE (NEGATIVE); URINE BLOOD NEGATIVE (NEGATIVE); URINE COLOR YELLOW; URINE GLUCOSE (UA) NEGATIVE (NEGATIVE); URINE KETONE NEGATIVE (NEGATIVE); URINE NITRITE NEGATIVE (NEGATIVE); URINE PROTEIN NEGATIVE (NEGATIVE); URINE UROBILINOGEN 0.2 E.U./dL (0.20 - 1.00)
[2018-08-22 13:03] LABS: URINE LEUKOCYTE ESTERASE TRACE (NEGATIVE)
[2018-08-22 13:05] LABS: URINE RBC NONE SEEN (NONE SEEN); URINE WBC 0 - 2 (0-2/hpf)
[2018-08-22 13:06] LABS: AMPHETAMINE SCREEN URINE NOT DETECTED; BARBITURATE SCREEN URINE NOT DETECTED; BENZODIAZEPINE SCREEN URINE NOT DETECTED; COCAINE SCREEN URINE NOT DETECTED; METHADONE SCREEN URINE NOT DETECTED; METHAMPHETAMINE SCREEN NOT DETECTED; OPIATE SCREEN URINE NOT DETECTED; OXYCODONE SCREEN URINE NOT DETECTED; PHENCYCLIDINE SCREEN URINE NOT DETECTED; PROPOXYPHENE SCREEN URINE NOT DETECTED; THC SCREEN URINE NOT DETECTED; TRICYCLIC ANTIDEPRESSANT SCRN DETECTED
[2018-08-22] MEDS: FLUCONAZOLE 100 MG TABLET PO ONE (13:12)
[2018-08-22] MEDS: HEPARIN SODIUM FLUSH 100 UNITS/ML SYR 5ML IVP ONE (13:23)
== END 2018-08-22 13:28 | disposition home or self-care (01) ==
LOC: ER 11:01
DX: F41.8 Other specified anxiety disorders (principal); F43.0 Acute stress reaction; F17.210 Nicotine dependence, cigarettes, uncomplicated
CPT/HCPCS: 80053; 80305; 80320; 80329; 81001; 85025; 96374; 96375; 99284; J2405

== ENCOUNTER 2018-10-08 10:42 | Emergency (ER) | payer MEDICAID ==
[2018-10-08] MEDS ORDERED: NEOMYCIN/POLYMYXIN B SULF/HC 10ML BTL OT ONE (10:48)
--- NOTE | 2018-10-08 10:50 | Emergency Department Record ---
History of Present Illness - General Chief complaint: ENT Stated complaint: RT EAR PAIN Time Seen by Provider: 10/08/18 10:47 Source: Patient Mode of Arrival: Ambulatory Limitations: No limitations - History of Present Illness Initial comments: 53 yo female presents to ED for evaluation of right ear pain for the past 3 weeks. Patient reports that she was prescribed Augmentin and now Zithromax for her symptoms, but reports that her pain symptoms persist. Patient reports pain with movement of the ear, denies drainage or fluid from the ear. Patient denies change in hearing as well. MD complaint: Ear pain Onset/Timin -: Week(s) Location: R ear Severity: Moderate Severity scale (1-10): 6 Quality: Aching Consistency: Constant Improves with: Other medication Worsens with: Movement - Related Data Previous Rx's Medication Instructions Recorded Hydrocodone/Acetaminophen [[place] 1 each PO Q6HR #12 tablet 08/16/18 5-325 Tablet] Allergies Allergy/AdvReac Type Severity Reaction Status Date / Time promethazine HCl Allergy Mild ITCHING Unverified 10/06/18 12:04 [From Phenergan] adalimumab [From HUMIRA] Allergy Unknown MIGRAINES Unverified 10/06/18 12:04 aspirin [ASPIRIN] Allergy Unknown NAUSEA AND Unverified 10/06/18 12:04 VOMITING azathioprine [From IMURAN] Allergy Unknown VOMITING Unverified 10/06/18 12:04 azathioprine sodium Allergy Unknown VOMITING Unverified 10/06/18 12:04 [From IMURAN] chlordiazepoxide HCl Allergy Unknown RASH Unverified 10/06/18 12:04 [From LIBRIUM] citalopram hydrobromide Allergy Unknown HYPERSENSIT Unverified 10/06/18 12:04 [From CELEXA] IVITY clidinium [CLIDINIUM] Allergy Unknown RASH Unverified 10/06/18 12:04 codeine Allergy Unknown ITCHING Unverified 10/06/18 12:04 eicosapentaenoic acid Allergy Unknown RASH Unverified 10/06/18 12:04 [From OMEGA 3] hydrocodone bitartrate Allergy Unknown ITCHING Unverified 10/06/18 12:04 [From VICODIN] hydromorphone HCl Allergy Unknown ITCHING Unverified 10/06/18 12:04 infliximab Allergy Unknown VOMITING Unverified 10/06/18 12:04 metoclopramide Allergy Unknown ALTERED Unverified 10/06/18 12:04 [METOCLOPRAMIDE] MENTAL STATUS morphine [MORPHINE] Allergy Unknown ITCHING Unverified 10/06/18 12:04 omega-3 fatty acids Allergy Unknown RASH Unverified 10/06/18 12:04 [From OMEGA 3] oxycodone HCl [From PERCOCET] Allergy Unknown ITCHING Unverified 10/06/18 12:04 paroxetine HCl [From PAXIL] Allergy Unknown RASH Unverified 10/06/18 12:04 varenicline tartrate Allergy Unknown ALTERED Unverified 10/06/18 12:04 [From CHANTIX] MENTAL STATUS metoclopramide HCl Allergy PT UNSURE Unverified 10/06/18 12:04 [From Reglan] OF REACTION Travel Screening - Travel/Exposure Within Last 30 Days Have you traveled within the last 30 days?: No - Travel/Exposure Within Last Year Have you traveled outside the [place] in the last year?: No - Additonal Travel Details Have you been exposed to anyone with a communicable illness?: No - Travel Symptoms Symptom Screening: None Review of Systems Constitutional: Denies: Chills, Fever, Malaise, Night sweats Eyes: Denies: Eye discharge, Eye pain ENT: Reports: Ear pain. Denies: Congestion, Epistaxis Respiratory: Denies: Cough, Dyspnea Cardiovascular: Denies: Chest pain, Dyspnea on exertion Endocrine: Denies: Fatigue, Heat or cold intolerance Gastrointestinal: Denies: Abdominal pain, Nausea, Vomiting Genitourinary: Denies: Incontinence, Retention Musculoskeletal: Denies: Arthralgia, Back pain Skin: Denies: Bruising, Change in color Neurological: Denies: Abnormal gait, Confusion, Seizure Psychiatric: Denies: Anxiety Hematological/Lymphatic: Denies: Anemia, Blood Clots Past Medical History - SOCIAL HISTORY Smoking Status: Light tobacco smoker (<10/day) Alcohol Use: None Drug Use: None - RESPIRATORY Hx Respiratory Disorders: No Comment:: allergies - CARDIOVASCULAR Hx Cardio Disorders: Yes Hx Abnormal EKG: Yes (r/t anxiety) Hx Chest Pain: Yes (r/t anxiety) - NEURO Hx Neuro Disorders: Yes Hx Headaches: No Hx Seizures: Yes (last seizure 12 years ago) - GI Hx GI Disorders: Yes Hx Obstructive Bowel: Yes (Admitted for Crohns, ileus and possible partial bowel obstruction) - Hx Genitourinary Disorders: No Comment:: going through menopause - ENDOCRINE Hx Endocrine Disorders: No - MUSCULOSKELETAL Hx Musculoskeletal Disorders: Yes 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 - PSYCH Hx Psych Problems: Yes Hx Depression: Yes Hx Suicide Attempt: No Comment:: dx with bi-polar - HEMATOLOGY/ONCOLOGY Hx Hematology/Oncology Disorders: No Hx Anemia: No Hx Blood Disorders: No Hx Bruising: No Hx Cancer: No Hx Clotting Problems: No Hx Sickle Cell Disease: No Hx Unexplained Bleeding: No Hx Blood Transfusions: No Hx Blood Transfusion Reaction: No Family Medical History Any Significant Family History?: Yes Hx Alcohol Use: Father, Brother/Sister Hx Cancer: Brother/Sister *Cancer Comment: lung cancer Hx Diabetes: Grandparents *Diabetes Comment: grandmother Hx Heart Disease: Grandparents *Heart Comment: grandfather Hx Resp Disorders: Children *Resp Comment: daughter has asthma Hx Stroke: Mother *Stroke Comment: Mother had history of TIA x 1 Physical Exam - General General Appearance: Alert, Oriented x3, Cooperative, Mild distress Limitations: No limitations - Head Head exam: Atraumatic, Normocephalic, Normal inspection Head exam detail: negative: Abrasion, Contusion, Moran's sign, General tenderness, Hematoma, Laceration - Eye Eye exam: Normal appearance. negative: Conjunctival injection, Periorbital swelling, Periorbital tenderness, Scleral icterus - ENT ENT exam: TM's normal bilaterally Ear exam: External canal tenderness (Right with mild swelling of the EAC). negative: Auricular hematoma, Auricular trauma Nasal Exam: negative: Active bleeding, Discharge, Dried blood, Foreign body Mouth exam: negative: Drooling, Laceration, Muffled voice, Tongue elevation - Neck Neck exam: Normal inspection. negative: Meningismus, Tenderness - Respiratory Respiratory exam: Normal lung sounds bilaterally. negative: Rales, Respiratory distress, Rhonchi, Stridor - Cardiovascular Cardiovascular Exam: Regular rate, Normal rhythm, Normal heart sounds - GI/Abdominal GI/Abdominal exam: Soft. negative: Rebound, Rigid, Tenderness - Rectal Rectal exam: Deferred - exam: Deferred - Extremities Extremities exam: Normal inspection. negative: Calf tenderness, Pedal edema, Tenderness - Back Back exam: Denies: CVA tenderness (R), CVA tenderness (L) - Neurological Neurological exam: Alert, Normal gait, Oriented X3 - Psychiatric Psychiatric exam: Normal affect, Normal mood - Skin Skin exam: Normal color. negative: Abrasion Type of lesion: negative: abrasion Course Vital Signs 10/08/18 10:44 Temperature 98.5 F Pulse Rate 108 H Respiratory 18 Rate Blood Pressure 131/96 Pulse Ox 100 - Reevaluation(s) Reevaluation #1: 10/08/18 10:55 Examination appears c/w otitis externa (TM appears normnal) Will treat with Polymyxin ear drops as directed. Disposition Disposition: Discharge Clinical Impression: Otitis externa Qualifiers: Otitis externa type: unspecified type Chronicity: acute Laterality: right Qualified Code(s): H60.501 - Unspecified acute noninfective otitis externa, right ear Disposition: Home, Self-Care Condition: (2) Stable Instructions: Otitis Externa (ED) Additional Instructions: Return to ED if your symptoms worsen or if you have any concerns. Polymyxin ear drops 4 drops 4 times daily for 5 days. Follow-up with your family doctor in 3-5 days as directed. Forms: Patient Portal Access Time of Disposition: 10:50 Quality - Quality Measures Quality Measures: N/A - Blood Pressure Screening Does Patient Have Any of the Following: No Blood Pressure Classification: Hypertensive Reading Systolic Measurement: 131 Diastolic Measurement: 96 Screening for High Blood Pressure: < First Hypertensive BP, F/U Documented > [ G8950] First Hypertensive Follow-up Interventions: Referral to alternative/primary care provider.
== END 2018-10-08 10:58 | disposition home or self-care (01) ==
LOC: ER 10:42
DX: H60.501 Unspecified acute noninfective otitis externa, right ear (principal)
CPT/HCPCS: 99282

== ENCOUNTER 2018-11-03 01:05 | Emergency (ER) | payer MEDICAID ==
--- NOTE | 2018-11-03 01:19 | Emergency Department Record ---
History of Present Illness - General Chief complaint: Pain Stated complaint: KNEE PAIN Source: Patient Mode of Arrival: Ambulatory Limitations: No limitations - History of Present Illness Initial comments: 53 yo female presents with left knee pain. The onset was today. She thinks she bumped it in a hurry getting ready this morning. No fevers or chills. No warmth or abnormal discoloration. No history of disease in the that knee in the past. She has pain and tenderness distal to the knee in the area where the patellar tender is located. No skin changes, scratches or scabs. No calf pain. No other joint pain. MD Complaint: Extremity pain, Joint pain -: Days(s) Location: Left, Knee History of Same: No -: Yes Arthralgia Quality: Aching Consistency: Constant Improves with: Elevation Worsens with: Exertion, Walking, Weight bearing Associated Symptoms: Denies other symptoms - Related Data Allergies Allergy/AdvReac Type Severity Reaction Status Date / Time promethazine HCl Allergy Mild ITCHING Verified 11/03/18 01:12 [From Phenergan] adalimumab [From HUMIRA] Allergy Unknown MIGRAINES Verified 11/03/18 01:12 aspirin [ASPIRIN] Allergy Unknown NAUSEA AND Verified 11/03/18 01:12 VOMITING azathioprine [From IMURAN] Allergy Unknown VOMITING Verified 11/03/18 01:12 azathioprine sodium Allergy Unknown VOMITING Verified 11/03/18 01:12 [From IMURAN] chlordiazepoxide HCl Allergy Unknown RASH Verified 11/03/18 01:12 [From LIBRIUM] citalopram hydrobromide Allergy Unknown HYPERSENSIT Verified 11/03/18 01:12 [From CELEXA] IVITY clidinium [CLIDINIUM] Allergy Unknown RASH Verified 11/03/18 01:12 codeine Allergy Unknown ITCHING Verified 11/03/18 01:12 eicosapentaenoic acid Allergy Unknown RASH Verified 11/03/18 01:12 [From OMEGA 3] hydrocodone bitartrate Allergy Unknown ITCHING Verified 11/03/18 01:12 [From VICODIN] hydromorphone HCl Allergy Unknown ITCHING Verified 11/03/18 01:12 infliximab Allergy Unknown VOMITING Verified 11/03/18 01:12 metoclopramide Allergy Unknown ALTERED Verified 11/03/18 01:12 [METOCLOPRAMIDE] MENTAL STATUS morphine [MORPHINE] Allergy Unknown ITCHING Verified 11/03/18 01:12 omega-3 fatty acids Allergy Unknown RASH Verified 11/03/18 01:12 [From OMEGA 3] oxycodone HCl [From PERCOCET] Allergy Unknown ITCHING Verified 11/03/18 01:12 paroxetine HCl [From PAXIL] Allergy Unknown RASH Verified 11/03/18 01:12 varenicline tartrate Allergy Unknown ALTERED Verified 11/03/18 01:12 [From CHANTIX] MENTAL STATUS metoclopramide HCl Allergy PT UNSURE Verified 11/03/18 01:12 [From Reglan] OF REACTION Review of Systems Constitutional: Denies: Chills, Fever, Malaise, Weakness Eyes: Denies: Eye discharge ENT: Denies: Congestion, Throat pain Respiratory: Denies: Cough Cardiovascular: Denies: Chest pain Endocrine: Denies: Fatigue Gastrointestinal: Denies: Abdominal pain, Diarrhea, Nausea, Vomiting Genitourinary: Denies: Dysuria, Urgency Musculoskeletal: Reports: As per HPI, Arthralgia Skin: Denies: Bruising, Change in color, Rash Neurological: Denies: Headache, Numbness, Tingling, Weakness Psychiatric: Denies: Anxiety Hematological/Lymphatic: Denies: Blood Clots, Easy bleeding, Easy bruising, Swollen glands Past Medical History - SOCIAL HISTORY Smoking Status: Light tobacco smoker (<10/day) Drug Use: None - RESPIRATORY Hx Respiratory Disorders: No Comment:: allergies - CARDIOVASCULAR Hx Cardio Disorders: Yes Hx Abnormal EKG: Yes (r/t anxiety) Hx Chest Pain: Yes (r/t anxiety) - NEURO Hx Neuro Disorders: Yes Hx Headaches: No Hx Seizures: Yes (last seizure 12 years ago) - GI Hx GI Disorders: Yes Hx Obstructive Bowel: Yes (Admitted for Crohns, ileus and possible partial bowel obstruction) - Hx Genitourinary Disorders: No Comment:: going through menopause - ENDOCRINE Hx Endocrine Disorders: No - MUSCULOSKELETAL Hx Musculoskeletal Disorders: Yes 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 - PSYCH Hx Psych Problems: Yes Hx Depression: Yes Hx Suicide Attempt: No Comment:: dx with bi-polar - HEMATOLOGY/ONCOLOGY Hx Hematology/Oncology Disorders: No Hx Anemia: No Hx Blood Disorders: No Hx Bruising: No Hx Cancer: No Hx Clotting Problems: No Hx Sickle Cell Disease: No Hx Unexplained Bleeding: No Hx Blood Transfusions: No Hx Blood Transfusion Reaction: No Family Medical History Hx Alcohol Use: Father, Brother/Sister Hx Cancer: Brother/Sister *Cancer Comment: lung cancer Hx Diabetes: Grandparents *Diabetes Comment: grandmother Hx Heart Disease: Grandparents *Heart Comment: grandfather Hx Resp Disorders: Children *Resp Comment: daughter has asthma Hx Stroke: Mother *Stroke Comment: Mother had history of TIA x 1 Physical Exam - General General Appearance: Alert, Oriented x3, Cooperative, No acute distress Limitations: No limitations - Head Head exam: Atraumatic, Normal inspection - Eye Eye exam: Normal appearance. negative: Conjunctival injection - ENT ENT exam: Normal exam Ear exam: Normal external inspection Nasal Exam: Normal inspection Mouth exam: Normal external inspection - Neck Neck exam: Normal inspection - Rectal Rectal exam: Deferred - exam: Deferred - Extremities Extremities exam: Normal inspection, Full ROM, Normal capillary refill, Tenderness, Other (The knee is normal in appearance. The patella is normal in appearance and non tender to palpation. The medial and lateral joint lines are non tender. No effusion. She has tenderness and mild swelling distal to the patella in the area of the patellar tendon. ). negative: Calf tenderness, Joint swelling, Pedal edema Image of Full Body: 1 - mild swelling distal to the patella. the patella is spared of tenderness or swelling. Intact skin, No joint tenderness. No popliteal or calf tenderness 2 - patellar tendon function is intact but pain with movement. quads tendon is non tender. No signs of patellar bursitis - Back Back exam: Reports: Full ROM - Neurological Neurological exam: Alert, Oriented X3 - Psychiatric Psychiatric exam: Normal affect, Normal mood - Skin Skin exam: Dry, Intact, Normal color, Warm Course Vital Signs 11/03/18 01:10 Temperature 98.1 F Pulse Rate [ 99 H Pulse Ox Probe] Respiratory 24 Rate Blood Pressure 134/63 [Left Arm] Pulse Ox 99 - Reevaluation(s) Reevaluation #1: The knee XR is preliminarily read by me as negative for any acute process The examination is consistent with tenderness limited to the patellar tendon area. She states she thinks she bumped it this morning but the exact mechanism is not clear This may represent a tendonitis as well and will be treated with ice, NWB, brace and follow up No obvious signs of infection. The tendon function is intact. She is to call her PCP is the AM for close follow up and a recheck as well 11/03/18 01:47 Disposition Disposition: Discharge Clinical Impression: Patellar tendonitis of left knee Disposition: Home, Self-Care Condition: (1) Good Instructions: Patellar Tendinitis (ED) Additional Instructions: Ice the knee to minimize pain and swelling Call your doctor today for close follow up the knee pain and a recheck in the office Return or be seen immediately if you have fever, redness, swelling or any new concerns Use the knee immobilizer and crutches to minimize any weight bearing Forms: Patient Portal Access Time of Disposition: 01:49 Quality - Quality Measures Quality Measures: N/A - Blood Pressure Screening Does Patient Have Any of the Following: No Blood Pressure Classification: Normal BP Reading Systolic Measurement: 106 Diastolic Measurement: 62 Screening for High Blood Pressure: < Normal BP, F/U Not Required > [G8783]
[2018-11-03] MEDS ORDERED: METHYLPREDNISOLONE 80MG/VIAL IM ONE (01:26)
--- NOTE | 2018-11-04 09:40 | RADIOLOGY REPORT ---
EXAM: LEFT KNEE HISTORY: PAIN. TECHNIQUE: Five views of the left knee were performed. FINDINGS: No evidence of fracture or dislocation. No radiopaque loose body. No joint effusion. IMPRESSION: NEGATIVE FOR FRACTURE. NO JOINT EFFUSION. JOB NUMBER: [id number] MTDD
== END 2018-11-03 02:12 | disposition home or self-care (01) ==
LOC: ER 01:05
DX: M76.52 Patellar tendinitis, left knee (principal); F17.210 Nicotine dependence, cigarettes, uncomplicated
CPT/HCPCS: 96372; 99283; 99284; J1040

== ENCOUNTER 2018-11-15 10:43 | Emergency (ER) | payer MEDICAID ==
[2018-11-15] MEDS ORDERED: PROPARACAINE HCL OPTH 15ML BTL OPTH ONE (11:06)
[2018-11-15] MEDS ORDERED: GENTAMICIN SULFATE 0.3% OPTH 5 ML BTL OPTH ONE (11:19)
--- NOTE | 2018-11-15 11:22 | Emergency Department Record ---
History of Present Illness - General Chief complaint: Eye Problem Stated complaint: L EYE RED Time Seen by Provider: 11/15/18 11:04 Source: Patient Mode of Arrival: Ambulatory Limitations: No limitations - History of Present Illness Initial comments: pt started having an itchy eye yesterday and then woke up with a red eye today. no vision change chief complaint: Eye redness Onset/Timin -: Days(s) Onset Description: Gradual Location: Left eye Place: Home Severity: Moderate Severity scale (1-10): 7 If Pain, Quality: Aching Associated Symptoms: None - Related Data Visual acuity (L) = 20/: 70 Visual acuity (R) = 20/: 50 With correction: No Hx Tetanus Toxoid Vaccination: Yes Year of Tetanus Vaccination: unsure Patient Tetanus UTD (within 5 yrs): No Allergies Allergy/AdvReac Type Severity Reaction Status Date / Time promethazine HCl Allergy Mild ITCHING Verified 11/15/18 10:59 [From Phenergan] adalimumab [From HUMIRA] Allergy Unknown MIGRAINES Verified 11/15/18 10:59 aspirin [ASPIRIN] Allergy Unknown NAUSEA AND Verified 11/15/18 10:59 VOMITING azathioprine [From IMURAN] Allergy Unknown VOMITING Verified 11/15/18 10:59 azathioprine sodium Allergy Unknown VOMITING Verified 11/15/18 10:59 [From IMURAN] chlordiazepoxide HCl Allergy Unknown RASH Verified 11/15/18 10:59 [From LIBRIUM] citalopram hydrobromide Allergy Unknown HYPERSENSIT Verified 11/15/18 10:59 [From CELEXA] IVITY clidinium [CLIDINIUM] Allergy Unknown RASH Verified 11/15/18 10:59 codeine Allergy Unknown ITCHING Verified 11/15/18 10:59 eicosapentaenoic acid Allergy Unknown RASH Verified 11/15/18 10:59 [From OMEGA 3] hydrocodone bitartrate Allergy Unknown ITCHING Verified 11/15/18 10:59 [From VICODIN] hydromorphone HCl Allergy Unknown ITCHING Verified 11/15/18 10:59 infliximab Allergy Unknown VOMITING Verified 11/15/18 10:59 metoclopramide Allergy Unknown ALTERED Verified 11/15/18 10:59 [METOCLOPRAMIDE] MENTAL STATUS morphine [MORPHINE] Allergy Unknown ITCHING Verified 11/15/18 10:59 omega-3 fatty acids Allergy Unknown RASH Verified 11/15/18 10:59 [From OMEGA 3] oxycodone HCl [From PERCOCET] Allergy Unknown ITCHING Verified 11/15/18 10:59 paroxetine HCl [From PAXIL] Allergy Unknown RASH Verified 11/15/18 10:59 varenicline tartrate Allergy Unknown ALTERED Verified 11/15/18 10:59 [From CHANTIX] MENTAL STATUS metoclopramide HCl Allergy PT UNSURE Verified 11/15/18 10:59 [From Reglan] OF REACTION Travel Screening - Travel/Exposure Within Last 30 Days Have you traveled within the last 30 days?: No - Travel/Exposure Within Last Year Have you traveled outside the [place] in the last year?: No - Additonal Travel Details Have you been exposed to anyone with a communicable illness?: No - Travel Symptoms Symptom Screening: None Review of Systems Reviewed: No additional complaints except as noted below Constitutional: Reports: As per HPI. Denies: Chills, Fever, Malaise, Night sweats, Weakness, Weight change Eyes: Reports: As per HPI. Denies: Eye discharge, Eye pain, Photophobia, Vision change ENT: Reports: As per HPI. Denies: Congestion, Dental pain, Ear pain, Epistaxis , Hearing loss, Throat pain Respiratory: Reports: As per HPI. Denies: Cough, Dyspnea, Hemoptysis, Stridor, Wheezes Cardiovascular: Reports: As per HPI. Denies: Arrhythmia, Chest pain, Dyspnea on exertion, Edema, Murmurs, Orthopnea, Palpitations, Paroxysmal nocturnal dyspnea, Rheumatic Fever, Syncope Endocrine: Reports: As per HPI. Denies: Fatigue, Heat or cold intolerance, Polydipsia, Polyuria Gastrointestinal: Reports: As per HPI. Denies: Abdominal pain, Constipation, Diarrhea, Hematemesis, Hematochezia, Melena, Nausea, Vomiting Genitourinary: Reports: As per HPI. Denies: Abnormal menses, Discharge, Dyspareunia, Dysuria, Frequency, Hematuria, Incontinence, Retention, Urgency Musculoskeletal: Reports: As per HPI. Denies: Arthralgia, Back pain, Gout, Joint swelling, Myalgia, Neck pain Skin: Reports: As per HPI. Denies: Bruising, Change in color, Change in hair/ nails, Lesions, Pruritus, Rash Neurological: Reports: As per HPI. Denies: Abnormal gait, Confusion, Headache, Numbness, Paresthesias, Seizure, Tingling, Tremors, Vertigo, Weakness Psychiatric: Reports: As per HPI. Denies: Anxiety, Auditory hallucinations, Depression, Homicidal thoughts, Suicidal thoughts, Visual hallucinations Hematological/Lymphatic: Reports: As per HPI. Denies: Anemia, Blood Clots, Easy bleeding, Easy bruising, Swollen glands Past Medical History - SOCIAL HISTORY Smoking Status: Former smoker Alcohol Use: None Drug Use: None - RESPIRATORY Hx Respiratory Disorders: No Comment:: allergies - CARDIOVASCULAR Hx Cardio Disorders: Yes Hx Abnormal EKG: Yes (r/t anxiety) Hx Chest Pain: Yes (r/t anxiety) - NEURO Hx Neuro Disorders: Yes Hx Headaches: No Hx Seizures: Yes (last seizure 12 years ago) - GI Hx GI Disorders: Yes Hx Obstructive Bowel: Yes (Admitted for Crohns, ileus and possible partial bowel obstruction) - Hx Genitourinary Disorders: No Comment:: going through menopause - ENDOCRINE Hx Endocrine Disorders: No - MUSCULOSKELETAL Hx Musculoskeletal Disorders: Yes 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 - PSYCH Hx Psych Problems: Yes Hx Depression: Yes Hx Suicide Attempt: No Comment:: dx with bi-polar - HEMATOLOGY/ONCOLOGY Hx Hematology/Oncology Disorders: No Hx Anemia: No Hx Blood Disorders: No Hx Bruising: No Hx Cancer: No Hx Clotting Problems: No Hx Sickle Cell Disease: No Hx Unexplained Bleeding: No Hx Blood Transfusions: No Hx Blood Transfusion Reaction: No Family Medical History Any Significant Family History?: Yes Hx Alcohol Use: Father, Brother/Sister Hx Cancer: Brother/Sister *Cancer Comment: lung cancer Hx Diabetes: Grandparents *Diabetes Comment: grandmother Hx Heart Disease: Grandparents *Heart Comment: grandfather Hx Resp Disorders: Children *Resp Comment: daughter has asthma Hx Stroke: Mother *Stroke Comment: Mother had history of TIA x 1 Physical Exam - General General Appearance: Alert, Oriented x3, Cooperative, No acute distress - Head Head exam: Normal inspection - Eye Eye exam: Normal appearance, PERRL, Conjunctival injection, EOMI, Other ( subconjunctival hemmorage) Pupils: Normal accommodation With correction: No - ENT ENT exam: Normal exam, Mucous membranes moist, Normal external ear exam, Normal orophraynx, TM's normal bilaterally Ear exam: Normal external inspection. negative: External canal tenderness Nasal Exam: Normal inspection. negative: Discharge, Sinus tenderness Mouth exam: Normal external inspection, Tongue normal Teeth exam: Normal inspection. negative: Dental caries Throat exam: Normal inspection. negative: Tonsillar erythema, Tonsillar exudate - Neck Neck exam: Normal inspection, Full ROM. negative: Tenderness - Respiratory Respiratory exam: Normal lung sounds bilaterally. negative: Respiratory distress - Cardiovascular Cardiovascular Exam: Regular rate, Normal rhythm, Normal heart sounds - GI/Abdominal GI/Abdominal exam: Soft, Normal bowel sounds. negative: Tenderness - Rectal Rectal exam: Deferred - exam: Deferred - Extremities Extremities exam: Normal inspection, Full ROM, Normal capillary refill. negative: Tenderness - Back Back exam: Reports: Normal inspection, Full ROM. Denies: Muscle spasm, Rash noted, Tenderness - Neurological Neurological exam: Alert, CN II-XII intact, Normal gait, Oriented X3 - Psychiatric Psychiatric exam: Normal affect, Normal mood - Skin Skin exam: Dry, Intact, Normal color, Warm Course Vital Signs 11/15/18 10:51 Temperature 98.1 F Pulse Rate 96 H Respiratory 16 Rate Blood Pressure 99/63 Pulse Ox 98 Disposition Disposition: Discharge Clinical Impression: Conjunctivitis Qualifiers: Conjunctivitis type: acute Acute conjunctivitis type: unspecified Laterality: left Qualified Code(s): H10.32 - Unspecified acute conjunctivitis, left eye Subconjunctival bleed Qualifiers: Laterality: left Qualified Code(s): H11.32 - Conjunctival hemorrhage, left eye Condition: (1) Good Instructions: Conjunctivitis (ED), Subconjunctival Hemorrhage (ED) Additional Instructions: follow up with family doctor. return sooner if worse. gentamycin 2 drops 4 times a day for 5 days Quality - Quality Measures Quality Measures: N/A - Blood Pressure Screening Does Patient Have Any of the Following: No Blood Pressure Classification: Normal BP Reading Systolic Measurement: 99 Diastolic Measurement: 63 Screening for High Blood Pressure: < Normal BP, F/U Not Required > [G8783]
== END 2018-11-15 11:32 | disposition home or self-care (01) ==
LOC: ER 10:43
DX: H11.32 Conjunctival hemorrhage, left eye (principal); H10.32 Unspecified acute conjunctivitis, left eye; Z87.891 Personal history of nicotine dependence
CPT/HCPCS: 99282

== ENCOUNTER 2019-01-20 15:43 | Emergency (ER) | payer MEDICAID ==
--- NOTE | 2019-01-20 16:27 | Emergency Department Record ---
History of Present Illness - General Chief Complaint: Abdominal Pain Stated Complaint: BLOATING,VOMITING Time Seen by Provider: 01/20/19 16:20 Source: Patient, RN notes reviewed Mode of Arrival: Ambulatory - History of Present Illness Initial Comments: abdominal pain and nausea Onset/Timin -: Days(s) Location: Diffuse Radiation: None Improves With: Nothing Worsens With: Nothing Associated Symptoms: Nausea, Vomiting - Related Data Hx Age of Menopause: 47 Home Medications Medication Instructions Recorded Confirmed Last Taken Ziprasidone HCl [Geodon] 20 mg PO BID 01/20/19 01/20/19 Unknown Previous Rx's Medication Instructions Recorded Prednisone [Prednisone 20Mg] 20 mg PO BID #10 tab 01/20/19 Allergies Allergy/AdvReac Type Severity Reaction Status Date / Time promethazine HCl Allergy Mild ITCHING Verified 01/20/19 15:50 [From Phenergan] adalimumab [From HUMIRA] Allergy Unknown MIGRAINES Verified 01/20/19 15:50 aspirin [ASPIRIN] Allergy Unknown NAUSEA AND Verified 01/20/19 15:50 VOMITING azathioprine [From IMURAN] Allergy Unknown VOMITING Verified 01/20/19 15:50 azathioprine sodium Allergy Unknown VOMITING Verified 01/20/19 15:50 [From IMURAN] chlordiazepoxide HCl Allergy Unknown RASH Verified 01/20/19 15:50 [From LIBRIUM] citalopram hydrobromide Allergy Unknown HYPERSENSIT Verified 01/20/19 15:50 [From CELEXA] IVITY clidinium [CLIDINIUM] Allergy Unknown RASH Verified 01/20/19 15:50 codeine Allergy Unknown ITCHING Verified 01/20/19 15:50 eicosapentaenoic acid Allergy Unknown RASH Verified 01/20/19 15:50 [From OMEGA 3] hydrocodone bitartrate Allergy Unknown ITCHING Verified 01/20/19 15:50 [From VICODIN] hydromorphone HCl Allergy Unknown ITCHING Verified 01/20/19 15:50 infliximab Allergy Unknown VOMITING Verified 01/20/19 15:50 metoclopramide Allergy Unknown ALTERED Verified 01/20/19 15:50 [METOCLOPRAMIDE] MENTAL STATUS morphine [MORPHINE] Allergy Unknown ITCHING Verified 01/20/19 15:50 omega-3 fatty acids Allergy Unknown RASH Verified 01/20/19 15:50 [From OMEGA 3] oxycodone HCl [From PERCOCET] Allergy Unknown ITCHING Verified 01/20/19 15:50 paroxetine HCl [From PAXIL] Allergy Unknown RASH Verified 01/20/19 15:50 varenicline tartrate Allergy Unknown ALTERED Verified 01/20/19 15:50 [From CHANTIX] MENTAL STATUS metoclopramide HCl Allergy PT UNSURE Verified 01/20/19 15:50 [From Reglan] OF REACTION Travel Screening - Travel/Exposure Within Last 30 Days Have you traveled within the last 30 days?: No Review of Systems Reviewed: No additional complaints except as noted below Constitutional: Reports: As per HPI. Denies: Chills, Fever, Malaise, Night sweats, Weakness, Weight change Eyes: Reports: As per HPI. Denies: Eye discharge, Eye pain, Photophobia, Vision change ENT: Reports: As per HPI. Denies: Congestion, Dental pain, Ear pain, Epistaxis , Hearing loss, Throat pain Respiratory: Reports: As per HPI. Denies: Cough, Dyspnea, Hemoptysis, Stridor, Wheezes Cardiovascular: Reports: As per HPI. Denies: Arrhythmia, Chest pain, Dyspnea on exertion, Edema, Murmurs, Orthopnea, Palpitations, Paroxysmal nocturnal dyspnea, Rheumatic Fever, Syncope Endocrine: Reports: As per HPI. Denies: Fatigue, Heat or cold intolerance, Polydipsia, Polyuria Gastrointestinal: Reports: As per HPI, Abdominal pain, Diarrhea, Nausea. Denies : Constipation, Hematemesis, Hematochezia, Melena, Vomiting Genitourinary: Reports: As per HPI. Denies: Abnormal menses, Discharge, Dyspareunia, Dysuria, Frequency, Hematuria, Incontinence, Retention, Urgency Musculoskeletal: Reports: As per HPI. Denies: Arthralgia, Back pain, Gout, Joint swelling, Myalgia, Neck pain Skin: Reports: As per HPI. Denies: Bruising, Change in color, Change in hair/ nails, Lesions, Pruritus, Rash Neurological: Reports: As per HPI. Denies: Abnormal gait, Confusion, Headache, Numbness, Paresthesias, Seizure, Tingling, Tremors, Vertigo, Weakness Psychiatric: Reports: As per HPI. Denies: Anxiety, Auditory hallucinations, Depression, Homicidal thoughts, Suicidal thoughts, Visual hallucinations Hematological/Lymphatic: Reports: As per HPI. Denies: Anemia, Blood Clots, Easy bleeding, Easy bruising, Swollen glands Past Medical History - SOCIAL HISTORY Smoking Status: Former smoker Alcohol Use: None Drug Use: None - RESPIRATORY Hx Respiratory Disorders: No Comment:: allergies - CARDIOVASCULAR Hx Cardio Disorders: Yes Hx Abnormal EKG: Yes (r/t anxiety) Hx Chest Pain: Yes (r/t anxiety) - NEURO Hx Neuro Disorders: Yes Hx Seizures: Yes (last seizure 12 years ago) - GI Hx GI Disorders: Yes Hx Obstructive Bowel: Yes (Admitted for Crohns, ileus and possible partial bowel obstruction) - Hx Genitourinary Disorders: No Comment:: going through menopause - ENDOCRINE Hx Endocrine Disorders: No - MUSCULOSKELETAL Hx Musculoskeletal Disorders: Yes 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 - PSYCH Hx Psych Problems: Yes Hx Depression: Yes Hx Suicide Attempt: No Comment:: dx with bi-polar - HEMATOLOGY/ONCOLOGY Hx Hematology/Oncology Disorders: No Hx Anemia: No Hx Blood Disorders: No Hx Bruising: No Hx Cancer: No Hx Clotting Problems: No Hx Sickle Cell Disease: No Hx Unexplained Bleeding: No Hx Blood Transfusions: No Hx Blood Transfusion Reaction: No Family Medical History Any Significant Family History?: Yes Hx Alcohol Use: Father, Brother/Sister Hx Cancer: Brother/Sister *Cancer Comment: lung cancer Hx Diabetes: Grandparents *Diabetes Comment: grandmother Hx Heart Disease: Grandparents *Heart Comment: grandfather Hx Resp Disorders: Children *Resp Comment: daughter has asthma Hx Stroke: Mother *Stroke Comment: Mother had history of TIA x 1 Physical Exam - General General Appearance: Alert, Oriented x3, Cooperative, No acute distress - Head Head exam: Normal inspection - Eye Eye exam: Normal appearance, PERRL Pupils: Normal accommodation - ENT ENT exam: Normal exam, Mucous membranes moist, Normal external ear exam, Normal orophraynx, TM's normal bilaterally Ear exam: Normal external inspection. negative: External canal tenderness Nasal Exam: Normal inspection. negative: Discharge, Sinus tenderness Mouth exam: Normal external inspection, Tongue normal Teeth exam: Normal inspection. negative: Dental caries Throat exam: Normal inspection. negative: Tonsillar erythema, Tonsillar exudate - Neck Neck exam: Normal inspection, Full ROM. negative: Tenderness - Respiratory Respiratory exam: Normal lung sounds bilaterally. negative: Respiratory distress - Cardiovascular Cardiovascular Exam: Regular rate, Normal rhythm, Normal heart sounds - GI/Abdominal GI/Abdominal exam: Soft, Normal bowel sounds, Tenderness (left upper quad) - Rectal Rectal exam: Deferred - exam: Deferred - Extremities Extremities exam: Normal inspection, Full ROM, Normal capillary refill. negative: Tenderness - Back Back exam: Reports: Normal inspection, Full ROM. Denies: Muscle spasm, Rash noted, Tenderness - Neurological Neurological exam: Alert, Normal gait, Oriented X3, Reflexes normal - Psychiatric Psychiatric exam: Normal affect, Normal mood - Skin Skin exam: Dry, Intact, Normal color, Warm Course Vital Signs 01/20/19 15:54 Temperature 97.7 F Pulse Rate 89 Respiratory 20 Rate Blood Pressure 135/61 Pulse Ox 100 - Reevaluation(s) Reevaluation #1: patient is feeling better. 01/20/19 18:39 Medical Decision Making - Data Complexity MDM Data: Labs Ordered and/or Reviewed, X-Ray Ordered and/or Reviewed (No acute changes on the CT scan with nonspecific air gas pattern) - Lab Data Result diagrams: 01/20/19 16:58 01/20/19 17:27 Disposition Clinical Impression: Exacerbation of Crohn's disease Qualifiers: Digestive disease complication type: without complication Qualified Code(s): K50.90 - Crohn's disease, unspecified, without complications Disposition: Home, Self-Care Condition: (2) Stable Instructions: Crohn Disease (ED) Additional Instructions: clear liquids and gradually increase diet Prescriptions: Prednisone [Prednisone 20Mg] 20 mg PO BID #10 tab Forms: Patient Portal Access Time of Disposition: 18:29 Quality - Quality Measures Quality Measures: N/A - Blood Pressure Screening Does Patient Have Any of the Following: No Blood Pressure Classification: Pre-Hypertensive BP Reading Systolic Measurement: 135 Diastolic Measurement: 61 Screening for High Blood Pressure: < Pre-Hypertensive BP, F/U Documented > [ G8950] Pre-Hypertensive Follow-up Interventions: Referral to alternative/primary care provider.
[2019-01-20] MEDS ORDERED: 0.9 % SODIUM CHLORIDE 1,000 ML BAG IV ONE (16:33)
[2019-01-20] MEDS ORDERED: ONDANSETRON HCL IV 4 MG/2 ML VIAL IV ONE (16:33)
[2019-01-20] MEDS ORDERED: HYDROMORPHONE HCL 2 MG/ML VIAL IVP ONE (16:35)
[2019-01-20] MEDS ORDERED: DIPHENHYDRAMINE HCL 50 MG/ML VIAL IVP ONE ×2 (16:52→18:10)
[2019-01-20 17:16] LABS: BASO % 0.5 % (0-6); EOS % 7.2 % (0-6); GRAN % 54.6 % (47-80); HEMATOCRIT 39.7 % (35.0-47.0); HEMOGLOBIN 12.3 gm/dl (11.6-16.0); LYMPH % 27.9 % (16-45); MEAN CORPUSCULAR HEMOGLOBIN 24.8 pg (27-33); MEAN PLATELET VOLUME 9.1 fl (7.4-10.4); MONO % 9.8 % (0-9); PLATELET COUNT 451 K/uL (130-400); RED BLOOD COUNT 4.96 M/uL (3.80-5.40); RED CELL DISTRIBUTION WIDTH 17.4 % (11.5-14.5); WHITE BLOOD COUNT W/O DIFF 10.2 K/uL (4.2-12.2)
[2019-01-20 17:47] LABS: BILIRUBIN,TOTAL < 0.20 mg/dL (0.2-1.0); BLOOD UREA NITROGEN 11 mg/dL (6-20); CREATININE 0.6 mg/dL (0.5-0.9); EST GLOMERULAR FILTRATION RATE > 60 mL/min; LIPASE 55 U/L (13-60); TOTAL PROTEIN 7.2 g/dL (6.6-8.7)
[2019-01-20 17:49] LABS: GLUCOSE,RANDOM 88 mg/dL (74-109)
[2019-01-20 17:52] LABS: ALBUMIN 4.2 g/dL (4.0-5.0); ALKALINE PHOSPHATASE 99 U/L (35-104); ALT/SGPT 20 U/L (<33); AST/SGOT 19 U/L (10.0-35.0)
[2019-01-20 17:55] LABS: BILIRUBIN,DIRECT < 0.2 mg/dL (0-0.3)
[2019-01-20] MEDS ORDERED: METHYLPREDNISOLONE PF 125MG/VIAL IVP ONE (18:24)
[2019-01-20 18:43] LABS: URINE APPEARANCE CLEAR; URINE BILIRUBIN NEGATIVE (NEGATIVE); URINE BLOOD NEGATIVE (NEGATIVE); URINE COLOR YELLOW; URINE GLUCOSE (UA) NEGATIVE (NEGATIVE); URINE KETONE NEGATIVE (NEGATIVE); URINE LEUKOCYTE ESTERASE NEGATIVE (NEGATIVE); URINE NITRITE NEGATIVE (NEGATIVE); URINE PROTEIN NEGATIVE (NEGATIVE); URINE UROBILINOGEN 0.2 E.U./dL (0.20 - 1.00)
[2019-01-20] MEDS ORDERED: HEPARIN SODIUM FLUSH 100 UNITS/ML SYR 5ML IVP ONE (19:10)
--- NOTE | 2019-01-22 08:14 | CT SCAN REPORT ---
EXAM: CT OF THE ABDOMEN AND PELVIS HISTORY: NAUSEA AND BLOATING. HISTORY OF CROHN'S. TECHNIQUE: CT of the abdomen and pelvis was performed without intravenous or oral contrast. Comparison: CT of the abdomen and pelvis 06/16/18. FINDINGS: The lung bases are unremarkable. The abdominal and pelvic viscera as well as bowel not optimally assessed without intravenous and oral contrast. The unenhanced liver and spleen are unremarkable. No pancreatic mass or inflammatory change. The bile ducts are not dilated. The gallbladder is surgically absent. No adrenal mass. There are no renal or ureteral calculi. No hydronephrosis. There is no aortic aneurysm. No periaortic mass or adenopathy. Postoperative changes are present. There has been a partial colectomy. A few nonspecific mildly dilated small bowel loops are present in the pelvis. These measure up to 3.5 cm in size and are similar to the previous examination. There is no pelvis mass, abscess or adenopathy. No free air or free fluid. Arthritic changes are seen in the lower lumbar spine. No lytic or blastic bone lesion. Fat containing ventral wall hernia is again identified in the midline upper abdomen. This does not contain any bowel loops and appears similar to the previous examination. IMPRESSION: 1. NO ACUTE ABDOMINAL OR PELVIC PROCESS IDENTIFIED. 2. POSTOPERATIVE CHANGES ARE PRESENT. MILDLY DILATED NONSPECIFIC SMALL BOWEL LOOPS ARE PRESENT IN THE PELVIS. 3. PRIOR CHOLECYSTECTOMY. 4. VENTRAL WALL HERNIA UNCHANGED. JOB NUMBER: [id number] MTDD
== END 2019-01-20 19:19 | disposition home or self-care (01) ==
LOC: ER 15:43
DX: K50.90 Crohn's disease, unspecified, without complications (principal); R11.2 Nausea with vomiting, unspecified; R14.0 Abdominal distension (gaseous); Z87.891 Personal history of nicotine dependence
CPT/HCPCS: 74176; 80048; 80076; 81003; 83690; 85025; 96361; 96374; 96375; 96376; 99284; J1200; J2405; J2930; J7030

== ENCOUNTER 2019-04-13 09:52 | Day surgery (SDC) | payer MEDICAID ==
[~2019-04-13 09:52] MED LIST changes: -ACETAMINOPHEN 1,000 MG/100 ML BTL IV ONE; +ACETAMINOPHEN 1,000 MG/100 ML BTL IVPB ONE; -CEFAZOLIN 1 Gram 1 GM/50 ML BAG IVPB ONE
[2019-04-13] MEDS ORDERED: PROPOFOL 10 MG/ML VIAL IV ONE (09:53)
[2019-04-13] MEDS ORDERED: MIDAZOLAM HCL 2MG/2ML VIAL IV ONE (09:53)
[2019-04-13] MEDS ORDERED: KETOROLAC 30 MG/ML VIAL IVP ONE (09:53)
[2019-04-13] MEDS ORDERED: SEVOFLURANE 250 ML INH ONE (09:53)
[2019-04-13] MEDS ORDERED: FENTANYL PF 100MCG/2ML VIAL IV ONE (09:53)
[2019-04-13] MEDS ORDERED: ONDANSETRON HCL IV 4 MG/2 ML VIAL IVP ONE (09:53)
[2019-04-13] MEDS ORDERED: LIDOCAINE 2% MDV (20MG/ML) 20ML VIAL IV ONE (09:53)
[2019-04-13] MEDS ORDERED: RINGERS SOLUTION,LACTATED 1,000 ML IV ONE (10:42)
[2019-04-13] MEDS ORDERED: HYDROCODONE/APAP 7.5/325MG TABLET PO ONE (12:50)
--- NOTE | 2019-04-15 07:50 | Operative Note ---
DATE OF SURGERY: 04/13/2019 SURGEON: Binh Sage DO PREOPERATIVE DIAGNOSIS: Carpal tunnel syndrome of the right wrist. POSTOPERATIVE DIAGNOSIS: Carpal tunnel syndrome of the right wrist. OPERATION: Decompression right median nerve of the wrist using 3.5 loop magnification. DESCRIPTION OF PROCEDURE: This 53-year-old female was taken to the operating room and placed in the supine position on the operating room table. General anesthetic was administered. The right upper extremity was elevated, prepped with Hibiclens, and draped in the usual sterile fashion. It was exsanguinated and the tourniquet inflated to 250 mmHg. A palmar incision was utilized following the hypothenar crease from the level of the base of the webspace of the thumb to the flexor crease of the wrist. Dissection was carried down through the skin and subcutaneous tissue. The palmar fascia was divided in line with the skin incision. The flexor retinaculum was identified, punctured, and split to its proximal margin. Then, with the contents of the carpal tunnel under direct vision, the transverse carpal ligament was transected along its ulnar border. The radial flap was raised to expose the entire median nerve under the transverse carpal ligament. The recurrent motor branch of the median nerve was identified and found to be intact. There was no gross pathology of the medial nerve. The wound was irrigated, tourniquet released, and hemostasis obtained with the electrocautery. The wound closed with interrupted 6-0 nylon suture. Sterile dressings were applied with plaster splint immobilization with the wrist in slight dorsiflexion and the thumb in an adducted position. The patient was then taken to the recovery room in satisfactory condition. CC: FINA Nguyen
== END 2019-04-13 12:52 | disposition home or self-care (01) ==
LOC: SUR 09:52
PROVIDERS: ATTEND Orthopaedic Surgery
DX: G56.01 Carpal tunnel syndrome, right upper limb (principal); J44.9 Chronic obstructive pulmonary disease, unspecified; K50.90 Crohn's disease, unspecified, without complications; F31.9 Bipolar disorder, unspecified; Z86.73 Personal history of transient ischemic attack (TIA), and cerebral infarction without residual deficits; F17.210 Nicotine dependence, cigarettes, uncomplicated; Z98.61 Coronary angioplasty status
CPT/HCPCS: 64721; 64727; 01810; J1885; J2405; J3010; J7120

== ENCOUNTER 2019-05-22 20:23 | Observation (INO) | payer MEDICAID ==
[2019-05-22] MEDS ORDERED: 0.9 % SODIUM CHLORIDE 1,000 ML BAG IV ONE (20:53)
[2019-05-22] MEDS ORDERED: ONDANSETRON HCL IV 4 MG/2 ML VIAL IV ONE (20:53)
[2019-05-22] MEDS ORDERED: HYDROMORPHONE HCL 2 MG/ML VIAL IVP ONE (20:56)
[2019-05-22] MEDS ORDERED: DIPHENHYDRAMINE HCL 50 MG/ML VIAL IVP ONE (20:59)
--- NOTE | 2019-05-22 21:28 | Emergency Department Record ---
History of Present Illness - General Chief Complaint: Abdominal Pain Stated Complaint: ABD PAIN Time Seen by Provider: 05/22/19 20:50 Source: Patient Mode of Arrival: Ambulatory Limitations: No limitations - History of Present Illness Initial Comments: pt has been having ap for 2 days w nausea and just a small painful bm. her abd is very distended. she has hx of crohns and multiple bowel obstructions and surgeries Complaint: Abdominal pain Onset/Timin -: Days(s) Location: LUQ, LLQ Radiation: None Migration to: No migration Severity scale (1-10): 7 Quality: Fullness, Sharp Consistency: Constant Improves With: Nothing Worsens With: Bowel movement Context: Other Associated Symptoms: Nausea - Related Data Patient : No Hx Age of Menopause: 47 Home Medications Medication Instructions Recorded Confirmed Last Taken Isoniazid 300 mg PO DAILY 05/22/19 05/22/19 Unknown Pyridoxine HCl (Vitamin B6) 25 mg PO DAILY 05/22/19 05/22/19 Unknown [Vitamin B-6] Allergies Allergy/AdvReac Type Severity Reaction Status Date / Time promethazine HCl Allergy Mild ITCHING Verified 05/22/19 20:31 [From Phenergan] adalimumab [From HUMIRA] Allergy Unknown MIGRAINES Verified 05/22/19 20:31 aspirin [ASPIRIN] Allergy Unknown NAUSEA AND Verified 05/22/19 20:31 VOMITING azathioprine [From IMURAN] Allergy Unknown VOMITING Verified 05/22/19 20:31 azathioprine sodium Allergy Unknown VOMITING Verified 05/22/19 20:31 [From IMURAN] chlordiazepoxide HCl Allergy Unknown RASH Verified 05/22/19 20:31 [From LIBRIUM] citalopram hydrobromide Allergy Unknown HYPERSENSIT Verified 05/22/19 20:31 [From CELEXA] IVITY clidinium [CLIDINIUM] Allergy Unknown RASH Verified 05/22/19 20:31 codeine Allergy Unknown ITCHING Verified 05/22/19 20:31 eicosapentaenoic acid Allergy Unknown RASH Verified 05/22/19 20:31 [From OMEGA 3] hydrocodone bitartrate Allergy Unknown ITCHING Verified 05/22/19 20:31 [From VICODIN] hydromorphone HCl Allergy Unknown ITCHING Verified 05/22/19 20:31 infliximab Allergy Unknown VOMITING Verified 05/22/19 20:31 metoclopramide Allergy Unknown ALTERED Verified 05/22/19 20:31 [METOCLOPRAMIDE] MENTAL STATUS morphine [MORPHINE] Allergy Unknown ITCHING Verified 05/22/19 20:31 omega-3 fatty acids Allergy Unknown RASH Verified 05/22/19 20:31 [From OMEGA 3] oxycodone HCl [From PERCOCET] Allergy Unknown ITCHING Verified 05/22/19 20:31 paroxetine HCl [From PAXIL] Allergy Unknown RASH Verified 05/22/19 20:31 varenicline tartrate Allergy Unknown ALTERED Verified 05/22/19 20:31 [From CHANTIX] MENTAL STATUS metoclopramide HCl Allergy PT UNSURE Verified 05/22/19 20:31 [From Reglan] OF REACTION Travel Screening - Travel/Exposure Within Last 30 Days Have you traveled within the last 30 days?: No - Travel/Exposure Within Last Year Have you traveled outside the [place] in the last year?: No - Additonal Travel Details Have you been exposed to anyone with a communicable illness?: No - Travel Symptoms Symptom Screening: None Review of Systems Reviewed: No additional complaints except as noted below Constitutional: Reports: As per HPI. Denies: Chills, Fever, Malaise, Night sweats, Weakness, Weight change Eyes: Reports: As per HPI. Denies: Eye discharge, Eye pain, Photophobia, Vision change ENT: Reports: As per HPI. Denies: Congestion, Dental pain, Ear pain, Epistaxis, Hearing loss, Throat pain Respiratory: Reports: As per HPI. Denies: Cough, Dyspnea, Hemoptysis, Stridor, Wheezes Cardiovascular: Reports: As per HPI. Denies: Arrhythmia, Chest pain, Dyspnea on exertion, Edema, Murmurs, Orthopnea, Palpitations, Paroxysmal nocturnal dyspnea, Rheumatic Fever, Syncope Endocrine: Reports: As per HPI. Denies: Fatigue, Heat or cold intolerance, Polydipsia, Polyuria Gastrointestinal: Reports: As per HPI, Abdominal pain, Nausea. Denies: Constipation, Diarrhea, Hematemesis, Hematochezia, Melena, Vomiting Genitourinary: Reports: As per HPI. Denies: Abnormal menses, Discharge, Dyspareunia, Dysuria, Frequency, Hematuria, Incontinence, Retention, Urgency Musculoskeletal: Reports: As per HPI. Denies: Arthralgia, Back pain, Gout, Joint swelling, Myalgia, Neck pain Skin: Reports: As per HPI. Denies: Bruising, Change in color, Change in hair/nails, Lesions, Pruritus, Rash Neurological: Reports: As per HPI. Denies: Abnormal gait, Confusion, Headache, Numbness, Paresthesias, Seizure, Tingling, Tremors, Vertigo, Weakness Psychiatric: Reports: As per HPI. Denies: Anxiety, Auditory hallucinations, Depression, Homicidal thoughts, Suicidal thoughts, Visual hallucinations Hematological/Lymphatic: Reports: As per HPI. 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 Greyson Haddad) Hx Reflux: Yes Hx Nausea/Vomiting: Yes Hx Obstructive Bowel: Yes (Admitted for Crohns, ileus and possible partial bowel obstruction) - Hx Genitourinary Disorders: No Comment:: going through menopause - ENDOCRINE Hx Endocrine Disorders: No - MUSCULOSKELETAL Hx Musculoskeletal Disorders: Yes Hx Arthritis: Yes Hx Osteoporosis: Yes - PSYCH Hx Psych Problems: Yes Comment:: dx with bi-polar - HEMATOLOGY/ONCOLOGY Hx Hematology/Oncology Disorders: No Hx Anemia: No Hx Blood Disorders: No Hx Bruising: No Hx Cancer: No Hx Clotting Problems: No Hx Sickle Cell Disease: No Hx Unexplained Bleeding: No Hx Blood Transfusions: No Hx Blood Transfusion Reaction: No Family Medical History Any Significant Family History?: No Hx Alcohol Use: Father, Brother/Sister Hx Cancer: Brother/Sister *Cancer Comment: lung cancer Hx Diabetes: Grandparents *Diabetes Comment: grandmother Hx Heart Disease: Grandparents *Heart Comment: grandfather Hx Resp Disorders: Children *Resp Comment: daughter has asthma Hx Stroke: Mother *Stroke Comment: Mother had history of TIA x 1 Physical Exam - General General Appearance: Alert, Oriented x3, Cooperative, Mild distress - Head Head exam: Normal inspection - Eye Eye exam: Normal appearance, PERRL, EOMI Pupils: Normal accommodation - ENT ENT exam: Normal exam, Mucous membranes moist, Normal external ear exam, Normal orophraynx Ear exam: Normal external inspection. negative: External canal tenderness Nasal Exam: Normal inspection. negative: Discharge, Sinus tenderness Mouth exam: Normal external inspection, Tongue normal Teeth exam: Normal inspection. negative: Dental caries Throat exam: Normal inspection. negative: Tonsillar erythema, Tonsillar exudate - Neck Neck exam: Normal inspection, Full ROM. negative: Tenderness - Respiratory Respiratory exam: Normal lung sounds bilaterally. negative: Respiratory distress - Cardiovascular Cardiovascular Exam: Regular rate, Normal rhythm, Normal heart sounds - GI/Abdominal GI/Abdominal exam: Soft, Normal bowel sounds, Distended, Guarding, Hypoactive bowel sounds, Tenderness - Rectal Rectal exam: Deferred - exam: Deferred - Extremities Extremities exam: Normal inspection, Full ROM, Normal capillary refill. negative: Tenderness - Back Back exam: Reports: Normal inspection, Full ROM. Denies: Muscle spasm, Rash noted, Tenderness - Neurological Neurological exam: Alert, CN II-XII intact, Normal gait, Oriented X3 - Psychiatric Psychiatric exam: Normal affect, Normal mood - Skin Skin exam: Dry, Intact, Normal color, Warm Course Vital Signs 05/22/19 20:29 Temperature 98.2 F Respiratory 20 Rate Blood Pressure 124/78 [Left Arm] Pulse Ox 96 - Reevaluation(s) Reevaluation #1: 05/23/19 00:39 pt conts to have pain Medical Decision Making - Lab Data Result diagrams: 05/22/19 21:45 05/22/19 21:45 Disposition Disposition: Admit Clinical Impression: Bowel obstruction Qualifiers: Intestinal obstruction type: unspecified Intestinal obstruction extent: partial Qualified Code(s): K56.600 - Partial intestinal obstruction, unspecified as to cause Disposition: Still a Patient at [facility] Decision to Admit: Admit from ER Decision to Admit Date: 05/23/19 Decision to Admit Time: 00:41 Forms: Patient Portal Access Quality - Quality Measures Quality Measures: N/A - Blood Pressure Screening Does Patient Have Any of the Following: No Blood Pressure Classification: Pre-Hypertensive BP Reading Systolic Measurement: 129 Diastolic Measurement: 62 Screening for High Blood Pressure: < Pre-Hypertensive BP, F/U Documented > [G8950] Pre-Hypertensive Follow-up Interventions: Follow-up with rescreen every year.
[2019-05-22 21:57] LABS: ABSOLUTE NEUTROPHIL COUNT 4.44; BASO % 0.3 % (0-6); EOS % 6.4 % (0-6); GRAN % 50.5 % (47-80); HEMATOCRIT 40.3 % (35.0-47.0); HEMOGLOBIN 12.5 gm/dl (11.6-16.0); MEAN CELL VOLUME 82.1 fl (81-97); MEAN CORPUSCULAR HEMOGLOBIN 25.5 pg (27-33); MEAN PLATELET VOLUME 8.9 fl (7.4-10.4); MONO % 9.8 % (0-9); PLATELET COUNT 577 K/uL (130-400); RED BLOOD COUNT 4.91 M/uL (3.80-5.40); RED CELL DISTRIBUTION WIDTH 17.3 % (11.5-14.5); WHITE BLOOD COUNT W/O DIFF 8.8 K/uL (4.2-12.2)
[2019-05-22 22:10] LABS: BILIRUBIN,TOTAL < 0.20 mg/dL (0.2-1.0); BLOOD UREA NITROGEN 8 mg/dL (6-20); CREATININE 0.6 mg/dL (0.5-0.9); EST GLOMERULAR FILTRATION RATE > 60 mL/min; TOTAL PROTEIN 6.8 g/dL (6.6-8.7)
[2019-05-22 22:11] LABS: LIPASE 43 U/L (13-60)
[2019-05-22 22:12] LABS: GLUCOSE,RANDOM 100 mg/dL (74-109)
[2019-05-22 22:15] LABS: ALB/GLOB RATIO 1.5 (1.1-1.8); ALBUMIN 4.1 g/dL (4.0-5.0); ALKALINE PHOSPHATASE 107 U/L (35-104); ALT/SGPT 23 U/L (<33)
[2019-05-22 22:16] LABS: AST/SGOT 19 U/L (10.0-35.0)
[2019-05-22 22:46] LABS: URINE APPEARANCE CLEAR; URINE BILIRUBIN NEGATIVE (NEGATIVE); URINE BLOOD NEGATIVE (NEGATIVE); URINE COLOR YELLOW; URINE GLUCOSE (UA) NEGATIVE (NEGATIVE); URINE KETONE NEGATIVE (NEGATIVE); URINE LEUKOCYTE ESTERASE NEGATIVE (NEGATIVE); URINE NITRITE NEGATIVE (NEGATIVE); URINE PROTEIN NEGATIVE (NEGATIVE); URINE UROBILINOGEN 0.2 E.U./dL (0.20 - 1.00)
[2019-05-23] MEDS ORDERED: ONDANSETRON HCL IV 4 MG/2 ML VIAL IVP ONE (00:12)
[2019-05-23] MEDS ORDERED: HYDROMORPHONE HCL 2 MG/ML VIAL IVP ONE (00:13)
[2019-05-23] MEDS ORDERED: DIPHENHYDRAMINE HCL 50 MG/ML VIAL IVP ONE (01:08)
[2019-05-23] MEDS ORDERED: ACETAMINOPHEN 500 MG TABLET PO PRN (01:30)
[2019-05-23] MEDS ORDERED: ALBUTEROL HFA 8 GM INHALER INH PRN (01:30)
[2019-05-23] MEDS: 0.9 % SODIUM CHLORIDE 1000ML 1,000 ML IV PRN ×3 (02:00→18:45)
[2019-05-23] MEDS: ONDANSETRON HCL IV 4 MG/2 ML VIAL IVP PRN ×6 (04:13→20:24)
[2019-05-23] MEDS: HYDROMORPHONE HCL 2 MG/ML VIAL IV PRN ×5 (04:15→20:27)
[2019-05-23] MEDS: DIPHENHYDRAMINE HCL 50 MG/ML VIAL IVP PRN ×6 (04:51→22:27)
[2019-05-23] MEDS ORDERED: LORATADINE 10 MG TABLET PO SCH (10:00)
[2019-05-23] MEDS ORDERED: BUSPIRONE 5 MG TABLET PO PRN (10:00)
[2019-05-23] MEDS ORDERED: ISONIAZID 300 MG PO SCH (10:00)
[2019-05-23] MEDS ORDERED: BREO (FLUTICASONE/VILANTEROL) 200MCG/25MCG INHALER INH SCH (10:00)
[2019-05-23] MEDS ORDERED: ONDANSETRON HCL IV 4 MG/2 ML VIAL IVP PRN (10:26)
[2019-05-23] MEDS ORDERED: METHYLPREDNISOLONE PF 125MG/VIAL IVP ONE (10:40)
[2019-05-23] MEDS: METHYLPREDNISOLONE PF 125MG/VIAL IVP SCH (18:31)
[2019-05-23] MEDS ORDERED: QUETIAPINE FUMARATE 150 MG PO SCH (22:00)
[2019-05-24] MEDS: ONDANSETRON HCL IV 4 MG/2 ML VIAL IVP PRN ×2 (00:52→04:45)
[2019-05-24] MEDS: HYDROMORPHONE HCL 2 MG/ML VIAL IV PRN ×2 (00:52→04:50)
[2019-05-24] MEDS: DIPHENHYDRAMINE HCL 50 MG/ML VIAL IVP PRN ×3 (02:27→09:16)
[2019-05-24] MEDS: 0.9 % SODIUM CHLORIDE 1000ML 1,000 ML IV PRN (02:28)
[2019-05-24] MEDS: METHYLPREDNISOLONE PF 125MG/VIAL IVP SCH (02:29)
--- NOTE | 2019-05-24 08:08 | Discharge Note ---
VTE H&P Assessment - Risk for VTE Risk for VTE: Yes Risk Level: Moderate Risk Assessment Date: 05/24/19 Risk Assessment Time: 08:06 VTE Orders Placed or Will Be Placed: Yes Discharge Medications - Discharge Medications Prescriptions: Prednisone [Prednisone 10Mg] 10 mg PO ASDIR #30 tab Home Medications: Ambulatory Orders Buspirone HCl 10 mg PO BID PRN tab 01/28/19 [Last Taken 05/22/19 10:00 10 mg] Isoniazid 300 mg PO DAILY 05/22/19 [Last Taken Unknown] Pyridoxine HCl (Vitamin B6) [Vitamin B-6] 25 mg PO DAILY 05/22/19 [Last Taken Unknown] Prednisone [Prednisone 10Mg] 10 mg PO ASDIR #30 tab 05/24/19 [Last Taken Unknown] Discharge Note - Date Date of Discharge Note: 05/24/19 Disposition: Home, Self-Care Condition: (1) Good Additional Instructions: follow up with Dr Rodriguez or Nubia in one week taper off prednisone starting at 40 mg continue home pain meds and she uses norco and she has those at home currently Forms: Patient Portal Access
--- NOTE | 2019-05-24 08:11 | CT SCAN REPORT ---
EXAM: CT OF THE ABDOMEN AND PELVIS WITH CONTRAST HISTORY: ABDOMINAL PAIN AND PRESSURE. BLOATING AND NAUSEA. TECHNIQUE: Following oral and intravenous contrast administration, helical CT examination of the abdomen and pelvis was performed including delayed images through the kidneys with 100 ml of Omnipaque 300 utilized. Comparison: CT abdomen and pelvis without contrast dated 01/20/19. FINDINGS: There is mild dependent atelectasis in each lung base. Minor linear scarring versus atelectasis in the anterior lung bases redemonstrated. No pleural or pericardial effusion. The heart is not enlarged. The right hemidiaphragm is mildly elevated. The liver, spleen, pancreas, and adrenal glands are normal in appearance. The gallbladder is surgically absent. No gross biliary ductal dilatation is seen. A 1.5 x 1.2 cm fluid density mass arises exophytically from the upper pole of the left kidney. This is consistent with a simple cyst. It has not significantly changed. A too small to characterize hypodense lesion is noted in the anterior right mid kidney. This is nonspecific, but also likely is a cyst. The kidneys are otherwise normal in appearance. No new intraabdominal or retroperitoneal lymphadenopathy. The portal vein is patent. There is mild diffuse atherosclerosis without aneurysmal dilatation of the abdominal aorta nor iliac arteries. There is redemonstration of a few lymph nodes in the central mesentery with the largest measuring 8 mm in short axis diameter. These are not significantly changed. They are nonspecific, but likely reactive. No new pelvic mass, lymphadenopathy, or free pelvic fluid. No intrinsic urinary bladder abnormality is seen though evaluation is limited by lack of distention. There are again noted changes of right hemicolectomy with enterocolic anastomosis near the midline upper abdomen. There is borderline to mild wall thickening at the anastomotic site though this is unchanged. The upstream distal ileum is somewhat patulous though unchanged. The sigmoid colon is redundant and mild to moderately distended, but without gross dilatation. Contrast does reach the mid to distal sigmoid region. There is a moderate to large amount of stool in the distal colon and rectum. No free intraperitoneal air. A small fat filled uncomplicated ventral wall hernia is noted above the umbilicus measuring 3.5 cm craniocaudad x 5 cm transverse. This appears unchanged. No new lytic or blastic bone lesion. Post surgical changes again noted in the right inguinal region. IMPRESSION: 1. STATUS POST CHOLECYSTECTOMY AND RIGHT HEMICOLECTOMY. 2. THE ENTEROCOLIC ANASTOMOSIS IN THE MIDLINE MID TO UPPER ABDOMEN APPEARS PATENT THOUGH THERE IS POSSIBLE MILD NONSPECIFIC WALL THICKENING. THIS DOES NOT APPEAR SIGNIFICANTLY CHANGED SINCE 01/20/19. 3. MILD TO MODERATE DISTENTION OF THE DISTAL COLON WHICH IS REDUNDANT. THIS, HOWEVER, IS NOT DILATED AND THERE IS NO ZONE OF TRANSITION. MECHANICAL OBSTRUCTION IS UNLIKELY. MODERATE TO LARGE AMOUNT OF STOOL IN THE DISTAL COLON AND RECTUM. 4. LEFT RENAL CYST. TOO SMALL TO CHARACTERIZE HYPODENSE LESION WITHIN THE RIGHT KIDNEY IS NONSPECIFIC, BUT ALSO LIKELY A CYST. 5. THERE ARE SEVERAL LYMPH NODES WITHIN THE CENTRAL MESENTERY WHICH ARE NOT GROSSLY ENLARGED. THESE ARE UNCHANGED AND ARE LIKELY REACTIVE. 6. STABLE UNCOMPLICATED VENTRAL WALL HERNIA IN THE UPPER ABDOMEN. STABLE POST SURGICAL CHANGE WITHIN THE RIGHT INGUINAL REGION. JOB NUMBER: [id number] MTDD
--- NOTE | 2019-05-24 08:16 | RADIOLOGY REPORT ---
EXAM: ABDOMEN, TWO VIEWS HISTORY: FOLLOW-UP OBSTRUCTION. HISTORY OF RESECTIONS AND INCARCERATED HERNIA REPAIR. TECHNIQUE: AP supine and upright views of the abdomen were obtained. Comparison: CT abdomen and pelvis with contrast dated 05/22/19 at 23:17. FINDINGS: Gas and stool are noted within a mildly distended left colon without dilatation. No worrisome air fluid level. No small bowel dilatation. No mass, organomegaly, or suspicious calcification. No acute osseous abnormality. IMPRESSION: NONOBSTRUCTIVE BOWEL GAS PATTERN. NO FREE INTRAPERITONEAL AIR. JOB NUMBER: [id number] MTDD
--- NOTE | 2019-05-24 09:01 | History and Physical Report ---
DATE OF SERVICE: 05/23/2019 at 10:03 a.m. DATE OF ADMISSION: 05/23/2019. CHIEF COMPLAINT: Abdominal pain, bloating, and a history of Crohn disease. HISTORY OF PRESENT ILLNESS: This 53-year-old female presented to the emergency department with nausea and vomiting that started about 2-3 days ago. She states she had 1 small, painful bowel movement on the day of admission. She has had multiple episodes of partial small bowel obstruction, multiple surgeries, and a history of Crohn's. Currently, she is using Entyvio IV, just recently had a dose 3 or 4 days ago. She has been off that for a period of time because of protocol for the infusion, something to do with skin testing positive for TB. She also complains of a headache. She is getting her Dilaudid, but she needs Benadryl because of the itching. She has a reaction to the IV narcotics which is itching. CT of the abdomen and pelvis showing contrast through into the colon. It shows a partial small bowel obstruction. She is admitted to the hospital for IV fluids, pain control, and to possibly have a surgical consult if not improved by Friday. MEDICAL HISTORY: Crohn disease, manic-depressive disorder, osteoarthritis, frequent episodes of ileus, history of seizures. She also has COPD. TB test positive, but does not have the disease. Recent treatment of anti-TB meds. Seizure disorder. Last seizure 12 years ago. GERD. SURGICAL HISTORY: T&A, tubal ligation, 5 colon resections, incarcerated hernia repair, left knee surgery. CURRENT MEDICATIONS: On admission: 1. Buspirone 10 mg b.i.d. 2. Isoniazid 300 mg daily. 3. Pyridoxine (B6) 25 mg daily. 4. Zofran 4 mg t.i.d. p.r.n. 5. Seroquel 150 mg at h.s. 6. vitamins 1 a day. 7. Hydrocodone 7.5 t.i.d. 8. Mucinex 600 mg b.i.d. 9. Advair 113/14 1 puff b.i.d. 10. Benadryl 25 mg q.6 hours p.r.n. 11. Zyrtec 10 mg q.daily. 12. Fioricet p.r.n. 13. ProAir 2 puffs q.4 hours p.r.n. ALLERGIES: PHENERGAN, HUMIRA, ASPIRIN, IMURAN, LIBRIUM, CELEXA, CLIDINIUM, CODEINE (itching), OMEGA-3 (rash), VICODIN (itching), DILAUDID (itching), INFLIXIMAB (itching), REGLAN (altered mental status), MORPHINE (itching), OMEGA- 3 FATTY ACIDS (rash), PERCOCET (itching), PAXIL (rash), CHANTIX (altered mental status). FAMILY PSYCHOSOCIAL HISTORY: She quit smoking 1982. Alcohol use father, daughter, sister. Lung cancer of the grandparents. Diabetes, grandmother. Heart disease of the grandparents. Daughter with asthma. Mother had a stroke. No alcohol or drug use. SYSTEMS REVIEW: HEENT: No upper respiratory infection symptoms, cough, cold, or congestion. Cardiovascular: No chest pain, palpitations, or arrhythmias. Respiratory: No shortness of breath, cough, cold, or congestion. Gastrointestinal: See chief complaint. She has nausea, bloating, abdominal pain, and she did pass some stools, watery. Genitourinary: No dysuria, hematuria, frequency, or burning on urination. Musculoskeletal: No problems moving her arms and legs. Neurologic: No CVA, paralysis, or paresthesias. Seizure 12 years ago. Gynecologic History: No lumps in her breasts or abnormal vaginal bleeding. Going through menopause. Endocrine: No diabetes or thyroid disease. Integument: No rash, ulcerative change, or yellow skin. PHYSICAL EXAMINATION: VITAL SIGNS: Temperature 97.5. Pulse 78. Blood pressure 122/69. Respiratory rate 17. Pulse ox 97% on room air. Weight 160 pounds on a standing scale. Height 5 foot 7 inches. HEENT: Pupils equal, round, and reactive to light and accommodation. Extraocular muscles intact. Throat is clear. Nose is clear. Tympanic membranes are richardson. NECK: Supple. No jugular venous distention. No hepatojugular reflux. No carotid bruit. Thyroid smooth. CARDIOVASCULAR: Regular rate and rhythm without murmurs, clicks, rubs, or gallops. RESPIRATORY: Clear to auscultation. Breath sounds equal bilaterally. ABDOMEN: Distended, tender bilateral upper abdomen and left lower quadrant. No rebound or rigidity, but bloating is present. EXTREMITIES: No pedal edema. No cyanosis. No clubbing. Full range of motion. Peripheral pulses are good. BREASTS, GYNECOLOGICAL, AND RECTAL: Exam deferred. NEUROLOGIC: Cranial nerves II-XII intact. No gross defects. Sensation normal. Strength normal. Deep tendon reflexes seen bilaterally. Babinski is negative. Mental Status: Alert and oriented x3. IMPRESSION: 1. Abdominal pain. 2. Nausea. 3. Partial small bowel obstruction. 4. History of Crohn disease. 5. History of multiple partial small bowel obstructions with ileus, generally resolved spontaneously and conservatively. PLAN: IV fluids. Gradually increase the diet. Will repeat abdominal x-ray today. MTDD
[2019-05-24] MEDS ORDERED: ENOXAPARIN 40 MG/0.4 ML SYR SQ SCH (10:00)
--- NOTE | 2019-05-24 17:30 | Discharge Summary ---
DISCHARGE DIAGNOSES: 1. Partial small bowel obstruction. 2. Abdominal pain. 3. Nausea, resolving. 4. History of Crohn's disease with multiple abdominal surgeries with multiple partial small bowel obstructions. REASON FOR HOSPITALIZATION: Two days of nausea, abdominal pain, and distention. Came into the emergency department, seen by Dr. Castellanos, admitted for partial small bowel obstruction with an ileus. The patient was given IV fluids. SIGNIFICANT FINDINGS: CAT scan revealing contrast in the sigmoid colon with signs of an ileus. Repeat abdominal x-ray showing that the ileus is clearing up and she is doing 5 to 6 loose stools. LABORATORY DATA: WBC was 8800, hemoglobin was 12.5, potassium 4.1, BUN is 8, creatinine is 0.6. The alkaline phosphate was up slightly at 107. Urine was negative. Platelet count was 577,000. THERAPY PROVIDED: The patient was given IV Solu-Medrol, IV fluids, Dilaudid, and got rest, gradually increased the diet she was on, clear liquids and full liquids on discharge. HOSPITAL COURSE: She gradually improved. Her belly is less distended, less painful, and she is having 5 to 6 loose stools on the day of discharge. CONDITION AT DISCHARGE: Much improved. DISCHARGE INSTRUCTIONS: Follow up with Dr. Rodriguez or Kassandra, his assistant store manager, in 1 week, follow up with [facility] as scheduled. Prednisone taper at 40 mg a day for 3 days, 30 mg a day for 3 days, 20 mg a day for 3 days, and 10 mg a day for 3 days. Continue her home medications which is Buspirone 10 mg b.i.d., isoniazid 300 mg a day, B6 25 mg a day, Zofran p.r.n., Seroquel 150 mg at bedtime. Vitamins 1 a day. [place] 7.5 3 times a day, Advair 1 puff b.i.d., Benadryl 25 mg q.6 hours p.r.n., Zyrtec 10 mg daily, Fioricet p.r.n., Albuterol inhaler 2 puffs q.4 hours p.r.n. MTDD
== END 2019-05-24 09:30 | disposition home or self-care (01) ==
LOC: ER 20:23 → MEDSURG 05-23 01:16
PROVIDERS: ADMIT Emergency Medicine; ATTEND Emergency Medicine
DX: K56.600 Partial intestinal obstruction, unspecified as to cause (principal); R10.32 Left lower quadrant pain; R14.0 Abdominal distension (gaseous); R11.0 Nausea; R51 Headache; J44.9 Chronic obstructive pulmonary disease, unspecified; K50.90 Crohn's disease, unspecified, without complications; K21.9 Gastro-esophageal reflux disease without esophagitis; F31.9 Bipolar disorder, unspecified; R76.11 Nonspecific reaction to tuberculin skin test without active tuberculosis; M19.90 Unspecified osteoarthritis, unspecified site; M81.0 Age-related osteoporosis without current pathological fracture; Z87.891 Personal history of nicotine dependence; Z86.19 Personal history of other infectious and parasitic diseases; Z86.69 Personal history of other diseases of the nervous system and sense organs; Z90.49 Acquired absence of other specified parts of digestive tract; Z87.19 Personal history of other diseases of the digestive system
CPT/HCPCS: 74019; 74177; 80053; 81003; 83690; 85025; 94640; 96374; 96375; 96376; 99217; 99220; 99285; J1200; J2405; J2930; J7030

== ENCOUNTER 2019-07-21 10:16 | Emergency (ER) | payer MEDICAID ==
[2019-07-21] MEDS ORDERED: METHYLPREDNISOLONE PF 125MG/VIAL IVP ONE (10:21)
[2019-07-21] MEDS ORDERED: 0.9 % SODIUM CHLORIDE 1,000 ML BAG IV ONE (10:21)
[2019-07-21] MEDS ORDERED: ONDANSETRON HCL IV 4 MG/2 ML VIAL IV ONE (10:21)
--- NOTE | 2019-07-21 10:47 | Emergency Department Record ---
History of Present Illness - General Chief Complaint: Abdominal Pain Stated Complaint: ABD PAIN Time Seen by Provider: 07/21/19 10:18 Source: Patient, RN notes reviewed Mode of Arrival: Ambulatory - History of Present Illness Initial Comments: 2 days of nausea and abd pain and it feels like her typical flare up of crohn's disease and she requested we not do a CT scan because she has had a lot ot CT scans of the abdomen. No vomiting and she is passsing gas and small BMs and the last one is today. She went in to see her Dr and Nubia sent her to the ED for evaluation. Patient gets entyvio IV leroy 4 weeks and she is taking isoniazid because TB test is positive and she has latent TB and no active TB per patient. (started isoniazid march 2019 and taking till sep 2019 and followed by infectious disease Dr. Iyer at [facility]) Onset/Timin -: Days(s) Location: RUQ, RLQ Severity: Moderate Severity scale (1-10): 7 Quality: Other Consistency: Intermittent Improves With: Nothing Worsens With: Other Associated Symptoms: Nausea - Related Data Hx Age of Menopause: 47 Previous Rx's Medication Instructions Recorded Prednisone [Prednisone 10Mg] 10 mg PO ASDIR #30 tab 07/21/19 Allergies Allergy/AdvReac Type Severity Reaction Status Date / Time promethazine HCl Allergy Mild ITCHING Verified 07/21/19 10:20 [From Phenergan] adalimumab [From HUMIRA] Allergy Unknown MIGRAINES Verified 07/21/19 10:20 aspirin [ASPIRIN] Allergy Unknown NAUSEA AND Verified 07/21/19 10:20 VOMITING azathioprine [From IMURAN] Allergy Unknown VOMITING Verified 07/21/19 10:20 azathioprine sodium Allergy Unknown VOMITING Verified 07/21/19 10:20 [From IMURAN] chlordiazepoxide HCl Allergy Unknown RASH Verified 07/21/19 10:20 [From LIBRIUM] citalopram hydrobromide Allergy Unknown HYPERSENSIT Verified 07/21/19 10:20 [From CELEXA] IVITY clidinium [CLIDINIUM] Allergy Unknown RASH Verified 07/21/19 10:20 codeine Allergy Unknown ITCHING Verified 07/21/19 10:20 eicosapentaenoic acid Allergy Unknown RASH Verified 07/21/19 10:20 [From OMEGA 3] hydrocodone bitartrate Allergy Unknown ITCHING Verified 07/21/19 10:20 [From VICODIN] hydromorphone HCl Allergy Unknown ITCHING Verified 07/21/19 10:20 infliximab Allergy Unknown VOMITING Verified 07/21/19 10:20 metoclopramide Allergy Unknown ALTERED Verified 07/21/19 10:20 [METOCLOPRAMIDE] MENTAL STATUS morphine [MORPHINE] Allergy Unknown ITCHING Verified 07/21/19 10:20 omega-3 fatty acids Allergy Unknown RASH Verified 07/21/19 10:20 [From OMEGA 3] oxycodone HCl [From PERCOCET] Allergy Unknown ITCHING Verified 07/21/19 10:20 paroxetine HCl [From PAXIL] Allergy Unknown RASH Verified 07/21/19 10:20 varenicline tartrate Allergy Unknown ALTERED Verified 07/21/19 10:20 [From CHANTIX] MENTAL STATUS metoclopramide HCl Allergy PT UNSURE Verified 07/21/19 10:20 [From Reglan] OF REACTION Travel Screening - Travel/Exposure Within Last 30 Days Have you traveled within the last 30 days?: No - Travel/Exposure Within Last Year Have you traveled outside the [place] in the last year?: No - Additonal Travel Details Have you been exposed to anyone with a communicable illness?: No - Travel Symptoms Symptom Screening: None Review of Systems Reviewed: No additional complaints except as noted below Constitutional: Reports: As per HPI. Denies: Chills, Fever, Malaise, Night sweats, Weakness, Weight change Eyes: Reports: As per HPI. Denies: Eye discharge, Eye pain, Photophobia, Vision change ENT: Reports: As per HPI. Denies: Congestion, Dental pain, Ear pain, Epistaxis, Hearing loss, Throat pain Respiratory: Reports: As per HPI. Denies: Cough, Dyspnea, Hemoptysis, Stridor, Wheezes Cardiovascular: Reports: As per HPI. Denies: Arrhythmia, Chest pain, Dyspnea on exertion, Edema, Murmurs, Orthopnea, Palpitations, Paroxysmal nocturnal dyspnea, Rheumatic Fever, Syncope Endocrine: Reports: As per HPI. Denies: Fatigue, Heat or cold intolerance, Polydipsia, Polyuria Gastrointestinal: Reports: As per HPI, Abdominal pain, Nausea. Denies: Constipation, Diarrhea, Hematemesis, Hematochezia, Melena, Vomiting Genitourinary: Reports: As per HPI. Denies: Abnormal menses, Discharge, Dyspareunia, Dysuria, Frequency, Hematuria, Incontinence, Retention, Urgency Musculoskeletal: Reports: As per HPI. Denies: Arthralgia, Back pain, Gout, Joint swelling, Myalgia, Neck pain Skin: Reports: As per HPI. Denies: Bruising, Change in color, Change in hair/nails, Lesions, Pruritus, Rash Neurological: Reports: As per HPI. Denies: Abnormal gait, Confusion, Headache, Numbness, Paresthesias, Seizure, Tingling, Tremors, Vertigo, Weakness Psychiatric: Reports: As per HPI. Denies: Anxiety, Auditory hallucinations, Depression, Homicidal thoughts, Suicidal thoughts, Visual hallucinations Hematological/Lymphatic: Reports: As per HPI. Denies: Anemia, Blood Clots, Easy bleeding, Easy bruising, Swollen glands Past Medical History - SOCIAL HISTORY Smoking Status: Light tobacco smoker (<10/day) Alcohol Use: None Drug Use: None - RESPIRATORY Hx Respiratory Disorders: No Hx Asthma: (Patient is being treated with Isoniazid due to receives Entyvio) Hx Bronchitis: Yes Hx COPD: Yes (denies COPD;recently diagnosed, well controlled with inhalers) Hx Pneumonia: Yes Hx Tuberculosis: No (Has had a positive TB test but does not have active TB.) Comment:: Patient is being treated with Isoniazid due to receives Entyvio. - CARDIOVASCULAR Hx Cardio Disorders: Yes Hx Abnormal EKG: Yes (r/t anxiety) Hx Cardiac Cath: Yes Hx Chest Pain: Yes (r/t anxiety) - NEURO Hx Neuro Disorders: Yes Hx Headaches: Yes (takes Buspar PRN for headaches) Hx Seizures: Yes (last seizure 12 years ago) Hx TIA: Yes (2009) - GI Hx GI Disorders: Yes Hx Abdominal Pain: Yes Hx Crohn's Disease: Yes (Diagnosed about 9 years ago; managed by Dr. Greyson Haddad) Hx Reflux: Yes Hx Hiatal Hernia: (maybe undiagnosed) Hx Nausea/Vomiting: Yes Hx Obstructive Bowel: Yes (Admitted for Crohns, ileus and possible partial bowel obstruction) Comment:: abdominal hernia - Hx Genitourinary Disorders: Yes Hx UTI: Yes Comment:: going through menopause; occasional vaginal yeast infections - ENDOCRINE Hx Endocrine Disorders: No Hx Diabetes: No Hx Thyroid Disease: No - MUSCULOSKELETAL Hx Musculoskeletal Disorders: Yes Hx Arthritis: Yes Hx Osteoporosis: Yes - PSYCH Hx Psych Problems: Yes Hx Anxiety: Yes Hx Depression: Yes Comment:: dx with bi-polar; not currently hopeless/depressed - HEMATOLOGY/ONCOLOGY Hx Hematology/Oncology Disorders: No Hx Anemia: No Hx Blood Disorders: No Hx Bruising: No Hx Cancer: No Hx Chemotherapy: No Hx Radiation Therapy: No Hx Clotting Problems: No Hx Sickle Cell Disease: No Hx Unexplained Bleeding: No Hx Blood Transfusions: No Hx Blood Transfusion Reaction: No Family Medical History Any Significant Family History?: Yes Hx Alcohol Use: Father, Children, Brother/Sister, Grandparents *Alcohol Comment: all male releatives Hx Anxiety: Father, Mother, Children, Brother/Sister, Grandparents Hx Cancer: Brother/Sister *Cancer Comment: lung cancer Hx Depression: Mother, Children, Brother/Sister Hx Diabetes: Grandparents *Diabetes Comment: grandmother Hx Heart Disease: Brother/Sister, Grandparents *Heart Comment: grandfather Hx Resp Disorders: Children, Brother/Sister *Resp Comment: daughter has asthma Hx Stroke: Mother *Stroke Comment: Mother had history of TIA x 1 Physical Exam - General General Appearance: Alert, Oriented x3, Cooperative, No acute distress - Head Head exam: Normal inspection - Eye Eye exam: Normal appearance, PERRL Pupils: Normal accommodation - ENT ENT exam: Normal exam, Mucous membranes moist, Normal external ear exam, Normal orophraynx, TM's normal bilaterally Ear exam: Normal external inspection. negative: External canal tenderness Nasal Exam: Normal inspection. negative: Discharge, Sinus tenderness Mouth exam: Normal external inspection, Tongue normal Teeth exam: Normal inspection. negative: Dental caries Throat exam: Normal inspection. negative: Tonsillar erythema, Tonsillar exudate - Neck Neck exam: Normal inspection, Full ROM. negative: Tenderness - Respiratory Respiratory exam: Normal lung sounds bilaterally. negative: Respiratory distress - Cardiovascular Cardiovascular Exam: Regular rate, Normal rhythm, Normal heart sounds - GI/Abdominal GI/Abdominal exam: Soft, Normal bowel sounds, Distended, Hyperactive bowel sounds, Tenderness (left upper quad pain and bloating) - Rectal Rectal exam: Deferred - exam: Deferred - Extremities Extremities exam: Normal inspection, Full ROM, Normal capillary refill. negative: Tenderness - Back Back exam: Reports: Normal inspection, Full ROM. Denies: Muscle spasm, Rash noted, Tenderness - Neurological Neurological exam: Alert, Normal gait, Oriented X3, Reflexes normal - Psychiatric Psychiatric exam: Normal affect, Normal mood - Skin Skin exam: Dry, Intact, Normal color, Warm Course Vital Signs 07/21/19 10:21 Temperature 98.1 F Pulse Rate 108 H Respiratory 20 Rate Blood Pressure 114/85 Pulse Ox 98 - Reevaluation(s) Reevaluation #1: patient is feeling better and wants to go home 07/21/19 13:09 Medical Decision Making - Data Complexity MDM Data: Labs Ordered and/or Reviewed (liver enzymes up slightly and she needs to have her liver enzymes checked in one week ) - Lab Data Result diagrams: 07/21/19 11:00 07/21/19 11:00 Disposition Clinical Impression: Liver enzyme elevation Exacerbation of Crohn's disease Qualifiers: Digestive disease complication type: without complication Qualified Code(s): K50.90 - Crohn's disease, unspecified, without complications Disposition: Home, Self-Care Condition: (1) Good Instructions: Crohn Disease (ED) Additional Instructions: follow up with family Dr in one week and have her liver enzymes rechecked to make sure they are not going up. Continue with her home pain medication which she already has norco from her primary clear liquids today gradually increase diet tomorrow Prescriptions: Prednisone [Prednisone 10Mg] 10 mg PO ASDIR #30 tab Forms: Patient Portal Access Time of Disposition: 13:15 Quality - Quality Measures Quality Measures: N/A - Blood Pressure Screening Does Patient Have Any of the Following: No Blood Pressure Classification: Pre-Hypertensive BP Reading Systolic Measurement: 114 Diastolic Measurement: 85 Screening for High Blood Pressure: < Pre-Hypertensive BP, F/U Documented > [G8950] Pre-Hypertensive Follow-up Interventions: Referral to alternative/primary care provider.
[2019-07-21 11:08] LABS: ABSOLUTE NEUTROPHIL COUNT 2.45; BASO % 0.2 % (0-6); EOS % 4.7 % (0-6); GRAN % 45.6 % (47-80); HEMATOCRIT 41.7 % (35.0-47.0); HEMOGLOBIN 12.7 gm/dl (11.6-16.0); LYMPH % 38.5 % (16-45); MEAN CELL VOLUME 83.4 fl (81-97); MEAN CORPUSCULAR HEMOGLOBIN 25.4 pg (27-33); MEAN CORPUSCULAR HGB CONC 30.5 g/dl (32-36); MEAN PLATELET VOLUME 8.7 fl (7.4-10.4); PLATELET COUNT 486 K/uL (130-400); RED CELL DISTRIBUTION WIDTH 18.2 % (11.5-14.5); WHITE BLOOD COUNT W/O DIFF 5.4 K/uL (4.2-12.2)
[2019-07-21] MEDS ORDERED: DIPHENHYDRAMINE HCL 50 MG/ML VIAL IVP ONE ×2 (11:20→12:13)
[2019-07-21] MEDS ORDERED: HYDROMORPHONE HCL 2 MG/ML VIAL IVP ONE (11:20)
[2019-07-21 11:23] LABS: BLOOD UREA NITROGEN 4 mg/dL (6-20); CREATININE 0.5 mg/dL (0.5-0.9); EST GLOMERULAR FILTRATION RATE > 60 mL/min; PROTHROMBIN TIME (PATIENT) 10.1 SECONDS (9.5-12.1)
[2019-07-21 11:24] LABS: LIPASE 32 U/L (13-60); TOTAL PROTEIN 6.6 g/dL (6.6-8.7)
[2019-07-21 11:26] LABS: GLUCOSE,RANDOM 84 mg/dL (74-109)
[2019-07-21 11:28] LABS: ALT/SGPT 41 U/L (<33)
[2019-07-21 11:29] LABS: ALKALINE PHOSPHATASE 121 U/L (35-104); AST/SGOT 58 U/L (10.0-35.0)
[2019-07-21 11:30] LABS: BILIRUBIN,DIRECT < 0.2 mg/dL (0-0.3)
[2019-07-21] MEDS ORDERED: HEPARIN SODIUM FLUSH 100 UNITS/ML SYR 5ML IVP ONE (13:35)
== END 2019-07-21 13:43 | disposition home or self-care (01) ==
LOC: ER 10:16
DX: K50.90 Crohn's disease, unspecified, without complications (principal); R94.5 Abnormal results of liver function studies; R10.84 Generalized abdominal pain; R11.0 Nausea; J44.9 Chronic obstructive pulmonary disease, unspecified; F17.210 Nicotine dependence, cigarettes, uncomplicated
CPT/HCPCS: 80048; 80076; 83690; 85025; 85610; 96361; 96374; 96375; 96376; 99284; J1200; J2405; J2930; J7030

== ENCOUNTER 2019-09-15 17:43 | Observation (INO) | payer MEDICAID ==
--- NOTE | 2019-09-15 17:58 | Emergency Department Record ---
History of Present Illness - General Chief Complaint: Abdominal Pain Stated Complaint: ABD PAIN, BLOATING Time Seen by Provider: 09/15/19 17:49 Source: Patient Mode of Arrival: Ambulatory Limitations: No limitations - History of Present Illness Initial Comments: 54 yo female with a significant medical and surgical history for crohn's disease presents to ED for evaluation of recurrent bloating and and abdominal pain symptoms. Patient was recently re-started on her crohn's medication several months ago, episodes of abdominal pain and recurrent obstructions of the bowel have been less frequent. Patient denies fevers, chills, vomiting, or urinary sy mptoms at her baseline. MD Complaint: Abdominal pain Onset/Timin -: Days(s) Location: Diffuse Radiation: None Severity: Moderate Quality: Aching Consistency: Constant Improves With: Nothing Worsens With: Nothing Associated Symptoms: Denies other symptoms, Nausea - Related Data Patient : No Hx Age of Menopause: 47 Allergies Allergy/AdvReac Type Severity Reaction Status Date / Time promethazine HCl Allergy Mild ITCHING Unverified 09/08/19 08:56 [From Phenergan] adalimumab [From HUMIRA] Allergy Unknown MIGRAINES Unverified 09/08/19 08:56 aspirin [ASPIRIN] Allergy Unknown NAUSEA AND Unverified 09/08/19 08:56 VOMITING azathioprine [From IMURAN] Allergy Unknown VOMITING Unverified 09/08/19 08:56 azathioprine sodium Allergy Unknown VOMITING Unverified 09/08/19 08:56 [From IMURAN] chlordiazepoxide HCl Allergy Unknown RASH Unverified 09/08/19 08:56 [From LIBRIUM] citalopram hydrobromide Allergy Unknown HYPERSENSIT Unverified 09/08/19 08:56 [From CELEXA] IVITY clidinium [CLIDINIUM] Allergy Unknown RASH Unverified 09/08/19 08:56 codeine Allergy Unknown ITCHING Unverified 09/08/19 08:56 eicosapentaenoic acid Allergy Unknown RASH Unverified 09/08/19 08:56 [From OMEGA 3] hydrocodone bitartrate Allergy Unknown ITCHING Unverified 09/08/19 08:56 [From VICODIN] hydromorphone HCl Allergy Unknown ITCHING Unverified 09/08/19 08:56 infliximab Allergy Unknown VOMITING Unverified 09/08/19 08:56 metoclopramide Allergy Unknown ALTERED Unverified 09/08/19 08:56 [METOCLOPRAMIDE] MENTAL STATUS morphine [MORPHINE] Allergy Unknown ITCHING Unverified 09/08/19 08:56 omega-3 fatty acids Allergy Unknown RASH Unverified 09/08/19 08:56 [From OMEGA 3] oxycodone HCl [From PERCOCET] Allergy Unknown ITCHING Unverified 09/08/19 08:56 paroxetine HCl [From PAXIL] Allergy Unknown RASH Unverified 09/08/19 08:56 varenicline tartrate Allergy Unknown ALTERED Unverified 09/08/19 08:56 [From CHANTIX] MENTAL STATUS metoclopramide HCl Allergy PT UNSURE Unverified 09/08/19 08:56 [From Reglan] OF REACTION Travel Screening - Travel/Exposure Within Last 30 Days Have you traveled within the last 30 days?: No - Travel/Exposure Within Last Year Have you traveled outside the [place] in the last year?: No - Additonal Travel Details Have you been exposed to anyone with a communicable illness?: No - Travel Symptoms Symptom Screening: None Review of Systems Constitutional: Denies: Chills, Fever, Malaise, Night sweats Eyes: Denies: Eye discharge, Eye pain ENT: Denies: Congestion, Ear pain, Epistaxis Respiratory: Denies: Cough, Dyspnea Cardiovascular: Denies: Chest pain, Dyspnea on exertion Endocrine: Denies: Fatigue, Heat or cold intolerance Gastrointestinal: Reports: Abdominal pain, Nausea. Denies: Constipation, Vomiting Genitourinary: Denies: Incontinence, Retention Musculoskeletal: Denies: Arthralgia, Back pain Skin: Denies: Bruising, Change in color Neurological: Denies: Abnormal gait, Confusion, Headache Psychiatric: Denies: Anxiety Hematological/Lymphatic: Denies: Anemia, Blood Clots Past Medical History - SOCIAL HISTORY Smoking Status: Light tobacco smoker (<10/day) Alcohol Use: None Drug Use: None - RESPIRATORY Hx Respiratory Disorders: No Hx Asthma: (Patient is being treated with Isoniazid due to receives Entyvio) Hx Bronchitis: Yes Hx COPD: Yes (denies COPD;recently diagnosed, well controlled with inhalers) Hx Pneumonia: Yes Hx Tuberculosis: No (Has had a positive TB test but does not have active TB.) Comment:: Patient is being treated with Isoniazid due to receives Entyvio. - CARDIOVASCULAR Hx Cardio Disorders: Yes Hx Abnormal EKG: Yes (r/t anxiety) Hx Cardiac Cath: Yes Hx Chest Pain: Yes (r/t anxiety) - NEURO Hx Neuro Disorders: Yes Hx Headaches: Yes (takes Buspar PRN for headaches) Hx Seizures: Yes (last seizure 12 years ago) Hx TIA: Yes (2009) - GI Hx GI Disorders: Yes Hx Abdominal Pain: Yes Hx Crohn's Disease: Yes (Diagnosed about 9 years ago; managed by Dr. Greyson Haddad) Hx Reflux: Yes Hx Hiatal Hernia: (maybe undiagnosed) Hx Nausea/Vomiting: Yes Hx Obstructive Bowel: Yes (Admitted for Crohns, ileus and possible partial bowel obstruction) Comment:: abdominal hernia - Hx Genitourinary Disorders: Yes Hx UTI: Yes Comment:: going through menopause; occasional vaginal yeast infections - ENDOCRINE Hx Endocrine Disorders: No Hx Diabetes: No Hx Thyroid Disease: No - MUSCULOSKELETAL Hx Musculoskeletal Disorders: Yes Hx Arthritis: Yes Hx Osteoporosis: Yes - PSYCH Hx Psych Problems: Yes Hx Anxiety: Yes Hx Depression: Yes Comment:: dx with bi-polar; not currently hopeless/depressed - HEMATOLOGY/ONCOLOGY Hx Hematology/Oncology Disorders: No Hx Anemia: No Hx Blood Disorders: No Hx Bruising: No Hx Cancer: No Hx Chemotherapy: No Hx Radiation Therapy: No Hx Clotting Problems: No Hx Sickle Cell Disease: No Hx Unexplained Bleeding: No Hx Blood Transfusions: No Hx Blood Transfusion Reaction: No Family Medical History Any Significant Family History?: No Hx Alcohol Use: Father, Children, Brother/Sister, Grandparents *Alcohol Comment: all male releatives Hx Anxiety: Father, Mother, Children, Brother/Sister, Grandparents Hx Cancer: Brother/Sister *Cancer Comment: lung cancer Hx Depression: Mother, Children, Brother/Sister Hx Diabetes: Grandparents *Diabetes Comment: grandmother Hx Heart Disease: Brother/Sister, Grandparents *Heart Comment: grandfather Hx Resp Disorders: Children, Brother/Sister *Resp Comment: daughter has asthma Hx Stroke: Mother *Stroke Comment: Mother had history of TIA x 1 Physical Exam - General General Appearance: Alert, Oriented x3, Cooperative, Mild distress Limitations: No limitations - Head Head exam: Atraumatic, Normocephalic, Normal inspection Head exam detail: negative: Abrasion, Contusion, Moran's sign, General tenderness, Hematoma, Laceration - Eye Eye exam: Normal appearance. negative: Conjunctival injection, Periorbital swelling, Periorbital tenderness, Scleral icterus - ENT Ear exam: negative: Auricular hematoma, Auricular trauma Nasal Exam: negative: Active bleeding, Discharge, Dried blood, Foreign body Mouth exam: negative: Drooling, Laceration, Muffled voice, Tongue elevation - Neck Neck exam: Normal inspection. negative: Meningismus, Tenderness - Respiratory Respiratory exam: Normal lung sounds bilaterally. negative: Respiratory distress, Rhonchi, Stridor, Wheezes - Cardiovascular Cardiovascular Exam: Regular rate, Normal rhythm, Normal heart sounds - GI/Abdominal GI/Abdominal exam: Distended, Tenderness (TTP nolvia-umbilical region, epigastric regions with distention greater in these areas, softer lower quadrants of the abdomen. No rebound or guarding symptoms are present on examination.). negative: Organomegaly, Pulsatile mass, Rebound, Rigid - Rectal Rectal exam: Deferred - exam: Deferred - Extremities Extremities exam: Normal inspection. negative: Pedal edema, Tenderness - Back Back exam: Denies: CVA tenderness (R), CVA tenderness (L) - Neurological Neurological exam: Alert, Normal gait, Oriented X3 - Psychiatric Psychiatric exam: Normal affect, Normal mood - Skin Skin exam: Normal color. negative: Abrasion Type of lesion: negative: abrasion Course Vital Signs 09/15/19 17:48 Pulse Rate 104 H Respiratory 18 Rate Blood Pressure 119/52 Pulse Ox 98 - Reevaluation(s) Reevaluation #1: 09/15/19 19:13 Laboratory studies were reviewed and appear grossly unremarkable for an acute process. Reevaluation #2: 09/15/19 19:48 Abdomen: Distention colon, ileus vs. early obstruction Patient was updated on all results, reports worsening distension symptoms. Will admit for further evaluation. Case was discussed with Dr. Rodriguez, will accept admission for observation. Medical Decision Making - Lab Data Result diagrams: 09/15/19 18:45 09/15/19 18:45 Disposition Disposition: Admit Clinical Impression: SBO (small bowel obstruction), Ileus Disposition: Still a Patient at [facility] [place] Decision to Admit: Admit from ER Decision to Admit Date: 09/15/19 Decision to Admit Time: 19:52 Condition: (2) Stable Forms: Patient Portal Access Time of Disposition: 19:52 Quality - Quality Measures Quality Measures: N/A - Blood Pressure Screening Does Patient Have Any of the Following: No Blood Pressure Classification: Normal BP Reading Systolic Measurement: 119 Diastolic Measurement: 52 Screening for High Blood Pressure: < Normal BP, F/U Not Required > [G8783]
[2019-09-15] MEDS ORDERED: 0.9 % SODIUM CHLORIDE 1000ML 1,000 ML IV SCH (18:00)
[2019-09-15] MEDS ORDERED: HYDROMORPHONE HCL 2 MG/ML VIAL IVP ONE (18:02)
[2019-09-15] MEDS ORDERED: ONDANSETRON HCL IV 4 MG/2 ML VIAL IVP ONE (18:02)
[2019-09-15] MEDS ORDERED: DIPHENHYDRAMINE HCL 50 MG/ML VIAL IVP ONE ×2 (18:17→19:06)
[2019-09-15 18:50] LABS: ABSOLUTE NEUTROPHIL COUNT 4.64; BASO % 0.2 % (0-6); EOS % 4.7 % (0-6); GRAN % 55.5 % (47-80); HEMATOCRIT 38.3 % (35.0-47.0); HEMOGLOBIN 11.8 gm/dl (11.6-16.0); MEAN CELL VOLUME 86.1 fl (81-97); MEAN CORPUSCULAR HEMOGLOBIN 26.5 pg (27-33); MEAN CORPUSCULAR HGB CONC 30.8 g/dl (32-36); MEAN PLATELET VOLUME 8.5 fl (7.4-10.4); MONO % 7.6 % (0-9); PLATELET COUNT 481 K/uL (130-400); RED BLOOD COUNT 4.45 M/uL (3.80-5.40); RED CELL DISTRIBUTION WIDTH 18.4 % (11.5-14.5); WHITE BLOOD COUNT W/O DIFF 8.4 K/uL (4.2-12.2)
[2019-09-15 19:05] LABS: BILIRUBIN,TOTAL < 0.20 mg/dL (0.2-1.0); BLOOD UREA NITROGEN 8 mg/dL (6-20); CREATININE 0.5 mg/dL (0.5-0.9); EST GLOMERULAR FILTRATION RATE > 60 mL/min; TOTAL PROTEIN 6.3 g/dL (6.6-8.7)
[2019-09-15 19:06] LABS: LIPASE 29 U/L (13-60)
[2019-09-15 19:07] LABS: GLUCOSE,RANDOM 95 mg/dL (74-109)
[2019-09-15 19:10] LABS: ALB/GLOB RATIO 1.6 (1.1-1.8); ALBUMIN 3.9 g/dL (4.0-5.0); ALKALINE PHOSPHATASE 87 U/L (35-104); ALT/SGPT 11 U/L (<33); AST/SGOT 13 U/L (10.0-35.0)
--- NOTE | 2019-09-15 19:47 | RADIOLOGY REPORT ---
EXAMINATION: Acute Abdomen Series Complete EXAM DATE: 09/15/2019 7:14 PM TECHNIQUE: Upright and supine abdomen with frontal view chest INDICATION: Abdominal pain, bloating COMPARISON: June 16, 2019 abdominal films as well as CT chest March 08, 2019 ENCOUNTER: Not applicable CHEST FINDINGS: Cardiac silhouette is within normal limits. There is a left-sided chest port tip overlies the SVC. Th ere is atelectasis at the left lung base. Negative for focal infiltrate pneumothorax or pleural effus ion. ABDOMEN FINDINGS: No free air. Prominent distention of bowel loop within the central abdomen which may represent colon measuring up to 14 cm in diameter. Possibility of gas within the right upper quadrant may be due to l iver enlargement. At this time remainder of the colon appears air-filled extending to the level of th e rectum. MPRESSION Focal distention of bowel within the mid abdomen likely within the colon. Air is seen within distal c olon at this time. Findings may represent ileus versus early obstruction. Progress studies recommende d. Dictated by: Saloni Rodríguez MD on 09/15/2019 7:41 PM. .
[2019-09-15] MEDS ORDERED: ALBUTEROL HFA 8 GM INHALER INH PRN (20:23)
[2019-09-15] MEDS ORDERED: 0.9 % SODIUM CHLORIDE 1000ML 1,000 ML IV ONE (20:23)
[2019-09-15] MEDS ORDERED: NICOTINE POLACRILEX 2 MG GUM BC PRN (21:20)
[2019-09-15] MEDS: HYDROMORPHONE HCL 2 MG/ML VIAL IVP ONE (21:48)
[2019-09-15] MEDS: ONDANSETRON HCL IV 4 MG/2 ML VIAL IVP ONE (21:49)
[2019-09-15] MEDS: BUSPIRONE 5 MG TABLET PO SCH (21:50)
[2019-09-15] MEDS ORDERED: QUETIAPINE FUMARATE 25 MG TABLET PO SCH (22:00)
[2019-09-15] MEDS ORDERED: QUETIAPINE FUMARATE 100 MG TABLET PO SCH (22:00)
[2019-09-16] MEDS: HYDROMORPHONE HCL 2 MG/ML VIAL IVP ONE (02:43)
[2019-09-16] MEDS: DIPHENHYDRAMINE HCL 50 MG/ML VIAL IVP PRN ×4 (02:44→15:02)
[2019-09-16] MEDS: ONDANSETRON HCL IV 4 MG/2 ML VIAL IVP ONE (02:49)
[2019-09-16] MEDS: HYDROMORPHONE HCL 2 MG/ML VIAL IV PRN ×4 (06:51→14:58)
[2019-09-16] MEDS: BUSPIRONE 5 MG TABLET PO SCH ×2 (08:17→09:01)
[2019-09-16] MEDS: MONTELUKAST SODIUM 10MG TABLET PO SCH ×2 (08:17→09:02)
[2019-09-16] MEDS ORDERED: ALBUTEROL HFA 8 GM INHALER INH PRN (08:30)
--- NOTE | 2019-09-16 09:31 | History & Physical ---
History of Present Illness - Date of Service Date of Service for History & Physical: 09/16/19 - History of Present Illness Admitting Diagnosis: Abdominal pain. SBO vs. Ileus History of Present Illness: Mrs. Otero is a 54 y/o female with history of Crohn's colitis, s/p right hemicolectomy, cholecystectomy with recurrent admissions for abdominal pain here today with similar complaint. She states that for the past four days she has noticed increase in abdominal pain but yesterday her symptoms worsened and she also experienced nausea. The patient states that she also began to have more distention and abdominal pain so she decided to come to the ED. She denies vomiting, diarrhea, fevers, chills or bloody bowel movements. On arrival to the ED the patient had an abdominal xray which showed post- operative changes and possible ileus but no acute findings were observed. The patient's CBC w/ diff and CMP were within normal limits. Rounding this morning, the patient still complained of mild tenderness of the right abdomen and some tenderness of the lefft side. She states that she had a large bowel movement this morning and that she feels better. PCP: Jose F Mabry NP Travel Screening - Travel/Exposure Within Last 30 Days Have you traveled within the last 30 days?: No - Travel/Exposure Within Last Year Have you traveled outside the [place] in the last year?: No - Additonal Travel Details Have you been exposed to anyone with a communicable illness?: Yes Exposure Details:: none - Travel Symptoms Symptom Screening: None, Diarrhea Review of Systems Constitutional: Denies: Chills, Fever, Malaise, Night sweats Eyes: Denies: Eye discharge, Eye pain ENT: Denies: Congestion, Ear pain, Epistaxis Respiratory: Denies: Cough, Dyspnea Cardiovascular: Denies: Chest pain, Dyspnea on exertion Endocrine: Denies: Fatigue, Heat or cold intolerance Gastrointestinal: Reports: Abdominal pain, Nausea. Denies: Constipation, Vomiting Genitourinary: Denies: Incontinence, Retention Musculoskeletal: Denies: Arthralgia, Back pain Skin: Denies: Bruising, Change in color Neurological: Denies: Abnormal gait, Confusion, Headache Psychiatric: Denies: Anxiety Hematological/Lymphatic: Denies: Anemia, Blood Clots Past Medical History - SOCIAL HISTORY Smoking Status: Light tobacco smoker (<10/day) - RESPIRATORY Hx Respiratory Disorders: No Hx Asthma: (Patient is being treated with Isoniazid due to receives Entyvio) Hx Bronchitis: Yes Hx COPD: Yes (denies COPD;recently diagnosed, well controlled with inhalers) Hx Pneumonia: Yes Hx Tuberculosis: No (Has had a positive TB test but does not have active TB.) Comment:: Patient is being treated with Isoniazid due to receives Entyvio. - CARDIOVASCULAR Hx Cardio Disorders: Yes Hx Abnormal EKG: Yes (r/t anxiety) Hx Cardiac Cath: Yes Hx Chest Pain: Yes (r/t anxiety) - NEURO Hx Neuro Disorders: Yes Hx Headaches: Yes (takes Buspar PRN for headaches) Hx Seizures: Yes (last seizure 12 years ago) Hx TIA: Yes (2009) - GI Hx GI Disorders: Yes Hx Abdominal Pain: Yes Hx Crohn's Disease: Yes (Diagnosed about 9 years ago; managed by Dr. Greyson Haddad) Hx Reflux: Yes Hx Hiatal Hernia: (maybe undiagnosed) Hx Nausea/Vomiting: Yes Hx Obstructive Bowel: Yes (Admitted for Crohns, ileus and possible partial bowel obstruction) Comment:: abdominal hernia - Hx Genitourinary Disorders: Yes Hx UTI: Yes Comment:: going through menopause; occasional vaginal yeast infections - ENDOCRINE Hx Endocrine Disorders: No Hx Diabetes: No Hx Thyroid Disease: No - MUSCULOSKELETAL Hx Musculoskeletal Disorders: Yes Hx Arthritis: Yes Hx Osteoporosis: Yes - PSYCH Hx Psych Problems: Yes Hx Anxiety: Yes Hx Depression: Yes Comment:: dx with bi-polar; not currently hopeless/depressed - HEMATOLOGY/ONCOLOGY Hx Hematology/Oncology Disorders: No Hx Anemia: No Hx Blood Disorders: No Hx Bruising: No Hx Cancer: No Hx Chemotherapy: No Hx Radiation Therapy: No Hx Clotting Problems: No Hx Sickle Cell Disease: No Hx Unexplained Bleeding: No Hx Blood Transfusions: No Hx Blood Transfusion Reaction: No Family Medical History Any Significant Family History?: No Hx Alcohol Use: Father, Children, Brother/Sister, Grandparents *Alcohol Comment: all male releatives Hx Anxiety: Father, Mother, Children, Brother/Sister, Grandparents Hx Cancer: Brother/Sister *Cancer Comment: lung cancer Hx Depression: Mother, Children, Brother/Sister Hx Diabetes: Grandparents *Diabetes Comment: grandmother Hx Heart Disease: Brother/Sister, Grandparents *Heart Comment: grandfather Hx Resp Disorders: Children, Brother/Sister *Resp Comment: daughter has asthma Hx Stroke: Mother *Stroke Comment: Mother had history of TIA x 1 H&P Meds/Allergies - Allergies Allergies: Allergies Allergy/AdvReac Type Severity Reaction Status Date / Time promethazine HCl Allergy Mild ITCHING Unverified 09/08/19 08:56 [From Phenergan] adalimumab [From HUMIRA] Allergy Unknown MIGRAINES Unverified 09/08/19 08:56 aspirin [ASPIRIN] Allergy Unknown NAUSEA AND Unverified 09/08/19 08:56 VOMITING azathioprine [From IMURAN] Allergy Unknown VOMITING Unverified 09/08/19 08:56 azathioprine sodium Allergy Unknown VOMITING Unverified 09/08/19 08:56 [From IMURAN] chlordiazepoxide HCl Allergy Unknown RASH Unverified 09/08/19 08:56 [From LIBRIUM] citalopram hydrobromide Allergy Unknown HYPERSENSIT Unverified 09/08/19 08:56 [From CELEXA] IVITY clidinium [CLIDINIUM] Allergy Unknown RASH Unverified 09/08/19 08:56 codeine Allergy Unknown ITCHING Unverified 09/08/19 08:56 eicosapentaenoic acid Allergy Unknown RASH Unverified 09/08/19 08:56 [From OMEGA 3] hydrocodone bitartrate Allergy Unknown ITCHING Unverified 09/08/19 08:56 [From VICODIN] hydromorphone HCl Allergy Unknown ITCHING Unverified 09/08/19 08:56 infliximab Allergy Unknown VOMITING Unverified 09/08/19 08:56 metoclopramide Allergy Unknown ALTERED Unverified 09/08/19 08:56 [METOCLOPRAMIDE] MENTAL STATUS morphine [MORPHINE] Allergy Unknown ITCHING Unverified 09/08/19 08:56 omega-3 fatty acids Allergy Unknown RASH Unverified 09/08/19 08:56 [From OMEGA 3] oxycodone HCl [From PERCOCET] Allergy Unknown ITCHING Unverified 09/08/19 08:56 paroxetine HCl [From PAXIL] Allergy Unknown RASH Unverified 09/08/19 08:56 varenicline tartrate Allergy Unknown ALTERED Unverified 09/08/19 08:56 [From CHANTIX] MENTAL STATUS metoclopramide HCl Allergy PT UNSURE Unverified 09/08/19 08:56 [From Reglan] OF REACTION - Active Medications Active Medications: Current Medications Albuterol Sulfate (Ventolin Hfa) 2 puff INH Q4H PRN PRN Reason: DIFFICULTY IN BREATHING Buspirone HCl (Buspar) 10 mg PO BID [facility] Last Admin: 09/16/19 09:01 Dose: Not Given Documented by: Diphenhydramine HCl (Benadryl) 12.5 mg IVP Q4H PRN PRN Reason: ITCH/HIVES Last Admin: 09/16/19 06:51 Dose: 12.5 mg Documented by: Hydromorphone HCl (Dilaudid) 0.5 mg IV Q2H PRN PRN Reason: ABDOMINAL PAIN Last Admin: 09/16/19 06:51 Dose: 0.5 mg Documented by: Sodium Chloride () 1,000 mls @ 0 mls/hr IV .Q0M [facility] Last Infusion: 09/15/19 23:02 Dose: Infused Documented by: Montelukast Sodium (Singulair) 10 mg PO DAILY [facility] Last Admin: 09/16/19 09:02 Dose: Not Given Documented by: Nicotine Polacrilex (Nicotine Gum) 4 mg BC RESP.Q6H.WA PRN PRN Reason: NICOTINE CRAVING Ondansetron HCl (Zofran) 4 mg IVP Q4H PRN PRN Reason: NAUSEA Quetiapine Fumarate (Seroquel) 50 mg PO QHS [facility] Last Admin: 09/15/19 21:38 Dose: 50 mg Documented by: Quetiapine Fumarate (Seroquel) 100 mg PO QHS [facility] Last Admin: 09/15/19 21:38 Dose: 100 mg Documented by: Physical Exam - Vital Signs Vital Signs: Vital Signs - Last 24 Hrs Temp Pulse Pulse Pulse Resp BP BP 09/16/19 08:06 18 09/16/19 07:36 97.8 F 64 12 09/16/19 04:00 78 16 118/57 09/15/19 23:43 86 18 111/63 09/15/19 20:30 98 F 98 H 20 113/77 09/15/19 20:14 98.2 F 81 20 103/58 09/15/19 19:20 82 20 138/85 09/15/19 17:48 104 H 18 119/52 BP Pulse Ox 09/16/19 08:06 09/16/19 07:36 112/78 95 09/16/19 04:00 96 09/15/19 23:43 95 09/15/19 20:30 98 09/15/19 20:14 97 09/15/19 19:20 99 09/15/19 17:48 98 - General General Appearance: Alert, Oriented x3, Cooperative, Mild distress Limitations: No limitations - Head Head exam: Atraumatic, Normocephalic, Normal inspection Head exam detail: negative: Abrasion, Contusion, Moran's sign, General tenderness, Hematoma, Laceration - Eye Eye exam: Normal appearance. negative: Conjunctival injection, Periorbital swelling, Periorbital tenderness, Scleral icterus - ENT Ear exam: negative: Auricular hematoma, Auricular trauma Nasal Exam: negative: Active bleeding, Discharge, Dried blood, Foreign body Mouth exam: negative: Drooling, Laceration, Muffled voice, Tongue elevation - Neck Neck exam: Normal inspection. negative: Meningismus, Tenderness - Respiratory Respiratory exam: Normal lung sounds bilaterally. negative: Respiratory distress, Rhonchi, Stridor, Wheezes - Cardiovascular Cardiovascular Exam: Regular rate, Normal rhythm, Normal heart sounds Peripheral Pulses: 3+: Radial (R), Radial (L), Dorsalis Pedis (R), Dorsalis Pedis (L) - GI/Abdominal GI/Abdominal exam: Distended, Tenderness (TTP nolvia-umbilical region, epigastric regions with distention greater in these areas, softer lower quadrants of the abdomen. No rebound or guarding symptoms are present on examination.). negative: Organomegaly, Pulsatile mass, Rebound, Rigid - Rectal Rectal exam: Deferred - exam: Deferred - Extremities Extremities exam: Normal inspection. negative: Pedal edema, Tenderness - Back Back exam: Denies: CVA tenderness (R), CVA tenderness (L) - Neurological Neurological exam: Alert, Normal gait, Oriented X3 - Psychiatric Psychiatric exam: Normal affect, Normal mood - Skin Skin exam: Normal color. negative: Abrasion Type of lesion: negative: abrasion Results - Labs Result Diagrams: 09/15/19 18:45 09/15/19 18:45 Labs Last 24 Hours: Laboratory Results - last 24 hr 09/15/19 09/15/19 18:45 18:45 WBC 8.4 RBC 4.45 Hgb 11.8 Hct 38.3 MCV 86.1 MCH 26.5 L MCHC 30.8 L RDW 18.4 H Plt Count 481 H MPV 8.5 Gran % 55.5 Lymphocytes % 32.0 Monocytes % 7.6 Eosinophils % 4.7 Basophils % 0.2 Absolute Neutrophils 4.64 Sodium 139 Potassium 4.0 Chloride 106 Carbon Dioxide 21.0 L Anion Gap 12.0 BUN 8 Creatinine 0.5 Estimated GFR > 60 Random Glucose 95 Calcium 8.8 Total Bilirubin < 0.20 L AST 13 ALT 11 Alkaline Phosphatase 87 Total Protein 6.3 L Albumin 3.9 L Globulin 2.4 Albumin/Globulin Ratio 1.6 Lipase 29 VTE H&P Assessment - Risk for VTE Risk for VTE: Yes Risk Level: Moderate Risk Assessment Date: 09/16/19 Risk Assessment Time: 09:31 VTE Orders Placed or Will Be Placed: Yes Plan - Detailed Diagnosis and Plan (1) Abdominal pain Current Visit: No Status: Acute Qualifiers: Abdominal location: left upper quadrant Qualified Code(s): R10.12 - Left upper quadrant pain Base Code: R10.9 - UNSPECIFIED ABDOMINAL PAIN Priority: Medium Onset Date: 09/05/14 Comment: 09/16/19: - Recurrent admissions with abdominal pain and distenstion. - Hx of Crohn's s/p right hemicolectomy. Currently on Entyvio treatment Q 4 weeks as per GI. - Keep patient NPO for bowel rest, IVF: Nacl 0.9% 100mL/hr, Dilaudid 0.5mg Q2HR PRN, Zofran 4mg Q4H PRN. Change to PO medications as tolerated. (2) Crohn disease Current Visit: No Status: Acute Base Code: K50.90 - CROHN'S DISEASE, UNSPECIFIED, WITHOUT COMPLICATIONS Comment: 09/16/19: - Hx of Chrons' with frequent flares. - Last Entyvio was 09/09/19. Follows with [facility] for infusions. - Continues with Dilaudid 0.5mg Q2hr PRN, Benadryl 25mg Q4hr PRN, Zofran 4mg Q4hr PRN, IV fluids @ 125ml/hr. Change all medications to PO as tolerated. Advance to clear liquid diet. (3) Depression Current Visit: No Status: Acute Base Code: F32.9 - MAJOR DEPRESSIVE DISORDER, SINGLE EPISODE, UNSPECIFIED Comment: 09/16/19: - Seroquel 150mg QD and Buspar 7.5mg BID. (4) DVT prophylaxis Current Visit: No Status: Acute Base Code: GME0500 - Comment: 09/16/19: -Lovenox 40mg SC qhs for dvt prophylaxis (5) Full code status Current Visit: No Status: Acute Base Code: Z78.9 - OTHER SPECIFIED HEALTH STATUS Comment: 09/16/19: -Pt. is a full code
[2019-09-16] MEDS ORDERED: BREO (FLUTICASONE/VILANTEROL) 200MCG/25MCG INHALER INH SCH (10:00)
[2019-09-16] MEDS: ONDANSETRON HCL IV 4 MG/2 ML VIAL IVP PRN ×2 (11:24→14:54)
--- NOTE | 2019-09-16 16:38 | Discharge Summary ---
Providers Discharge Summary Date: 09/16/19 Date of admission: 09/15/19 20:16 Attending physician: SUPRIYA CHEUNG Primary care physician: Jose F Mabry N.P. Physical Exam - Vital Signs Vital Signs: Vital Signs - Last 24 Hrs Temp Pulse Pulse Pulse Resp BP BP 09/16/19 15:00 76 20 138/72 09/16/19 09:46 81 18 09/16/19 08:06 18 09/16/19 07:36 97.8 F 64 12 09/16/19 04:00 78 16 118/57 09/15/19 23:43 86 18 111/63 09/15/19 20:30 98 F 98 H 20 113/77 09/15/19 20:14 98.2 F 81 20 103/58 09/15/19 19:20 82 20 138/85 09/15/19 17:48 104 H 18 119/52 BP Pulse Ox 09/16/19 15:00 96 09/16/19 09:46 97 09/16/19 08:06 09/16/19 07:36 112/78 95 09/16/19 04:00 96 09/15/19 23:43 95 09/15/19 20:30 98 09/15/19 20:14 97 09/15/19 19:20 99 09/15/19 17:48 98 - General General Appearance: Alert, Oriented x3, Cooperative, Mild distress Limitations: No limitations - Head Head exam: Atraumatic, Normocephalic, Normal inspection Head exam detail: negative: Abrasion, Contusion, Moran's sign, General tenderness, Hematoma, Laceration - Eye Eye exam: Normal appearance. negative: Conjunctival injection, Periorbital swelling, Periorbital tenderness, Scleral icterus - ENT Ear exam: negative: Auricular hematoma, Auricular trauma Nasal Exam: negative: Active bleeding, Discharge, Dried blood, Foreign body Mouth exam: negative: Drooling, Laceration, Muffled voice, Tongue elevation - Neck Neck exam: Normal inspection. negative: Meningismus, Tenderness - Respiratory Respiratory exam: Normal lung sounds bilaterally. negative: Respiratory distress, Rhonchi, Stridor, Wheezes - Cardiovascular Cardiovascular Exam: Regular rate, Normal rhythm, Normal heart sounds Peripheral Pulses: 3+: Radial (R), Radial (L), Dorsalis Pedis (R), Dorsalis Pedis (L) - GI/Abdominal GI/Abdominal exam: Distended, Tenderness (TTP nolvia-umbilical region, epigastric regions with distention greater in these areas, softer lower quadrants of the abdomen. No rebound or guarding symptoms are present on examination.). negative: Organomegaly, Pulsatile mass, Rebound, Rigid - Rectal Rectal exam: Deferred - exam: Deferred - Extremities Extremities exam: Normal inspection. negative: Pedal edema, Tenderness - Back Back exam: Denies: CVA tenderness (R), CVA tenderness (L) - Neurological Neurological exam: Alert, Normal gait, Oriented X3 - Psychiatric Psychiatric exam: Normal affect, Normal mood - Skin Skin exam: Normal color. negative: Abrasion Type of lesion: negative: abrasion Hospitalization - Hospitalization Admission Diagnosis: Abdominal pain. SBO vs. Ileus - Problem List/Discharge Diagnosis (1) Abdominal pain Current Visit: No Status: Acute Discharge Diagnosis: Abdominal location: left upper quadrant Qualified Code(s): R10.12 - Left upper quadrant pain Base Code: R10.9 - UNSPECIFIED ABDOMINAL PAIN Onset Date: 09/05/14 Comment: 09/16/19: - Recurrent admissions with abdominal pain and distenstion. - Hx of Crohn's s/p right hemicolectomy. Currently on Entyvio treatment Q 4 weeks as per GI. - Keep patient NPO for bowel rest, IVF: Nacl 0.9% 100mL/hr, Dilaudid 0.5mg Q2HR PRN, Zofran 4mg Q4H PRN. Change to PO medications as tolerated. (2) Crohn disease Current Visit: No Status: Acute Base Code: K50.90 - CROHN'S DISEASE, UNSPECIFIED, WITHOUT COMPLICATIONS Comment: 09/16/19: - Hx of Chrons' with frequent flares. - Last Entyvio was 09/09/19. Follows with [facility] for infusions. - Continues with Dilaudid 0.5mg Q2hr PRN, Benadryl 25mg Q4hr PRN, Zofran 4mg Q4hr PRN, IV fluids @ 125ml/hr. Change all medications to PO as tolerated. Advance to clear liquid diet. (3) Depression Current Visit: No Status: Acute Base Code: F32.9 - MAJOR DEPRESSIVE DISORDER, SINGLE EPISODE, UNSPECIFIED Comment: 09/16/19: - Seroquel 150mg QD and Buspar 7.5mg BID. (4) DVT prophylaxis Current Visit: No Status: Acute Base Code: [id number] - Comment: 09/16/19: -Lovenox 40mg SC qhs for dvt prophylaxis (5) Full code status Current Visit: No Status: Acute Base Code: Z78.9 - OTHER SPECIFIED HEALTH STATUS Comment: 09/16/19: -Pt. is a full code - Hospitalization Course Hospital Course: Mrs. Otero is a 54 y/o female with history of Crohn's colitis, s/p right hemicolectomy, cholecystectomy with recurrent admissions for abdominal pain here today with similar complaint. She states that for the past four days she has noticed increase in abdominal pain but yesterday her symptoms worsened and she also experienced nausea. The patient states that she also began to have more distention and abdominal pain so she decided to come to the ED. She denies vomiting, diarrhea, fevers, chills or bloody bowel movements. On arrival to the ED the patient had an abdominal xray which showed post- operative changes and possible ileus but no acute findings were observed. The patient's CBC w/ diff and CMP were within normal limits. Rounding this morning, the patient still complained of mild tenderness of the right abdomen and some tenderness of the lefft side. She states that she had a large bowel movement this morning and that she feels better. On evaluation this afternoon the patient is doing well and is ambulating in the halls without discomfort. She was able to tolerate a light lunch and had coffee this afternoon without discomfort. On discharge the patient will continue with [place] 7.5mg/325mg PRN and Entyvio with GI in 3 weeks. PCP: Jose F Mabry NP Procedures: Imaging and X-Rays 09/15/19 17:53 ABDOMEN, ACUTE SERIES [RAD] Stat Abnormal Labs: Abnormal Lab Results 09/15/19 09/15/19 Range/Units 18:45 18:45 MCH 26.5 L (27-33) pg MCHC 30.8 L (32-36) g/dl RDW 18.4 H (11.5-14.5) % Plt Count 481 H (130-400) K/uL Carbon Dioxide 21.0 L (22-29) mmol/L Total Bilirubin < 0.20 L (0.2-1.0) mg/dL Total Protein 6.3 L (6.6-8.7) g/dL Albumin 3.9 L (4.0-5.0) g/dL Condition at Discharge: (2) Stable Discharge Medications - Discharge Medications Home Medications: Ambulatory Orders Buspirone HCl 10 mg PO BID PRN tab 01/28/19 [Last Taken 07/21/19] Isoniazid 300 mg PO DAILY 05/22/19 [Last Taken 09/15/19 10:00] Pyridoxine HCl (Vitamin B6) [Vitamin B-6] 25 mg PO DAILY 05/22/19 [Last Taken 1 06:00] Albuterol Sulfate [Proair Hfa] 2 puff IH Q4H PRN 06/14/19 [Last Taken 07/21/19] Discharge Plan - Discharge Instructions Diet at Discharge: Advance to Usual Diet Additional Instructions: Resume all home medications as prescribed. Follow up with Jose F hernandez t your earliest convenience. If you have nausea please use the Zofran 4mg as prescribed. Advance your diet as tolerated. Quality Measures - Quality Measures Quality Measures: Documentation of Current Medications in Medical Record, Screening for High Blood Pressure and F/U Documented - Current Medications Quality Measure: Measure #130: Documentation of Current Medications Documentation of Current Medications: <Current Medications Documented/Reviewed> [G8427] - Blood Pressure Screening Quality Measure: Screening for High Blood Pressure and Follow-Up Documented Does Patient Have Any of the Following: Active Dx of HTN Blood Pressure Classification: Normal BP Reading Systolic Measurement: 119 Diastolic Measurement: 52 Screening for High Blood Pressure: Patient Exclusion, Hx of HTN [G9744] - Elder Abuse Suspicion Index EASI Reference Information: Mohit LUCIO, Maranda C, Portia D, Steven Zimmer.Development and validation of a tool to assist physicians identification of elder abuse: The Elder Abuse Suspicion Index (EASI ). Journal of Elder Abuse and Neglect, 2008; 20 (3): 276-300.
[2019-09-16] MEDS ORDERED: HEPARIN SODIUM FLUSH 100 UNITS/ML SYR 5ML IVP ONE (17:18)
== END 2019-09-16 17:20 | disposition home or self-care (01) ==
LOC: ER 17:43 → MEDSURG 20:16
PROVIDERS: ADMIT Internal Medicine; ATTEND Internal Medicine
DX: R10.12 Left upper quadrant pain (principal); K50.90 Crohn's disease, unspecified, without complications; F32.9 Major depressive disorder, single episode, unspecified; R14.0 Abdominal distension (gaseous); R11.0 Nausea; K21.9 Gastro-esophageal reflux disease without esophagitis; J44.9 Chronic obstructive pulmonary disease, unspecified; M19.90 Unspecified osteoarthritis, unspecified site; F31.9 Bipolar disorder, unspecified; R76.11 Nonspecific reaction to tuberculin skin test without active tuberculosis; F17.210 Nicotine dependence, cigarettes, uncomplicated; Z98.61 Coronary angioplasty status; Z87.19 Personal history of other diseases of the digestive system; Z86.73 Personal history of transient ischemic attack (TIA), and cerebral infarction without residual deficits
CPT/HCPCS: 74022; 80053; 83690; 85025; 94640; 96361; 96374; 96375; 99220; 99285; J1200; J2405; J7030

== ENCOUNTER 2019-09-24 23:40 | Emergency (ER) | payer MEDICAID ==
[2019-09-24] MEDS ORDERED: 0.9 % SODIUM CHLORIDE 1000ML 1,000 ML IV SCH (23:45)
[2019-09-24] MEDS ORDERED: HYDROMORPHONE HCL 2 MG/ML VIAL IVP ONE (23:47)
[2019-09-24] MEDS ORDERED: DIPHENHYDRAMINE HCL 50 MG/ML VIAL IVP ONE (23:47)
--- NOTE | 2019-09-24 23:52 | Emergency Department Record ---
History of Present Illness - General Chief Complaint: Abdominal Pain Stated Complaint: ABDOMINAL PAIN Time Seen by Provider: 09/24/19 23:46 Source: Patient Mode of Arrival: Ambulatory Limitations: No limitations - History of Present Illness Initial Comments: 54 yo female presents to ED for evaluation of "burning to the rectal region" that began this evening. Patient reports associated abdominal pain symptoms, but denies distention symptoms. Patient reports loose stools that are unchanged from her baseline. Patient denies fevers, chills, vomiting, or recent illness. Patient does report recent admission for ilieus vs. partial SBO. Patient has a significant history for crohn's s/p resection. MD Complaint: Abdominal pain Onset/Timin -: Days(s) Location: Other Radiation: None Migration to: No migration Severity: Severe Quality: Burning Consistency: Constant Improves With: Nothing Worsens With: Nothing - Related Data Patient : No Hx Age of Menopause: 47 Previous Rx's Medication Instructions Recorded Prednisone [Prednisone 20Mg] 20 mg PO BID #12 tab 09/25/19 Allergies Allergy/AdvReac Type Severity Reaction Status Date / Time promethazine HCl Allergy Mild ITCHING Verified 09/24/19 23:56 [From Phenergan] adalimumab [From HUMIRA] Allergy Unknown MIGRAINES Verified 09/24/19 23:56 aspirin [ASPIRIN] Allergy Unknown NAUSEA AND Verified 09/24/19 23:56 VOMITING azathioprine [From IMURAN] Allergy Unknown VOMITING Verified 09/24/19 23:56 azathioprine sodium Allergy Unknown VOMITING Verified 09/24/19 23:56 [From IMURAN] chlordiazepoxide HCl Allergy Unknown RASH Verified 09/24/19 23:56 [From LIBRIUM] citalopram hydrobromide Allergy Unknown HYPERSENSIT Verified 09/24/19 23:56 [From CELEXA] IVITY clidinium [CLIDINIUM] Allergy Unknown RASH Verified 09/24/19 23:56 codeine Allergy Unknown ITCHING Verified 09/24/19 23:56 eicosapentaenoic acid Allergy Unknown RASH Verified 09/24/19 23:56 [From OMEGA 3] hydrocodone bitartrate Allergy Unknown ITCHING Verified 09/24/19 23:56 [From VICODIN] hydromorphone HCl Allergy Unknown ITCHING Verified 09/24/19 23:56 infliximab Allergy Unknown VOMITING Verified 09/24/19 23:56 metoclopramide Allergy Unknown ALTERED Verified 09/24/19 23:56 [METOCLOPRAMIDE] MENTAL STATUS morphine [MORPHINE] Allergy Unknown ITCHING Verified 09/24/19 23:56 omega-3 fatty acids Allergy Unknown RASH Verified 09/24/19 23:56 [From OMEGA 3] oxycodone HCl [From PERCOCET] Allergy Unknown ITCHING Verified 09/24/19 23:56 paroxetine HCl [From PAXIL] Allergy Unknown RASH Verified 09/24/19 23:56 varenicline tartrate Allergy Unknown ALTERED Verified 09/24/19 23:56 [From CHANTIX] MENTAL STATUS metoclopramide HCl Allergy PT UNSURE Verified 09/24/19 23:56 [From Reglan] OF REACTION Review of Systems Constitutional: Denies: Chills, Fever, Malaise, Night sweats Eyes: Denies: Eye discharge, Eye pain ENT: Denies: Congestion, Ear pain, Epistaxis Respiratory: Denies: Cough, Dyspnea Cardiovascular: Denies: Chest pain, Dyspnea on exertion Endocrine: Denies: Fatigue, Heat or cold intolerance Gastrointestinal: Reports: Abdominal pain. Denies: Constipation, Nausea, Vomiting Genitourinary: Denies: Incontinence, Retention Musculoskeletal: Denies: Arthralgia, Back pain Skin: Denies: Bruising, Change in color Neurological: Denies: Abnormal gait, Confusion, Headache, Seizure Psychiatric: Denies: Anxiety Hematological/Lymphatic: Denies: Anemia, Blood Clots Past Medical History - SOCIAL HISTORY Smoking Status: Light tobacco smoker (<10/day) - RESPIRATORY Hx Respiratory Disorders: No Hx Asthma: (Patient is being treated with Isoniazid due to receives Entyvio) Hx Bronchitis: Yes Hx COPD: Yes (denies COPD;recently diagnosed, well controlled with inhalers) Hx Pneumonia: Yes Hx Tuberculosis: No (Has had a positive TB test but does not have active TB.) Comment:: Patient is being treated with Isoniazid due to receives Entyvio. - CARDIOVASCULAR Hx Cardio Disorders: Yes Hx Abnormal EKG: Yes (r/t anxiety) Hx Cardiac Cath: Yes Hx Chest Pain: Yes (r/t anxiety) - NEURO Hx Neuro Disorders: Yes Hx Headaches: Yes (takes Buspar PRN for headaches) Hx Seizures: Yes (last seizure 12 years ago) Hx TIA: Yes (2009) - GI Hx GI Disorders: Yes Hx Abdominal Pain: Yes Hx Crohn's Disease: Yes (Diagnosed about 9 years ago; managed by Dr. Greyson Haddad) Hx Reflux: Yes Hx Hiatal Hernia: (maybe undiagnosed) Hx Nausea/Vomiting: Yes Hx Obstructive Bowel: Yes (Admitted for Crohns, ileus and possible partial bowel obstruction) Comment:: abdominal hernia - Hx Genitourinary Disorders: Yes Hx UTI: Yes Comment:: going through menopause; occasional vaginal yeast infections - ENDOCRINE Hx Endocrine Disorders: No Hx Diabetes: No Hx Thyroid Disease: No - MUSCULOSKELETAL Hx Musculoskeletal Disorders: Yes Hx Arthritis: Yes Hx Osteoporosis: Yes - PSYCH Hx Psych Problems: Yes Hx Anxiety: Yes Hx Depression: Yes Comment:: dx with bi-polar; not currently hopeless/depressed - HEMATOLOGY/ONCOLOGY Hx Hematology/Oncology Disorders: No Hx Anemia: No Hx Blood Disorders: No Hx Bruising: No Hx Cancer: No Hx Chemotherapy: No Hx Radiation Therapy: No Hx Clotting Problems: No Hx Sickle Cell Disease: No Hx Unexplained Bleeding: No Hx Blood Transfusions: No Hx Blood Transfusion Reaction: No Family Medical History Hx Alcohol Use: Father, Children, Brother/Sister, Grandparents *Alcohol Comment: all male releatives Hx Anxiety: Father, Mother, Children, Brother/Sister, Grandparents Hx Cancer: Brother/Sister *Cancer Comment: lung cancer Hx Depression: Mother, Children, Brother/Sister Hx Diabetes: Grandparents *Diabetes Comment: grandmother Hx Heart Disease: Brother/Sister, Grandparents *Heart Comment: grandfather Hx Resp Disorders: Children, Brother/Sister *Resp Comment: daughter has asthma Hx Stroke: Mother *Stroke Comment: Mother had history of TIA x 1 Physical Exam - General General Appearance: Alert, Oriented x3, Cooperative, Moderate distress Limitations: No limitations - Head Head exam: Atraumatic, Normocephalic, Normal inspection Head exam detail: negative: Abrasion, Contusion, Moran's sign, General tenderness, Hematoma, Laceration - Eye Eye exam: Normal appearance. negative: Conjunctival injection, Periorbital sw elling, Periorbital tenderness, Scleral icterus - ENT Ear exam: negative: Auricular hematoma, Auricular trauma Nasal Exam: negative: Active bleeding, Discharge, Dried blood, Foreign body Mouth exam: negative: Drooling, Laceration, Muffled voice, Tongue elevation - Neck Neck exam: Normal inspection. negative: Meningismus, Tenderness - Respiratory Respiratory exam: Normal lung sounds bilaterally. negative: Rales, Respiratory distress, Rhonchi, Stridor - Cardiovascular Cardiovascular Exam: Regular rate, Normal rhythm, Normal heart sounds - GI/Abdominal GI/Abdominal exam: Soft, Tenderness (Mild, diffuse TTP on examination, no rebound or guarding present.). negative: Rebound, Rigid - Rectal Rectal exam: Deferred - exam: Deferred - Extremities Extremities exam: Normal inspection. negative: Pedal edema, Tenderness - Back Back exam: Denies: CVA tenderness (R), CVA tenderness (L) - Neurological Neurological exam: Alert, Normal gait, Oriented X3 - Psychiatric Psychiatric exam: Normal affect, Normal mood - Skin Skin exam: Normal color. negative: Abrasion Type of lesion: negative: abrasion Course Vital Signs 09/24/19 23:44 Pulse Rate [ 108 H Pulse Ox Probe] Respiratory 24 Rate Blood Pressure 136/83 [Left Arm] Pulse Ox 100 - Reevaluation(s) Reevaluation #1: 09/25/19 01:31 Laboratory studies were reviewed and appear grossly unremarkable for an acute process. CT Abdomen and Pelvis: No acute inflammatory changes Mild wall thickening of the loops of small bowel Patient was updated on all results, reports that she is feeling much better, and the patient appears stable for discharge at this time. Medical Decision Making - Lab Data Result diagrams: 09/24/19 01:00 09/24/19 01:00 Disposition Disposition: Discharge Clinical Impression: Abdominal pain Qualifiers: Abdominal location: unspecified location Qualified Code(s): R10.9 - Unspecified abdominal pain Disposition: Home, Self-Care Condition: (2) Stable Instructions: Abdominal Pain (ED) Additional Instructions: Return to ED if your symptoms worsen or if you have any concerns. Prednisone as directed Follow-up with your family doctor in 3-5 days as directed. Prescriptions: Prednisone [Prednisone 20Mg] 20 mg PO BID #12 tab Forms: Patient Portal Access Time of Disposition: 01:34 Quality - Quality Measures Quality Measures: N/A - Blood Pressure Screening Does Patient Have Any of the Following: No Blood Pressure Classification: Pre-Hypertensive BP Reading Systolic Measurement: 136 Diastolic Measurement: 83 Screening for High Blood Pressure: < Pre-Hypertensive BP, F/U Documented > [G8950] Pre-Hypertensive Follow-up Interventions: Referral to alternative/primary care provider.
[2019-09-25 01:09] LABS: HEMATOCRIT 35.1 % (35.0-47.0); HEMOGLOBIN 10.9 gm/dl (11.6-16.0); MEAN CELL VOLUME 88.2 fl (81-97); MEAN CORPUSCULAR HGB CONC 31.1 g/dl (32-36); MEAN PLATELET VOLUME 8.9 fl (7.4-10.4); PLATELET COUNT 469 K/uL (130-400); RED BLOOD COUNT 3.98 M/uL (3.80-5.40); WHITE BLOOD COUNT W/O DIFF 6.6 K/uL (4.2-12.2)
[2019-09-25 01:10] LABS: MEAN CORPUSCULAR HEMOGLOBIN 27.3 pg (27-33)
--- NOTE | 2019-09-25 01:17 | CT SCAN REPORT ---
EXAMINATION: CT Abdomen and Pelvis with IV Contrast EXAM DATE: 09/25/2019 1:04 AM TECHNIQUE: CT imaging of the abdomen and pelvis was performed with intravenous contrast. Coronal and sagittal images were reconstructed. IV Contrast: The amount and type of contrast are recorded in the medical record. INDICATION: rectal/abdominal pain, history of Crohn's COMPARISON: 06/17/2019 ENCOUNTER: Not applicable CT ABDOMEN AND PELVIS FINDINGS: Lung Bases: Included extent of the lung bases are clear. Hepatobiliary: The liver has a normal size with a smooth surface. Attenuation is diffusely decreased. The hepatic and portal veins appear patent. The gallbladder is absent. There is no biliary dilatat ion. Pancreas: The pancreas is normal. Spleen: The spleen is not enlarged. Adrenals: The adrenal glands are normal. Kidneys, Ureters, & Bladder: Both kidneys have a normal size and there is no hydronephrosis. Stable s mall exophytic cyst arising from the superior pole of the left kidney. Both ureters have a normal cedrick iber and the urinary bladder is unremarkable. Gastrointestinal: Postsurgical changes from right hemicolectomy are again noted. Distal small bowel l oops leading to the anastomosis are mildly distended, not significantly changed from prior. Mild wall thickening of proximal loops of small bowel without inflammatory changes. No wall thickening or infl ammation associated with the remaining colon. No evidence for obstruction. Reproductive Organs: Unremarkable Lymphatic System: There is no adenopathy within the abdomen or pelvis. Vasculature: Normal caliber abdominal aorta. Peritoneum: No free fluid, free air, or inflammation Abdominal Wall & Musculoskeletal: No suspicious bone lesions. IMPRESSION: Mild wall thickening of loops of proximal small bowel. No acute inflammatory changes. Stable mild dil atation of distal small bowel just prior to the anastomosis. No evidence for obstruction. Fatty liver. Dictated by: Suzette Haddad MD on 09/25/2019 1:05 AM. .
[2019-09-25 01:19] LABS: PLATELET ESTIMATE INCREASED (NORMAL)
[2019-09-25 01:20] LABS: ANISOCYTOSIS 1+
[2019-09-25 01:22] LABS: BLOOD UREA NITROGEN 6 mg/dL (6-20); CREATININE 0.4 mg/dL (0.5-0.9); EST GLOMERULAR FILTRATION RATE > 60 mL/min
[2019-09-25 01:23] LABS: BILIRUBIN,TOTAL < 0.20 mg/dL (0.2-1.0); LIPASE 43 U/L (13-60); TOTAL PROTEIN 5.8 g/dL (6.6-8.7)
[2019-09-25 01:25] LABS: GLUCOSE,RANDOM 93 mg/dL (74-109)
[2019-09-25 01:28] LABS: ALB/GLOB RATIO 1.5 (1.1-1.8); ALBUMIN 3.5 g/dL (4.0-5.0); ALKALINE PHOSPHATASE 85 U/L (35-104); ALT/SGPT 20 U/L (<33); AST/SGOT 12 U/L (10.0-35.0)
[2019-09-25] MEDS ORDERED: PREDNISONE 20 MG TAB PO ONE (01:35)
[2019-09-25] MEDS ORDERED: HEPARIN SODIUM FLUSH 100 UNITS/ML SYR 5ML IVP ONE (01:41)
== END 2019-09-25 02:04 | disposition home or self-care (01) ==
LOC: ER 23:40
DX: R10.9 Unspecified abdominal pain (principal); K62.89 Other specified diseases of anus and rectum; R19.7 Diarrhea, unspecified; J44.9 Chronic obstructive pulmonary disease, unspecified
CPT/HCPCS: 99284 ×2; 96374; 96375; 83690; 80053; 85027; 74177; Q9967; J1170; J1200

== ENCOUNTER 2020-01-08 17:27 | Emergency (ER) | payer MEDICAID ==
[2020-01-08] MEDS ORDERED: 0.9 % SODIUM CHLORIDE 1000ML 1,000 ML IV ONE (17:39)
[2020-01-08] MEDS ORDERED: ONDANSETRON HCL IV 4 MG/2 ML VIAL IVP ONE (17:39)
--- NOTE | 2020-01-08 17:48 | Emergency Department Record ---
History of Present Illness - General Chief Complaint: Abdominal Pain Stated Complaint: ABD pain and bloating Time Seen by Provider: 01/08/20 17:38 Source: Patient Mode of Arrival: Ambulatory Limitations: No limitations - History of Present Illness Initial Comments: 54 yo female presents with abdominal pain. She states the onset was about 2 days ago. The pain worsened the last one day. She has a history of Crohn's with multiple surgeries and history of recurrent obstructions. She has not vomited. She is feeling bloated. She has nausea and no appetite. She had one bowel movement today. This is less than the normal 3-4. Her last obstruction was in September. No fever, chills or diarrhea. She is on infusions for her Crohn's (Entyvio) monthly. MD Complaint: Abdominal pain Onset/Timin -: Days(s) Location: Diffuse Radiation: RLQ Migration to: RLQ Severity: Moderate Severity scale (1-10): 7 Quality: Aching, Fullness Consistency: Constant Improves With: Nothing Worsens With: Eating Context: Other Associated Symptoms: Anorexia, Nausea - Related Data Patient : No Hx Age of Menopause: 47 Previous Rx's Medication Instructions Recorded Polyethylene Glycol 3350 [Miralax] 1 packet PO DAILY #15 packet 01/08/20 Allergies Allergy/AdvReac Type Severity Reaction Status Date / Time promethazine HCl Allergy Mild ITCHING Verified 01/08/20 17:34 [From Phenergan] adalimumab [From HUMIRA] Allergy Unknown MIGRAINES Verified 01/08/20 17:34 aspirin [ASPIRIN] Allergy Unknown NAUSEA AND Verified 01/08/20 17:34 VOMITING azathioprine [From IMURAN] Allergy Unknown VOMITING Verified 01/08/20 17:34 azathioprine sodium Allergy Unknown VOMITING Verified 01/08/20 17:34 [From IMURAN] chlordiazepoxide HCl Allergy Unknown RASH Verified 01/08/20 17:34 [From LIBRIUM] citalopram hydrobromide Allergy Unknown HYPERSENSIT Verified 01/08/20 17:34 [From CELEXA] IVITY clidinium [CLIDINIUM] Allergy Unknown RASH Verified 01/08/20 17:34 codeine Allergy Unknown ITCHING Verified 01/08/20 17:34 eicosapentaenoic acid Allergy Unknown RASH Verified 01/08/20 17:34 [From OMEGA 3] hydrocodone bitartrate Allergy Unknown ITCHING Verified 01/08/20 17:34 [From VICODIN] hydromorphone HCl Allergy Unknown ITCHING Verified 01/08/20 17:34 infliximab Allergy Unknown VOMITING Verified 01/08/20 17:34 metoclopramide Allergy Unknown ALTERED Verified 01/08/20 17:34 [METOCLOPRAMIDE] MENTAL STATUS morphine [MORPHINE] Allergy Unknown ITCHING Verified 01/08/20 17:34 omega-3 fatty acids Allergy Unknown RASH Verified 01/08/20 17:34 [From OMEGA 3] oxycodone HCl [From PERCOCET] Allergy Unknown ITCHING Verified 01/08/20 17:34 paroxetine HCl [From PAXIL] Allergy Unknown RASH Verified 01/08/20 17:34 varenicline tartrate Allergy Unknown ALTERED Verified 01/08/20 17:34 [From CHANTIX] MENTAL STATUS metoclopramide HCl Allergy PT UNSURE Verified 01/08/20 17:34 [From Reglan] OF REACTION Travel/Exposure Screening - Travel/Exposure Within Last 30 Days Have you traveled within the last 30 days?: No - Travel/Exposure Within Last Year Have you traveled outside the [place] in the last year?: No - Additonal Travel/Exposure Details Have you been exposed to anyone with a communicable illness?: No - Travel Symptoms Symptom Screening: None Review of Systems Constitutional: Denies: Chills, Fever, Malaise, Weakness Eyes: Denies: Eye discharge ENT: Denies: Congestion Respiratory: Denies: Cough, Dyspnea, Hemoptysis, Wheezes Cardiovascular: Denies: Chest pain, Dyspnea on exertion Endocrine: Reports: Fatigue. Denies: Polydipsia, Polyuria Gastrointestinal: Reports: Abdominal pain, Nausea. Denies: Constipation, Diarrhea, Hematemesis, Hematochezia, Melena, Vomiting Genitourinary: Denies: Dyspareunia, Dysuria, Frequency, Retention, Urgency Musculoskeletal: Denies: Arthralgia, Back pain, Myalgia Skin: Denies: Bruising, Change in color, Rash Neurological: Denies: Headache Psychiatric: Denies: Anxiety Hematological/Lymphatic: Denies: Easy bleeding, Easy bruising Past Medical History - SOCIAL HISTORY Smoking Status: Light tobacco smoker (<10/day) Alcohol Use: None Drug Use: None - RESPIRATORY Hx Respiratory Disorders: No Hx Asthma: (Patient is being treated with Isoniazid due to receives Entyvio) Hx Bronchitis: Yes Hx COPD: Yes (denies COPD;recently diagnosed, well controlled with inhalers) Hx Pneumonia: Yes Hx Tuberculosis: No (Has had a positive TB test but does not have active TB.) Comment:: Patient is being treated with Isoniazid due to receives Entyvio. - CARDIOVASCULAR Hx Cardio Disorders: Yes Hx Abnormal EKG: Yes (r/t anxiety) Hx Cardiac Cath: Yes Hx Chest Pain: Yes (r/t anxiety) - NEURO Hx Neuro Disorders: Yes Hx Headaches: Yes (takes Buspar PRN for headaches) Hx of Migraines: Yes (benign tumur with neuro scheduled.) Hx Seizures: Yes (last seizure 12 years ago) Hx TIA: Yes (2009) - GI Hx GI Disorders: Yes Hx Abdominal Pain: Yes Hx Crohn's Disease: Yes (Diagnosed about 9 years ago; managed by Dr. Greyson Haddad) Hx Reflux: Yes Hx Hiatal Hernia: (maybe undiagnosed) Hx Nausea/Vomiting: Yes Hx Obstructive Bowel: Yes (Admitted for Crohns, ileus and possible partial bowel obstruction) Comment:: abdominal hernia - Hx Genitourinary Disorders: Yes Hx UTI: Yes Comment:: going through menopause; occasional vaginal yeast infections - ENDOCRINE Hx Endocrine Disorders: No Hx Diabetes: No Hx Thyroid Disease: No - MUSCULOSKELETAL Hx Musculoskeletal Disorders: Yes Hx Arthritis: Yes Hx Osteoporosis: Yes - PSYCH Hx Psych Problems: Yes Hx Anxiety: Yes Hx Depression: Yes Comment:: dx with bi-polar; not currently hopeless/depressed - HEMATOLOGY/ONCOLOGY Hx Hematology/Oncology Disorders: No Hx Anemia: No Hx Blood Disorders: No Hx Bruising: No Hx Cancer: No Hx Chemotherapy: No Hx Radiation Therapy: No Hx Clotting Problems: No Hx Sickle Cell Disease: No Hx Unexplained Bleeding: No Hx Blood Transfusions: No Hx Blood Transfusion Reaction: No Family Medical History Any Significant Family History?: Yes Hx Alcohol Use: Father, Children, Brother/Sister, Grandparents *Alcohol Comment: all male releatives Hx Anxiety: Father, Mother, Children, Brother/Sister, Grandparents Hx Cancer: Brother/Sister *Cancer Comment: lung cancer Hx Depression: Mother, Children, Brother/Sister Hx Diabetes: Grandparents *Diabetes Comment: grandmother Hx Heart Disease: Brother/Sister, Grandparents *Heart Comment: grandfather Hx Resp Disorders: Children, Brother/Sister *Resp Comment: daughter has asthma Hx Stroke: Mother *Stroke Comment: Mother had history of TIA x 1 Physical Exam - General General Appearance: Alert, Oriented x3, Cooperative, No acute distress Limitations: No limitations - Head Head exam: Atraumatic, Normal inspection - Eye Eye exam: Normal appearance, PERRL. negative: Conjunctival injection, Scleral icterus - ENT ENT exam: Normal exam, Mucous membranes moist Ear exam: Normal external inspection Nasal Exam: Normal inspection Mouth exam: Normal external inspection - Neck Neck exam: Normal inspection - Respiratory Respiratory exam: Normal lung sounds bilaterally. negative: Rhonchi, Stridor, Wheezes - Cardiovascular Cardiovascular Exam: Regular rate, Normal rhythm, Normal heart sounds - GI/Abdominal GI/Abdominal exam: Diminished bowel sounds, Distended (softly distended), Hypoactive bowel sounds, Tenderness (softly distended, tender diffusesly but worse in RLQ, ). negative: Normal bowel sounds, Guarding, Hyperactive bowel parveen nds, Rebound - Rectal Rectal exam: Deferred - exam: Deferred - Extremities Extremities exam: Normal inspection - Back Back exam: Denies: CVA tenderness (R), CVA tenderness (L) - Neurological Neurological exam: Alert, Oriented X3 - Psychiatric Psychiatric exam: Normal affect, Normal mood - Skin Skin exam: Dry, Intact, Normal color, Warm Course Vital Signs 01/08/20 17:28 Temperature 98.0 F Pulse Rate 99 H Respiratory 18 Rate Blood Pressure 144/85 Pulse Ox 97 - Reevaluation(s) Reevaluation #1: 01/08/20 17:48 EMR reviewed. Last ED visit was 09/2019. Last CT on that date was reviewed. SP R hemicolectomy, chronic stable dilated SB, mild thickened SB otherwise unchanged. There are [address] scans on the EMR. AAS ordered as the initial study. 01/08/20 18:07 The CBC was reviewed. No acute abnormalities. 01/08/20 18:24 The CMP was reviewed. It is normal. The Lactic Acid is normal. The Lipase is normal. 01/08/20 19:09 The XR report was reviewed. It is consistent with fecal impaction with mild to moderate large bowel distension. No small bowel distension. A rectal examination was performed. Only small amount of stool at the anus. I discussed this with the patient. MOM enema ordered 01/08/20 19:22 01/08/20 19:35 RN reports significant bowel movement with MOM enema. The patient did get symptomatic relief of the pressure feeling 01/08/20 19:52 The patient still feels significant relief. We discussed home care, reasons to return to the ED and close follow up with her PCP. She will be placed on Miralax for the next several days to ensure stools. Medical Decision Making - Lab Data Result diagrams: 01/08/20 18:00 01/08/20 18:00 Disposition Disposition: Discharge Clinical Impression: Abdominal pain, Constipation Condition: (1) Good Instructions: Constipation (ED) Additional Instructions: Review this ER visit and the tests performed with your family doctor Call your doctor for the next available follow up appointment Return to the ER for a recheck immediately if worse, any new concerns or questions Take the prescriptions provided as directed Prescriptions: Polyethylene Glycol 3350 [Miralax] 1 packet PO DAILY #15 packet Forms: Patient Portal Access Time of Disposition: 19:50 Quality - Quality Measures Quality Measures: N/A - Blood Pressure Screening Does Patient Have Any of the Following: No Blood Pressure Classification: Pre-Hypertensive BP Reading Systolic Measurement: 144 Diastolic Measurement: 85 Screening for High Blood Pressure: < Pre-Hypertensive BP, F/U Documented > [G8950] Pre-Hypertensive Follow-up Interventions: Referral to alternative/primary care provider.
[2020-01-08 18:05] LABS: BASO % 0.1 % (0-6); EOS % 4.9 % (0-6); GRAN % 47.7 % (47-80); HEMATOCRIT 39.6 % (35.0-47.0); LYMPH % 38.5 % (16-45); MEAN CELL VOLUME 92.5 fl (81-97); MEAN CORPUSCULAR HGB CONC 30.3 g/dl (32-36); MEAN PLATELET VOLUME 8.5 fl (7.4-10.4); MONO % 8.8 % (0-9); PLATELET COUNT 469 K/uL (130-400); RED BLOOD COUNT 4.28 M/uL (3.80-5.40); RED CELL DISTRIBUTION WIDTH 16.6 % (11.5-14.5); WHITE BLOOD COUNT W/O DIFF 7.8 K/uL (4.2-12.2)
[2020-01-08 18:16] LABS: BILIRUBIN,TOTAL < 0.20 mg/dL (0.2-1.0); BLOOD UREA NITROGEN 9 mg/dL (6-20); CREATININE 0.6 mg/dL (0.5-0.9); EST GLOMERULAR FILTRATION RATE > 60 mL/min; TOTAL PROTEIN 6.8 g/dL (6.6-8.7)
[2020-01-08 18:17] LABS: LIPASE 26 U/L (13-60)
[2020-01-08 18:18] LABS: GLUCOSE,RANDOM 109 mg/dL (74-109)
[2020-01-08 18:19] LABS: INR 0.9; PARTIAL THROMBOPLASTIN TIME 25.7 SECONDS (24.5-39.1); PROTHROMBIN TIME (PATIENT) 9.7 SECONDS (9.5-12.1)
[2020-01-08 18:21] LABS: ALB/GLOB RATIO 1.5 (1.1-1.8); ALBUMIN 4.1 g/dL (4.0-5.0); ALKALINE PHOSPHATASE 102 U/L (35-104); ALT/SGPT 15 U/L (<33); AST/SGOT 11 U/L (10.0-35.0)
--- NOTE | 2020-01-08 18:56 | RADIOLOGY REPORT ---
EXAMINATION: Acute Abdomen Series Complete EXAM DATE: 01/08/2020 6:40 PM TECHNIQUE: Upright and supine abdomen with frontal view chest INDICATION: abdominal pain bloating, Hx of obstructions COMPARISON: 09/15/2019 ENCOUNTER: Not applicable CHEST FINDINGS: Heart and vessels: Stable Mediastinum: Left subclavian port Lungs: Normal. Pleural space: No pleural effusion or pneumothorax. Bones: Unremarkable. ABDOMEN FINDINGS: Free Intraperitoneal Air: None. Bowel: Mild to moderate distention transverse and descending colon. Fecal impaction. No small bowel d istention Abnormal Calcifications: None. Bones: Mild eccentric change LS-spine Other Findings: None. IMPRESSION 1. No acute intrathoracic abnormality 2. Mild to moderate colonic distention with fecal impaction Dictated by: Luis M Zelaya MD on 01/08/2020 6:46 PM. .
[2020-01-08] MEDS ORDERED: LIDOCAINE UROJECT 10 ML APPL MM ONE (19:25)
[2020-01-08] MEDS ORDERED: HEPARIN SODIUM FLUSH 100 UNITS/ML SYR 5ML IVP ONE (19:41)
== END 2020-01-08 20:08 | disposition home or self-care (01) ==
LOC: ER 17:27
DX: K56.41 Fecal impaction (principal); R10.31 Right lower quadrant pain; R11.0 Nausea; F17.210 Nicotine dependence, cigarettes, uncomplicated
CPT/HCPCS: 74022; 80053; 83605; 83690; 85025; 85610; 85730; 96361; 96374; 96375; 99284; J2405; J7030